=== PATIENT | female | born 1950 | race Hispanic/Latino ===

== ENCOUNTER 2017-04-07 22:28 | Inpatient (IN) | payer MEDICARE, MEDICAID ==
[2017-04-07 22:29] VITALS: BMI 43.8
[2017-04-07] MEDS ORDERED: Sodium Chloride 0.9% 1,000 ML IV ONE ×2 (22:48)
[2017-04-07 23:07] LABS: VENOUS BLOOD GAS BASE EXCESS -1.8 mmol/L (0.0-2.0); VENOUS BLOOD GAS PCO2 65 mmHg (40-60); VENOUS BLOOD GAS PO2 33 mm/Hg (30-55); VENOUS BLOOD PH 7.23 (7.32-7.43)
[2017-04-07 23:17] LABS: INR 1.2; PROTHROMBIN TIME 13.4 SECONDS (9.7-12.2)
[2017-04-07 23:18] LABS: ALBUMIN 3.6 g/dL (3.5-5.0)
[2017-04-07 23:37] LABS: BASO # 0.1 K/uL (0.0-0.2); BASO % 0.4 % (0.0-2.0); EOS % 0.1 % (0.0-4.0); HEMOGLOBIN 14.7 g/dL (11.0-16.0); LYMPH # 1.9 K/uL (1.0-4.3); LYMPH % 7.3 % (20.0-40.0); MEAN CORPUSCULAR HEMOGLOBIN 30.5 pg (27.0-31.0); MEAN CORPUSCULAR HGB CONC 30.4 g/dL (33.0-37.0); MEAN PLATELET VOLUME 12.1 fL (7.2-11.7); MONO # 0.6 K/uL (0.0-0.8); MONO % 2.3 % (0.0-10.0); NEUT # 23.2 K/uL (1.8-7.0); NEUT % 89.9 % (50.0-75.0); NRBC % 0.1 % (0.0-2.0); PLATELET COUNT 218 K/uL (130-400); RBC 4.82 Mil/uL (3.80-5.20); RED CELL DISTRIBUTION WIDTH 14.8 % (11.5-14.5)
--- NOTE | 2017-04-07 23:40 | C.PDOC ---
History Of Present Illness Patient sent from long term with respiratory congestion, fever, hypotension and tachycardia. Patient has past history of CVA,DM,aphasia, PEG, HTN,PVD,COPD, Seizure disorder. She is not responsive at this time. She is a full DNR Time Seen by Provider: 04/07/17 22:34 Chief Complaint (Nursing): Respiratory Distress History Per: Other ([facility] record) History/Exam Limitations: clinical condition Onset/Duration Of Symptoms: Days Initiating Event: Upper Respiratory Illness Past Medical History Vital Signs: Last Vital Signs Temp 105 F H 04/07/17 22:44 Pulse 160 H 04/07/17 23:00 Resp 46 H 04/07/17 23:00 BP 115/54 L 04/07/17 23:00 Pulse Ox 100 04/07/17 23:00 - Medical History PMH: Anemia, Anxiety, COPD, CVA, Diabetes, HTN, Osteoporosis, Pneumonia, Chronic Kidney Disease, Seizures Other Surgeries: PEG - [facility] Procedures ENTERAL INFUSION OF CONCENTRATED NUT. SUBSTANCES (03/01/13) REPLACE GASTROSTOMY TUBE (07/23/13) Family History: States: Unknown Family Hx - Social History Hx Tobacco Use: No Hx Alcohol Use: No Hx Substance Use: No - Immunization History Hx Tetanus Toxoid Vaccination: No (no record) Hx Influenza Vaccination: No (no record) Hx Pneumococcal Vaccination: No (no record) Review Of Systems Review Of Systems: ROS cannot be obtained secondary to pt's inabilty to answer questions. Physical Exam - Physical Exam Appears: In Acute Distress, Chronically Ill Skin: Pale Oral Mucosa: Dry Chest: Symmetrical Cardiovascular: Rhythm Regular (tachycardic) Respiratory: Rhonchi (diffusely) Gastrointestinal/Abdominal: Bowel Sounds, Soft Extremity: Bilateral: Atraumatic, Unable To Bear Weight (bilateral foot drop) Neurological/Psych: No Response To Commands Pain Response: No Response To Pain Gait: Other (nonambulatory) ED Course And Treatment - Laboratory Results Result Diagrams: 04/07/17 23:07 Lab Interpretation: Abnormal Interpretation Of Abnormal: Na+163, glucose 700, Lactate >4, BUN 85, Cr 1.7, WBC 25 ECG: Interpreted By Mi ECG Rhythm: Sinus Tachycardia O2 Sat by Pulse Oximetry: 100 (on 100% NRB) Pulse Ox Interpretation: Normal - Radiology CXR: Interpreted by Me CXR Interpretation: Yes: Infiltrates (RML, RLL), Cardiomegaly Progress Note: Code Sepsis called and patient was treated with Normal saline 3 liters, IV amikacin and Zyvox started in ED after discussion with Dr Bradley. Reevaluation Time: 23:48 Reassessment Condition: Improved (Heart rate decreased and BP increased with IV fluids. Temp decreased to 102.9. Patient appears more responsive.) - Physician Consult Information Physician Contacted: Jocelyn Calloway Outcome Of Conversation: Patient to be admitted to Tele for sepsis. Case discussed with Dr Scott who does not feel that ICU is appropriate in the case. Disposition - Disposition Disposition: HOSPITALIZED Disposition Time: 23:49 Condition: CRITICAL - POA Present On Arrival: Poor Glycemic Control - Clinical Impression Clinical Impression: Sepsis, Hypotension
[2017-04-07 23:41] LABS: MEAN CELL VOLUME 100.1 fL (81.0-99.0); WHITE BLOOD COUNT 25.8 K/uL (4.8-10.8)
[2017-04-08 00:10] LABS: SQUAMOUS EPITHIAL 3 /hpf (0-5); URINE BACTERIA MANY (<OCC); WBC CLUMPS MANY /hpf
[2017-04-08 00:12] LABS: URINE CLARITY Turbid (Clear); URINE COLOR YELLOW (YELLOW)
[2017-04-08 00:19] LABS: URINE BILIRUBIN NEGATIVE (NEGATIVE); URINE GLUCOSE (UA) 500 mg/dL (Normal)
[2017-04-08 00:20] LABS: URINE BLOOD LARGE (NEGATIVE); URINE LEUKOCYTE ESTERASE MODERATE Leu/uL (Negative); URINE NITRATE NEGATIVE (NEGATIVE); URINE PROTEIN 30 mg/dL (NEGATIVE); URINE UROBILINOGEN 0.2 mg/dL (0.2-1.0)
[2017-04-08 00:40] LABS: BANDS 4 % (0-2); LYMPHOCYTE 9 % (20-40); NEUTROPHIL 87 % (50-75); PLATELET ESTIMATE NORMAL (NORMAL); TOTAL CELLS COUNTED 100
[2017-04-08 00:41] LABS: ANISOCYTOSIS SLIGHT; MICROCYTOSIS SLIGHT; POIKILOCYTOSIS SLIGHT; TEARDROP CELLS SLIGHT
[2017-04-08] MEDS ORDERED: Lactated Ringer's 1,000 ML IV ONE ×2 (01:23→03:00)
[2017-04-08] MEDS ORDERED: Lactated Ringer's 1,000 ML ONE (01:33)
[2017-04-08] MEDS ORDERED: (Novolin R) Insulin Human Regular 100 units/ml vial IV ONE ×2 (01:37→10:11)
[2017-04-08] MEDS ORDERED: (Novolin R) Insulin Human Regular 100 units/ml vial ONE (01:42)
--- NOTE | 2017-04-08 03:05 | CT ---
EXAM: CT Head Without Intravenous Contrast CLINICAL HISTORY: 66 years old, female; Signs and symptoms; Other: Seizure; Additional info: Sepsis, seizure, unresponsive TECHNIQUE: Axial computed tomography images of the head/brain without intravenous contrast. This CT exam was performed using one or more of the following dose reduction techniques: automated exposure control, adjustment of the mA and/or kV according to patient size, and/or use of iterative reconstruction technique. Coronal and sagittal reformatted images were created and reviewed. EXAM DATE/TIME: 04/08/2017 1:16 AM COMPARISON: No relevant prior studies available. FINDINGS: There are multiple left-sided craniotomy defects. There is a large chronic-appearing extra-axial CSF collection in the left frontal parietal regions. Encephalomalacia is present in the left frontoparietal lobes. There is dilation of the ventricles with an area of focal dilation in the frontal left lateral ventricle. No acute edema. No intracranial hemorrhage. Minimal mucosal thickening left ethmoid sinus. IMPRESSION: Left-sided chronic appearing changes as described above including craniotomy defects, extra-axial CSF collection, encephalomalacia.
[2017-04-08 03:18] LABS: EOS % 0.1 % (0.0-4.0); HEMOGLOBIN 13.5 g/dL (11.0-16.0); MEAN CORPUSCULAR HGB CONC 29.3 g/dL (33.0-37.0); RBC 4.54 Mil/uL (3.80-5.20)
[2017-04-08 03:26] LABS: ABG ALLEN TEST POS; ARTERIAL BLOOD GAS HCO3 18.6 mmol/L (21-28); ARTERIAL BLOOD GAS O2 SAT 99.3 % (95-98); ARTERIAL BLOOD GAS PCO2 48 mm/Hg (35-45); ARTERIAL BLOOD GAS PH 7.22 (7.35-7.45); ARTERIAL BLOOD GAS PO2 134 mm/Hg (80-100); ARTERIAL BLOOD GAS TCO2 21.1 mmol/L (22-28)
--- NOTE | 2017-04-08 03:36 | CT ---
EXAM: CT Abdomen and Pelvis Without Intravenous Contrast CLINICAL HISTORY: 66 years old, female; Condition or disease; Other: Sepsis TECHNIQUE: Axial computed tomography images of the abdomen and pelvis without intravenous contrast. This CT exam was performed using one or more of the following dose reduction techniques: automated exposure control, adjustment of the mA and/or kV according to patient size, and/or use of iterative reconstruction technique. Coronal and sagittal reformatted images were created and reviewed. COMPARISON: No relevant prior studies available. FINDINGS: Elevated right hemidiaphragm. Cholecystectomy clips are present. The liver, spleen, and pancreas appear grossly normal on this non-contrast study. There is a large staghorn calculi in the renal pelvis and proximal right ureter. Minimal dilation of the collecting system. There is mild bilateral perinephric stranding. Tiny nonobstructing left renal calcifications are noted. Haji catheter. Multiple calcifications are present in the urinary bladder.The wall of the urinary bladder appears thickened and indistinct possibly representing cystitis. Recommend correlation with urinalysis. Right tubal ligation clip. Bulky hyperattenuating structure along the left aspect of the uterus calcification versus postsurgical. The right and transverse colon are distended with stool consistent with constipation. Hyperattenuating objects in the cecum of uncertain etiology possible calcifications. A normal appendix is identified axial series 6 images 135 through 145, coronal images 46 through 53. Focal area of sclerosis are noted within the osseous structures. IMPRESSION: Constipation. Possible cystitis as discussed above. Calcifications within the right renal pelvis, urinary bladder, cecum. EXAM: CT Chest Without Intravenous Contrast CLINICAL HISTORY: 66 years old, female; Condition or disease; Other: Sepsis TECHNIQUE: Axial computed tomography images of the chest without intravenous contrast. This CT exam was performed using one or more of the following dose reduction techniques: automated exposure control, adjustment of the mA and/or kV according to patient size, and/or use of iterative reconstruction technique. Coronal and sagittal reformatted images were created and reviewed. EXAM DATE/TIME: 04/08/2017 1:16 AM COMPARISON: No relevant prior studies available. FINDINGS: There is consolidation occupying the majority of the right lower lung. There is a small amount of adjacent right lower lung infiltrate and a small amount of pleural fluid. Lack of intravenous contrast is somewhat limiting. Moderate-sized area infiltrated and consolidation in the left lower lung. Faint nodular 4 mm opacity left upper lung. No aortic aneurysm. IMPRESSION: Bilateral lower lung consolidation and infiltrate greater on the right. Probable small right pleural fluid.
[2017-04-08 03:59] LABS: BASO # 0.1 K/uL (0.0-0.2); BASO % 0.5 % (0.0-2.0); LYMPH # 1.8 K/uL (1.0-4.3); LYMPH % 11.2 % (20.0-40.0); MEAN CELL VOLUME 101.6 fL (81.0-99.0); MEAN CORPUSCULAR HEMOGLOBIN 29.7 pg (27.0-31.0); MEAN PLATELET VOLUME 11.6 fL (7.2-11.7); MONO % 6.7 % (0.0-10.0); NEUT # 12.8 K/uL (1.8-7.0); NEUT % 81.5 % (50.0-75.0); NRBC % 0.2 % (0.0-2.0); RED CELL DISTRIBUTION WIDTH 15.4 % (11.5-14.5); WHITE BLOOD COUNT 15.7 K/uL (4.8-10.8)
[2017-04-08] MEDS ORDERED: Insulin Human Regular 100 UNIT in Sodium Chloride 0.9% 99 ML IV SCH ×2 (04:00→10:51)
[2017-04-08 04:42] LABS: ALBUMIN 2.7 g/dL (3.5-5.0)
[2017-04-08 04:46] LABS: ALB/GLOB RATIO 0.9 (1.0-2.1); CALCIUM 7.4 mg/dl (8.6-10.4)
[2017-04-08 04:47] LABS: MAGNESIUM 2.2 mg/dL (1.6-2.3)
--- NOTE | 2017-04-08 05:56 | CP.PCM.CON ---
History of Present Illness - History of Present Illness History of Present Illness: 66 F from who had been about 2 days in the NH, h/o CVA, carniotomy on left, IDDM , s/p peg, currently has grewal, history of seizure disorder, DNR/DNI, multiple allergies as documented above was sent in for reduced responsiveness, tachypnea , tachycardia in 150's. In ER patient was febrile 105F, RR in 60s, hr initially in 160's, responsive to deep pain only, gurgling resp noises, bp in 70's systolic, patient seen after 3 lit of boluses. RR in 40's, hr in 90's BP 90/50 range. Patient was suctioned orophynx, ng used to decompress stomach as grewal in peg site was blocked, went into airway and actually able to suction airway. Initial labs showed sodium 163, creat 1.7, needing nrb 100%, glucose 747mg/dl, elevated wbc count. , insulin 5 units regular ordered by me, further lit rl bolus ordered, friedman CT ordered, repeat stat labs, fsbs as well. Patients DNR status confirmed from the PMD and [facility] orders, patient's later called in ER and was informed about condition by ER staff. Friedman CT revealed left craniotomy with encephalomalacia on the left, b/l infiltrate but right much bigger consolidation, staghorn calculus in right kidney. Repeat labs noted. Abx amikacin and zyvox stated by ID. PMH as above, at baseline patient is alert and not in distress Surg s/p craniotomy, s/p peg currently has grewal Meds reviewed from [facility] Family history not available Social history NH Resident, DNR/DNI, rest details not available Review of Systems - Review of Systems All systems: reviewed and no additional remarkable complaints except (HPI) Past Patient History - Past Medical History & Family History Past Medical History?: Yes - Past Social History Smoking Status: unresponsi Alcohol: None Drugs: Denies Home Situation {Lives}: Jail Domestic Violence: Negative - CARDIAC Hx Cardiac Disorders: Yes Hx Hypertension: Yes - PULMONARY Hx Respiratory Disorders: Yes Hx Chronic Obstructive Pulmonary Disease (COPD): Yes Hx Pneumonia: Yes - NEUROLOGICAL Hx Neurological Disorder: Yes Hx Seizures: Yes - HEENT Hx HEENT Problems: Yes Hx Cataracts: Yes Other/Comment: APHASIA - RENAL Hx Chronic Kidney Disease: Yes - ENDOCRINE/METABOLIC Hx Endocrine Disorders: Yes Hx Diabetes Mellitus Type 2: Yes - HEMATOLOGICAL/ONCOLOGICAL Hx Anemia: Yes - INTEGUMENTARY Hx Dermatological Problems: No - MUSCULOSKELETAL/RHEUMATOLOGICAL Hx Falls: No (unknown) - GASTROINTESTINAL Hx Gastrointestinal Disorders: Yes Hx Gastroesophageal Reflux: Yes - GENITOURINARY/GYNECOLOGICAL Hx Genitourinary Disorders: No - PSYCHIATRIC Hx Substance Use: No (unresponsive) - SURGICAL HISTORY Hx Surgeries: Yes Other/Comment: GASTROSTOMY - ANESTHESIA Hx Anesthesia: Yes Hx Anesthesia Reactions: No Hx Malignant Hyperthermia: No Meds Allergies/Adverse Reactions: Allergies Allergy/AdvReac Type Severity Reaction Status Date / Time aztreonam [From Azactam] Allergy Verified 10/20/16 21:32 cefepime Allergy Verified 10/20/16 21:28 moxifloxacin Allergy Verified 10/20/16 21:29 Penicillins Allergy Verified 10/20/16 21:29 tamsulosin HCl [From Flomax] Allergy Verified 10/20/16 21:30 tigecycline [From Tygacil] Allergy Verified 10/20/16 21:31 vancomycin Allergy Verified 10/20/16 21:32 pnemonia vaccine Allergy Uncoded 10/20/16 21:30 - Medications Medications: Current Medications Famotidine (Pepcid) 20 mg IVP DAILY [facility] Heparin Sodium (Porcine) (Heparin) 5,000 units SC Q8 [facility] Linezolid (Zyvox 600mg/300ml D5w) 600 mg in 300 mls @ 200 mls/hr IVPB Q12H [facility] Last Admin: 04/08/17 00:00 Dose: 200 mls/hr Insulin Human Regular 100 unit (/ Sodium Chloride) 100 mls @ 2 mls/hr IV .Q24H [facility] PRN Reason: Protocol Last Admin: 04/08/17 04:40 Dose: 8 units/hr, 8 mls/hr Sodium Chloride (Sodium Chloride 0.45%) 1,000 mls @ 150 mls/hr IV .Q6H40M [facility] Physical Exam - Additional Findings Additional findings: * Patient exhausted, tachypnic responded on deep pain and suction, repeat temp 102F * HEENT significant dental and gum disease * Neck supple * CVS regular, no murmur or gallop * Chest some improvement in ratling noise after suction with the NG tube * PA soft distended, peg/grewal no t working * Ext flacid b/l no edema, poor pulses, no acute signs of ischemia * [employer] limited due to reduced responsiveness. * Skin dry after 3 lit boluses Results - Vital Signs Recent Vital Signs: Last Vital Signs Temp 101.7 F H 04/08/17 02:41 Pulse 110 H 04/08/17 02:41 Resp 33 H 04/08/17 03:00 BP 94/90 L 04/08/17 02:41 Pulse Ox 100 04/08/17 03:00 - Labs Result Diagrams: 04/08/17 03:12 04/08/17 03:50 Labs: Laboratory Results - last 24 hr 04/08/17 04/08/17 04/08/17 01:36 03:10 03:12 WBC 15.7 H RBC 4.54 Hgb 13.5 Hct 46.1 MCV 101.6 H MCH 29.7 MCHC 29.3 L RDW 15.4 H Plt Count 93 L D MPV 11.6 Neut % (Auto) 81.5 H Lymph % (Auto) 11.2 L Ward % (Auto) 6.7 Eos % (Auto) 0.1 Baso % (Auto) 0.5 Neut # 12.8 H Lymph # 1.8 Ward # 1.0 H Eos # 0.0 Baso # 0.1 Differential Comment Puncture Site Rradial pCO2 48 H pO2 134 H HCO3 18.6 L ABG pH 7.22 L ABG Total CO2 21.1 L ABG O2 Saturation 99.3 H ABG Base Excess -8.2 L Steffen Test Pos ABG Potassium 3.8 A-a O2 Difference 502.0 Respiratory Index 3.4 Sodium 162.0 H* Chloride 128.0 H Glucose 603 H* Lactate 3.4 H Liter Flow 15.0 FiO2 100.0 Crit Value Called To Dr. ying Crit Value Called By Chetna pagan rcp Crit Value Read Back Y Blood Gas Notified Time 325 Potassium Carbon Dioxide Anion Gap BUN Creatinine Est GFR ( Amer) Est GFR (Non-Af Amer) POC Glucose (mg/dL) > 500 H* Random Glucose Calcium Phosphorus Magnesium Total Bilirubin AST ALT Alkaline Phosphatase Total Protein Albumin Globulin Albumin/Globulin Ratio Arterial Blood Potassium 3.8 07/03/17 07/03/17 03:19 03:50 WBC RBC Hgb Hct MCV MCH MCHC RDW Plt Count MPV Neut % (Auto) Lymph % (Auto) Ward % (Auto) Eos % (Auto) Baso % (Auto) Neut # Lymph # Ward # Eos # Baso # Differential Comment Puncture Site pCO2 pO2 HCO3 ABG pH ABG Total CO2 ABG O2 Saturation ABG Base Excess Steffen Test ABG Potassium A-a O2 Difference Respiratory Index Sodium 161 H* Chloride 126 H Glucose Lactate Liter Flow FiO2 Crit Value Called To Crit Value Called By Crit Value Read Back Blood Gas Notified Time Potassium 3.8 Carbon Dioxide 21 L Anion Gap 18 BUN 70 H Creatinine 1.3 H Est GFR ( Amer) 49 Est GFR (Non-Af Amer) 41 POC Glucose (mg/dL) 461 H* Random Glucose 588 H* D Calcium 7.4 L Phosphorus 3.0 Magnesium 2.2 Total Bilirubin 0.6 AST 18 ALT 48 Alkaline Phosphatase 59 Total Protein 5.7 L Albumin 2.7 L D Globulin 3.0 Albumin/Globulin Ratio 0.9 L Arterial Blood Potassium Assessment & Plan - Assessment and Plan (Free Text) Assessment: * Sepsis sources PNA r>l, DD staghorn right kid calulus, bacterimia, secondary aspiration post seizure * HNKH with serum osm 398, with hypernatremia, hyperglycemia * DNR/DNI with completed dependence from prior strokes, left encephalomacia, craniotomy, s/p grewal for peg * Plan: * Fluid resuscitation * NRB, avoid bipap due to aspiration * NPO * Abx broad spectrum ordered by ID, Amikacin and zyvox * Insulin drip started * Hypotonic fluid for severe hypernatremia after initial fluid resuscitation * GI/DVT prophylaxis * DNR/DNI * See orders for detail.
[2017-04-08] MEDS: Sodium Chloride 0.45% 1,000 ML IV SCH ×4 (06:15→22:21)
--- NOTE | 2017-04-08 07:18 | CP.PCM.PN ---
Objective - Vital Signs/Intake and Output Vital Signs (last 24 hours): Temp Pulse Resp BP Pulse Ox 102 F H 88 20 101/50 L 99 04/08/17 03:00 04/08/17 07:13 04/08/17 07:13 04/08/17 07:13 04/08/17 07:13 Intake and Output: 04/08/17 04/08/17 06:59 18:59 Intake Total 4600 Output Total 300 Balance 4300 - Medications Medications: Current Medications Famotidine (Pepcid) 20 mg IVP DAILY [facility] Heparin Sodium (Porcine) (Heparin) 5,000 units SC Q8 [facility] Last Admin: 04/08/17 06:10 Dose: 5,000 units Linezolid (Zyvox 600mg/300ml D5w) 600 mg in 300 mls @ 200 mls/hr IVPB Q12H [facility] Last Admin: 04/08/17 00:00 Dose: 200 mls/hr Insulin Human Regular 100 unit (/ Sodium Chloride) 100 mls @ 2 mls/hr IV .Q24H [facility] PRN Reason: Protocol Last Admin: 04/08/17 04:40 Dose: 8 units/hr, 8 mls/hr Sodium Chloride (Sodium Chloride 0.45%) 1,000 mls @ 150 mls/hr IV .Q6H40M [facility] Last Admin: 04/08/17 06:15 Dose: 150 mls/hr - Labs Labs: 04/08/17 03:12 04/08/17 03:50 PT 13.4 SECONDS (9.7-12.2) H 04/07/17 23:07 INR 1.2 04/07/17 23:07 APTT 47 SECONDS (21-34) H 04/07/17 23:07
--- NOTE | 2017-04-08 07:22 | CP.CCUPN ---
<Sarah Barrow - Last Filed: 04/08/17 12:06> CCU Subjective - Physician Review Subjective (Free Text): 04/08/17 12:06 Patient examined at bedside in the AM. Per patient's altered mental status which is unresponsive could not subjectively access. 04/08/17 12:34 CCU Objective - Vital Signs / Intake & Output Vital Signs (Last 4 hours): Vital Signs Pulse Resp BP Pulse Ox 04/08/17 07:13 88 20 101/50 L 99 04/08/17 07:10 88 30 H 99 04/08/17 07:00 88 32 H 98 04/08/17 06:50 88 30 H 99 04/08/17 06:45 98 H 30 H 98 Intake and Output (Last 8hrs): Intake & Output 04/07/17 04/08/17 04/08/17 22:59 06:59 14:59 Intake Total 4600 Output Total 300 Balance 4300 Intake: IV 4500 Intake, IV Amount 100 Right Wrist 100 Output: Urine 300 Urethral (Grewal) 200 Stool 0 Other: Voiding Method Indwelling Catheter - Physical Exam Physical Exam Limitations: Positive for: Altered Mental Status Head: Positive for: Normocephalic Cardiovascular: Positive for: Regular Rate and Rhythm, Normal S1, S2 Abdomen: Positive for: Distention, Normal Bowel Sounds Skin: Positive for: Warm Psychiatric: Negative for: Alert, Oriented x 3 - Medications Active Medications: Active Medications Generic Name Dose Route Start Last Admin Trade Name Freq PRN Reason Stop Dose Admin Famotidine 20 mg 04/08/17 10:00 Pepcid IVP DAILY SALINA Heparin Sodium (Porcine) 5,000 units 04/08/17 06:00 04/08/17 06:10 Heparin SC 5,000 units Q8 SALINA Administration Linezolid 600 mg in 300 mls @ 200 mls/hr 04/08/17 00:00 04/08/17 00:00 Zyvox 600mg/300ml D5w IVPB 200 mls/hr Q12H SALINA Administration Insulin Human Regular 100 unit 100 mls @ 2 mls/hr 04/08/17 04:00 04/08/17 04: 40 / Sodium Chloride IV 8 units/hr .Q24H SALINA 8 mls/hr Protocol Administration Sodium Chloride 1,000 mls @ 150 mls/hr 04/08/17 05:30 04/08/17 06:15 Sodium Chloride 0.45% IV 150 mls/hr .Q6H40M SALINA Administration - Patient Studies Lab Studies: Lab Studies 04/08/17 04/08/17 04/08/17 Range/Units 06:49 06:01 03:50 WBC (4.8-10.8) K/uL RBC (3.80-5.20) Mil/uL Hgb (11.0-16.0) g/dL Hct (34.0-47.0) % MCV (81.0-99.0) fL MCH (27.0-31.0) pg MCHC (33.0-37.0) g/dL RDW (11.5-14.5) % Plt Count (130-400) K/uL MPV (7.2-11.7) fL Neut % (Auto) (50.0-75.0) % Lymph % (Auto) (20.0-40.0) % Brewster % (Auto) (0.0-10.0) % Eos % (Auto) (0.0-4.0) % Baso % (Auto) (0.0-2.0) % Neut # (1.8-7.0) K/uL Lymph # (1.0-4.3) K/uL Brewster # (0.0-0.8) K/uL Eos # (0.0-0.7) K/uL Baso # (0.0-0.2) K/uL Differential Comment Puncture Site pCO2 (35-45) mm/Hg pO2 (80-100) mm/Hg HCO3 (21-28) mmol/L ABG pH (7.35-7.45) ABG Total CO2 (22-28) mmol/L ABG O2 Saturation (95-98) % ABG Base Excess (-2.0-3.0) mmol/L Steffen Test ABG Potassium (3.6-5.2) mmol/L A-a O2 Difference mm/Hg Respiratory Index Sodium 161 H* (132-148) mmol/l Chloride 126 H (98-107) mmol/L Glucose (65-105) mg/dl Lactate (0.7-2.1) mmol/L Liter Flow FiO2 % Crit Value Called To Crit Value Called By Crit Value Read Back Blood Gas Notified Time Potassium 3.8 (3.6-5.2) mmol/L Carbon Dioxide 21 L (22-30) mmol/L Anion Gap 18 (10-20) BUN 70 H (7-17) mg/dL Creatinine 1.3 H (0.7-1.2) MG/DL Est GFR ( Amer) 49 Est GFR (Non-Af Amer) 41 POC Glucose (mg/dL) > 500 H* 471 H* (65-110) mg/dL Random Glucose 588 H* D (65-105) mg/dL Calcium 7.4 L (8.6-10.4) mg/dl Phosphorus 3.0 (2.5-4.5) mg/dL Magnesium 2.2 (1.6-2.3) mg/dL Total Bilirubin 0.6 (0.2-1.3) mg/dL AST 18 (14-36) U/L ALT 48 (9-52) U/L Alkaline Phosphatase 59 (38-126) U/L Total Protein 5.7 L (6.3-8.3) g/dL Albumin 2.7 L D (3.5-5.0) g/dL Globulin 3.0 (2.2-3.9) gm/dL Albumin/Globulin Ratio 0.9 L (1.0-2.1) Arterial Blood Potassium (3.6-5.2) mmol/L 04/08/17 04/08/17 04/08/17 Range/Units 03:19 03:12 03:10 WBC 15.7 H (4.8-10.8) K/uL RBC 4.54 (3.80-5.20) Mil/uL Hgb 13.5 (11.0-16.0) g/dL Hct 46.1 (34.0-47.0) % MCV 101.6 H (81.0-99.0) fL MCH 29.7 (27.0-31.0) pg MCHC 29.3 L (33.0-37.0) g/dL RDW 15.4 H (11.5-14.5) % Plt Count 93 L D (130-400) K/uL MPV 11.6 (7.2-11.7) fL Neut % (Auto) 81.5 H (50.0-75.0) % Lymph % (Auto) 11.2 L (20.0-40.0) % Brewster % (Auto) 6.7 (0.0-10.0) % Eos % (Auto) 0.1 (0.0-4.0) % Baso % (Auto) 0.5 (0.0-2.0) % Neut # 12.8 H (1.8-7.0) K/uL Lymph # 1.8 (1.0-4.3) K/uL Brewster # 1.0 H (0.0-0.8) K/uL Eos # 0.0 (0.0-0.7) K/uL Baso # 0.1 (0.0-0.2) K/uL Differential Comment Puncture Site Rradial pCO2 48 H (35-45) mm/Hg pO2 134 H (80-100) mm/Hg HCO3 18.6 L (21-28) mmol/L ABG pH 7.22 L (7.35-7.45) ABG Total CO2 21.1 L (22-28) mmol/L ABG O2 Saturation 99.3 H (95-98) % ABG Base Excess -8.2 L (-2.0-3.0) mmol/L Steffen Test Pos ABG Potassium 3.8 (3.6-5.2) mmol/L A-a O2 Difference 502.0 mm/Hg Respiratory Index 3.4 Sodium 162.0 H* (132-148) mmol/l Chloride 128.0 H (98-107) mmol/L Glucose 603 H* (65-105) mg/dl Lactate 3.4 H (0.7-2.1) mmol/L Liter Flow 15.0 FiO2 100.0 % Crit Value Called To Dr. ying Crit Value Called By Chetna pagan rcp Crit Value Read Back Y Blood Gas Notified Time 325 Potassium (3.6-5.2) mmol/L Carbon Dioxide (22-30) mmol/L Anion Gap (10-20) BUN (7-17) mg/dL Creatinine (0.7-1.2) MG/DL Est GFR ( Amer) Est GFR (Non-Af Amer) POC Glucose (mg/dL) 461 H* (65-110) mg/dL Random Glucose (65-105) mg/dL Calcium (8.6-10.4) mg/dl Phosphorus (2.5-4.5) mg/dL Magnesium (1.6-2.3) mg/dL Total Bilirubin (0.2-1.3) mg/dL AST (14-36) U/L ALT (9-52) U/L Alkaline Phosphatase (38-126) U/L Total Protein (6.3-8.3) g/dL Albumin (3.5-5.0) g/dL Globulin (2.2-3.9) gm/dL Albumin/Globulin Ratio (1.0-2.1) Arterial Blood Potassium 3.8 (3.6-5.2) mmol/L 04/08/17 Range/Units 01:36 WBC (4.8-10.8) K/uL RBC (3.80-5.20) Mil/uL Hgb (11.0-16.0) g/dL Hct (34.0-47.0) % MCV (81.0-99.0) fL MCH (27.0-31.0) pg MCHC (33.0-37.0) g/dL RDW (11.5-14.5) % Plt Count (130-400) K/uL MPV (7.2-11.7) fL Neut % (Auto) (50.0-75.0) % Lymph % (Auto) (20.0-40.0) % Brewster % (Auto) (0.0-10.0) % Eos % (Auto) (0.0-4.0) % Baso % (Auto) (0.0-2.0) % Neut # (1.8-7.0) K/uL Lymph # (1.0-4.3) K/uL Brewster # (0.0-0.8) K/uL Eos # (0.0-0.7) K/uL Baso # (0.0-0.2) K/uL Differential Comment Puncture Site pCO2 (35-45) mm/Hg pO2 (80-100) mm/Hg HCO3 (21-28) mmol/L ABG pH (7.35-7.45) ABG Total CO2 (22-28) mmol/L ABG O2 Saturation (95-98) % ABG Base Excess (-2.0-3.0) mmol/L Steffen Test ABG Potassium (3.6-5.2) mmol/L A-a O2 Difference mm/Hg Respiratory Index Sodium (132-148) mmol/l Chloride (98-107) mmol/L Glucose (65-105) mg/dl Lactate (0.7-2.1) mmol/L Liter Flow FiO2 % Crit Value Called To Crit Value Called By Crit Value Read Back Blood Gas Notified Time Potassium (3.6-5.2) mmol/L Carbon Dioxide (22-30) mmol/L Anion Gap (10-20) BUN (7-17) mg/dL Creatinine (0.7-1.2) MG/DL Est GFR ( Amer) Est GFR (Non-Af Amer) POC Glucose (mg/dL) > 500 H* (65-110) mg/dL Random Glucose (65-105) mg/dL Calcium (8.6-10.4) mg/dl Phosphorus (2.5-4.5) mg/dL Magnesium (1.6-2.3) mg/dL Total Bilirubin (0.2-1.3) mg/dL AST (14-36) U/L ALT (9-52) U/L Alkaline Phosphatase (38-126) U/L Total Protein (6.3-8.3) g/dL Albumin (3.5-5.0) g/dL Globulin (2.2-3.9) gm/dL Albumin/Globulin Ratio (1.0-2.1) Arterial Blood Potassium (3.6-5.2) mmol/L Laboratory Results - last 24 hr 04/08/17 04/08/17 04/08/17 01:36 03:10 03:12 WBC 15.7 H RBC 4.54 Hgb 13.5 Hct 46.1 MCV 101.6 H MCH 29.7 MCHC 29.3 L RDW 15.4 H Plt Count 93 L D MPV 11.6 Neut % (Auto) 81.5 H Lymph % (Auto) 11.2 L Brewster % (Auto) 6.7 Eos % (Auto) 0.1 Baso % (Auto) 0.5 Neut # 12.8 H Lymph # 1.8 Brewster # 1.0 H Eos # 0.0 Baso # 0.1 Differential Comment Puncture Site Rradial pCO2 48 H pO2 134 H HCO3 18.6 L ABG pH 7.22 L ABG Total CO2 21.1 L ABG O2 Saturation 99.3 H ABG Base Excess -8.2 L Steffen Test Pos ABG Potassium 3.8 A-a O2 Difference 502.0 Respiratory Index 3.4 Sodium 162.0 H* Chloride 128.0 H Glucose 603 H* Lactate 3.4 H Liter Flow 15.0 FiO2 100.0 Crit Value Called To Dr. ying Crit Value Called By Chetna pagan rcp Crit Value Read Back Y Blood Gas Notified Time 325 Potassium Carbon Dioxide Anion Gap BUN Creatinine Est GFR ( Amer) Est GFR (Non-Af Amer) POC Glucose (mg/dL) > 500 H* Random Glucose Calcium Phosphorus Magnesium Total Bilirubin AST ALT Alkaline Phosphatase Total Protein Albumin Globulin Albumin/Globulin Ratio Arterial Blood Potassium 3.8 04/08/17 04/08/17 04/08/17 03:19 03:50 06:01 WBC RBC Hgb Hct MCV MCH MCHC RDW Plt Count MPV Neut % (Auto) Lymph % (Auto) Brewster % (Auto) Eos % (Auto) Baso % (Auto) Neut # Lymph # Brewster # Eos # Baso # Differential Comment Puncture Site pCO2 pO2 HCO3 ABG pH ABG Total CO2 ABG O2 Saturation ABG Base Excess Steffen Test ABG Potassium A-a O2 Difference Respiratory Index Sodium 161 H* Chloride 126 H Glucose Lactate Liter Flow FiO2 Crit Value Called To Crit Value Called By Crit Value Read Back Blood Gas Notified Time Potassium 3.8 Carbon Dioxide 21 L Anion Gap 18 BUN 70 H Creatinine 1.3 H Est GFR ( Amer) 49 Est GFR (Non-Af Amer) 41 POC Glucose (mg/dL) 461 H* 471 H* Random Glucose 588 H* D Calcium 7.4 L Phosphorus 3.0 Magnesium 2.2 Total Bilirubin 0.6 AST 18 ALT 48 Alkaline Phosphatase 59 Total Protein 5.7 L Albumin 2.7 L D Globulin 3.0 Albumin/Globulin Ratio 0.9 L Arterial Blood Potassium 04/08/17 06:49 WBC RBC Hgb Hct MCV MCH MCHC RDW Plt Count MPV Neut % (Auto) Lymph % (Auto) Brewster % (Auto) Eos % (Auto) Baso % (Auto) Neut # Lymph # Brewster # Eos # Baso # Differential Comment Puncture Site pCO2 pO2 HCO3 ABG pH ABG Total CO2 ABG O2 Saturation ABG Base Excess Steffen Test ABG Potassium A-a O2 Difference Respiratory Index Sodium Chloride Glucose Lactate Liter Flow FiO2 Crit Value Called To Crit Value Called By Crit Value Read Back Blood Gas Notified Time Potassium Carbon Dioxide Anion Gap BUN Creatinine Est GFR ( Amer) Est GFR (Non-Af Amer) POC Glucose (mg/dL) > 500 H* Random Glucose Calcium Phosphorus Magnesium Total Bilirubin AST ALT Alkaline Phosphatase Total Protein Albumin Globulin Albumin/Globulin Ratio Arterial Blood Potassium EKG/Cardiology Studies: Cardiology / EKG Studies 04/08/17 00:08 EKG [ELECTROCARDIOGRAM] Stat Comment: Mode Of Transportation: BED Reason For Exam: bed 6 Fingerstick Blood Sugar Results: 461 Assessment/Plan - Assessment and Plan (Free Text) Assessment: 66 Female from who had been about 2 days in the [place], history of CVA, carniotomy on left, IDDM, s/p peg, currently has grewal, history of seizure disorder, DNR/ DNI, multiple allergies as documented above was sent in for reduced responsiveness, tachypnea, tachycardia in 150's. Plan: Neuro: - Unresponsive - Head CT 04/08/17: Left sided chronic appearing changes as described above including craniotomy defects, extra-axial CSF collection, encephalomalacia. Pulm: Chest X-ray 04/07/17: Elevated right hemidiaphragm. Patchy consolidative markings at the right lung base. Right hilar prominence. Chest Abdomen/Pelvis CT 04/08/17: Bilateral lower lung consolidation and infiltrate greater on the right. Heme: H/H (04/08): 13.3/46.1 Renal: BUN/Cr (04/08/17): 70/1.3; BUN/Cr (04/07/17): 85/1.7 Endo: History of Diabetes - Insulin Glargine 20 units SC Q12 SALINA - Insulin Sliding Scale - Monitor GI: - Pepcid 20mg PO daily ID: - ID Consult: Dr. Bradley - Linezolid 600mg in 300mls at 200 mls/hr IVPB Q12 - Urine Analysis (04/07/17): many WBCs, many bacteria, moderate leukocyte esterase - f/u Amikacin - f/u blood culture - f/u urine culture - f/u MRSA Screen MSK: Right forearm fracture Wrist X-ray 04/05/17: Close reduction comminuted distal radial fracture and ulnar styloid process fracture. Maxillofacial without contrast 04/05/17: Significant right sided-facial soft tissue swelling. No definitive evidence of right-sided facial fractures seen. Minor mucosal thickening right maxillary antrum. The mandible appears intact. Ortho Consult Dr. Dumas DVT proph - SCDs, Heparin 5000u sc q12 GI proph - Pepcid 20mg PO daily PT/OT Speech Therapy Code status - DNR/DNI Case discussed with Dr. Sonia Barrow PGY-1 <Dwight Scott - Last Filed: 04/15/17 19:32> CCU Objective - Vital Signs / Intake & Output Vital Signs (Last 4 hours): Vital Signs Temp Pulse Resp BP Pulse Ox 04/15/17 16:33 99.9 F H 96 H 21 94/60 L 99 Intake and Output (Last 8hrs): Intake & Output 04/15/17 04/15/17 04/15/17 06:59 14:59 22:59 Intake Total 1200 Balance 1200 Intake: Intake, IV Amount 800 Right Antecubital 800 Tube Feeding 400 Other: # Bowel Movements 3 - Medications Active Medications: Active Medications Generic Name Dose Route Start Last Admin Trade Name Freq PRN Reason Stop Dose Admin Acetaminophen 650 mg 04/12/17 11:00 04/13/17 08:42 Tylenol 650mg/20.3ml Solution Ud PO 650 mg Q6 PRN Administration Temperature Famotidine 20 mg 04/09/17 10:00 04/15/17 10:40 Pepcid PO 20 mg DAILY SALINA Administration Metronidazole 500 mg in 100 mls @ 100 mls/hr 04/13/17 06:00 04/15/17 14:26 Flagyl IVPB 100 mls/hr Q8 SALINA Administration Trimethoprim/Sulfamethoxazole 250 mls @ 125 mls/hr 04/14/17 03:30 04/15/17 16 :30 240 mg/ Dextrose IVPB 125 mls/hr Q12H SALINA Administration Dextrose 1,000 mls @ 100 mls/hr 04/14/17 22:30 04/15/17 18:45 Dextrose 5% In Water 1000 Ml IV Not Given .Q10H SALINA Insulin Glargine 20 unit 04/08/17 10:15 04/15/17 10:40 Lantus SC 20 units Q12 SALINA Administration Insulin Human Regular 0 unit 04/11/17 16:30 04/15/17 18:43 Novolin R SC 8 unit ACHS SALINA Administration Protocol Mupirocin 0.5 gm 04/10/17 18:00 04/15/17 19:21 Bactroban 2% Nasal BHARATH 04/17/17 18:01 0.5 gm BID SALINA Administration Oxcarbazepine 450 mg 04/09/17 10:00 04/15/17 10:40 Trileptal PEG 450 mg DAILY SALINA Administration Potassium Chloride 20 meq 04/13/17 12:45 04/15/17 10:39 Potassium Chloride Oral Soln PO 04/16/17 12:46 20 meq DAILY SALINA Administration Topiramate 100 mg 04/08/17 18:00 04/15/17 19:04 Topamax PEG 100 mg BID SALINA Administration - Patient Studies Lab Studies: Microbiology Studies 04/11/17 06:00 Urine Culture - Final Urine,Catheterized Proteus Mirabilis Lab Studies 04/15/17 04/15/17 04/15/17 Range/Units 17:14 17:13 12:21 Sodium 147 (132-148) mmol/L Potassium 3.9 (3.6-5.2) mmol/L Chloride 115 H (98-107) mmol/L Carbon Dioxide 22 (22-30) mmol/L Anion Gap 14 (10-20) BUN 52 H (7-17) mg/dL Creatinine 1.2 (0.7-1.2) MG/DL Est GFR ( Amer) 54 Est GFR (Non-Af Amer) 45 POC Glucose (mg/dL) 352 H 300 H (65-110) mg/dL Random Glucose 395 H (65-105) mg/dL Calcium 7.4 L (8.6-10.4) mg/dl 04/15/17 04/14/17 04/14/17 Range/Units 06:33 22:16 20:35 Sodium 162 H* (132-148) mmol/L Potassium 3.2 L (3.6-5.2) mmol/L Chloride 121 H (98-107) mmol/L Carbon Dioxide 29 (22-30) mmol/L Anion Gap 15 (10-20) BUN 53 H (7-17) mg/dL Creatinine 1.3 H (0.7-1.2) MG/DL Est GFR ( Amer) 49 Est GFR (Non-Af Amer) 41 POC Glucose (mg/dL) 316 H 227 H (65-110) mg/dL Random Glucose 267 H (65-105) mg/dL Calcium 8.4 L (8.6-10.4) mg/dl Laboratory Results - last 24 hr 04/14/17 04/14/17 04/15/17 20:35 22:16 06:33 Sodium 162 H* Potassium 3.2 L Chloride 121 H Carbon Dioxide 29 Anion Gap 15 BUN 53 H Creatinine 1.3 H Est GFR ( Amer) 49 Est GFR (Non-Af Amer) 41 POC Glucose (mg/dL) 227 H 316 H Random Glucose 267 H Calcium 8.4 L 04/15/17 04/15/17 04/15/17 12:21 17:13 17:14 Sodium 147 Potassium 3.9 Chloride 115 H Carbon Dioxide 22 Anion Gap 14 BUN 52 H Creatinine 1.2 Est GFR ( Amer) 54 Est GFR (Non-Af Amer) 45 POC Glucose (mg/dL) 300 H 352 H Random Glucose 395 H Calcium 7.4 L Attending/Attestation - Attestation I have personally seen and examined this patient.: Yes I have fully participated in the care of the patient.: Yes I have reviewed all pertinent clinical information: Yes Notes (Text): 04/15/17 19:32 agree with above note during rounds in the am pt was examined and clinical decision was made and discussed with icu team
[2017-04-08] MEDS: (Lantus) Insulin Glargine, Recombinant SC SCH ×2 (10:17→22:19)
--- NOTE | 2017-04-08 10:21 | RAD ---
HISTORY: Sepsis Patient COMPARISON: 07/23/2013 FINDINGS: LUNGS: Elevated right hemidiaphragm. Patchy consolidative markings at the right lung base. Right hilar prominence. PLEURA: As above. CARDIOVASCULAR: Cardiomegaly. Calcification at the aortic knob. OSSEOUS STRUCTURES: Degenerative changes in the spine and shoulders. VISUALIZED UPPER ABDOMEN: Surgical clips in the right upper abdomen. OTHER FINDINGS: None. IMPRESSION: Elevated right hemidiaphragm. Patchy consolidative markings at the right lung base. Right hilar prominence.
[2017-04-08] MEDS: Linezolid 600 mg in D5W 300 ml 600 MG/300 ML BAG IVPB SCH ×2 (11:36)
--- NOTE | 2017-04-08 12:11 | CP.PCM.CON ---
History of Present Illness - History of Present Illness History of Present Illness: INFECTIOUS DISEASE CONSULT; HPI; 66 F from who had been about 2 days in the NH, h/o CVA, carniotomy on left, IDDM , s/p PEG, currently has grewal, history of seizure disorder, DNR/DNI, multiple allergies as documented above was sent in for reduced responsiveness, tachypnea , tachycardia in 150's. In ER patient was febrile 105F, RR in 60s, hr initially in 160's, responsive to deep pain only, gurgling resp noises, bp in 70's syst. Initial labs showed sodium 169, creat 1.7, needing nrb 100%, glucose 747mg/dl, elevated WBC 25.0,SERUM LACTATE OF 4.6. [place] CT revealed left craniotomy with encephalomalacia on the left, b/l infiltrate but right much bigger consolidation, staghorn calculus in right kidney. Repeat labs noted. HISTORY OBTAINED MAINLY FROM THE CHART PATIENT UNABLE TO BE AROUSED. DISCUSSED WITH THE ER PHYSICIAN,PATIENT WITH MULTIPLE ALLERGIES,PATIENT STARTED ON iv AMIKACIN 1 G ONCE AND zYVOX 400 MG EVERY 12 HOURLY . NOTED THIS MORNING, PATIENT WHITE COUNTIMPROVED TO 15.7 WITH SODIUM PRESENTLY OF 161.PATIENT NOT ON ANY VASOPRESSORS AND MINIMALLY RESPONSIVE TO VERBAL STIMULI. pATIENT PRESENTLY WITH A VENTIMASK. PMH as above, at baseline patient is alert and not in distress Surg s/p craniotomy, s/p peg currently has grewal Meds reviewed from [place] Family history not available Social history [place] Resident, DNR/DNI, rest details not available Review of Systems - Review of Systems Systems not reviewed;Unavailable: Altered Mental Status Review of Systems: ON VENTIMASK - Constitutional Constitutional: Fever Past Patient History - Past Medical History & Family History Past Medical History?: Yes - Past Social History Smoking Status: unresponsi Alcohol: None Drugs: Denies Home Situation {Lives}: Care Home Domestic Violence: Negative - CARDIAC Hx Cardiac Disorders: Yes Hx Hypertension: Yes - PULMONARY Hx Respiratory Disorders: Yes Hx Chronic Obstructive Pulmonary Disease (COPD): Yes Hx Pneumonia: Yes - NEUROLOGICAL Hx Neurological Disorder: Yes Hx Seizures: Yes - HEENT Hx HEENT Problems: Yes Hx Cataracts: Yes Other/Comment: APHASIA - RENAL Hx Chronic Kidney Disease: Yes - ENDOCRINE/METABOLIC Hx Endocrine Disorders: Yes Hx Diabetes Mellitus Type 2: Yes - HEMATOLOGICAL/ONCOLOGICAL Hx Anemia: Yes - INTEGUMENTARY Hx Dermatological Problems: No - MUSCULOSKELETAL/RHEUMATOLOGICAL Hx Falls: No (unknown) - GASTROINTESTINAL Hx Gastrointestinal Disorders: Yes Hx Gastroesophageal Reflux: Yes - GENITOURINARY/GYNECOLOGICAL Hx Genitourinary Disorders: No - PSYCHIATRIC Hx Substance Use: No (unresponsive) - SURGICAL HISTORY Hx Surgeries: Yes Other/Comment: GASTROSTOMY - ANESTHESIA Hx Anesthesia: Yes Hx Anesthesia Reactions: No Hx Malignant Hyperthermia: No Meds Allergies/Adverse Reactions: Allergies Allergy/AdvReac Type Severity Reaction Status Date / Time aztreonam [From Azactam] Allergy Verified 10/20/16 21:32 cefepime Allergy Verified 10/20/16 21:28 moxifloxacin Allergy Verified 10/20/16 21:29 Penicillins Allergy Verified 10/20/16 21:29 tamsulosin HCl [From Flomax] Allergy Verified 10/20/16 21:30 tigecycline [From Tygacil] Allergy Verified 10/20/16 21:31 vancomycin Allergy Verified 10/20/16 21:32 pnemonia vaccine Allergy Uncoded 10/20/16 21:30 - Medications Medications: Current Medications Famotidine (Pepcid) 20 mg IVP DAILY [facility] Last Admin: 04/08/17 09:48 Dose: 20 mg Heparin Sodium (Porcine) (Heparin) 5,000 units SC Q8 [facility] Last Admin: 04/08/17 06:10 Dose: 5,000 units Linezolid (Zyvox 600mg/300ml D5w) 600 mg in 300 mls @ 200 mls/hr IVPB Q12H [facility] Last Admin: 04/08/17 11:36 Dose: 200 mls/hr Sodium Chloride (Sodium Chloride 0.45%) 1,000 mls @ 150 mls/hr IV .Q6H40M [facility] Last Admin: 04/08/17 06:15 Dose: 150 mls/hr Insulin Human Regular 100 unit (/ Sodium Chloride) 100 mls @ 2 mls/hr IV .Q24H [facility] PRN Reason: Protocol Last Admin: 04/08/17 11:00 Dose: 2 mls/hr, 2 mls/hr Insulin Glargine (Lantus) 20 unit SC Q12 [facility] Last Admin: 04/08/17 10:17 Dose: 20 units Physical Exam - Constitutional Appears: No Acute Distress, Unkempt - Head Exam Head Exam: NORMAL INSPECTION - Eye Exam Eye Exam: PERRL - ENT Exam ENT Exam: Mucous Membranes Dry - Neck Exam Neck exam: Positive for: Normal Inspection - Respiratory Exam Respiratory Exam: Rhonchi (BILATERAL RHONCHI.) - Cardiovascular Exam Cardiovascular Exam: Tachycardia, REGULAR RHYTHM, +S1, +S2 - GI/Abdominal Exam GI & Abdominal Exam: Normal Bowel Sounds, Soft (+VE PEG IN PLACE.). absent: Guarding - Extremities Exam Extremities exam: Positive for: pedal edema (1+), pedal pulses present ( BILATERAL FOOT DROP.). Negative for: calf tenderness - Skin Skin Exam: Dry, Pallor Results - Vital Signs Recent Vital Signs: Last Vital Signs Temp 99.1 F 04/08/17 11:51 Pulse 84 04/08/17 11:10 Resp 15 04/08/17 11:10 BP 95/32 L 04/08/17 10:21 Pulse Ox 100 04/08/17 11:51 - Labs Result Diagrams: 04/08/17 03:12 04/08/17 03:50 Labs: Laboratory Results - last 24 hr 04/08/17 04/08/17 04/08/17 01:36 03:10 03:12 WBC 15.7 H RBC 4.54 Hgb 13.5 Hct 46.1 MCV 101.6 H MCH 29.7 MCHC 29.3 L RDW 15.4 H Plt Count 93 L D MPV 11.6 Neut % (Auto) 81.5 H Lymph % (Auto) 11.2 L [place] % (Auto) 6.7 Eos % (Auto) 0.1 Baso % (Auto) 0.5 Neut # 12.8 H Lymph # 1.8 [place] # 1.0 H Eos # 0.0 Baso # 0.1 Differential Comment Puncture Site Rradial pCO2 48 H pO2 134 H HCO3 18.6 L ABG pH 7.22 L ABG Total CO2 21.1 L ABG O2 Saturation 99.3 H ABG Base Excess -8.2 L Steffen Test Pos ABG Potassium 3.8 A-a O2 Difference 502.0 Respiratory Index 3.4 Sodium 162.0 H* Chloride 128.0 H Glucose 603 H* Lactate 3.4 H Liter Flow 15.0 FiO2 100.0 Crit Value Called To Dr. ying Crit Value Called By Chetna pagan rcp Crit Value Read Back Y Blood Gas Notified Time 325 Potassium Carbon Dioxide Anion Gap BUN Creatinine Est GFR ( Amer) Est GFR (Non-Af Amer) POC Glucose (mg/dL) > 500 H* Random Glucose Calcium Phosphorus Magnesium Total Bilirubin AST ALT Alkaline Phosphatase Total Protein Albumin Globulin Albumin/Globulin Ratio Arterial Blood Potassium 3.8 04/08/17 04/08/17 04/08/17 03:19 03:50 06:01 WBC RBC Hgb Hct MCV MCH MCHC RDW Plt Count MPV Neut % (Auto) Lymph % (Auto) [place] % (Auto) Eos % (Auto) Baso % (Auto) Neut # Lymph # [place] # Eos # Baso # Differential Comment Puncture Site pCO2 pO2 HCO3 ABG pH ABG Total CO2 ABG O2 Saturation ABG Base Excess Steffen Test ABG Potassium A-a O2 Difference Respiratory Index Sodium 161 H* Chloride 126 H Glucose Lactate Liter Flow FiO2 Crit Value Called To Crit Value Called By Crit Value Read Back Blood Gas Notified Time Potassium 3.8 Carbon Dioxide 21 L Anion Gap 18 BUN 70 H Creatinine 1.3 H Est GFR ( Amer) 49 Est GFR (Non-Af Amer) 41 POC Glucose (mg/dL) 461 H* 471 H* Random Glucose 588 H* D Calcium 7.4 L Phosphorus 3.0 Magnesium 2.2 Total Bilirubin 0.6 AST 18 ALT 48 Alkaline Phosphatase 59 Total Protein 5.7 L Albumin 2.7 L D Globulin 3.0 Albumin/Globulin Ratio 0.9 L Arterial Blood Potassium 04/08/17 04/08/17 04/08/17 06:49 07:13 08:00 WBC RBC Hgb Hct MCV MCH MCHC RDW Plt Count MPV Neut % (Auto) Lymph % (Auto) [place] % (Auto) Eos % (Auto) Baso % (Auto) Neut # Lymph # [place] # Eos # Baso # Differential Comment Puncture Site pCO2 pO2 HCO3 ABG pH ABG Total CO2 ABG O2 Saturation ABG Base Excess Steffen Test ABG Potassium A-a O2 Difference Respiratory Index Sodium Chloride Glucose Lactate Liter Flow FiO2 Crit Value Called To Crit Value Called By Crit Value Read Back Blood Gas Notified Time Potassium Carbon Dioxide Anion Gap BUN Creatinine Est GFR ( Amer) Est GFR (Non-Af Amer) POC Glucose (mg/dL) > 500 H* > 500 H* 480 H* Random Glucose Calcium Phosphorus Magnesium Total Bilirubin AST ALT Alkaline Phosphatase Total Protein Albumin Globulin Albumin/Globulin Ratio Arterial Blood Potassium 04/08/17 04/08/17 04/08/17 09:13 10:02 11:10 WBC RBC Hgb Hct MCV MCH MCHC RDW Plt Count MPV Neut % (Auto) Lymph % (Auto) [place] % (Auto) Eos % (Auto) Baso % (Auto) Neut # Lymph # [place] # Eos # Baso # Differential Comment Puncture Site pCO2 pO2 HCO3 ABG pH ABG Total CO2 ABG O2 Saturation ABG Base Excess Steffen Test ABG Potassium A-a O2 Difference Respiratory Index Sodium Chloride Glucose Lactate Liter Flow FiO2 Crit Value Called To Crit Value Called By Crit Value Read Back Blood Gas Notified Time Potassium Carbon Dioxide Anion Gap BUN Creatinine Est GFR ( Amer) Est GFR (Non-Af Amer) POC Glucose (mg/dL) 445 H* 334 H 388 H Random Glucose Calcium Phosphorus Magnesium Total Bilirubin AST ALT Alkaline Phosphatase Total Protein Albumin Globulin Albumin/Globulin Ratio Arterial Blood Potassium 04/08/17 12:05 WBC RBC Hgb Hct MCV MCH MCHC RDW Plt Count MPV Neut % (Auto) Lymph % (Auto) [place] % (Auto) Eos % (Auto) Baso % (Auto) Neut # Lymph # [place] # Eos # Baso # Differential Comment Puncture Site pCO2 pO2 HCO3 ABG pH ABG Total CO2 ABG O2 Saturation ABG Base Excess Steffen Test ABG Potassium A-a O2 Difference Respiratory Index Sodium Chloride Glucose Lactate Liter Flow FiO2 Crit Value Called To Crit Value Called By Crit Value Read Back Blood Gas Notified Time Potassium Carbon Dioxide Anion Gap BUN Creatinine Est GFR ( Amer) Est GFR (Non-Af Amer) POC Glucose (mg/dL) 351 H Random Glucose Calcium Phosphorus Magnesium Total Bilirubin AST ALT Alkaline Phosphatase Total Protein Albumin Globulin Albumin/Globulin Ratio Arterial Blood Potassium Assessment & Plan (1) Sepsis Assessment and Plan: SOURCE OF SEPSIS MOST LIKELY / HABP/ VS CAP CONTINUE ANTIBIOTICS ORDERED Status: Acute (2) Hypotension Status: Acute (3) UTI (urinary tract infection) Status: Acute (4) HABP (hospital-acquired bacterial pneumonia) Status: Acute (5) Seizure Status: Acute (6) Hx of craniotomy Status: Acute (7) Dehydration with hypernatremia Assessment and Plan: IV fluids as per racquet maker. Patient's sodium today is 161 slightly improved. Continue IV fluids as per racquet maker/pmd.. Status: Acute - Assessment and Plan (Free Text) Plan: PLAN; PANCULTURES UA/URINE CULTURES. ESR, CRP. PATIENT RECEIVED ONE DOSE OF AMIKACIN 1 GM ON 04/07/17. STARTED ON zYVOX 600 MG EVERY 12 HOURLY 04/08/17. IN VIEW OFF INCREASING THROMBOCYTOPENIA wILL dc iv ZYVOX. START iv VIBATIVE(TELVANCIN )250 MG IV d5w 250 2 RUN OVER IN 90 MINUTES TO SEE IF ANY REACTIONS OR RASHES APPEAR. IF TOLERATED,PATIENT WILL GET iv VIBATIVE 750 MG ONCE A DAY DAILY STARTING AT 6 am 04/09/17.CASE DISCUSSED WITH PHARMACY MR NOEL. CONTINUE iv AMIKACIN 450 MG iv PIGGYBACK EVERY 24 HOURLY X 2 DOSES. 04/08, 04/09/17 F/U CULTURES TO ADJUST ABX. PROGNOSIS GUARDED. WILL FOLLOW ALONG WITH YOU AND MAKE ANY FURTHER RECOMMENDATIONS NEEDED. CASE DISCUSSED WITH THE STAFF.
[2017-04-08] MEDS ORDERED: levETIRAcetam 1,000 MG in Sodium Chloride 0.9% 100 ML IVPB SCH (16:00)
[2017-04-08] MEDS ORDERED: (Novolin R) Insulin Human Regular 100 units/ml vial SC SCH (16:30)
[2017-04-08] MEDS: (Novolin R) Insulin Human Regular 100 units/ml vial SC SCH ×3 (16:42→23:37)
[2017-04-08] MEDS ORDERED: TELAVANCIN HYDROCHLORIDE IVPB SCH ×2 (18:00→18:15)
[2017-04-08] MEDS ORDERED: WATER IVPB SCH (18:00)
[2017-04-08] MEDS ORDERED: DEXTROSE 5% IVPB SCH (18:00)
[2017-04-08] MEDS ORDERED: SODIUM CHLORIDE 0.9% IVPB SCH (18:15)
[2017-04-08] MEDS ORDERED: TELAVANCIN HYDROCHLORIDE IV ONE (19:00)
[2017-04-08] MEDS ORDERED: SODIUM CHLORIDE 0.9% IV ONE (19:00)
[2017-04-08] MEDS ORDERED: TELAVANCIN HYDROCHLORIDE IV SCH (20:00)
[2017-04-08] MEDS ORDERED: SODIUM CHLORIDE 0.9% IV SCH (20:00)
--- NOTE | 2017-04-08 23:07 | CP.PCM.HP ---
History of Present Illness - History of Present Illness History of Present Illness: 66 years old female who is a jail resident for many years. She presented to ER with fever 103-105 and severe sepsis. Patient started on IV fluid, IV antibiotics. Patient had ICU evaluation in ER and was admitted to ICU. Patient is too lethargic and no history is obtainable from the patient. Also patient is DNR, DNI. Past Patient History - Past Medical History & Family History Past Medical History?: Yes - Past Social History Smoking Status: unresponsi Alcohol: None Drugs: Denies Home Situation {Lives}: [facility] Domestic Violence: Negative - CARDIAC Hx Cardiac Disorders: Yes Hx Hypertension: Yes - PULMONARY Hx Respiratory Disorders: Yes Hx Chronic Obstructive Pulmonary Disease (COPD): Yes Hx Pneumonia: Yes - NEUROLOGICAL Hx Neurological Disorder: Yes Hx Seizures: Yes - HEENT Hx HEENT Problems: Yes Hx Cataracts: Yes Other/Comment: APHASIA - RENAL Hx Chronic Kidney Disease: Yes - ENDOCRINE/METABOLIC Hx Endocrine Disorders: Yes Hx Diabetes Mellitus Type 2: Yes - HEMATOLOGICAL/ONCOLOGICAL Hx Anemia: Yes - INTEGUMENTARY Hx Dermatological Problems: No - MUSCULOSKELETAL/RHEUMATOLOGICAL Hx Falls: No (unknown) - GASTROINTESTINAL Hx Gastrointestinal Disorders: Yes Hx Gastroesophageal Reflux: Yes - GENITOURINARY/GYNECOLOGICAL Hx Genitourinary Disorders: No - PSYCHIATRIC Hx Substance Use: No (unresponsive) - SURGICAL HISTORY Hx Surgeries: Yes Other/Comment: GASTROSTOMY - ANESTHESIA Hx Anesthesia: Yes Hx Anesthesia Reactions: No Hx Malignant Hyperthermia: No Meds Allergies/Adverse Reactions: Allergies Allergy/AdvReac Type Severity Reaction Status Date / Time aztreonam [From Azactam] Allergy Verified 10/20/16 21:32 cefepime Allergy Verified 10/20/16 21:28 moxifloxacin Allergy Verified 10/20/16 21:29 Penicillins Allergy Verified 10/20/16 21:29 tamsulosin HCl [From Flomax] Allergy Verified 10/20/16 21:30 tigecycline [From Tygacil] Allergy Verified 10/20/16 21:31 vancomycin Allergy Verified 10/20/16 21:32 pnemonia vaccine Allergy Uncoded 10/20/16 21:30 Physical Exam - Constitutional Appears: Toxic - Head Exam Head Exam: ATRAUMATIC, NORMOCEPHALIC - Eye Exam Eye Exam: Normal appearance - Neck Exam Neck exam: Positive for: Full Rom - Respiratory Exam Respiratory Exam: Decreased Breath Sounds, Rales - Cardiovascular Exam Cardiovascular Exam: REGULAR RHYTHM - Extremities Exam Extremities exam: Positive for: full ROM - Back Exam Back exam: FULL ROM - Neurological Exam Neurological exam: Altered Results - Vital Signs Recent Vital Signs: Last Vital Signs Temp 97.6 F 04/08/17 20:00 Pulse 86 04/08/17 22:00 Resp 18 04/08/17 22:00 BP 90/34 L 04/08/17 20:57 Pulse Ox 99 04/08/17 22:00 - Labs Result Diagrams: 04/08/17 03:12 04/08/17 03:50 Labs: Laboratory Results - last 24 hr 04/08/17 04/08/17 04/08/17 01:36 03:10 03:12 WBC 15.7 H RBC 4.54 Hgb 13.5 Hct 46.1 MCV 101.6 H MCH 29.7 MCHC 29.3 L RDW 15.4 H Plt Count 93 L D MPV 11.6 Neut % (Auto) 81.5 H Lymph % (Auto) 11.2 L [place] % (Auto) 6.7 Eos % (Auto) 0.1 Baso % (Auto) 0.5 Neut # 12.8 H Lymph # 1.8 [place] # 1.0 H Eos # 0.0 Baso # 0.1 Differential Comment Puncture Site Rradial pCO2 48 H pO2 134 H HCO3 18.6 L ABG pH 7.22 L ABG Total CO2 21.1 L ABG O2 Saturation 99.3 H ABG Base Excess -8.2 L Steffen Test Pos ABG Potassium 3.8 A-a O2 Difference 502.0 Respiratory Index 3.4 Sodium 162.0 H* Chloride 128.0 H Glucose 603 H* Lactate 3.4 H Liter Flow 15.0 FiO2 100.0 Crit Value Called To Dr. ying Crit Value Called By Chetna pagan rcp Crit Value Read Back Y Blood Gas Notified Time 325 Potassium Carbon Dioxide Anion Gap BUN Creatinine Est GFR ( Amer) Est GFR (Non-Af Amer) POC Glucose (mg/dL) > 500 H* Random Glucose Calcium Phosphorus Magnesium Total Bilirubin AST ALT Alkaline Phosphatase Total Protein Albumin Globulin Albumin/Globulin Ratio Arterial Blood Potassium 3.8 04/08/17 04/08/17 04/08/17 03:19 03:50 06:01 WBC RBC Hgb Hct MCV MCH MCHC RDW Plt Count MPV Neut % (Auto) Lymph % (Auto) [place] % (Auto) Eos % (Auto) Baso % (Auto) Neut # Lymph # [place] # Eos # Baso # Differential Comment Puncture Site pCO2 pO2 HCO3 ABG pH ABG Total CO2 ABG O2 Saturation ABG Base Excess Steffen Test ABG Potassium A-a O2 Difference Respiratory Index Sodium 161 H* Chloride 126 H Glucose Lactate Liter Flow FiO2 Crit Value Called To Crit Value Called By Crit Value Read Back Blood Gas Notified Time Potassium 3.8 Carbon Dioxide 21 L Anion Gap 18 BUN 70 H Creatinine 1.3 H Est GFR ( Amer) 49 Est GFR (Non-Af Amer) 41 POC Glucose (mg/dL) 461 H* 471 H* Random Glucose 588 H* D Calcium 7.4 L Phosphorus 3.0 Magnesium 2.2 Total Bilirubin 0.6 AST 18 ALT 48 Alkaline Phosphatase 59 Total Protein 5.7 L Albumin 2.7 L D Globulin 3.0 Albumin/Globulin Ratio 0.9 L Arterial Blood Potassium 04/08/17 04/08/17 04/08/17 06:49 07:13 08:00 WBC RBC Hgb Hct MCV MCH MCHC RDW Plt Count MPV Neut % (Auto) Lymph % (Auto) [place] % (Auto) Eos % (Auto) Baso % (Auto) Neut # Lymph # [place] # Eos # Baso # Differential Comment Puncture Site pCO2 pO2 HCO3 ABG pH ABG Total CO2 ABG O2 Saturation ABG Base Excess Steffen Test ABG Potassium A-a O2 Difference Respiratory Index Sodium Chloride Glucose Lactate Liter Flow FiO2 Crit Value Called To Crit Value Called By Crit Value Read Back Blood Gas Notified Time Potassium Carbon Dioxide Anion Gap BUN Creatinine Est GFR ( Amer) Est GFR (Non-Af Amer) POC Glucose (mg/dL) > 500 H* > 500 H* 480 H* Random Glucose Calcium Phosphorus Magnesium Total Bilirubin AST ALT Alkaline Phosphatase Total Protein Albumin Globulin Albumin/Globulin Ratio Arterial Blood Potassium 04/08/17 04/08/17 04/08/17 09:13 10:02 11:10 WBC RBC Hgb Hct MCV MCH MCHC RDW Plt Count MPV Neut % (Auto) Lymph % (Auto) [place] % (Auto) Eos % (Auto) Baso % (Auto) Neut # Lymph # [place] # Eos # Baso # Differential Comment Puncture Site pCO2 pO2 HCO3 ABG pH ABG Total CO2 ABG O2 Saturation ABG Base Excess Steffen Test ABG Potassium A-a O2 Difference Respiratory Index Sodium Chloride Glucose Lactate Liter Flow FiO2 Crit Value Called To Crit Value Called By Crit Value Read Back Blood Gas Notified Time Potassium Carbon Dioxide Anion Gap BUN Creatinine Est GFR ( Amer) Est GFR (Non-Af Amer) POC Glucose (mg/dL) 445 H* 334 H 388 H Random Glucose Calcium Phosphorus Magnesium Total Bilirubin AST ALT Alkaline Phosphatase Total Protein Albumin Globulin Albumin/Globulin Ratio Arterial Blood Potassium 04/08/17 04/08/17 04/08/17 12:05 16:05 19:51 WBC RBC Hgb Hct MCV MCH MCHC RDW Plt Count MPV Neut % (Auto) Lymph % (Auto) [place] % (Auto) Eos % (Auto) Baso % (Auto) Neut # Lymph # [place] # Eos # Baso # Differential Comment Puncture Site pCO2 pO2 HCO3 ABG pH ABG Total CO2 ABG O2 Saturation ABG Base Excess Steffen Test ABG Potassium A-a O2 Difference Respiratory Index Sodium Chloride Glucose Lactate Liter Flow FiO2 Crit Value Called To Crit Value Called By Crit Value Read Back Blood Gas Notified Time Potassium Carbon Dioxide Anion Gap BUN Creatinine Est GFR ( Amer) Est GFR (Non-Af Amer) POC Glucose (mg/dL) 351 H 326 H 286 H Random Glucose Calcium Phosphorus Magnesium Total Bilirubin AST ALT Alkaline Phosphatase Total Protein Albumin Globulin Albumin/Globulin Ratio Arterial Blood Potassium Assessment & Plan - Assessment and Plan (Free Text) Assessment: Severe Sepsis Sezire gastric tube feeding Plan: Continue current ABs . Monitor IV fluids and outboa Surgical consult for the clogged GT - Date & Time Date: 04/08/17 Time: 14:00
[2017-04-08] MEDS ORDERED: Acetaminophen 650mg/20.3ml solution UD PO STA (23:31)
[2017-04-09] MEDS: (Novolin R) Insulin Human Regular 100 units/ml vial SC SCH ×5 (04:40→20:08)
[2017-04-09] MEDS: Sodium Chloride 0.45% 1,000 ML IV SCH ×3 (04:42→11:08)
[2017-04-09 06:58] LABS: BASO # 0.1 K/uL (0.0-0.2); BASO % 0.7 % (0.0-2.0); EOS % 0.2 % (0.0-4.0); HEMOGLOBIN 9.6 g/dL (11.0-16.0); LYMPH # 2.2 K/uL (1.0-4.3); LYMPH % 11.5 % (20.0-40.0); MEAN CELL VOLUME 94.1 fL (81.0-99.0); MEAN CORPUSCULAR HEMOGLOBIN 29.7 pg (27.0-31.0); MEAN CORPUSCULAR HGB CONC 31.6 g/dL (33.0-37.0); MEAN PLATELET VOLUME 12.1 fL (7.2-11.7); MONO # 0.5 K/uL (0.0-0.8); MONO % 2.4 % (0.0-10.0); NEUT # 16.3 K/uL (1.8-7.0); NEUT % 85.2 % (50.0-75.0); NRBC % 0.1 % (0.0-2.0); RBC 3.24 Mil/uL (3.80-5.20); RED CELL DISTRIBUTION WIDTH 13.3 % (11.5-14.5); WHITE BLOOD COUNT 19.2 K/uL (4.8-10.8)
[2017-04-09 07:08] LABS: ALBUMIN 2.4 g/dL (3.5-5.0)
[2017-04-09 07:11] LABS: ALB/GLOB RATIO 0.8 (1.0-2.1)
[2017-04-09 07:12] LABS: CALCIUM 6.5 mg/dl (8.6-10.4)
[2017-04-09] MEDS: (Lantus) Insulin Glargine, Recombinant SC SCH ×2 (09:35→21:51)
[2017-04-09] MEDS: Albuterol-Ipratrop 3 mg / 0.5 (3 ml) UD INH SCH (13:12)
[2017-04-09] MEDS: SODIUM CHLORIDE 0.9% IV SCH (17:11)
[2017-04-09] MEDS: TELAVANCIN HYDROCHLORIDE IV SCH (17:11)
--- NOTE | 2017-04-09 23:08 | CP.PCM.PN ---
Subjective - Date & Time of Evaluation Date of Evaluation: 04/09/17 Time of Evaluation: 10:00 - Subjective Subjective: Pt. is still in ICU, more awake and BP is stable. Objective - Vital Signs/Intake and Output Vital Signs (last 24 hours): Temp Pulse Resp BP Pulse Ox 99.5 F 84 26 H 107/56 L 98 04/09/17 17:30 04/09/17 17:30 04/09/17 17:30 04/09/17 17:30 04/09/17 17:30 Intake and Output: 04/09/17 04/10/17 18:59 06:59 Intake Total 540 Output Total 146 Balance 394 - Medications Medications: Current Medications Albuterol/Ipratropium (Duoneb 3 Mg/0.5 Mg (3 Ml) Ud) 3 ml INH RQ6 [facility] Last Admin: 04/09/17 13:12 Dose: 3 ml Famotidine (Pepcid) 20 mg PO DAILY [facility] Last Admin: 04/09/17 09:35 Dose: 20 mg Heparin Sodium (Porcine) (Heparin) 5,000 units SC Q8 [facility] Last Admin: 04/09/17 21:51 Dose: 5,000 units Amikacin Sulfate 450 mg/ (Sodium Chloride) 101.8 mls @ 100 mls/hr IV Q24H [facility] Stop: 04/10/17 00:32 Last Admin: 04/08/17 23:17 Dose: 100 mls/hr Telavancin 750 mg/ Sodium (Chloride) 250 mls @ 166.667 mls/hr IV Q24H [facility] Last Admin: 04/09/17 17:11 Dose: 166.667 mls/hr Insulin Glargine (Lantus) 20 unit SC Q12 [facility] Last Admin: 04/09/17 21:51 Dose: 20 units Insulin Human Regular (Novolin R) 0 unit SC Q4 [facility] PRN Reason: Protocol Last Admin: 04/09/17 20:08 Dose: 3 unit Oxcarbazepine (Trileptal) 450 mg PEG DAILY [facility] Last Admin: 04/09/17 09:36 Dose: 450 mg Topiramate (Topamax) 100 mg PEG BID [facility] Last Admin: 04/09/17 17:11 Dose: 100 mg - Labs Labs: 04/09/17 06:51 04/09/17 06:51 PT 13.4 SECONDS (9.7-12.2) H 04/07/17 23:07 INR 1.2 04/07/17 23:07 APTT 47 SECONDS (21-34) H 04/07/17 23:07 - Head Exam Head Exam: ATRAUMATIC, NORMOCEPHALIC - Eye Exam Eye Exam: PERRL - ENT Exam ENT Exam: Mucous Membranes Moist - Neck Exam Neck Exam: Full ROM - Respiratory Exam Respiratory Exam: Clear to Ausculation Bilateral, NORMAL BREATHING PATTERN - Cardiovascular Exam Cardiovascular Exam: REGULAR RHYTHM - GI/Abdominal Exam GI & Abdominal Exam: Soft Additional comments: gastric tube in place - Neurological Exam Neurological Exam: Awake, Oriented x3
--- NOTE | 2017-04-09 23:29 | CP.PCM.PN ---
Subjective - Date & Time of Evaluation Date of Evaluation: 04/09/17 Time of Evaluation: 23:29 - Subjective Subjective: CHIEF COMPLAINTS TODAY : PT IN ICU. VS noted. weak and poorly responsive on pressors ROS. on observation HEENT : N. Resp : No cough, wheezing ,pleuritic CP ,or hemoptysis Cardio : No anginal CP, PND, orthopnea, palpitation GI : No abd.pain, n/v ,diarrhea or GI bleeding . PATROL LADY : No headache, vertigo, focal deficit. Musculoskel : No joint swelling , Derm : No rash Psych : not able to test Ext : No swelling ,calf pain PE. Pt. is in no distress.POORLY RESPONSIVE V.S As noted in the chart Head ,ear nose,throat and eyes : Normal. Neck : Supple with normal carotids. Lungs: Clear air entry. Heart : S1 & S2 normal with S4. No murmur. Abd : Soft non tender with normal bowel sounds. Neuro : B/L FOOT DROPS /AND WEAKNESS Ext : No edema with intact pulses.Non tender calves Derm : No rashes or decubitus ulcer. LABS/RADIOLOGY: REVIEWED URINE CULTURE +VE PROTEUS MIRABLIS. BLOOD CULTURES -VE X 24HRS. Objective - Vital Signs/Intake and Output Vital Signs (last 24 hours): Temp Pulse Resp BP Pulse Ox 99.5 F 84 26 H 107/56 L 98 04/09/17 17:30 04/09/17 17:30 04/09/17 17:30 04/09/17 17:30 04/09/17 17:30 Intake and Output: 04/09/17 04/10/17 18:59 06:59 Intake Total 540 Output Total 146 Balance 394 - Medications Medications: Current Medications Albuterol/Ipratropium (Duoneb 3 Mg/0.5 Mg (3 Ml) Ud) 3 ml INH RQ6 [facility] Last Admin: 04/09/17 13:12 Dose: 3 ml Famotidine (Pepcid) 20 mg PO DAILY [facility] Last Admin: 04/09/17 09:35 Dose: 20 mg Heparin Sodium (Porcine) (Heparin) 5,000 units SC Q8 [facility] Last Admin: 04/09/17 21:51 Dose: 5,000 units Amikacin Sulfate 450 mg/ (Sodium Chloride) 101.8 mls @ 100 mls/hr IV Q24H [facility] Stop: 04/10/17 00:32 Last Admin: 04/08/17 23:17 Dose: 100 mls/hr Telavancin 750 mg/ Sodium (Chloride) 250 mls @ 166.667 mls/hr IV Q24H [facility] Last Admin: 04/09/17 17:11 Dose: 166.667 mls/hr Insulin Glargine (Lantus) 20 unit SC Q12 [facility] Last Admin: 04/09/17 21:51 Dose: 20 units Insulin Human Regular (Novolin R) 0 unit SC Q4 [facility] PRN Reason: Protocol Last Admin: 04/09/17 20:08 Dose: 3 unit Oxcarbazepine (Trileptal) 450 mg PEG DAILY [facility] Last Admin: 04/09/17 09:36 Dose: 450 mg Topiramate (Topamax) 100 mg PEG BID [facility] Last Admin: 04/09/17 17:11 Dose: 100 mg - Labs Labs: 04/09/17 06:51 04/09/17 06:51 PT 13.4 SECONDS (9.7-12.2) H 04/07/17 23:07 INR 1.2 04/07/17 23:07 APTT 47 SECONDS (21-34) H 04/07/17 23:07 Assessment and Plan (1) Sepsis Status: Acute (2) Hypotension Status: Acute (3) UTI (urinary tract infection) Status: Acute (4) HABP (hospital-acquired bacterial pneumonia) Status: Acute (5) Seizure Status: Acute (6) Hx of craniotomy Status: Acute (7) Dehydration with hypernatremia Status: Acute - Assessment and Plan (Free Text) Plan: TOLERATED iv VIBATIVE(TELVANCIN )250 MG IV WITH NO REACTIONS OR RASHES PATIENT WILL GET iv VIBATIVE 750 MG ONCE A DAY DAILY STARTING AT 6 PM DAILY ON 04/09/17.CASE DISCUSSED WITH PHARMACY SADIE. CONTINUE iv AMIKACIN 450 MG iv PIGGYBACK EVERY 24 HOURLY X 2 DOSES. 04/08, 04/09/17 F/U RENAL FUNCTIONS CLOSELY. F/U CULTURES TO ADJUST ABX. PROGNOSIS GUARDED.
[2017-04-10] MEDS: (Novolin R) Insulin Human Regular 100 units/ml vial SC SCH ×6 (00:11→20:57)
[2017-04-10] MEDS: Albuterol-Ipratrop 3 mg / 0.5 (3 ml) UD INH SCH ×3 (01:31→15:47)
[2017-04-10] MEDS: (Lantus) Insulin Glargine, Recombinant SC SCH ×2 (10:20→22:06)
--- NOTE | 2017-04-10 16:47 | CP.PCM.PN ---
Subjective - Date & Time of Evaluation Date of Evaluation: 04/10/17 Time of Evaluation: 11:00 - Subjective Subjective: Pt. is more awake Objective - Vital Signs/Intake and Output Vital Signs (last 24 hours): Temp Pulse Resp BP Pulse Ox 99.0 F 91 H 20 110/62 98 04/10/17 08:35 04/10/17 08:35 04/10/17 08:35 04/10/17 08:35 04/10/17 08:35 Intake and Output: 04/10/17 04/10/17 06:59 18:59 Intake Total 670 Balance 670 - Medications Medications: Current Medications Albuterol/Ipratropium (Duoneb 3 Mg/0.5 Mg (3 Ml) Ud) 3 ml INH RQ6 [facility] Last Admin: 04/10/17 15:47 Dose: Not Given Famotidine (Pepcid) 20 mg PO DAILY [facility] Last Admin: 04/10/17 10:20 Dose: 20 mg Heparin Sodium (Porcine) (Heparin) 5,000 units SC Q8 [facility] Last Admin: 04/10/17 13:50 Dose: 5,000 units Telavancin 750 mg/ Sodium (Chloride) 250 mls @ 166.667 mls/hr IV Q24H [facility] Last Admin: 04/09/17 17:11 Dose: 166.667 mls/hr Insulin Glargine (Lantus) 20 unit SC Q12 [facility] Last Admin: 04/10/17 10:20 Dose: 20 units Insulin Human Regular (Novolin R) 0 unit SC Q4 [facility] PRN Reason: Protocol Last Admin: 04/10/17 13:50 Dose: 2 unit Mupirocin (Bactroban 2% Nasal) 0.5 gm BHARATH BID [facility] Stop: 04/17/17 18:01 Oxcarbazepine (Trileptal) 450 mg PEG DAILY [facility] Last Admin: 04/10/17 10:20 Dose: 450 mg Topiramate (Topamax) 100 mg PEG BID [facility] Last Admin: 04/10/17 10:20 Dose: 100 mg - Labs Labs: 04/09/17 06:51 04/09/17 06:51 PT 13.4 SECONDS (9.7-12.2) H 04/07/17 23:07 INR 1.2 04/07/17 23:07 APTT 47 SECONDS (21-34) H 04/07/17 23:07 - Head Exam Head Exam: ATRAUMATIC, NORMOCEPHALIC Additional comments: Gingival hyperplasia - Eye Exam Eye Exam: PERRL - ENT Exam Additional comments: dry mucosa of the mouth , pt. is fed by gt - Neck Exam Neck Exam: Full ROM - Respiratory Exam Respiratory Exam: NORMAL BREATHING PATTERN - Cardiovascular Exam Cardiovascular Exam: REGULAR RHYTHM - GI/Abdominal Exam GI & Abdominal Exam: Normal Bowel Sounds Additional comments: Gastric tube in place. - Neurological Exam Additional comments: Bilateral lower ext. weakness , bed ridden. Assessment and Plan - Assessment and Plan (Free Text) Assessment: Assessment and Plan (1) Sepsis Status: Acute (2) Hypotension Status: Acute (3) UTI (urinary tract infection) Status: Acute (4) HABP (hospital-acquired bacterial pneumonia) Status: Acute (5) Seizure Status: Acute (6) Hx of craniotomy Status: Acute (7) Dehydration with hypernatremia Status: Acute Plan: Continue antibiotics as per ID. Continue IV fluids.
[2017-04-10] MEDS: SODIUM CHLORIDE 0.9% IV SCH (18:19)
[2017-04-10] MEDS: Mupirocin 2% Ointment (NASAL) NAS SCH (18:19)
[2017-04-10] MEDS: TELAVANCIN HYDROCHLORIDE IV SCH (18:19)
--- NOTE | 2017-04-10 22:27 | CP.PCM.PN ---
Subjective - Date & Time of Evaluation Date of Evaluation: 04/10/17 Time of Evaluation: 22:26 - Subjective Subjective: CHIEF COMPLAINTS TODAY : PT TRANSFERRED TO THE [facility]. VS noted. OPENS EYES TO NAME POOR ORAL HYGIENE ROS. on observation HEENT : N. Resp : No cough, wheezing ,pleuritic CP ,or hemoptysis Cardio : No anginal CP, PND, orthopnea, palpitation GI : No abd.pain, n/v ,diarrhea or GI bleeding . 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 Musculoskel : No joint swelling , Derm : No rash Psych : not able to test Ext : No swelling ,calf pain PE. Pt. is in no distress.POORLY RESPONSIVE V.S As noted in the chart Head ,ear nose,throat and eyes : Normal. Neck : Supple with normal carotids. Lungs: B/L RHONCHI Heart : S1 & S2 normal with S4. No murmur. Abd : Soft non tender with normal bowel sounds. Neuro : B/L FOOT DROPS /AND WEAKNESS Ext : No edema with intact pulses.Non tender calves Derm : No rashes or decubitus ulcer. LABS/RADIOLOGY: REVIEWED URINE CULTURE +VE PROTEUS MIRABLIS.- MERCADO SENSITIVE BLOOD CULTURES -VE X 24HRS. Objective - Vital Signs/Intake and Output Vital Signs (last 24 hours): Temp Pulse Resp BP Pulse Ox 100.7 F H 95 H 20 143/65 100 04/10/17 15:00 04/10/17 15:00 04/10/17 15:00 04/10/17 15:00 04/10/17 15:00 Intake and Output: 04/10/17 04/11/17 18:59 06:59 Intake Total 280 Balance 280 - Medications Medications: Current Medications Albuterol/Ipratropium (Duoneb 3 Mg/0.5 Mg (3 Ml) Ud) 3 ml INH RQ6 [facility] Last Admin: 04/10/17 15:47 Dose: Not Given Famotidine (Pepcid) 20 mg PO DAILY [facility] Last Admin: 04/10/17 10:20 Dose: 20 mg Heparin Sodium (Porcine) (Heparin) 5,000 units SC Q8 [facility] Last Admin: 04/10/17 22:06 Dose: 5,000 units Telavancin 750 mg/ Sodium (Chloride) 250 mls @ 166.667 mls/hr IV Q24H [facility] Last Admin: 04/10/17 18:19 Dose: 166.667 mls/hr Insulin Glargine (Lantus) 20 unit SC Q12 [facility] Last Admin: 04/10/17 22:06 Dose: 20 units Insulin Human Regular (Novolin R) 0 unit SC Q4 [facility] PRN Reason: Protocol Last Admin: 04/10/17 20:57 Dose: Not Given Mupirocin (Bactroban 2% Nasal) 0.5 gm BHARATH BID [facility] Stop: 04/17/17 18:01 Last Admin: 04/10/17 18:19 Dose: 0.5 gm Oxcarbazepine (Trileptal) 450 mg PEG DAILY [facility] Last Admin: 04/10/17 10:20 Dose: 450 mg Topiramate (Topamax) 100 mg PEG BID [facility] Last Admin: 04/10/17 18:19 Dose: 100 mg - Labs Labs: 04/09/17 06:51 04/09/17 06:51 PT 13.4 SECONDS (9.7-12.2) H 04/07/17 23:07 INR 1.2 04/07/17 23:07 APTT 47 SECONDS (21-34) H 04/07/17 23:07 Assessment and Plan (1) Sepsis Status: Acute (2) Hypotension Status: Acute (3) UTI (urinary tract infection) Status: Acute (4) HABP (hospital-acquired bacterial pneumonia) Status: Acute (5) Seizure Status: Acute (6) Hx of craniotomy Status: Acute (7) Dehydration with hypernatremia Status: Acute - Assessment and Plan (Free Text) Plan: CONTINUE iv VIBATIVE 750 MG ONCE A DAY DAILY STARTING AT 6 PM DAILY ON 04/09/17. CASE DISCUSSED WITH PHARMACY MR NOEL. CONTINUE iv AMIKACIN 450 MG iv PIGGYBACK EVERY 24 HOURLY X 2 DOSES. 04/08, 04/09/17 F/U RENAL FUNCTIONS CLOSELY. CLEAN MOUTH WITH NYSTATIN SWABS PROGNOSIS GUARDED.
[2017-04-11] MEDS: Albuterol-Ipratrop 3 mg / 0.5 (3 ml) UD INH SCH ×4 (01:07→19:24)
[2017-04-11] MEDS: (Novolin R) Insulin Human Regular 100 units/ml vial SC SCH ×5 (04:53→22:22)
[2017-04-11] MEDS: Mupirocin 2% Ointment (NASAL) NAS SCH ×2 (10:56→18:58)
[2017-04-11] MEDS: (Lantus) Insulin Glargine, Recombinant SC SCH ×2 (10:57→22:21)
[2017-04-11 11:16] LABS: BASO % 0.3 % (0.0-2.0); EOS # 0.1 K/uL (0.0-0.7); EOS % 1.1 % (0.0-4.0); HEMOGLOBIN 9.1 g/dL (11.0-16.0); LYMPH # 0.8 K/uL (1.0-4.3); LYMPH % 6.6 % (20.0-40.0); MEAN CELL VOLUME 90.8 fL (81.0-99.0); MEAN CORPUSCULAR HEMOGLOBIN 29.9 pg (27.0-31.0); MEAN CORPUSCULAR HGB CONC 32.9 g/dL (33.0-37.0); MEAN PLATELET VOLUME 11.6 fL (7.2-11.7); MONO # 0.4 K/uL (0.0-0.8); MONO % 3.7 % (0.0-10.0); NEUT # 10.3 K/uL (1.8-7.0); NEUT % 88.3 % (50.0-75.0); NRBC % 0.1 % (0.0-2.0); PLATELET COUNT 96 K/uL (130-400); RBC 3.04 Mil/uL (3.80-5.20); RED CELL DISTRIBUTION WIDTH 13.3 % (11.5-14.5); WHITE BLOOD COUNT 11.7 K/uL (4.8-10.8)
[2017-04-11 11:22] LABS: ALBUMIN 2.5 g/dL (3.5-5.0)
[2017-04-11 11:25] LABS: GFR AFRICAN-AMERICAN > 60; GFR NON-AFRICAN AMERICAN > 60
[2017-04-11 11:26] LABS: ALB/GLOB RATIO 0.8 (1.0-2.1); ALT/SGPT 45 U/L (9-52); AST/SGOT 45 U/L (14-36); BLOOD UREA NITROGEN 25 mg/dL (7-17); CALCIUM 8.3 mg/dl (8.6-10.4)
[2017-04-11 11:47] LABS: ANISOCYTOSIS SLIGHT; EOSINOPHIL 1 % (0-4); HYPOCHROMIC SLIGHT; LYMPHOCYTE 9 % (20-40); MONOCYTE 5 % (0-10); NEUTROPHIL 85 % (50-75); PLATELET ESTIMATE DECREASED (NORMAL); POIKILOCYTOSIS SLIGHT; TOTAL CELLS COUNTED 100
[2017-04-11 11:48] LABS: GIANT PLATELETS PRESENT; LARGE PLATELETS PRESENT; TARGET CELLS SLIGHT
--- NOTE | 2017-04-11 13:10 | CP.PCM.PN ---
Subjective - Date & Time of Evaluation Date of Evaluation: 04/11/17 Time of Evaluation: 13:10 - Subjective Subjective: CHIEF COMPLAINTS TODAY : afebrile, APHASIC MORE AWAKE AND RESPONSIVE PEG-MALFUNCTIONING. ROS. on observation HEENT : N. Resp : No cough, wheezing ,pleuritic CP ,or hemoptysis Cardio : No anginal CP, PND, orthopnea, palpitation GI : No abd.pain, n/v ,diarrhea or GI bleeding . 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 Musculoskel : No joint swelling , Derm : No rash Psych : not able to test Ext : No swelling ,calf pain PE. Pt. is in no distress.MORE RESPONSIVE AND AWAKE V.S As noted in the chart Head ,ear nose,throat and eyes : Normal. Neck : Supple with normal carotids. Lungs: B/L RHONCHI Heart : S1 & S2 normal with S4. No murmur. Abd : Soft non tender with normal bowel sounds. Neuro : B/L FOOT DROPS /AND WEAKNESS Ext : No edema with intact pulses.Non tender calves Derm : No rashes or decubitus ulcer. LABS/RADIOLOGY: REVIEWED URINE CULTURE +VE PROTEUS MIRABLIS.- MERCADO SENSITIVE BLOOD CULTURES -VE X 24HRS. mrsa naris detected. Objective - Vital Signs/Intake and Output Vital Signs (last 24 hours): Temp Pulse Resp BP Pulse Ox 97.9 F 104 H 22 138/68 98 04/11/17 08:34 04/11/17 08:34 04/11/17 08:34 04/11/17 08:34 04/11/17 08:34 Intake and Output: 04/11/17 04/11/17 06:59 18:59 Intake Total 280 Output Total 2 Balance 278 - Medications Medications: Current Medications Albuterol/Ipratropium (Duoneb 3 Mg/0.5 Mg (3 Ml) Ud) 3 ml INH RQ6 [facility] Last Admin: 04/11/17 07:23 Dose: 3 ml Famotidine (Pepcid) 20 mg PO DAILY [facility] Last Admin: 04/11/17 10:56 Dose: 20 mg Heparin Sodium (Porcine) (Heparin) 5,000 units SC Q8 [facility] Last Admin: 04/11/17 05:36 Dose: 5,000 units Telavancin 750 mg/ Sodium (Chloride) 250 mls @ 166.667 mls/hr IV Q24H [facility] Last Admin: 04/10/17 18:19 Dose: 166.667 mls/hr Potassium Chloride (Potassium Chloride 20 Meq/100 Ml) 20 meq in 100 mls @ 50 mls/hr IVPB Q2 [facility] Stop: 04/11/17 19:59 Insulin Glargine (Lantus) 20 unit SC Q12 [facility] Last Admin: 04/11/17 10:57 Dose: 20 units Insulin Human Regular (Novolin R) 0 unit SC QID [facility] PRN Reason: Protocol Mupirocin (Bactroban 2% Nasal) 0.5 gm BHARATH BID [facility] Stop: 04/17/17 18:01 Last Admin: 04/11/17 10:56 Dose: 0.5 gm Oxcarbazepine (Trileptal) 450 mg PEG DAILY [facility] Last Admin: 04/11/17 10:56 Dose: 450 mg Topiramate (Topamax) 100 mg PEG BID [facility] Last Admin: 04/11/17 10:56 Dose: 100 mg - Labs Labs: 04/11/17 11:02 04/11/17 11:02 PT 13.4 SECONDS (9.7-12.2) H 04/07/17 23:07 INR 1.2 04/07/17 23:07 APTT 47 SECONDS (21-34) H 04/07/17 23:07 Assessment and Plan (1) Sepsis Status: Acute (2) Hypotension Status: Acute (3) UTI (urinary tract infection) Status: Acute (4) HABP (hospital-acquired bacterial pneumonia) Status: Acute (5) Seizure Status: Acute (6) Hx of craniotomy Status: Acute (7) Dehydration with hypernatremia Status: Acute - Assessment and Plan (Free Text) Plan: CONTINUE iv VIBATIVE 750 MG ONCE A DAY DAILY ( started ON 04/09/17.) off IV amikacin. surgical consult in progress for malfunctioning PEG. f/u cxr.
--- NOTE | 2017-04-11 16:45 | CP.PCM.CON ---
History of Present Illness - History of Present Illness History of Present Illness: Surgery: Dr. Sheets Reason for consult: PEG malfunctioning HPI: Patient is a 66 y/o female known to surgical attending for malfunctioning PEG tube. PEG tube not able to flush or give tube feeds. Review of Systems - Review of Systems Systems not reviewed;Unavailable: Altered Mental Status Past Patient History - Past Medical History & Family History Past Medical History?: Yes - Past Social History Smoking Status: unresponsi Alcohol: None Drugs: Denies Home Situation {Lives}: Detention Domestic Violence: Negative - CARDIAC Hx Cardiac Disorders: Yes Hx Hypertension: Yes - PULMONARY Hx Chronic Obstructive Pulmonary Disease (COPD): Yes - NEUROLOGICAL Hx Neurological Disorder: Yes Hx Seizures: Yes - HEENT Hx HEENT Problems: Yes Hx Cataracts: Yes Other/Comment: APHASIA - RENAL Hx Chronic Kidney Disease: Yes - ENDOCRINE/METABOLIC Hx Diabetes Mellitus Type 2: Yes - HEMATOLOGICAL/ONCOLOGICAL Hx Anemia: Yes - INTEGUMENTARY Hx Dermatological Problems: No - MUSCULOSKELETAL/RHEUMATOLOGICAL Hx Falls: No (unknown) - GASTROINTESTINAL Hx Gastrointestinal Disorders: Yes Hx Gastroesophageal Reflux: Yes - GENITOURINARY/GYNECOLOGICAL Hx Genitourinary Disorders: No - PSYCHIATRIC Hx Substance Use: No (unresponsive) - SURGICAL HISTORY Hx Surgeries: Yes Other/Comment: GASTROSTOMY - ANESTHESIA Hx Anesthesia: Yes Hx Anesthesia Reactions: No Hx Malignant Hyperthermia: No Meds Allergies/Adverse Reactions: Allergies Allergy/AdvReac Type Severity Reaction Status Date / Time aztreonam [From Azactam] Allergy Verified 10/20/16 21:32 cefepime Allergy Verified 10/20/16 21:28 moxifloxacin Allergy Verified 10/20/16 21:29 Penicillins Allergy Verified 10/20/16 21:29 tamsulosin HCl [From Flomax] Allergy Verified 10/20/16 21:30 tigecycline [From Tygacil] Allergy Verified 10/20/16 21:31 vancomycin Allergy Verified 10/20/16 21:32 pnemonia vaccine Allergy Uncoded 10/20/16 21:30 - Medications Medications: Current Medications Albuterol/Ipratropium (Duoneb 3 Mg/0.5 Mg (3 Ml) Ud) 3 ml INH RQ6 [facility] Last Admin: 04/11/17 13:34 Dose: 3 ml Famotidine (Pepcid) 20 mg PO DAILY [facility] Last Admin: 04/10/17 10:20 Dose: 20 mg Heparin Sodium (Porcine) (Heparin) 5,000 units SC Q8 [facility] Last Admin: 04/11/17 13:46 Dose: 5,000 units Telavancin 750 mg/ Sodium (Chloride) 250 mls @ 166.667 mls/hr IV Q24H [facility] Last Admin: 04/10/17 18:19 Dose: 166.667 mls/hr Potassium Chloride (Potassium Chloride 20 Meq/100 Ml) 20 meq in 100 mls @ 50 mls/hr IVPB Q2 [facility] Stop: 04/11/17 19:59 Last Admin: 04/11/17 13:32 Dose: 50 mls/hr Insulin Glargine (Lantus) 20 unit SC Q12 [facility] Last Admin: 04/11/17 10:57 Dose: 20 units Insulin Human Regular (Novolin R) 0 unit SC ACHS [facility] PRN Reason: Protocol Mupirocin (Bactroban 2% Nasal) 0.5 gm BHARATH BID [facility] Stop: 04/17/17 18:01 Last Admin: 04/11/17 10:56 Dose: 0.5 gm Oxcarbazepine (Trileptal) 450 mg PEG DAILY [facility] Last Admin: 04/10/17 10:20 Dose: 450 mg Topiramate (Topamax) 100 mg PEG BID [facility] Last Admin: 04/11/17 10:00 Dose: Not Given Physical Exam - Constitutional Appears: Chronically Ill - ENT Exam ENT Exam: Mucous Membranes Dry - Respiratory Exam Respiratory Exam: absent: Respiratory Distress - Cardiovascular Exam Cardiovascular Exam: REGULAR RHYTHM. absent: Tachycardia - GI/Abdominal Exam Additional comments: Haji currently into stomach as use for PEG tube. Not fastened to skin for tube easily movable in and out of PEG tunnel. Skin around orifice w/ some mild redness but no excoriation. Haji balloon deflated and new 6.7mm PEG tube inserted through tunnel. Balloon filled with 20cc sterile saline and fastened snug to abdominal wall with bolster and tape. Results - Vital Signs Recent Vital Signs: Last Vital Signs Temp 100.2 F H 04/11/17 15:00 Pulse 98 H 04/11/17 15:00 Resp 20 04/11/17 15:00 BP 131/69 04/11/17 15:00 Pulse Ox 98 04/11/17 15:00 - Labs Result Diagrams: 04/11/17 11:02 04/11/17 11:02 Labs: Laboratory Results - last 24 hr 04/08/17 04/10/17 04/10/17 12:55 16:39 20:28 WBC RBC Hgb Hct MCV MCH MCHC RDW Plt Count MPV Neut % (Auto) Lymph % (Auto) [place] % (Auto) Eos % (Auto) Baso % (Auto) Neut # Lymph # [place] # Eos # Baso # Neutrophils % (Manual) Lymphocytes % (Manual) Monocytes % (Manual) Eosinophils % (Manual) Platelet Estimate Large Platelets Giant Platelets Hypochromasia (manual) Poikilocytosis (manual Anisocytosis (manual) Target Cells Sodium Potassium Chloride Carbon Dioxide Anion Gap BUN Creatinine Est GFR ( Amer) Est GFR (Non-Af Amer) POC Glucose (mg/dL) 182 H 168 H Random Glucose Calcium Total Bilirubin AST ALT Alkaline Phosphatase Total Protein Albumin Globulin Albumin/Globulin Ratio Amikacin 17.3 04/11/17 04/11/17 04/11/17 00:15 04:51 11:02 WBC 11.7 H RBC 3.04 L Hgb 9.1 L Hct 27.6 L MCV 90.8 D MCH 29.9 MCHC 32.9 L RDW 13.3 Plt Count 96 L MPV 11.6 Neut % (Auto) 88.3 H Lymph % (Auto) 6.6 L [place] % (Auto) 3.7 Eos % (Auto) 1.1 Baso % (Auto) 0.3 Neut # 10.3 H Lymph # 0.8 L [place] # 0.4 Eos # 0.1 Baso # 0.0 Neutrophils % (Manual) 85 H Lymphocytes % (Manual) 9 L Monocytes % (Manual) 5 Eosinophils % (Manual) 1 Platelet Estimate Decreased L Large Platelets Present Giant Platelets Present Hypochromasia (manual) Slight Poikilocytosis (manual Slight Anisocytosis (manual) Slight Target Cells Slight Sodium Potassium Chloride Carbon Dioxide Anion Gap BUN Creatinine Est GFR ( Amer) Est GFR (Non-Af Amer) POC Glucose (mg/dL) 151 H 193 H Random Glucose Calcium Total Bilirubin AST ALT Alkaline Phosphatase Total Protein Albumin Globulin Albumin/Globulin Ratio Amikacin 04/11/17 04/11/17 11:02 11:43 WBC RBC Hgb Hct MCV MCH MCHC RDW Plt Count MPV Neut % (Auto) Lymph % (Auto) [place] % (Auto) Eos % (Auto) Baso % (Auto) Neut # Lymph # [place] # Eos # Baso # Neutrophils % (Manual) Lymphocytes % (Manual) Monocytes % (Manual) Eosinophils % (Manual) Platelet Estimate Large Platelets Giant Platelets Hypochromasia (manual) Poikilocytosis (manual Anisocytosis (manual) Target Cells Sodium 155 H Potassium 2.4 L* D Chloride 119 H Carbon Dioxide 28 Anion Gap 10 BUN 25 H Creatinine 0.8 Est GFR ( Amer) > 60 Est GFR (Non-Af Amer) > 60 POC Glucose (mg/dL) 217 H Random Glucose 209 H Calcium 8.3 L Total Bilirubin 0.4 AST 45 H ALT 45 Alkaline Phosphatase 95 Total Protein 5.6 L Albumin 2.5 L Globulin 3.1 Albumin/Globulin Ratio 0.8 L Amikacin Assessment & Plan - Assessment and Plan (Free Text) Assessment: 66 y/o female w/ malfunctioning PEG tube Plan: -new tube inserted -ok to use new tube -re-consult prn -patient seen and examined w/ Dr. Sudeep FLORESradha PGY3
[2017-04-11] MEDS: TELAVANCIN HYDROCHLORIDE IV SCH (18:58)
[2017-04-11] MEDS: SODIUM CHLORIDE 0.9% IV SCH (18:58)
--- NOTE | 2017-04-11 22:52 | CP.PCM.PN ---
Subjective - Date & Time of Evaluation Date of Evaluation: 04/11/17 Time of Evaluation: 15:50 - Subjective Subjective: Mre awake, almost back to basline. Objective - Vital Signs/Intake and Output Vital Signs (last 24 hours): Temp Pulse Resp BP Pulse Ox 100.2 F H 98 H 20 131/69 98 04/11/17 15:00 04/11/17 15:00 04/11/17 15:00 04/11/17 15:00 04/11/17 15:00 Intake and Output: 04/11/17 04/12/17 18:59 06:59 Intake Total 100 Balance 100 - Medications Medications: Current Medications Albuterol/Ipratropium (Duoneb 3 Mg/0.5 Mg (3 Ml) Ud) 3 ml INH RQ6 [facility] Last Admin: 04/11/17 19:24 Dose: 3 ml Famotidine (Pepcid) 20 mg PO DAILY [facility] Last Admin: 04/11/17 18:58 Dose: 20 mg Heparin Sodium (Porcine) (Heparin) 5,000 units SC Q8 [facility] Last Admin: 04/11/17 22:21 Dose: 5,000 units Telavancin 750 mg/ Sodium (Chloride) 250 mls @ 166.667 mls/hr IV Q24H [facility] Last Admin: 04/11/17 18:58 Dose: 166.667 mls/hr Insulin Glargine (Lantus) 20 unit SC Q12 [facility] Last Admin: 04/11/17 22:21 Dose: 20 units Insulin Human Regular (Novolin R) 0 unit SC ACHS [facility] PRN Reason: Protocol Last Admin: 04/11/17 22:22 Dose: Not Given Mupirocin (Bactroban 2% Nasal) 0.5 gm BHARATH BID [facility] Stop: 04/17/17 18:01 Last Admin: 04/11/17 18:58 Dose: 0.5 gm Oxcarbazepine (Trileptal) 450 mg PEG DAILY [facility] Last Admin: 04/11/17 18:59 Dose: 450 mg Topiramate (Topamax) 100 mg PEG BID [facility] Last Admin: 04/11/17 18:59 Dose: 100 mg - Labs Labs: 04/11/17 11:02 04/11/17 11:02 PT 13.4 SECONDS (9.7-12.2) H 04/07/17 23:07 INR 1.2 04/07/17 23:07 APTT 47 SECONDS (21-34) H 04/07/17 23:07 - Head Exam Head Exam: ATRAUMATIC, NORMOCEPHALIC Additional comments: Gingival hyperplasia - Eye Exam Eye Exam: EOMI, PERRL - ENT Exam ENT Exam: Mucous Membranes Moist - Neck Exam Neck Exam: Full ROM - Respiratory Exam Additional comments: Transmitted sounds. - Cardiovascular Exam Cardiovascular Exam: REGULAR RHYTHM - GI/Abdominal Exam GI & Abdominal Exam: Soft, Normal Bowel Sounds Additional comments: gastric tupe is replaced by Surgery. Assessment and Plan - Assessment and Plan (Free Text) Assessment: Assessment and Plan (1) Sepsis Status: Acute (2) Hypotension Status: Acute (3) UTI (urinary tract infection) Status: Acute (4) HABP (hospital-acquired bacterial pneumonia) Status: Acute (5) Seizure Status: Acute (6) Hx of craniotomy Status: Acute (7) Dehydration with hypernatremia Status: Acute Plan: Continue current antibiotics and follow ID recommendations.
[2017-04-11 23:57] LABS: GRANULAR CAST 54 /lpf (0-1); SQUAMOUS EPITHIAL 4 /hpf (0-5); URINE BACTERIA FEW (<OCC); URINE BILIRUBIN NEGATIVE (NEGATIVE); URINE BLOOD 2+ (NEGATIVE); URINE CLARITY Hazy (Clear); URINE COLOR Yellow (YELLOW); URINE GLUCOSE (UA) NORMAL (Normal); URINE LEUKOCYTE ESTERASE 1+ Leu/uL (Negative); URINE NITRATE NEGATIVE (NEGATIVE); URINE PROTEIN 2+ mg/dL (NEGATIVE); URINE UROBILINOGEN NORMAL mg/dL (0.2-1.0)
[2017-04-12] MEDS: Albuterol-Ipratrop 3 mg / 0.5 (3 ml) UD INH SCH ×4 (01:36→19:39)
[2017-04-12] MEDS ORDERED: Acetaminophen 160 mg/5 ml UD PO PRN (08:45)
[2017-04-12] MEDS: (Novolin R) Insulin Human Regular 100 units/ml vial SC SCH ×4 (09:14→22:51)
--- NOTE | 2017-04-12 09:48 | RAD ---
Chest x-ray single frontal view History: Pneumonia. Comparison: 04/07/2017 Findings: Confluent increased consolidative changes in the right hilar infrahilar region as well as the left lung base. Small left pleural effusion. Diffuse increased interstitial lung markings with some linear atelectatic changes at both lung bases. Left hilar prominence/consolidative changes. Cardiomegaly. Calcification at the aortic knob. Surgical clips in the right upper abdomen. Impression: Confluent increased consolidative changes in the right hilar infrahilar region as well as the left lung base. Small left pleural effusion. Diffuse increased interstitial lung markings with some linear atelectatic changes at both lung bases. Left hilar prominence/consolidative changes. Cardiomegaly. Calcification at the aortic knob. Surgical clips in the right upper abdomen.
[2017-04-12] MEDS ORDERED: DiphenhydrAMINE 50 mg/ml Inj IVP STA (11:25)
[2017-04-12] MEDS: Acetaminophen 650mg/20.3ml solution UD PO PRN ×2 (11:32→17:32)
[2017-04-12 11:46] LABS: EOS # 0.3 K/uL (0.0-0.7); LYMPH # 1.3 K/uL (1.0-4.3); NEUT # 15.2 K/uL (1.8-7.0); NRBC % 0.2 % (0.0-2.0)
[2017-04-12 11:51] LABS: BLOOD UREA NITROGEN 25 mg/dL (7-17); GFR AFRICAN-AMERICAN > 60; GFR NON-AFRICAN AMERICAN > 60
[2017-04-12 11:52] LABS: CALCIUM 8.4 mg/dl (8.6-10.4)
[2017-04-12] MEDS: (Lantus) Insulin Glargine, Recombinant SC SCH ×2 (11:54→22:52)
[2017-04-12] MEDS: Mupirocin 2% Ointment (NASAL) NAS SCH ×2 (11:55→17:31)
[2017-04-12 11:57] LABS: BASO # 0.1 K/uL (0.0-0.2); BASO % 0.3 % (0.0-2.0); EOS % 1.6 % (0.0-4.0); HEMOGLOBIN 9.5 g/dL (11.0-16.0); LYMPH % 7.4 % (20.0-40.0); MEAN CELL VOLUME 91.1 fL (81.0-99.0); MEAN CORPUSCULAR HEMOGLOBIN 29.3 pg (27.0-31.0); MEAN CORPUSCULAR HGB CONC 32.2 g/dL (33.0-37.0); MEAN PLATELET VOLUME 11.9 fL (7.2-11.7); MONO # 0.9 K/uL (0.0-0.8); MONO % 4.8 % (0.0-10.0); NEUT % 85.9 % (50.0-75.0); PLATELET COUNT 167 K/uL (130-400); RBC 3.25 Mil/uL (3.80-5.20); RED CELL DISTRIBUTION WIDTH 13.7 % (11.5-14.5)
[2017-04-12 11:58] LABS: WHITE BLOOD COUNT 17.7 K/uL (4.8-10.8)
[2017-04-12 12:42] LABS: BANDS 10 % (0-2); EOSINOPHIL 1 % (0-4); LYMPHOCYTE 3 % (20-40); MONOCYTE 7 % (0-10); NEUTROPHIL 79 % (50-75); PLATELET ESTIMATE NORMAL (NORMAL); TOTAL CELLS COUNTED 100
[2017-04-12] MEDS ORDERED: Potassium Chloride 20 mEq/15 ml LIQ UD PO STA (12:46)
[2017-04-12] MEDS ORDERED: Potassium Chloride 20 mEq/15 ml LIQ UD PO ONE ×2 (13:00)
[2017-04-12] MEDS: Potassium Chloride 20 mEq/15 ml LIQ UD PO SCH (17:31)
--- NOTE | 2017-04-12 22:33 | CP.PCM.PN ---
Subjective - Date & Time of Evaluation Date of Evaluation: 04/12/17 Time of Evaluation: 22:33 - Subjective Subjective: CHIEF COMPLAINTS TODAY : generalized rash noted / ?TELVANCIN. Patient febrile and tachypneic wbc 17.7 ROS. on observation HEENT : N. Resp : No cough, wheezing ,pleuritic CP ,or hemoptysis Cardio : tachycardic GI : No abd.pain, n/v ,diarrhea or GI bleeding . 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 Musculoskel : No joint swelling , Derm : No rash Psych : not able to test Ext : No swelling ,calf pain PE. Pt. is in no distress.MORE RESPONSIVE AND AWAKE V.S As noted in the chart Head ,ear nose,throat and eyes : Normal. Neck : Supple with normal carotids. Lungs: B/L RHONCHI Heart : S1 & S2 normal , Abd : Soft non tender with normal bowel sounds. Neuro : B/L FOOT DROPS /AND WEAKNESS Ext : No edema with intact pulses.Non tender calves Derm :GENERALIZED SKIN RASH NOTED TRUNCK, EXTREMITIES. LABS/RADIOLOGY: REVIEWED NA 162. RENAL FUNCTION -OK URINE CULTURE +VE PROTEUS MIRABLIS.- MERCADO SENSITIVE BLOOD CULTURES -VE X 24HRS. mrsa naris detected. Objective - Vital Signs/Intake and Output Vital Signs (last 24 hours): Temp Pulse Resp BP Pulse Ox 98.4 F 100 H 20 137/68 94 L 04/12/17 18:32 04/12/17 15:00 04/12/17 15:00 04/12/17 15:31 04/12/17 15:00 Intake and Output: 04/12/17 04/13/17 18:59 06:59 Intake Total 660 Balance 660 - Medications Medications: Current Medications Acetaminophen (Tylenol 650mg/20.3ml Solution Ud) 650 mg PO Q6 [facility] PRN Reason: Temperature Last Admin: 04/12/17 17:32 Dose: 650 mg Albuterol/Ipratropium (Duoneb 3 Mg/0.5 Mg (3 Ml) Ud) 3 ml INH RQ6 [facility] Last Admin: 04/12/17 19:39 Dose: 3 ml Famotidine (Pepcid) 20 mg PO DAILY [facility] Last Admin: 04/12/17 11:56 Dose: 20 mg Heparin Sodium (Porcine) (Heparin) 5,000 units SC Q8 [facility] Last Admin: 04/12/17 14:10 Dose: 5,000 units Dextrose (Dextrose 5% In Water 1000 Ml) 1,000 mls @ 75 mls/hr IV .[id number] [facility] Last Admin: 04/12/17 15:35 Dose: 75 mls/hr Insulin Glargine (Lantus) 20 unit SC Q12 [facility] Last Admin: 04/12/17 11:54 Dose: 20 units Insulin Human Regular (Novolin R) 0 unit SC ACHS [facility] PRN Reason: Protocol Last Admin: 04/12/17 17:32 Dose: 8 unit Mupirocin (Bactroban 2% Nasal) 0.5 gm BHARATH BID [facility] Stop: 04/17/17 18:01 Last Admin: 04/12/17 17:31 Dose: 0.5 gm Oxcarbazepine (Trileptal) 450 mg PEG DAILY [facility] Last Admin: 04/12/17 11:55 Dose: 450 mg Potassium Chloride (Potassium Chloride Oral Soln) 20 meq PO DAILY [facility] Stop: 04/13/17 10:01 Last Admin: 04/12/17 17:31 Dose: 20 meq Topiramate (Topamax) 100 mg PEG BID [facility] Last Admin: 04/12/17 11:56 Dose: 100 mg - Labs Labs: 04/12/17 11:28 04/12/17 11:28 PT 13.4 SECONDS (9.7-12.2) H 04/07/17 23:07 INR 1.2 04/07/17 23:07 APTT 47 SECONDS (21-34) H 04/07/17 23:07 Assessment and Plan (1) Sepsis Assessment & Plan: wILL GIVE 1 DOSE OF AMIKACIN 500 MG TODAY. DC IV TELVANCIN AND OBSERVE. Start iv FLAGYL 500MG IV Q8HRLY. (04/12/17 )STARTING IN AM FOR MALFUNCTIONING PEG.. Status: Acute (2) Hypotension Status: Acute (3) UTI (urinary tract infection) Status: Acute (4) HABP (hospital-acquired bacterial pneumonia) Status: Acute (5) Seizure Status: Acute (6) Hx of craniotomy Status: Acute (7) Dehydration with hypernatremia Status: Acute (8) Drug rash Assessment & Plan: hold talvancin secondary to drug rash. One dose of Solu-Medrol IV piggyback 125 mg once. IV Benadryl 50 mg times once. Case discussed with nurse practitioner MS FRANK. Status: Acute - Assessment and Plan (Free Text) Plan: surgical consult in progress for malfunctioning PEG. f/u cxr.
[2017-04-12] MEDS ORDERED: Amikacin Sulfate 500 MG in Sodium Chloride 0.9% 250 ML IVPB ONE (23:30)
[2017-04-13] MEDS ORDERED: (Novolin R) Insulin Human Regular 100 units/ml vial SC ONE (00:54)
[2017-04-13] MEDS: Albuterol-Ipratrop 3 mg / 0.5 (3 ml) UD INH SCH ×4 (01:42→19:17)
[2017-04-13] MEDS: metroNIDAZOLE IV 500 mg/100 ml 500 MG/100 ML BAG IVPB SCH ×3 (05:47→21:48)
[2017-04-13] MEDS: Acetaminophen 650mg/20.3ml solution UD PO PRN (08:42)
[2017-04-13] MEDS: (Novolin R) Insulin Human Regular 100 units/ml vial SC SCH ×4 (08:48→22:03)
[2017-04-13 10:19] LABS: GFR AFRICAN-AMERICAN > 60; GFR NON-AFRICAN AMERICAN > 60
[2017-04-13 10:23] LABS: BLOOD UREA NITROGEN 36 mg/dL (7-17); CALCIUM 8.5 mg/dl (8.6-10.4)
[2017-04-13] MEDS: (Lantus) Insulin Glargine, Recombinant SC SCH ×2 (10:46→21:48)
[2017-04-13] MEDS: Potassium Chloride 20 mEq/15 ml LIQ UD PO SCH ×2 (10:46→15:54)
[2017-04-13] MEDS: Mupirocin 2% Ointment (NASAL) NAS SCH ×2 (13:53→17:47)
--- NOTE | 2017-04-13 21:20 | CP.PCM.PN ---
Subjective - Date & Time of Evaluation Date of Evaluation: 04/13/17 Time of Evaluation: 21:20 - Subjective Subjective: CHIEF COMPLAINTS TODAY : TEMP DOWN TODAY S/P FOLY INSERTION IN PEG SITEAS PER SURGERY 04/12 generalized rash / ?TELVANCIN. Patient TACHY AND POORLY RESPONSIVE ROS. on observation HEENT : N. Resp : No cough, wheezing ,pleuritic CP ,or hemoptysis Cardio : tachycardic GI : No abd.pain, n/v ,diarrhea or GI bleeding . ORGAN ASSEMBLER : No headache, vertigo, focal deficit. Musculoskel : No joint swelling , Derm : No rash Psych : not able to test Ext : No swelling ,calf pain PE. Pt. is in no distress.LESS RESPONSIVE . V.S As noted in the chart Head ,ear nose,throat and eyes : Normal. Neck : Supple with normal carotids. Lungs: B/L RHONCHI Heart : S1 & S2 normal , Abd : Soft non tender with normal bowel sounds. Neuro : B/L FOOT DROPS /AND WEAKNESS Ext : No edema with intact pulses.Non tender calves Derm :GENERALIZED SKIN RASH NOTED TRUNCK, EXTREMITIES. STABLE LABS/RADIOLOGY: REVIEWED NA 162. RENAL FUNCTION -OK REPEAT URINE CULTURE 04/11 GNR URINE CULTURE +VE PROTEUS MIRABLIS.- MERCADO SENSITIVE BLOOD CULTURES -VE X 24HRS. mrsa naris detected. Objective - Vital Signs/Intake and Output Vital Signs (last 24 hours): Temp Pulse Resp BP Pulse Ox 97.4 F L 101 H 20 85/48 L 96 04/13/17 16:40 04/13/17 16:40 04/13/17 16:40 04/13/17 16:40 04/13/17 16:40 - Medications Medications: Current Medications Acetaminophen (Tylenol 650mg/20.3ml Solution Ud) 650 mg PO Q6 PRN PRN Reason: Temperature Last Admin: 04/13/17 08:42 Dose: 650 mg Albuterol/Ipratropium (Duoneb 3 Mg/0.5 Mg (3 Ml) Ud) 3 ml INH RQ6 [facility] Last Admin: 04/13/17 19:17 Dose: 3 ml Famotidine (Pepcid) 20 mg PO DAILY [facility] Last Admin: 04/13/17 10:46 Dose: 20 mg Furosemide (Lasix) 40 mg IVP DAILY [facility] Stop: 04/15/17 10:31 Last Admin: 04/13/17 10:46 Dose: 40 mg Dextrose (Dextrose 5% In Water 1000 Ml) 1,000 mls @ 75 mls/hr IV .[id number] [facility] Last Admin: 04/12/17 15:35 Dose: 75 mls/hr Metronidazole (Flagyl) 500 mg in 100 mls @ 100 mls/hr IVPB Q8 [facility] Last Admin: 04/13/17 14:05 Dose: 100 mls/hr Insulin Glargine (Lantus) 20 unit SC Q12 [facility] Last Admin: 04/13/17 10:46 Dose: 20 units Insulin Human Regular (Novolin R) 0 unit SC ACHS [facility] PRN Reason: Protocol Last Admin: 04/13/17 16:03 Dose: 8 unit Mupirocin (Bactroban 2% Nasal) 0.5 gm BHARATH BID [facility] Stop: 04/17/17 18:01 Last Admin: 04/13/17 17:47 Dose: 0.5 gm Oxcarbazepine (Trileptal) 450 mg PEG DAILY [facility] Last Admin: 04/13/17 10:46 Dose: 450 mg Potassium Chloride (Potassium Chloride Oral Soln) 20 meq PO DAILY [facility] Stop: 04/16/17 12:46 Last Admin: 04/13/17 15:54 Dose: 20 meq Topiramate (Topamax) 100 mg PEG BID [facility] Last Admin: 04/13/17 17:47 Dose: 100 mg - Labs Labs: 04/12/17 11:28 04/13/17 09:52 PT 13.4 SECONDS (9.7-12.2) H 04/07/17 23:07 INR 1.2 04/07/17 23:07 APTT 47 SECONDS (21-34) H 04/07/17 23:07 Assessment and Plan (1) Sepsis Assessment & Plan: OFF TELVANCIN ADD IV BACTRIM 240MG TMP/SMX IV Q 12HRLY 04/13/17 ON iv FLAGYL 500MG IV Q8HRLY. (04/12/17 )STARTING IN AM FOR MALFUNCTIONING PEG.. F/U FEVER CURVE CBC W DIFF IN AM. PT DNR /DNI Status: Acute (2) Hypotension Status: Acute (3) UTI (urinary tract infection) Assessment & Plan: REPEAT UA/URINE CULTURE -P Status: Acute (4) HABP (hospital-acquired bacterial pneumonia) Status: Acute (5) Seizure Status: Acute (6) Hx of craniotomy Status: Acute (7) Dehydration with hypernatremia Status: Acute (8) Drug rash Status: Acute
[2017-04-14] MEDS: Albuterol-Ipratrop 3 mg / 0.5 (3 ml) UD INH SCH ×3 (01:22→13:23)
[2017-04-14] MEDS ORDERED: Sulfamethoxazole/Trimethoprim 240 MG in Dextrose 5% In Water 250 ML IVPB SCH (03:30)
[2017-04-14] MEDS: Sulfamethoxazole/Trimethoprim 240 MG in Dextrose 5% In Water 250 ML IVPB SCH ×2 (03:51→15:08)
[2017-04-14] MEDS: metroNIDAZOLE IV 500 mg/100 ml 500 MG/100 ML BAG IVPB SCH ×3 (05:26→22:02)
[2017-04-14] MEDS: (Novolin R) Insulin Human Regular 100 units/ml vial SC SCH ×4 (08:23→22:29)
[2017-04-14] MEDS: Mupirocin 2% Ointment (NASAL) NAS SCH ×2 (10:34→17:34)
[2017-04-14] MEDS: (Lantus) Insulin Glargine, Recombinant SC SCH ×2 (10:34→22:05)
[2017-04-14] MEDS: Potassium Chloride 20 mEq/15 ml LIQ UD PO SCH (10:34)
--- NOTE | 2017-04-14 19:33 | CP.PCM.CON ---
History of Present Illness - History of Present Illness History of Present Illness: pt seen and examined by me 66 F from [place] with pm h/o CVA, carniotomy on left, IDDM, s/p peg, currently has grewal, history of seizure disorder, DNR/DNI, multiple allergies as documented above was sent in for reduced responsiveness, tachypnea, tachycardia in 150's. In ER patient was febrile 105F, RR in 60s, hr initially in 160's, responsive to deep pain only, gurgling resp noises, bp in 70's systolic, patient seen after 3 lit of boluses. RR in 40's, hr in 90's BP 90/50 range. Patient was suctioned orophynx, ng used to decompress stomach as grewal in peg site was blocked, went into airway and actually able to suction airway. Initial labs showed sodium 163 , creat 1.7, needing nrb 100%, glucose 747mg/dl, elevated wbc count. , insulin 5 units regular ordered by me, further lit rl bolus ordered, friedman CT ordered, repeat stat labs, fsbs as well. renal consult isrequested for evaluation of hypernatremia and renal failure. pt opens eyes to verbal stimuli. not able to communicate. EMR reviewed and history obtain ed. on ivf D%W at 75 ml/hr Review of Systems - Constitutional Constitutional: As Per HPI - EENT Eyes: As Per HPI Ears: As Per HPI Nose/Mouth/Throat: As Per HPI - Breasts Breasts: As Per HPI - Cardiovascular Cardiovascular: As Per HPI - Respiratory Respiratory: As Per HPI - Gastrointestinal Gastrointestinal: As Per HPI - Genitourinary Genitourinary: As Per HPI - Neurological Neurological: As Per HPI, Confusion, Convulsions, Weakness - Psychiatric Psychiatric: Confusion - Endocrine Endocrine: As Per HPI - Hematologic/Lymphatic Hematologic: As Per HPI Past Patient History - Past Medical History & Family History Past Medical History?: Yes - Past Social History Smoking Status: unresponsi Alcohol: None Drugs: Denies Home Situation {Lives}: [facility] Domestic Violence: Negative - CARDIAC Hx Cardiac Disorders: Yes Hx Hypertension: Yes - PULMONARY Hx Chronic Obstructive Pulmonary Disease (COPD): Yes - NEUROLOGICAL Hx Neurological Disorder: Yes Hx Seizures: Yes - HEENT Hx HEENT Problems: Yes Hx Cataracts: Yes Other/Comment: APHASIA - RENAL Hx Chronic Kidney Disease: Yes - ENDOCRINE/METABOLIC Hx Diabetes Mellitus Type 2: Yes - HEMATOLOGICAL/ONCOLOGICAL Hx Anemia: Yes - INTEGUMENTARY Hx Dermatological Problems: No - MUSCULOSKELETAL/RHEUMATOLOGICAL Hx Falls: No (unknown) - GASTROINTESTINAL Hx Gastrointestinal Disorders: Yes Hx Gastroesophageal Reflux: Yes - GENITOURINARY/GYNECOLOGICAL Hx Genitourinary Disorders: No - PSYCHIATRIC Hx Substance Use: No (unresponsive) - SURGICAL HISTORY Hx Surgeries: Yes Other/Comment: GASTROSTOMY - ANESTHESIA Hx Anesthesia: Yes Hx Anesthesia Reactions: No Hx Malignant Hyperthermia: No Meds Allergies/Adverse Reactions: Allergies Allergy/AdvReac Type Severity Reaction Status Date / Time aztreonam [From Azactam] Allergy Verified 10/20/16 21:32 cefepime Allergy Verified 10/20/16 21:28 moxifloxacin Allergy Verified 10/20/16 21:29 Penicillins Allergy Verified 10/20/16 21:29 tamsulosin HCl [From Flomax] Allergy Verified 10/20/16 21:30 tigecycline [From Tygacil] Allergy Verified 10/20/16 21:31 vancomycin Allergy Verified 10/20/16 21:32 pnemonia vaccine Allergy Uncoded 10/20/16 21:30 - Medications Medications: Current Medications Acetaminophen (Tylenol 650mg/20.3ml Solution Ud) 650 mg PO Q6 PRN PRN Reason: Temperature Last Admin: 04/13/17 08:42 Dose: 650 mg Famotidine (Pepcid) 20 mg PO DAILY [facility] Last Admin: 04/14/17 10:34 Dose: 20 mg Furosemide (Lasix) 40 mg IVP DAILY [facility] Stop: 04/15/17 10:31 Last Admin: 04/14/17 10:37 Dose: 40 mg Dextrose (Dextrose 5% In Water 1000 Ml) 1,000 mls @ 75 mls/hr IV .[id number] [facility] Last Admin: 04/14/17 05:27 Dose: Not Given Metronidazole (Flagyl) 500 mg in 100 mls @ 100 mls/hr IVPB Q8 [facility] Last Admin: 04/14/17 13:39 Dose: 100 mls/hr Trimethoprim/Sulfamethoxazole (240 mg/ Dextrose) 250 mls @ 125 mls/hr IVPB Q12H [facility] Last Admin: 04/14/17 15:08 Dose: 125 mls/hr Insulin Glargine (Lantus) 20 unit SC Q12 [facility] Last Admin: 04/14/17 10:34 Dose: 20 units Insulin Human Regular (Novolin R) 0 unit SC ACHS [facility] PRN Reason: Protocol Last Admin: 04/14/17 17:33 Dose: 6 unit Mupirocin (Bactroban 2% Nasal) 0.5 gm BHARATH BID [facility] Stop: 04/17/17 18:01 Last Admin: 04/14/17 17:34 Dose: 0.5 gm Oxcarbazepine (Trileptal) 450 mg PEG DAILY [facility] Last Admin: 04/14/17 10:35 Dose: 450 mg Potassium Chloride (Potassium Chloride Oral Soln) 20 meq PO DAILY [facility] Stop: 04/16/17 12:46 Last Admin: 04/14/17 10:34 Dose: 20 meq Topiramate (Topamax) 100 mg PEG BID [facility] Last Admin: 04/14/17 17:34 Dose: 100 mg Physical Exam - Constitutional Appears: Non-toxic, No Acute Distress - Head Exam Head Exam: ATRAUMATIC, NORMOCEPHALIC - Eye Exam Eye Exam: Normal appearance, PERRL Pupil Exam: NORMAL ACCOMODATION - ENT Exam ENT Exam: Mucous Membranes Dry - Neck Exam Neck exam: Positive for: Full Rom, Normal Inspection - Respiratory Exam Respiratory Exam: Clear to Auscultation Bilateral, NORMAL BREATHING PATTERN - Cardiovascular Exam Cardiovascular Exam: REGULAR RHYTHM, +S1, +S2 - GI/Abdominal Exam GI & Abdominal Exam: Normal Bowel Sounds, Soft Additional comments: peg+ - Rectal Exam Rectal Exam: Deferred - Extremities Exam Additional comments: no edema, no cyanosis, no clubbing - Neurological Exam Neurological exam: Altered Additional comments: confused, not following commands, opens eyes to verbal ? Results - Vital Signs Recent Vital Signs: Last Vital Signs Temp 99.5 F 04/14/17 15:54 Pulse 113 H 04/14/17 15:54 Resp 36 H 04/14/17 15:54 BP 92/59 L 04/14/17 15:54 Pulse Ox 94 L 04/14/17 15:54 - Labs Result Diagrams: 04/12/17 11:28 04/14/17 20:35 Labs: Laboratory Results - last 24 hr 04/12/17 04/13/17 04/14/17 21:09 21:54 06:16 POC Glucose (mg/dL) 282 H 394 H Urine Chloride 160 07/09/17 07/09/17 12:36 16:07 POC Glucose (mg/dL) 402 H* 336 H Urine Chloride Assessment & Plan - Assessment and Plan (Free Text) Plan: 66 yo WF with dm, s/p craniotomy, seizers, resident of [place] was admitted with worsening mental status, high serum na, urosepsis 1. Hypernatremia, sec to intravascular volume depletion, 2. CHILO, sec to dehydration 3. urosepsis 4. uncontrolled DM c/w D5W at 100 ml/hr, avoid mixing abx with ns or 1/2 ns, use D5w dialy bmp c/w iv abx asper ID
[2017-04-14 20:54] LABS: CALCIUM 8.4 mg/dl (8.6-10.4)
--- NOTE | 2017-04-14 22:27 | CP.PCM.PN ---
Subjective - Date & Time of Evaluation Date of Evaluation: 04/12/17 Time of Evaluation: 17:00 - Subjective Subjective: Pt. developed allergic skin reaction with diffuse erythema of the abdominal wall and upper thighs Objective - Vital Signs/Intake and Output Vital Signs (last 24 hours): Temp Pulse Resp BP Pulse Ox 99.5 F 113 H 36 H 92/59 L 94 L 04/14/17 15:54 04/14/17 15:54 04/14/17 15:54 04/14/17 15:54 04/14/17 15:54 Intake and Output: 04/14/17 04/15/17 18:59 06:59 Intake Total 400 Balance 400 - Medications Medications: Current Medications Acetaminophen (Tylenol 650mg/20.3ml Solution Ud) 650 mg PO Q6 PRN PRN Reason: Temperature Last Admin: 04/13/17 08:42 Dose: 650 mg Famotidine (Pepcid) 20 mg PO DAILY [facility] Last Admin: 04/14/17 10:34 Dose: 20 mg Furosemide (Lasix) 40 mg IVP DAILY [facility] Stop: 04/15/17 10:31 Last Admin: 04/14/17 10:37 Dose: 40 mg Dextrose (Dextrose 5% In Water 1000 Ml) 1,000 mls @ 75 mls/hr IV .[id number] [facility] Last Admin: 04/14/17 05:27 Dose: Not Given Metronidazole (Flagyl) 500 mg in 100 mls @ 100 mls/hr IVPB Q8 [facility] Last Admin: 04/14/17 22:02 Dose: 100 mls/hr Trimethoprim/Sulfamethoxazole (240 mg/ Dextrose) 250 mls @ 125 mls/hr IVPB Q12H [facility] Last Admin: 04/14/17 15:08 Dose: 125 mls/hr Insulin Glargine (Lantus) 20 unit SC Q12 [facility] Last Admin: 04/14/17 22:05 Dose: 20 units Insulin Human Regular (Novolin R) 0 unit SC ACHS [facility] PRN Reason: Protocol Last Admin: 04/14/17 17:33 Dose: 6 unit Mupirocin (Bactroban 2% Nasal) 0.5 gm BHARATH BID [facility] Stop: 04/17/17 18:01 Last Admin: 04/14/17 17:34 Dose: 0.5 gm Oxcarbazepine (Trileptal) 450 mg PEG DAILY [facility] Last Admin: 04/14/17 10:35 Dose: 450 mg Potassium Chloride (Potassium Chloride Oral Soln) 20 meq PO DAILY [facility] Stop: 04/16/17 12:46 Last Admin: 04/14/17 10:34 Dose: 20 meq Topiramate (Topamax) 100 mg PEG BID [facility] Last Admin: 04/14/17 17:34 Dose: 100 mg - Labs Labs: 04/12/17 11:28 04/14/17 20:35 PT 13.4 SECONDS (9.7-12.2) H 04/07/17 23:07 INR 1.2 04/07/17 23:07 APTT 47 SECONDS (21-34) H 04/07/17 23:07 - Head Exam Head Exam: ATRAUMATIC, NORMOCEPHALIC - Eye Exam Eye Exam: PERRL - ENT Exam ENT Exam: Mucous Membranes Moist - Neck Exam Neck Exam: Full ROM - Respiratory Exam Respiratory Exam: Clear to Ausculation Bilateral, Respiratory Distress, NORMAL BREATHING PATTERN - Cardiovascular Exam Cardiovascular Exam: Bradycardia, Tachycardia, REGULAR RHYTHM - GI/Abdominal Exam Additional comments: gastric tube is in place - Neurological Exam Additional comments: Pt. is bed ridden with bilateral lower ext. weakness Assessment and Plan - Assessment and Plan (Free Text) Assessment: Assessment and Plan (1) Sepsis Status: Acute (2) Hypotension Status: Acute (3) UTI (urinary tract infection) Status: Acute (4) HABP (hospital-acquired bacterial pneumonia) Status: Acute (5) Seizure Status: Acute (6) Hx of craniotomy Status: Acute (7) Dehydration with hypernatremia Status: Ac 8. Hypernatremia 9. Allergic skin reaction Plan: As above , Stop antibiotics Nephrology consult.
--- NOTE | 2017-04-14 22:41 | CP.PCM.PN ---
Subjective - Date & Time of Evaluation Date of Evaluation: 04/13/17 Time of Evaluation: 17:30 - Subjective Subjective: Decreased reddness , antibiotics were stopped. Objective - Vital Signs/Intake and Output Vital Signs (last 24 hours): Temp Pulse Resp BP Pulse Ox 99.5 F 113 H 36 H 92/59 L 94 L 04/14/17 15:54 04/14/17 15:54 04/14/17 15:54 04/14/17 15:54 04/14/17 15:54 Intake and Output: 04/14/17 04/15/17 18:59 06:59 Intake Total 400 Balance 400 - Medications Medications: Current Medications Acetaminophen (Tylenol 650mg/20.3ml Solution Ud) 650 mg PO Q6 PRN PRN Reason: Temperature Last Admin: 04/13/17 08:42 Dose: 650 mg Famotidine (Pepcid) 20 mg PO DAILY [facility] Last Admin: 04/14/17 10:34 Dose: 20 mg Metronidazole (Flagyl) 500 mg in 100 mls @ 100 mls/hr IVPB Q8 [facility] Last Admin: 04/14/17 22:02 Dose: 100 mls/hr Trimethoprim/Sulfamethoxazole (240 mg/ Dextrose) 250 mls @ 125 mls/hr IVPB Q12H [facility] Last Admin: 04/14/17 15:08 Dose: 125 mls/hr Dextrose (Dextrose 5% In Water 1000 Ml) 1,000 mls @ 100 mls/hr IV .Q10H [facility] Last Admin: 04/14/17 22:33 Dose: 100 mls/hr Insulin Glargine (Lantus) 20 unit SC Q12 [facility] Last Admin: 04/14/17 22:05 Dose: 20 units Insulin Human Regular (Novolin R) 0 unit SC ACHS [facility] PRN Reason: Protocol Last Admin: 04/14/17 22:29 Dose: Not Given Mupirocin (Bactroban 2% Nasal) 0.5 gm BHARATH BID [facility] Stop: 04/17/17 18:01 Last Admin: 04/14/17 17:34 Dose: 0.5 gm Oxcarbazepine (Trileptal) 450 mg PEG DAILY [facility] Last Admin: 04/14/17 10:35 Dose: 450 mg Potassium Chloride (Potassium Chloride Oral Soln) 20 meq PO DAILY [facility] Stop: 04/16/17 12:46 Last Admin: 04/14/17 10:34 Dose: 20 meq Topiramate (Topamax) 100 mg PEG BID [facility] Last Admin: 04/14/17 17:34 Dose: 100 mg - Labs Labs: 04/12/17 11:28 04/14/17 20:35 PT 13.4 SECONDS (9.7-12.2) H 04/07/17 23:07 INR 1.2 04/07/17 23:07 APTT 47 SECONDS (21-34) H 04/07/17 23:07 - Head Exam Head Exam: ATRAUMATIC, NORMOCEPHALIC - Eye Exam Eye Exam: Normal appearance, PERRL - ENT Exam ENT Exam: Mucous Membranes Moist - Neck Exam Neck Exam: Full ROM - Respiratory Exam Additional comments: Decreased breath sounds in both lower lung asencio. - Cardiovascular Exam Cardiovascular Exam: REGULAR RHYTHM - GI/Abdominal Exam GI & Abdominal Exam: Soft - Extremities Exam Additional comments: Bed ridden , bilateral lower ext. weakness. - Neurological Exam Neurological Exam: Awake Assessment and Plan - Assessment and Plan (Free Text) Assessment: Assessment and Plan (1) Sepsis Status: Acute (2) Hypotension Status: Acute (3) UTI (urinary tract infection) Status: Acute (4) HABP (hospital-acquired bacterial pneumonia) Status: Acute (5) Seizure Status: Acute (6) Hx of craniotomy Status: Acute (7) Dehydration with hypernatremia Status: Ac 8. Hypernatremia 9. Allergic skin reaction Plan: As above , Stop antibiotics Nephrology consult. Plan: As above.
[2017-04-15] MEDS: Sulfamethoxazole/Trimethoprim 240 MG in Dextrose 5% In Water 250 ML IVPB SCH ×2 (03:21→16:30)
[2017-04-15] MEDS: metroNIDAZOLE IV 500 mg/100 ml 500 MG/100 ML BAG IVPB SCH ×3 (05:30→22:02)
[2017-04-15] MEDS: (Novolin R) Insulin Human Regular 100 units/ml vial SC SCH ×4 (08:52→22:19)
[2017-04-15] MEDS: Potassium Chloride 20 mEq/15 ml LIQ UD PO SCH (10:39)
[2017-04-15] MEDS: Mupirocin 2% Ointment (NASAL) NAS SCH ×2 (10:40→19:21)
[2017-04-15] MEDS: (Lantus) Insulin Glargine, Recombinant SC SCH ×2 (10:40→22:19)
--- NOTE | 2017-04-15 12:52 | CARD ---
APPROVED REPORT EKG Measurement Heart [id number] <Conclusion> Sinus rhythm with first degree AV block at a rate of 90. Possible APCs with some aberrantly conducted beats Low voltage in the limb leads Right domínguez axis Inferolateral T-wave inversion consider ischemia Poor R wave progression possible anterior MD of undetermined age Abnormal ECG
--- NOTE | 2017-04-15 12:53 | CARD ---
APPROVED REPORT EKG Measurement Heart [id number] <Conclusion> Wide QRS tachycardia Nonspecific intraventricular block Cannot rule out Anterior infarct, age undetermined T wave abnormality, consider inferolateral ischemia Abnormal ECG
--- NOTE | 2017-04-15 12:57 | CP.PCM.PN ---
Subjective - Date & Time of Evaluation Date of Evaluation: 04/15/17 Time of Evaluation: 12:56 - Subjective Subjective: CHIEF COMPLAINTS TODAY : TEMP DOWN TODAY Patient TACHY AND POORLY RESPONSIVE GENERALIZED RASH FADING AWAY ROS. on observation HEENT : N. Resp : No cough, wheezing ,pleuritic CP ,or hemoptysis Cardio : tachycardic GI : No abd.pain, n/v ,diarrhea or GI bleeding . 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 Musculoskel : No joint swelling , Derm : No rash Psych : not able to test Ext : No swelling ,calf pain PE. Pt. is in no distress.LESS RESPONSIVE . V.S As noted in the chart Head ,ear nose,throat and eyes : Normal. Neck : Supple with normal carotids. Lungs: B/L RHONCHI Heart : S1 & S2 normal , Abd : Soft non tender with normal bowel sounds. Neuro : B/L FOOT DROPS /AND WEAKNESS Ext : No edema with intact pulses.Non tender calves Derm :GENERALIZED SKIN RASH NOTED TRUNCK, EXTREMITIES. STABLE/FADING AWAY LABS/RADIOLOGY: REVIEWED NA 162.--> 147 IMPROVING. RENAL FUNCTION -OK CREATININE 1.2/bun 52 REPEAT URINE CULTURE 04/11 pROTEUS MIRABILIS S - TRIMETHOPRIM/SULFA. URINE CULTURE +VE PROTEUS MIRABLIS.- MERCADO SENSITIVE BLOOD CULTURES -VE X 24HRS. mrsa naris detected. Objective - Vital Signs/Intake and Output Vital Signs (last 24 hours): Temp Pulse Resp BP Pulse Ox 98.8 F 109 H 24 91/55 L 96 04/15/17 07:00 04/15/17 07:00 04/15/17 07:00 04/15/17 07:00 04/15/17 07:00 Intake and Output: 04/15/17 04/15/17 06:59 18:59 Intake Total 1200 Balance 1200 - Medications Medications: Current Medications Acetaminophen (Tylenol 650mg/20.3ml Solution Ud) 650 mg PO Q6 PRN PRN Reason: Temperature Last Admin: 04/13/17 08:42 Dose: 650 mg Famotidine (Pepcid) 20 mg PO DAILY [facility] Last Admin: 04/15/17 10:40 Dose: 20 mg Metronidazole (Flagyl) 500 mg in 100 mls @ 100 mls/hr IVPB Q8 [facility] Last Admin: 04/15/17 05:30 Dose: 100 mls/hr Trimethoprim/Sulfamethoxazole (240 mg/ Dextrose) 250 mls @ 125 mls/hr IVPB Q12H [facility] Last Admin: 04/15/17 03:21 Dose: 125 mls/hr Dextrose (Dextrose 5% In Water 1000 Ml) 1,000 mls @ 100 mls/hr IV .Q10H [facility] Last Admin: 04/15/17 11:27 Dose: 100 mls/hr Insulin Glargine (Lantus) 20 unit SC Q12 [facility] Last Admin: 04/15/17 10:40 Dose: 20 units Insulin Human Regular (Novolin R) 0 unit SC ACHS [facility] PRN Reason: Protocol Last Admin: 04/15/17 12:38 Dose: 6 unit Mupirocin (Bactroban 2% Nasal) 0.5 gm BHARATH BID [facility] Stop: 04/17/17 18:01 Last Admin: 04/15/17 10:40 Dose: 0.5 gm Oxcarbazepine (Trileptal) 450 mg PEG DAILY [facility] Last Admin: 04/15/17 10:40 Dose: 450 mg Potassium Chloride (Potassium Chloride Oral Soln) 20 meq PO DAILY [facility] Stop: 04/16/17 12:46 Last Admin: 04/15/17 10:39 Dose: 20 meq Topiramate (Topamax) 100 mg PEG BID [facility] Last Admin: 04/15/17 10:40 Dose: 100 mg - Labs Labs: 04/12/17 11:28 04/14/17 20:35 PT 13.4 SECONDS (9.7-12.2) H 04/07/17 23:07 INR 1.2 04/07/17 23:07 APTT 47 SECONDS (21-34) H 04/07/17 23:07 Assessment and Plan (1) Sepsis Assessment & Plan: N IV BACTRIM 240MG TMP/SMX IV Q 12HRLY 04/13/17 ON iv FLAGYL 500MG IV Q8HRLY. (04/12/17 )STARTING IN AM FOR MALFUNCTIONING PEG.. F/U FEVER CURVE CBC W DIFF IN AM. BMP IN AM PT DNR /DNI Status: Acute (2) Hypotension Status: Acute (3) UTI (urinary tract infection) Assessment & Plan: ON IV BACTRIM 240MG TMP/SMX IV Q 12HRLY 04/13/17 ON iv FLAGYL 500MG IV Q8HRLY. (04/12/17 )STARTING IN AM FOR MALFUNCTIONING PEG.. F/U FEVER CURVE Status: Acute (4) HABP (hospital-acquired bacterial pneumonia) Status: Acute (5) Seizure Status: Acute (6) Hx of craniotomy Status: Acute (7) Dehydration with hypernatremia Assessment & Plan: sodium 147 improving. IV fluids as per renal. Status: Acute (8) Drug rash Assessment & Plan: improving. Status: Acute
--- NOTE | 2017-04-15 17:21 | CP.PCM.PN ---
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 + CRACKLES B/L NOTED. CXR ORDER TO R/O ASPIRATION AND DR. LEON MADE AWARE. RN TO NOTIFY DR. LEON OF CXR RESULTS ONCE IT IS READ BY RADIOLOGIST. 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 EQUIPMENT CLEANER AND TESTER ATTEMPTED ONCE AND ABLE TO DRAW SMALL AMOUNT FOR CHEMISTRY. GIVEN TO GARY GARZA TO SEND TO THE LAB. NO FURTHER ORDERS AND STAFF TO NOTIFY DR. LEON OF ANY CHANGES. Objective - Vital Signs/Intake and Output Vital Signs (last 24 hours): Temp Pulse Resp BP Pulse Ox 99.9 F H 96 H 21 94/60 L 99 04/15/17 16:33 04/15/17 16:33 04/15/17 16:33 04/15/17 16:33 04/15/17 16:33 Intake and Output: 04/15/17 04/15/17 06:59 18:59 Intake Total 1200 Balance 1200 - Medications Medications: Current Medications Acetaminophen (Tylenol 650mg/20.3ml Solution Ud) 650 mg PO Q6 PRN PRN Reason: Temperature Last Admin: 04/13/17 08:42 Dose: 650 mg Famotidine (Pepcid) 20 mg PO DAILY [facility] Last Admin: 04/15/17 10:40 Dose: 20 mg Metronidazole (Flagyl) 500 mg in 100 mls @ 100 mls/hr IVPB Q8 [facility] Last Admin: 04/15/17 14:26 Dose: 100 mls/hr Trimethoprim/Sulfamethoxazole (240 mg/ Dextrose) 250 mls @ 125 mls/hr IVPB Q12H [facility] Last Admin: 04/15/17 16:30 Dose: 125 mls/hr Dextrose (Dextrose 5% In Water 1000 Ml) 1,000 mls @ 100 mls/hr IV .Q10H [facility] Last Admin: 04/15/17 11:27 Dose: 100 mls/hr Insulin Glargine (Lantus) 20 unit SC Q12 [facility] Last Admin: 04/15/17 10:40 Dose: 20 units Insulin Human Regular (Novolin R) 0 unit SC ACHS [facility] PRN Reason: Protocol Last Admin: 04/15/17 12:38 Dose: 6 unit Mupirocin (Bactroban 2% Nasal) 0.5 gm BHARATH BID SAL[facility] Stop: 04/17/17 18:01 Last Admin: 04/15/17 10:40 Dose: 0.5 gm Oxcarbazepine (Trileptal) 450 mg PEG DAILY [facility] Last Admin: 04/15/17 10:40 Dose: 450 mg Potassium Chloride (Potassium Chloride Oral Soln) 20 meq PO DAILY [facility] Stop: 04/16/17 12:46 Last Admin: 04/15/17 10:39 Dose: 20 meq Topiramate (Topamax) 100 mg PEG BID [facility] Last Admin: 04/15/17 10:40 Dose: 100 mg - Labs Labs: 04/12/17 11:28 04/14/17 20:35 PT 13.4 SECONDS (9.7-12.2) H 04/07/17 23:07 INR 1.2 04/07/17 23:07 APTT 47 SECONDS (21-34) H 04/07/17 23:07
[2017-04-15 17:33] LABS: CALCIUM 7.4 mg/dl (8.6-10.4)
--- NOTE | 2017-04-15 20:12 | CP.PCM.PN ---
Subjective - Date & Time of Evaluation Date of Evaluation: 04/15/17 Time of Evaluation: 20:12 - Subjective Subjective: pt is seen and examined by me, pt is not in distress, opens eyes to verbal / tactile stimuli, on iv hydration Objective - Vital Signs/Intake and Output Vital Signs (last 24 hours): Temp Pulse Resp BP Pulse Ox 99.9 F H 96 H 21 94/60 L 99 04/15/17 16:33 04/15/17 16:33 04/15/17 16:33 04/15/17 16:33 04/15/17 16:33 - Medications Medications: Current Medications Acetaminophen (Tylenol 650mg/20.3ml Solution Ud) 650 mg PO Q6 PRN PRN Reason: Temperature Last Admin: 04/13/17 08:42 Dose: 650 mg Famotidine (Pepcid) 20 mg PO DAILY [facility] Last Admin: 04/15/17 10:40 Dose: 20 mg Metronidazole (Flagyl) 500 mg in 100 mls @ 100 mls/hr IVPB Q8 [facility] Last Admin: 04/15/17 14:26 Dose: 100 mls/hr Trimethoprim/Sulfamethoxazole (240 mg/ Dextrose) 250 mls @ 125 mls/hr IVPB Q12H [facility] Last Admin: 04/15/17 16:30 Dose: 125 mls/hr Dextrose (Dextrose 5% In Water 1000 Ml) 1,000 mls @ 100 mls/hr IV .Q10H [facility] Last Admin: 04/15/17 18:45 Dose: Not Given Insulin Glargine (Lantus) 20 unit SC Q12 [facility] Last Admin: 04/15/17 10:40 Dose: 20 units Insulin Human Regular (Novolin R) 0 unit SC ACHS [facility] PRN Reason: Protocol Last Admin: 04/15/17 18:43 Dose: 8 unit Mupirocin (Bactroban 2% Nasal) 0.5 gm BHARATH BID [facility] Stop: 04/17/17 18:01 Last Admin: 04/15/17 19:21 Dose: 0.5 gm Oxcarbazepine (Trileptal) 450 mg PEG DAILY [facility] Last Admin: 04/15/17 10:40 Dose: 450 mg Potassium Chloride (Potassium Chloride Oral Soln) 20 meq PO DAILY [facility] Stop: 04/16/17 12:46 Last Admin: 04/15/17 10:39 Dose: 20 meq Topiramate (Topamax) 100 mg PEG BID [facility] Last Admin: 04/15/17 19:04 Dose: 100 mg - Labs Labs: 04/12/17 11:28 04/15/17 17:14 PT 13.4 SECONDS (9.7-12.2) H 04/07/17 23:07 INR 1.2 04/07/17 23:07 APTT 47 SECONDS (21-34) H 04/07/17 23:07 - Constitutional Appears: No Acute Distress - Head Exam Head Exam: ATRAUMATIC, NORMOCEPHALIC - Eye Exam Eye Exam: EOMI, Normal appearance Pupil Exam: NORMAL ACCOMODATION, PERRL - ENT Exam ENT Exam: Mucous Membranes Dry - Neck Exam Neck Exam: Normal Inspection - Respiratory Exam Respiratory Exam: Clear to Ausculation Bilateral, NORMAL BREATHING PATTERN - Cardiovascular Exam Cardiovascular Exam: REGULAR RHYTHM, +S1, +S2 - GI/Abdominal Exam GI & Abdominal Exam: Soft, Normal Bowel Sounds Additional comments: +peg - Rectal Exam Rectal Exam: Deferred - Extremities Exam Extremities Exam: Normal Inspection Additional comments: no edema, no cyanosis, no clubbing - Neurological Exam Neurological Exam: Altered Additional comments: opens eyes to verbal and tactile stimuli - Skin Skin Exam: Dry, Normal Color, Warm Assessment and Plan - Assessment and Plan (Free Text) Plan: 66 yo WF with dm, s/p craniotomy, seizers, resident of [place] was admitted with worsening mental status, high serum na, urosepsis 1. Hypernatremia, sec to intravascular volume depletion, serum na is improving c/w ivf d5w at 100 ml/hr, free water 200 ml q 6 hrs 2. CHILO, sec to dehydration, renal function is improving, check bmp in am 3. urosepsis 4. uncontrolled DM c/w D5W at 100 ml/hr, avoid mixing abx with ns or 1/2 ns, use D5w c/w iv abx as per ID
[2017-04-16] MEDS: Sulfamethoxazole/Trimethoprim 240 MG in Dextrose 5% In Water 250 ML IVPB SCH ×2 (04:55→16:29)
[2017-04-16] MEDS: metroNIDAZOLE IV 500 mg/100 ml 500 MG/100 ML BAG IVPB SCH ×3 (06:03→21:32)
[2017-04-16] MEDS: (Novolin R) Insulin Human Regular 100 units/ml vial SC SCH ×4 (08:05→22:50)
[2017-04-16 08:49] LABS: ALBUMIN 2.3 g/dL (3.5-5.0)
[2017-04-16 08:52] LABS: ALB/GLOB RATIO 0.8 (1.0-2.1); CALCIUM 7.4 mg/dl (8.6-10.4)
--- NOTE | 2017-04-16 09:34 | CP.PCM.PN ---
Subjective - Date & Time of Evaluation Date of Evaluation: 04/16/17 Time of Evaluation: 09:32 - Subjective Subjective: pt seen and examined, pt is not in acute distress, opens eyes to verbal serum na is improving Objective - Vital Signs/Intake and Output Vital Signs (last 24 hours): Temp Pulse Resp BP Pulse Ox 97.9 F 81 19 103/65 95 04/16/17 08:10 04/16/17 08:10 04/16/17 08:10 04/16/17 08:10 04/16/17 08:10 Intake and Output: 04/16/17 04/16/17 06:59 18:59 Intake Total 800 Balance 800 - Medications Medications: Current Medications Acetaminophen (Tylenol 650mg/20.3ml Solution Ud) 650 mg PO Q6 PRN PRN Reason: Temperature Last Admin: 04/13/17 08:42 Dose: 650 mg Famotidine (Pepcid) 20 mg PO DAILY [facility] Last Admin: 04/15/17 10:40 Dose: 20 mg Metronidazole (Flagyl) 500 mg in 100 mls @ 100 mls/hr IVPB Q8 [facility] Last Admin: 04/16/17 06:03 Dose: 100 mls/hr Trimethoprim/Sulfamethoxazole (240 mg/ Dextrose) 250 mls @ 125 mls/hr IVPB Q12H [facility] Last Admin: 04/16/17 04:55 Dose: 125 mls/hr Dextrose (Dextrose 5% In Water 1000 Ml) 1,000 mls @ 100 mls/hr IV .Q10H [facility] Last Admin: 04/16/17 03:30 Dose: 100 mls/hr Insulin Glargine (Lantus) 20 unit SC Q12 [facility] Last Admin: 04/15/17 22:19 Dose: 20 units Insulin Human Regular (Novolin R) 0 unit SC ACHS [facility] PRN Reason: Protocol Last Admin: 04/15/17 22:19 Dose: 3 unit Mupirocin (Bactroban 2% Nasal) 0.5 gm BHARATH BID [facility] Stop: 04/17/17 18:01 Last Admin: 04/15/17 19:21 Dose: 0.5 gm Oxcarbazepine (Trileptal) 450 mg PEG DAILY [facility] Last Admin: 04/15/17 10:40 Dose: 450 mg Potassium Chloride (Potassium Chloride Oral Soln) 20 meq PO DAILY [facility] Stop: 04/16/17 12:46 Last Admin: 04/15/17 10:39 Dose: 20 meq Topiramate (Topamax) 100 mg PEG BID [facility] Last Admin: 04/15/17 19:04 Dose: 100 mg - Labs Labs: 04/12/17 11:28 04/16/17 08:08 PT 13.4 SECONDS (9.7-12.2) H 04/07/17 23:07 INR 1.2 04/07/17 23:07 APTT 47 SECONDS (21-34) H 04/07/17 23:07 - Constitutional Appears: No Acute Distress - Head Exam Head Exam: ATRAUMATIC, NORMOCEPHALIC - Eye Exam Eye Exam: EOMI, PERRL Pupil Exam: NORMAL ACCOMODATION, PERRL - ENT Exam ENT Exam: Mucous Membranes Dry - Neck Exam Neck Exam: Full ROM, Normal Inspection - Respiratory Exam Respiratory Exam: Clear to Ausculation Bilateral, NORMAL BREATHING PATTERN - Cardiovascular Exam Cardiovascular Exam: REGULAR RHYTHM, +S1, +S2 - GI/Abdominal Exam GI & Abdominal Exam: Soft, Normal Bowel Sounds Additional comments: no guarding , no rigidity, no abdominal bruit - Rectal Exam Rectal Exam: Deferred - Extremities Exam Extremities Exam: Normal Inspection Additional comments: no edema, no cyanosis, no clubbing - Neurological Exam Neurological Exam: Altered, Awake - Skin Skin Exam: Normal Color, Warm Assessment and Plan - Assessment and Plan (Free Text) Assessment: 66 yo WF with dm, s/p craniotomy, seizers, resident of [place] was admitted with worsening mental status, high serum na, urosepsis 1. Hypernatremia, sec to intravascular volume depletion, serum na is 150 today , improving c/w ivf d5w at 100 ml/hr, free water 200 ml q 6 hrs 2. CHILO, sec to dehydration, renal function is improving, check bmp in am 3. urosepsis 4. uncontrolled DM 5. Hypokalemia, agree with K+ supplement, check mg level avoid mixing abx with ns or 1/2 ns, use D5w c/w iv abx as per ID
[2017-04-16 09:59] LABS: MAGNESIUM 1.8 mg/dL (1.6-2.3)
[2017-04-16] MEDS ORDERED: Potassium Chloride 20 mEq/15 ml LIQ UD GT STA (10:06)
[2017-04-16] MEDS: Potassium Chloride 20 mEq/15 ml LIQ UD PO SCH (10:26)
[2017-04-16] MEDS: (Lantus) Insulin Glargine, Recombinant SC SCH ×2 (10:26→22:53)
[2017-04-16] MEDS: Mupirocin 2% Ointment (NASAL) NAS SCH ×2 (10:27→17:37)
--- NOTE | 2017-04-16 12:50 | CP.PCM.PN ---
Subjective - Date & Time of Evaluation Date of Evaluation: 04/15/17 Time of Evaluation: 11:15 - Subjective Subjective: Transmitted sounds of possible aspiration. Objective - Vital Signs/Intake and Output Vital Signs (last 24 hours): Temp Pulse Resp BP Pulse Ox 97.9 F 81 19 103/65 95 04/16/17 08:10 04/16/17 08:10 04/16/17 08:10 04/16/17 08:10 04/16/17 08:10 Intake and Output: 04/16/17 04/16/17 06:59 18:59 Intake Total 800 Balance 800 - Medications Medications: Current Medications Acetaminophen (Tylenol 650mg/20.3ml Solution Ud) 650 mg PO Q6 PRN PRN Reason: Temperature Last Admin: 04/13/17 08:42 Dose: 650 mg Famotidine (Pepcid) 20 mg PO DAILY [facility] Last Admin: 04/16/17 10:27 Dose: 20 mg Metronidazole (Flagyl) 500 mg in 100 mls @ 100 mls/hr IVPB Q8 [facility] Last Admin: 04/16/17 06:03 Dose: 100 mls/hr Trimethoprim/Sulfamethoxazole (240 mg/ Dextrose) 250 mls @ 125 mls/hr IVPB Q12H [facility] Last Admin: 04/16/17 04:55 Dose: 125 mls/hr Dextrose (Dextrose 5% In Water 1000 Ml) 1,000 mls @ 100 mls/hr IV .Q10H [facility] Last Admin: 04/16/17 03:30 Dose: 100 mls/hr Insulin Glargine (Lantus) 20 unit SC Q12 [facility] Last Admin: 04/16/17 10:26 Dose: 20 units Insulin Human Regular (Novolin R) 0 unit SC ACHS [facility] PRN Reason: Protocol Last Admin: 04/16/17 08:05 Dose: 1 unit Mupirocin (Bactroban 2% Nasal) 0.5 gm BHARATH BID [facility] Stop: 04/17/17 18:01 Last Admin: 04/16/17 10:27 Dose: 0.5 gm Oxcarbazepine (Trileptal) 450 mg PEG DAILY [facility] Last Admin: 04/16/17 10:31 Dose: 450 mg Topiramate (Topamax) 100 mg PEG BID [facility] Last Admin: 04/16/17 10:27 Dose: 100 mg - Labs Labs: 07/07/17 11:28 04/16/17 08:08 PT 13.4 SECONDS (9.7-12.2) H 04/07/17 23:07 INR 1.2 04/07/17 23:07 APTT 47 SECONDS (21-34) H 04/07/17 23:07 - Head Exam Head Exam: ATRAUMATIC, NORMOCEPHALIC - Eye Exam Eye Exam: EOMI, PERRL - ENT Exam ENT Exam: Mucous Membranes Moist - Neck Exam Neck Exam: Full ROM - Respiratory Exam Respiratory Exam: Rales, Rhonchi Additional comments: transmitted sounds - Cardiovascular Exam Cardiovascular Exam: REGULAR RHYTHM Assessment and Plan - Assessment and Plan (Free Text) Assessment: 66 yo WF with dm, s/p craniotomy, seizers, resident of [place] was admitted with worsening mental status, high serum na, sepsis 1. Hypernatremia, sec to intravascular volume depletion, serum na is improving c/w ivf d5w at 100 ml/hr, free water 200 ml q 6 hrs 2. CHILO, sec to dehydration, renal function is improving, check bmp in am 3. sepsis 4. uncontrolled DM c/w D5W at 100 ml/hr, avoid mixing abx with ns or 1/2 ns, use D5w Follow nephrologest and cardiology recommendations. Plan: As above.
--- NOTE | 2017-04-16 14:00 | RAD ---
PROCEDURE: CHEST RADIOGRAPH, 1 VIEW HISTORY: poss aspiration of gt feed COMPARISON: 04/12/2017 FINDINGS: LUNGS: The right hemidiaphragm is elevated as before. Linear discoid atelectatic changes at the right lung base are renoted. The increased opacity in the right bebo/ infrahilar location appear less conspicuous - improved aeration of right perihilar atelectasis and or infiltrate here is probable. Limited visualization of the left lung base and cardiomegaly. Small left pleural effusion probable. No worsening pathology here seen. Previously left basal infiltrate was reported. PLEURA: No pneumothorax. Small bilateral pleural effusions probable CARDIOVASCULAR: Cardiomegaly unchanged. The perihilar bronchovascular markings appear minimally prominent - this may be chronic. Some crowding is also likely contributing to their prominence OSSEOUS STRUCTURES: Right acromial bone island probable VISUALIZED UPPER ABDOMEN: Normal. OTHER FINDINGS: None. IMPRESSION: No worsening pathology suggested Elevated right hemidiaphragm with right basal discoid atelectatic changes. Cardiomegaly with mild chronic pulmonary vascular congestion. . Improved aeration of the right perihilar patchy infiltrates.
--- NOTE | 2017-04-16 22:47 | CP.PCM.PN ---
Subjective - Date & Time of Evaluation Date of Evaluation: 04/16/17 Time of Evaluation: 12:50 - Subjective Subjective: Awake , but is sob , , possible aspiration Objective - Vital Signs/Intake and Output Vital Signs (last 24 hours): Temp Pulse Resp BP Pulse Ox 99.6 F 82 20 89/50 L 94 L 04/16/17 17:34 04/16/17 17:34 04/16/17 17:34 04/16/17 17:34 04/16/17 17:34 Intake and Output: 04/16/17 04/17/17 18:59 06:59 Intake Total 1000 Balance 1000 - Medications Medications: Current Medications Acetaminophen (Tylenol 650mg/20.3ml Solution Ud) 650 mg PO Q6 PRN PRN Reason: Temperature Last Admin: 04/13/17 08:42 Dose: 650 mg Famotidine (Pepcid) 20 mg PO DAILY [facility] Last Admin: 04/16/17 10:27 Dose: 20 mg Metronidazole (Flagyl) 500 mg in 100 mls @ 100 mls/hr IVPB Q8 [facility] Last Admin: 04/16/17 21:32 Dose: 100 mls/hr Trimethoprim/Sulfamethoxazole (240 mg/ Dextrose) 250 mls @ 125 mls/hr IVPB Q12H [facility] Last Admin: 04/16/17 16:29 Dose: 125 mls/hr Dextrose (Dextrose 5% In Water 1000 Ml) 1,000 mls @ 100 mls/hr IV .Q10H [facility] Last Admin: 04/16/17 21:14 Dose: 100 mls/hr Insulin Glargine (Lantus) 25 unit SC Q12 [facility] Insulin Human Regular (Novolin R) 0 unit SC ACHS [facility] PRN Reason: Protocol Last Admin: 04/16/17 17:54 Dose: 6 unit Mupirocin (Bactroban 2% Nasal) 0.5 gm BHARATH BID [facility] Stop: 04/17/17 18:01 Last Admin: 04/16/17 17:37 Dose: 0.5 gm Oxcarbazepine (Trileptal) 450 mg PEG DAILY [facility] Last Admin: 04/16/17 10:31 Dose: 450 mg Topiramate (Topamax) 100 mg PEG BID [facility] Last Admin: 04/16/17 17:37 Dose: 100 mg - Labs Labs: 04/12/17 11:28 04/16/17 08:08 PT 13.4 SECONDS (9.7-12.2) H 04/07/17 23:07 INR 1.2 04/07/17 23:07 APTT 47 SECONDS (21-34) H 04/07/17 23:07 - Head Exam Head Exam: ATRAUMATIC, NORMOCEPHALIC - Eye Exam Eye Exam: EOMI, Normal appearance - ENT Exam ENT Exam: Mucous Membranes Moist - Neck Exam Neck Exam: Full ROM - Respiratory Exam Respiratory Exam: Clear to Ausculation Bilateral, NORMAL BREATHING PATTERN - Cardiovascular Exam Cardiovascular Exam: REGULAR RHYTHM - GI/Abdominal Exam GI & Abdominal Exam: Soft Additional comments: GT feeding is in place Assessment and Plan - Assessment and Plan (Free Text) Assessment: 1. Hypernatremia, sec to intravascular volume depletion, serum na is improving c/w ivf d5w at 100 ml/hr, free water 200 ml q 6 hrs 2. CHILO, sec to dehydration, renal function is improving, check bmp in am 3. sepsis 4. uncontrolled DM c/w D5W at 100 ml/hr, avoid mixing abx with ns or 1/2 ns, use D5w Follow nephrologest and cardiology recommendations. Plan: Follow recommendations of consultants . decrease feeding , check residual q4h and keep head upright all the time.
--- NOTE | 2017-04-16 23:16 | CP.PCM.PN ---
Subjective - Date & Time of Evaluation Date of Evaluation: 04/16/17 Time of Evaluation: 23:16 - Subjective Subjective: CHIEF COMPLAINTS TODAY : TEMP DOWN more awake and trying to respond. Rash fading away. Patient tolerating iv BACTRIM. ROS. on observation HEENT : N. Resp : No cough, wheezing ,pleuritic CP ,or hemoptysis Cardio : tachycardic GI : No abd.pain, n/v ,diarrhea or GI bleeding . DIRECTOR OF RADIOLOGY : No headache, vertigo, focal deficit. Musculoskel : No joint swelling , Derm : No rash Psych : not able to test Ext : No swelling ,calf pain PE. Pt. is in no distress.LESS RESPONSIVE . V.S As noted in the chart Head ,ear nose,throat and eyes : Normal. Neck : Supple with normal carotids. Lungs: B/L RHONCHI Heart : S1 & S2 normal , Abd : Soft non tender with normal bowel sounds. Neuro : B/L FOOT DROPS /AND WEAKNESS Ext : No edema with intact pulses.Non tender calves Derm :GENERALIZED SKIN RASH NOTED TRUNCK, EXTREMITIES. STABLE/FADING AWAY LABS/RADIOLOGY: REVIEWED NA 162.--> 147---> 150 IMPROVING. RENAL FUNCTION -OK CREATININE 1.1/bun 42 IMPROVING REPEAT URINE CULTURE 04/11 pROTEUS MIRABILIS S - TRIMETHOPRIM/SULFA. URINE CULTURE +VE PROTEUS MIRABLIS.- MERCADO SENSITIVE BLOOD CULTURES -VE X 24HRS. mrsa naris detected. Objective - Vital Signs/Intake and Output Vital Signs (last 24 hours): Temp Pulse Resp BP Pulse Ox 99.6 F 82 20 89/50 L 94 L 04/16/17 17:34 04/16/17 17:34 04/16/17 17:34 04/16/17 17:34 04/16/17 17:34 Intake and Output: 04/16/17 04/17/17 18:59 06:59 Intake Total 1000 Balance 1000 - Medications Medications: Current Medications Acetaminophen (Tylenol 650mg/20.3ml Solution Ud) 650 mg PO Q6 PRN PRN Reason: Temperature Last Admin: 04/13/17 08:42 Dose: 650 mg Famotidine (Pepcid) 20 mg PO DAILY [facility] Last Admin: 04/16/17 10:27 Dose: 20 mg Metronidazole (Flagyl) 500 mg in 100 mls @ 100 mls/hr IVPB Q8 [facility] Last Admin: 04/16/17 21:32 Dose: 100 mls/hr Trimethoprim/Sulfamethoxazole (240 mg/ Dextrose) 250 mls @ 125 mls/hr IVPB Q12H [facility] Last Admin: 04/16/17 16:29 Dose: 125 mls/hr Dextrose (Dextrose 5% In Water 1000 Ml) 1,000 mls @ 100 mls/hr IV .Q10H [facility] Last Admin: 04/16/17 21:14 Dose: 100 mls/hr Insulin Glargine (Lantus) 25 unit SC Q12 [facility] Last Admin: 04/16/17 22:53 Dose: 25 units Insulin Human Regular (Novolin R) 0 unit SC ACHS [facility] PRN Reason: Protocol Last Admin: 04/16/17 22:50 Dose: Not Given Mupirocin (Bactroban 2% Nasal) 0.5 gm BHARATH BID [facility] Stop: 04/17/17 18:01 Last Admin: 04/16/17 17:37 Dose: 0.5 gm Oxcarbazepine (Trileptal) 450 mg PEG DAILY [facility] Last Admin: 04/16/17 10:31 Dose: 450 mg Topiramate (Topamax) 100 mg PEG BID [facility] Last Admin: 04/16/17 17:37 Dose: 100 mg - Labs Labs: 04/12/17 11:28 04/16/17 08:08 PT 13.4 SECONDS (9.7-12.2) H 04/07/17 23:07 INR 1.2 04/07/17 23:07 APTT 47 SECONDS (21-34) H 04/07/17 23:07 Assessment and Plan (1) Sepsis Assessment & Plan: N IV BACTRIM 240MG TMP/SMX IV Q 12HRLY 04/13/17 ON iv FLAGYL 500MG IV Q8HRLY. (04/12/17 )STARTING IN AM FOR MALFUNCTIONING PEG.. F/U FEVER CURVE CBC W DIFF IN AM. BMP IN AM PT DNR /DNI Status: Acute (2) Hypotension Status: Acute (3) UTI (urinary tract infection) Assessment & Plan: ON IV BACTRIM 240MG TMP/SMX IV Q 12HRLY 04/13/17 ON iv FLAGYL 500MG IV Q8[facility]RL[facility]. (04/12/17 )STARTING IN AM FOR MALFUNCTIONING PEG.. F/U FEVER CURVE Status: Acute (4) HABP (hospital-acquired bacterial pneumonia) Status: Acute (5) Seizure Status: Acute (6) Hx of craniotomy Status: Acute (7) Dehydration with hypernatremia Assessment & Plan: sodium 150 improving. IV fluids as per renal. Status: Acute (8) Drug rash Assessment & Plan: RASH GENERALIZED MUCH IMPROVED. Status: Acute
[2017-04-17] MEDS: Acetaminophen 650mg/20.3ml solution UD PO PRN (00:43)
[2017-04-17] MEDS: Sulfamethoxazole/Trimethoprim 240 MG in Dextrose 5% In Water 250 ML IVPB SCH (03:04)
[2017-04-17] MEDS: metroNIDAZOLE IV 500 mg/100 ml 500 MG/100 ML BAG IVPB SCH (05:01)
[2017-04-17 09:43] VITALS: O2SAT 95
[2017-04-17 11:27] LABS: BASO # 0.1 K/uL (0.0-0.2); BASO % 0.7 % (0.0-2.0); EOS # 0.1 K/uL (0.0-0.7); EOS % 0.6 % (0.0-4.0); LYMPH # 1.5 K/uL (1.0-4.3); LYMPH % 11.7 % (20.0-40.0); MEAN CORPUSCULAR HEMOGLOBIN 29.7 pg (27.0-31.0); MEAN CORPUSCULAR HGB CONC 32.3 g/dL (33.0-37.0); MONO # 0.6 K/uL (0.0-0.8); MONO % 4.6 % (0.0-10.0); NEUT # 10.4 K/uL (1.8-7.0); NEUT % 82.4 % (50.0-75.0); NRBC % 0.1 % (0.0-2.0); RBC 2.68 Mil/uL (3.80-5.20); RED CELL DISTRIBUTION WIDTH 13.3 % (11.5-14.5); WHITE BLOOD COUNT 12.6 K/uL (4.8-10.8)
[2017-04-17 11:36] LABS: BLOOD UREA NITROGEN 24 mg/dL (7-17); GFR AFRICAN-AMERICAN > 60; GFR NON-AFRICAN AMERICAN 55
[2017-04-17 11:37] LABS: CALCIUM 6.9 mg/dl (8.6-10.4)
[2017-04-17] MEDS: (Lantus) Insulin Glargine, Recombinant SC SCH (12:43)
[2017-04-17] MEDS: Mupirocin 2% Ointment (NASAL) NAS SCH ×2 (12:43→18:21)
[2017-04-17] MEDS: (Novolin R) Insulin Human Regular 100 units/ml vial SC SCH ×3 (12:44→18:21)
[2017-04-17] MEDS: Potassium Chloride 20 mEq/15 ml LIQ UD PO SCH ×2 (12:55→18:20)
--- NOTE | 2017-04-17 13:28 | CP.PCM.PN ---
Subjective - Date & Time of Evaluation Date of Evaluation: 04/17/17 Time of Evaluation: 13:28 - Subjective Subjective: CHIEF COMPLAINTS TODAY : TMAX 100.7 more awake Rash fading away. Patient tolerating iv BACTRIM. ROS. on observation HEENT : N. Resp : No cough, +VE wheezing ,pleuritic CP ,or hemoptysis Cardio : tachycardic GI : No abd.pain, n/v ,diarrhea or GI bleeding . 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 Musculoskel : No joint swelling , Derm : No rash Psych : not able to test Ext : No swelling ,calf pain PE. Pt. is in no distress.MORE RESPONSIVE . V.S As noted in the chart Head ,ear nose,throat and eyes : Normal. Neck : Supple with normal carotids. Lungs: B/L RHONCHI/ EXPIRATORY WHEEZE Heart : S1 & S2 normal , Abd : Soft non tender with normal bowel sounds. Neuro : B/L FOOT DROPS /AND WEAKNESS Ext : No edema with intact pulses.Non tender calves Derm :GENERALIZED SKIN RASH NOTED TRUNCK, EXTREMITIES. STABLE/FADING AWAY LABS/RADIOLOGY: REVIEWED CXR; 04/15/17 IMPROVED RIGHT PERIHILAR PATCHY INFILTRATE mrsa SCREEN REPEAT NEGATIVE. NA 162.--> 147---> 150---> 139 IMPROVING. RENAL FUNCTION -OK CREATININE 1.1/bun 42 IMPROVING REPEAT URINE CULTURE 04/11 ROTEUS MIRABILIS S - TRIMETHOPRIM/SULFA. URINE CULTURE +VE PROTEUS MIRABLIS.- MERCADO SENSITIVE BLOOD CULTURES -VE TO DATE. Objective - Vital Signs/Intake and Output Vital Signs (last 24 hours): Temp Pulse Resp BP Pulse Ox 99.3 F 90 18 93/55 L 95 04/17/17 01:43 04/17/17 00:00 04/17/17 00:00 04/17/17 00:00 04/17/17 00:00 Intake and Output: 04/17/17 04/17/17 06:59 18:59 Intake Total 400 Balance 400 - Medications Medications: Current Medications Acetaminophen (Tylenol 650mg/20.3ml Solution Ud) 650 mg PO Q6 PRN PRN Reason: Temperature Last Admin: 04/17/17 00:43 Dose: 650 mg Famotidine (Pepcid) 20 mg PO DAILY [facility] Last Admin: 04/17/17 12:59 Dose: Not Given Metronidazole (Flagyl) 500 mg in 100 mls @ 100 mls/hr IVPB Q8 [facility] Last Admin: 04/17/17 05:01 Dose: 100 mls/hr Trimethoprim/Sulfamethoxazole (240 mg/ Dextrose) 250 mls @ 125 mls/hr IVPB Q12H [facility] Last Admin: 04/17/17 03:04 Dose: 125 mls/hr Potassium Chloride (Potassium Chloride 10 Meq/100 Ml) 10 meq in 100 mls @ 100 mls/hr IVPB Q2 [facility] Stop: 04/17/17 14:59 Last Admin: 04/17/17 12:42 Dose: 100 mls/hr Insulin Glargine (Lantus) 25 unit SC Q12 [facility] Last Admin: 04/17/17 12:43 Dose: 25 units Insulin Human Regular (Novolin R) 0 unit SC ACHS [facility] PRN Reason: Protocol Last Admin: 04/17/17 12:44 Dose: Not Given Mupirocin (Bactroban 2% Nasal) 0.5 gm BHARATH BID [facility] Stop: 04/17/17 18:01 Last Admin: 04/17/17 12:43 Dose: 0.5 gm Oxcarbazepine (Trileptal) 450 mg PEG DAILY [facility] Last Admin: 04/17/17 12:43 Dose: 450 mg Potassium Chloride (Potassium Chloride Oral Soln) 40 meq PO Q4 [facility] Stop: 04/17/17 20:01 Last Admin: 04/17/17 12:55 Dose: 40 meq Topiramate (Topamax) 100 mg PEG BID [facility] Last Admin: 04/17/17 12:43 Dose: 100 mg - Labs Labs: 04/17/17 11:20 04/17/17 11:20 PT 13.4 SECONDS (9.7-12.2) H 04/07/17 23:07 INR 1.2 04/07/17 23:07 APTT 47 SECONDS (21-34) H 04/07/17 23:07 Assessment and Plan (1) Sepsis Assessment & Plan: ON IV BACTRIM 240MG TMP/SMX IV Q 12HRLY 04/13/17 ON iv FLAGYL 500MG IV Q8HRLY. (04/13/17 F/U FEVER CURVE Status: Acute (2) Hypotension Status: Acute (3) UTI (urinary tract infection) Assessment & Plan: PATIENT ON iv bACTRIM. Status: Acute (4) HABP (hospital-acquired bacterial pneumonia) Assessment & Plan: SPUTUM gRAM STAIN AND CULTURE cONTINUE iv bACTRIM/iv fLAGYL FOR POSSIBLE ASPIRATION AND PEG EXIT SITE DRAINAGE Status: Acute (5) Seizure Status: Acute (6) Hx of craniotomy Status: Acute (7) Dehydration with hypernatremia Assessment & Plan: iv FLUIDS PER RENAL. hYPONATREMIA IMPROVING SLOWLY AND GRADUALLY Status: Acute (8) Drug rash Assessment & Plan: IMPROVED. pATIENT TOLERATING iv bACTRIM. Status: Acute
--- NOTE | 2017-04-17 14:12 | CP.PCM.PN ---
Subjective - Date & Time of Evaluation Date of Evaluation: 04/17/17 Time of Evaluation: 12:00 - Subjective Subjective: Pt seen today, looking better than yesterday, alert, aphasic, comfortable , NAD a febrile today , max temp 99.3 Objective - Vital Signs/Intake and Output Vital Signs (last 24 hours): Temp Pulse Resp BP Pulse Ox 99.3 F 90 18 93/55 L 95 04/17/17 01:43 04/17/17 00:00 04/17/17 00:00 04/17/17 00:00 04/17/17 00:00 Intake and Output: 04/17/17 04/17/17 06:59 18:59 Intake Total 400 Balance 400 - Medications Medications: Current Medications Acetaminophen (Tylenol 650mg/20.3ml Solution Ud) 650 mg PO Q6 PRN PRN Reason: Temperature Last Admin: 04/17/17 00:43 Dose: 650 mg Acetaminophen (Tylenol 650mg/20.3ml Solution Ud) 650 mg PO 1800 [facility] Stop: 04/17/17 18:01 Famotidine (Pepcid) 20 mg PO DAILY [facility] Last Admin: 04/17/17 12:59 Dose: Not Given Metronidazole (Flagyl) 500 mg in 100 mls @ 100 mls/hr IVPB Q8 [facility] Last Admin: 04/17/17 05:01 Dose: 100 mls/hr Trimethoprim/Sulfamethoxazole (240 mg/ Dextrose) 250 mls @ 125 mls/hr IVPB Q12H [facility] Last Admin: 04/17/17 03:04 Dose: 125 mls/hr Potassium Chloride (Potassium Chloride 10 Meq/100 Ml) 10 meq in 100 mls @ 100 mls/hr IVPB Q2 [facility] Stop: 04/17/17 14:59 Last Admin: 04/17/17 12:42 Dose: 100 mls/hr Insulin Glargine (Lantus) 25 unit SC Q12 [facility] Last Admin: 04/17/17 12:43 Dose: 25 units Insulin Human Regular (Novolin R) 0 unit SC ACHS [facility] PRN Reason: Protocol Last Admin: 04/17/17 12:44 Dose: Not Given Mupirocin (Bactroban 2% Nasal) 0.5 gm BHARATH BID [facility] Stop: 04/17/17 18:01 Last Admin: 04/17/17 12:43 Dose: 0.5 gm Oxcarbazepine (Trileptal) 450 mg PEG DAILY [facility] Last Admin: 04/17/17 12:43 Dose: 450 mg Potassium Chloride (Potassium Chloride Oral Soln) 40 meq PO Q4 [facility] Stop: 04/17/17 20:01 Last Admin: 04/17/17 12:55 Dose: 40 meq Topiramate (Topamax) 100 mg PEG BID [facility] Last Admin: 04/17/17 12:43 Dose: 100 mg - Labs Labs: 04/17/17 11:20 04/17/17 11:20 PT 13.4 SECONDS (9.7-12.2) H 04/07/17 23:07 INR 1.2 04/07/17 23:07 APTT 47 SECONDS (21-34) H 04/07/17 23:07 - Constitutional Appears: Non-toxic, No Acute Distress - Respiratory Exam Respiratory Exam: Decreased Breath Sounds, Rhonchi - Cardiovascular Exam Cardiovascular Exam: REGULAR RHYTHM - Neurological Exam Neurological Exam: Alert, Awake Assessment and Plan - Assessment and Plan (Free Text) Assessment: A/P 66 yr old female admitted from [place] with fever, hypotension/ sepsis hypernatremia hyprnatremia improved after after hydration an d and diuresis - NA - 139<150<147 <162 K- 2.8 replaced pt afebrile today . max temp 99.3 , tolerating bactrim IV CXR - no worserning pathology ,cardiolmagally with chronic pul. vascular congestion seen by Dr. Calloway today ,cleared for discharge to [place] today D/W Dr. Romero [place] cleared for discharge to [place] today and continue bactrim po
[2017-04-17 16:25] VITALS: BP 90/50; PULSE 83; RESP 20; TEMP 98.9
[2017-04-17] MEDS ORDERED: Acetaminophen 650mg/20.3ml solution UD PO SCH (18:00)
--- NOTE | 2017-04-17 18:08 | CP.PCM.PN ---
Subjective - Date & Time of Evaluation Date of Evaluation: 04/17/17 Time of Evaluation: 18:06 - Subjective Subjective: pt seen and examined by, pt is more alert, awake, try to verbalize Objective - Vital Signs/Intake and Output Vital Signs (last 24 hours): Temp Pulse Resp BP Pulse Ox 98.9 F 83 20 90/50 L 95 04/17/17 15:30 04/17/17 15:30 04/17/17 15:30 04/17/17 15:30 04/17/17 15:30 Intake and Output: 04/17/17 04/17/17 06:59 18:59 Intake Total 400 Balance 400 - Medications Medications: Current Medications Acetaminophen (Tylenol 650mg/20.3ml Solution Ud) 650 mg PO Q6 PRN PRN Reason: Temperature Last Admin: 04/17/17 00:43 Dose: 650 mg Famotidine (Pepcid) 20 mg PO DAILY [facility] Last Admin: 04/17/17 12:59 Dose: Not Given Metronidazole (Flagyl) 500 mg in 100 mls @ 100 mls/hr IVPB Q8 [facility] Last Admin: 04/17/17 05:01 Dose: 100 mls/hr Trimethoprim/Sulfamethoxazole (240 mg/ Dextrose) 250 mls @ 125 mls/hr IVPB Q12H [facility] Last Admin: 04/17/17 03:04 Dose: 125 mls/hr Insulin Glargine (Lantus) 25 unit SC Q12 [facility] Last Admin: 04/17/17 12:43 Dose: 25 units Insulin Human Regular (Novolin R) 0 unit SC ACHS [facility] PRN Reason: Protocol Last Admin: 04/17/17 15:38 Dose: 6 unit Oxcarbazepine (Trileptal) 450 mg PEG DAILY [facility] Last Admin: 04/17/17 12:43 Dose: 450 mg Potassium Chloride (Potassium Chloride Oral Soln) 40 meq PO Q4 [facility] Stop: 04/17/17 20:01 Last Admin: 04/17/17 12:55 Dose: 40 meq Topiramate (Topamax) 100 mg PEG BID [facility] Last Admin: 04/17/17 12:43 Dose: 100 mg - Labs Labs: 04/17/17 11:20 04/17/17 11:20 PT 13.4 SECONDS (9.7-12.2) H 04/07/17 23:07 INR 1.2 04/07/17 23:07 APTT 47 SECONDS (21-34) H 04/07/17 23:07 - Constitutional Appears: Well, No Acute Distress - Head Exam Head Exam: ATRAUMATIC, NORMOCEPHALIC - Eye Exam Eye Exam: EOMI, Normal appearance Pupil Exam: NORMAL ACCOMODATION, PERRL - ENT Exam ENT Exam: Mucous Membranes Moist - Neck Exam Neck Exam: Full ROM, Normal Inspection - Respiratory Exam Respiratory Exam: Clear to Ausculation Bilateral, NORMAL BREATHING PATTERN - Cardiovascular Exam Cardiovascular Exam: REGULAR RHYTHM, +S1, +S2 - GI/Abdominal Exam GI & Abdominal Exam: Soft, Normal Bowel Sounds Additional comments: non tender, + peg, no guarding, no rigidity - Rectal Exam Rectal Exam: Deferred - Extremities Exam Additional comments: no edema, no cyanosis, no clubbing - Neurological Exam Neurological Exam: Awake Additional comments: oriented x 0 Assessment and Plan - Assessment and Plan (Free Text) Assessment: 66 yo WF with dm, s/p craniotomy, seizers, cva, resident of [place] was admitted with worsening mental status, high serum na, urosepsis 1. Hypernatremia, sec to intravascular volume depletion, serum na is 135 today , improving c/w free water 200 ml q 6 hrs 2. CHILO, sec to dehydration, renal function is improving, check bmp in am 3. urosepsis 4. uncontrolled DM 5. Hypokalemia, k 2.6 agree with K+ supplement,f/u bmp decrease ivf to 40 ml/hr 1/2 ns
--- NOTE | 2017-04-17 18:22 | CP.PCM.DIS ---
Provider - Provider Date of Admission: 04/08/17 00:02 Attending physician: Jocelyn Calloway MD Time Spent in preparation of Discharge (in minutes): 20 Hospital Course - Lab Results Lab Results: Micro Results 04/11/17 06:00 Urine,Catheterized Urine Culture - Final Proteus Mirabilis 04/09/17 17:34 Naris MRSA Culture - Final MRSA NOT DETECTED 04/08/17 06:00 Nose MRSA Culture (Admit) - Final MRSA DETECTED Most Recent Lab Values WBC 12.6 K/uL (4.8-10.8) H 04/17/17 11:20 RBC 2.68 Mil/uL (3.80-5.20) L 04/17/17 11:20 Hgb 8.0 g/dL (11.0-16.0) L 04/17/17 11:20 Hct 24.6 % (34.0-47.0) L 04/17/17 11:20 MCV 92.0 fL (81.0-99.0) 04/17/17 11:20 MCH 29.7 pg (27.0-31.0) 04/17/17 11:20 MCHC 32.3 g/dL (33.0-37.0) L 04/17/17 11:20 RDW 13.3 % (11.5-14.5) 04/17/17 11:20 Plt Count 154 K/uL (130-400) 04/17/17 11:20 MPV 11.0 fL (7.2-11.7) 04/17/17 11:20 Neut % (Auto) 82.4 % (50.0-75.0) H 04/17/17 11:20 Lymph % (Auto) 11.7 % (20.0-40.0) L 04/17/17 11:20 [place] % (Auto) 4.6 % (0.0-10.0) 04/17/17 11:20 Eos % (Auto) 0.6 % (0.0-4.0) 04/17/17 11:20 Baso % (Auto) 0.7 % (0.0-2.0) 04/17/17 11:20 Neut # 10.4 K/uL (1.8-7.0) H 04/17/17 11:20 Lymph # 1.5 K/uL (1.0-4.3) 04/17/17 11:20 [place] # 0.6 K/uL (0.0-0.8) 04/17/17 11:20 Eos # 0.1 K/uL (0.0-0.7) 04/17/17 11:20 Baso # 0.1 K/uL (0.0-0.2) 04/17/17 11:20 Neutrophils % (Manual) 79 % (50-75) H 04/12/17 11:28 Band Neutrophils % 10 % (0-2) H 04/12/17 11:28 Lymphocytes % (Manual) 3 % (20-40) L 04/12/17 11:28 Monocytes % (Manual) 7 % (0-10) 04/12/17 11:28 Eosinophils % (Manual) 1 % (0-4) 04/12/17 11:28 Differential Comment 04/08/17 03:12 Platelet Estimate Normal (NORMAL) 04/12/17 11:28 Large Platelets Present 04/11/17 11:02 Giant Platelets Present 04/11/17 11:02 RBC Morphology Normal 04/12/17 11:28 Hypochromasia (manual) Slight 04/11/17 11:02 Poikilocytosis (manual Slight 04/11/17 11:02 Anisocytosis (manual) Slight 04/11/17 11:02 Microcytosis (manual) Slight 04/07/17 23:07 Target Cells Slight 04/11/17 11:02 Tear Drop Cells Slight 04/07/17 23:07 PT 13.4 SECONDS (9.7-12.2) H 04/07/17 23:07 INR 1.2 04/07/17 23:07 APTT 47 SECONDS (21-34) H 04/07/17 23:07 Puncture Site Rradial 04/08/17 03:10 pCO2 48 mm/Hg (35-45) H 04/08/17 03:10 pO2 134 mm/Hg (80-100) H 04/08/17 03:10 HCO3 18.6 mmol/L (21-28) L 04/08/17 03:10 ABG pH 7.22 (7.35-7.45) L 04/08/17 03:10 ABG Total CO2 21.1 mmol/L (22-28) L 04/08/17 03:10 ABG O2 Saturation 99.3 % (95-98) H 04/08/17 03:10 ABG Base Excess -8.2 mmol/L (-2.0-3.0) L 04/08/17 03:10 Steffen Test Pos 04/08/17 03:10 ABG Potassium 3.8 mmol/L (3.6-5.2) 04/08/17 03:10 VBG pH 7.23 (7.32-7.43) L 04/07/17 23:03 VBG pCO2 65 mmHg (40-60) H 04/07/17 23:03 VBG HCO3 22.2 mmol/L 04/07/17 23:03 VBG Total CO2 29.2 mmol/L (22-28) H 04/07/17 23:03 VBG O2 Sat (Calc) 63.4 % (40-65) 04/07/17 23:03 VBG Base Excess -1.8 mmol/L (0.0-2.0) L 04/07/17 23:03 VBG Potassium 5.5 mmol/L (3.6-5.2) H 04/07/17 23:03 A-a O2 Difference 502.0 mm/Hg 04/08/17 03:10 Respiratory Index 3.4 04/08/17 03:10 Sodium 162.0 mmol/l (132-148) H* 04/08/17 03:10 Chloride 128.0 mmol/L (98-107) H 04/08/17 03:10 Glucose 603 mg/dl (65-105) H* 04/08/17 03:10 Lactate 3.4 mmol/L (0.7-2.1) H 04/08/17 03:10 Liter Flow 15.0 04/08/17 03:10 FiO2 100.0 % 04/08/17 03:10 Crit Value Called To Dr. ying 04/08/17 03:10 Crit Value Called By Chetna pagan rcp 04/08/17 03:10 Crit Value Read Back Y 04/08/17 03:10 Blood Gas Notified Time 325 04/08/17 03:10 Sodium 139 mmol/L (132-148) 04/17/17 11:20 Potassium 2.8 mmol/L (3.6-5.2) L 04/17/17 11:20 Chloride 106 mmol/L (98-107) 04/17/17 11:20 Carbon Dioxide 25 mmol/L (22-30) 04/17/17 11:20 Anion Gap 11 (10-20) 04/17/17 11:20 BUN 24 mg/dL (7-17) H 04/17/17 11:20 Creatinine 1.0 MG/DL (0.7-1.2) 04/17/17 11:20 Est GFR ( Amer) > 60 04/17/17 11:20 Est GFR (Non-Af Amer) 55 04/17/17 11:20 POC Glucose (mg/dL) 329 mg/dL (65-110) H 04/17/17 16:51 Random Glucose 251 mg/dL (65-105) H 04/17/17 11:20 Calcium 6.9 mg/dl (8.6-10.4) L 04/17/17 11:20 Phosphorus 3.0 mg/dL (2.5-4.5) 04/08/17 03:50 Magnesium 1.8 mg/dL (1.6-2.3) 04/16/17 08:08 Total Bilirubin 0.4 mg/dL (0.2-1.3) 04/16/17 08:08 AST 47 U/L (14-36) H 04/16/17 08:08 ALT 58 U/L (9-52) H D 04/16/17 08:08 Alkaline Phosphatase 64 U/L (38-126) 04/16/17 08:08 Total Protein 5.2 g/dL (6.3-8.3) L 04/16/17 08:08 Albumin 2.3 g/dL (3.5-5.0) L 04/16/17 08:08 Globulin 2.8 gm/dL (2.2-3.9) 04/16/17 08:08 Albumin/Globulin Ratio 0.8 (1.0-2.1) L 04/16/17 08:08 Arterial Blood Potassium 3.8 mmol/L (3.6-5.2) 04/08/17 03:10 Venous Blood Potassium 5.5 mmol/L (3.6-5.2) H 04/07/17 23:03 Urine Color Yellow (YELLOW) 04/11/17 23:44 Urine Clarity Hazy (Clear) 04/11/17 23:44 Urine pH 6.0 (5.0-8.0) 04/11/17 23:44 Ur Specific [place] 1.021 (1.003-1.030) 04/11/17 23:44 Urine Protein 2+ mg/dL (NEGATIVE) H 04/11/17 23:44 Urine Glucose (UA) Normal mg/dL (Normal) 04/11/17 23:44 Urine Ketones Negative mg/dL (NEGATIVE) 04/11/17 23:44 Urine Blood 2+ (NEGATIVE) H 04/11/17 23:44 Urine Nitrate Negative (NEGATIVE) 04/11/17 23:44 Urine Bilirubin Negative (NEGATIVE) 04/11/17 23:44 Urine Urobilinogen Normal mg/dL (0.2-1.0) 04/11/17 23:44 Ur Leukocyte Esterase 1+ Jeremy/uL (Negative) H 04/11/17 23:44 Urine WBC (Auto) 201 /hpf (0-5) H 04/11/17 23:44 Urine RBC (Auto) 667 /hpf (0-3) H 04/11/17 23:44 Urine WBC Clumps (Auto) Many /hpf (NONE) H 04/07/17 23:57 Ur Squamous Epith Cells 4 /hpf (0-5) 04/11/17 23:44 Ur Transition Epith Cell 1 /hpf (0-3) 04/07/17 23:57 Urine Bacteria Few (<OCC) H 04/11/17 23:44 Granular Casts (Auto) 54 /lpf (0-1) 04/11/17 23:44 Urine Osmolality 461 mosm/kg (300-1000) 04/12/17 21:09 Ur Random Sodium 108 mmol/L 04/12/17 21:09 Ur Random Potassium 52.3 mmol/L 04/12/17 21:09 Urine Chloride 160 mmol/L (32-290) 04/12/17 21:09 Amikacin 17.3 mg/L (see note) 04/08/17 12:55 Discharge Exam - Head Exam Head Exam: ATRAUMATIC, NORMOCEPHALIC - Eye Exam Eye Exam: PERRL - ENT Exam ENT Exam: Mucous Membranes Moist - Neck Exam Neck exam: Full Rom - Respiratory Exam Additional comments: transmitted sounds - Cardiovascular Exam Cardiovascular Exam: REGULAR RHYTHM - GI/Abdominal Exam Additional comments: GT in place - Extremities Exam Extremities exam: pedal edema Discharge Plan - Discharge Medications Prescriptions: Sulfamethoxazole/Trimethoprim [Bactrim DS 800 mg-160 mg] 1 tab PO Q12 #14 tab Metronidazole [Flagyl] 500 mg PO BID #6 tablet - Follow Up Plan Condition: CRITICAL Disposition: REHAB FACILITY/REHAB UNIT Instructions: Urinary Tract Infection in Women (DC), Sepsis (GEN), Nonepileptic Seizures (DC), Pneumonia (DC) Additional Instructions: continue antibiotics for 7 more days please repeat cbc, bmp - 04/19/17 tube feeding @30 ml/hr check residual q 4hrs if greator than 60 hold for 2 hrs and restart if residual less then 20 flush G TUBE with 250 ml q 6hrs head of bed elevated >45 all times continue all other medications as per Med. Rec.
== END 2017-04-17 19:36 | DRG 871 ==
LOC: C.ER 22:28 → C.9E 04-08 00:02 → C.9I 04-08 01:12 → C.5T 04-09 18:10
PROVIDERS: ADMIT Internal Medicine; ATTEND Internal Medicine
PROC: 3E0G76Z Introduction of Nutritional Substance into Upper GI, Via Natural or Artificial Opening (ICD-10-PCS; 2017-04-08)
PROC: 0D20XUZ Change Feeding Device in Upper Intestinal Tract, External Approach (ICD-10-PCS; principal; 2017-04-11)
DX: A41.9 Sepsis, unspecified organism (principal); J15.9 Unspecified bacterial pneumonia; J69.0 Pneumonitis due to inhalation of food and vomit; N17.9 Acute kidney failure, unspecified; N39.0 Urinary tract infection, site not specified; E86.0 Dehydration; E87.0 Hyperosmolality and hypernatremia; E11.22 Type 2 diabetes mellitus with diabetic chronic kidney disease; J44.0 Chronic obstructive pulmonary disease with (acute) lower respiratory infection; K94.23 Gastrostomy malfunction; E11.51 Type 2 diabetes mellitus with diabetic peripheral angiopathy without gangrene; E11.65 Type 2 diabetes mellitus with hyperglycemia; E87.6 Hypokalemia; G40.909 Epilepsy, unspecified, not intractable, without status epilepticus; I12.9 Hypertensive chronic kidney disease with stage 1 through stage 4 chronic kidney disease, or unspecified chronic kidney disease; G93.89 Other specified disorders of brain; K21.9 Gastro-esophageal reflux disease without esophagitis; M81.0 Age-related osteoporosis without current pathological fracture; N18.9 Chronic kidney disease, unspecified; N20.0 Calculus of kidney; R65.20 Severe sepsis without septic shock; I69.320 Aphasia following cerebral infarction; Y83.3 Surgical operation with formation of external stoma as the cause of abnormal reaction of the patient, or of later complication, without mention of misadventure at the time of the procedure; B96.4 Proteus (mirabilis) (morganii) as the cause of diseases classified elsewhere; T36.8X5A Adverse effect of other systemic antibiotics, initial encounter; L27.0 Generalized skin eruption due to drugs and medicaments taken internally; Z66 Do not resuscitate; Z79.4 Long term (current) use of insulin; Z87.01 Personal history of pneumonia (recurrent); Z22.322 Carrier or suspected carrier of Methicillin resistant Staphylococcus aureus; Z88.1 Allergy status to other antibiotic agents; Z88.0 Allergy status to penicillin; Z88.8 Allergy status to other drugs, medicaments and biological substances

== ENCOUNTER 2017-07-04 22:47 | Inpatient (IN) | payer MEDICARE, MEDICAID ==
[2017-07-04 22:48] VITALS: BMI 43.8
[2017-07-04] MEDS ORDERED: Sodium Chloride 0.9% 1,000 ML IV ONE (23:32)
[2017-07-04 23:57] LABS: BASO # 0.1 K/uL (0.0-0.2); BASO % 1.1 % (0.0-2.0); EOS % 0.3 % (0.0-4.0); HEMATOCRIT 44.4 % (34.0-47.0); LYMPH # 3.3 K/uL (1.0-4.3); LYMPH % 23.4 % (20.0-40.0); MEAN CELL VOLUME 93.1 fL (81.0-99.0); MEAN CORPUSCULAR HEMOGLOBIN 29.7 pg (27.0-31.0); MEAN CORPUSCULAR HGB CONC 31.9 g/dL (33.0-37.0); MEAN PLATELET VOLUME 10.5 fL (7.2-11.7); MONO # 1.3 K/uL (0.0-0.8); MONO % 9.5 % (0.0-10.0); NRBC % 0.1 % (0.0-2.0); RED CELL DISTRIBUTION WIDTH 14.8 % (11.5-14.5); WHITE BLOOD COUNT 14.1 K/uL (4.8-10.8)
[2017-07-04] MEDS ORDERED: Sulfamethoxazole/Trimethoprim 160 MG in Dextrose 5% In Water 250 ML IVPB STA (23:57)
[2017-07-05 00:13] LABS: RBC URINE 14 /hpf (0-3); URINE BACTERIA MANY (<OCC); URINE BILIRUBIN NEGATIVE (NEGATIVE); URINE BLOOD NEGATIVE (NEGATIVE); URINE COLOR Amber (YELLOW); URINE GLUCOSE (UA) NORMAL (Normal); URINE KETONE NEGATIVE (NEGATIVE); URINE LEUKOCYTE ESTERASE 3+ Leu/uL (Negative); URINE PROTEIN 2+ mg/dL (NEGATIVE); WBC CLUMPS MOD /hpf; WBC URINE 815 /hpf (0-5)
[2017-07-05 00:21] LABS: CHLORIDE 122 mmol/L (98-107); POTASSIUM 3.9 mmol/L (3.6-5.2)
[2017-07-05 00:23] LABS: GFR AFRICAN-AMERICAN > 60
[2017-07-05] MEDS ORDERED: Sodium Chloride 0.9% 1,000 ML ONE (00:23)
[2017-07-05 00:24] LABS: ALB/GLOB RATIO 0.9 (1.0-2.1); ALKALINE PHOSPHATASE 85 U/L (38-126); ALT/SGPT 255 U/L (9-52); AST/SGOT 180 U/L (14-36); BILIRUBIN,TOTAL 0.5 mg/dL (0.2-1.3); BLOOD UREA NITROGEN 69 mg/dL (7-17); CARBON DIOXIDE 24 mmol/L (22-30); GLUCOSE,RANDOM 233 mg/dL (65-105); TOTAL PROTEIN 8.1 g/dL (6.3-8.3)
[2017-07-05 00:25] LABS: CALCIUM 9.1 mg/dl (8.6-10.4)
[2017-07-05 00:34] LABS: SODIUM 166 mmol/L (132-148)
[2017-07-05] MEDS ORDERED: Sodium Chloride 0.9% 1,000 ML IV ONE ×3 (01:28→14:46)
--- NOTE | 2017-07-05 01:28 | C.PDOC ---
History Of Present Illness 67 year old female sent in by [facility] for a complaint of a fever and ongoing cellulitis around her peg tube site. Patient is chronically bedridden and nonverbal with Hx of UTIs. Patient has multiple drug allergies but was able to tolerate bactrim in April. Hx is per [facility]. Time Seen by Provider: 07/04/17 23:24 Chief Complaint (Nursing): Fever History Per: Other ([facility]) History/Exam Limitations: no limitations Onset/Duration Of Symptoms: Days Current Symptoms Are (Timing): Still Present Associated Symptoms: Fever, Other (Cellulitis) Ear Symptoms: Bilateral: None Recent travel outside of the [place]: No Past Medical History Reviewed: Historical Data, Nursing Documentation, Vital Signs Vital Signs: Last Vital Signs Temp 98.1 F 07/05/17 08:07 Pulse 72 07/05/17 13:30 Resp 20 07/05/17 08:07 BP 129/76 07/05/17 08:07 Pulse Ox 100 07/05/17 08:07 - Medical History PMH: Anemia, Anxiety, COPD, CVA, Diabetes, HTN, Osteoporosis, Pneumonia, Chronic Kidney Disease, Seizures - [facility] Procedures CHANGE FEEDING DEVICE IN UP INTEST TRACT, 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 SUBSTANCES (03/01/13) INTRODUCTION OF NUTRITIONAL INTO UP GI, VIA OPENING (04/08/17) REPLACE GASTROSTOMY TUBE (07/23/13) Family History: States: Unknown Family Hx - Social History Hx Tobacco Use: No Hx Alcohol Use: No (unresposive) Hx Substance Use: No (unresponsive) - Immunization History Hx Tetanus Toxoid Vaccination: No (no record) Hx Influenza Vaccination: No (no record) Hx Pneumococcal Vaccination: No (no record) Review Of Systems Review Of Systems: ROS cannot be obtained secondary to pt's inabilty to answer questions. Physical Exam - Physical Exam Appears: Non-toxic Skin: Normal Color, Warm, Dry Head: Atraumatic, Normacephalic Ear(s): Bilateral: Normal Oral Mucosa: Dry, Other (Dried mucous around mouth) Throat: Other (Dry) Neck: Normal, Supple Chest: Symmetrical, No Tenderness Cardiovascular: Rhythm Regular Respiratory: Normal Breath Sounds, No Rales, No Rhonchi, No Wheezing Gastrointestinal/Abdominal: Soft, No Tenderness, Other (Peg tube) Extremity: Other (Bunny boots with bilateral foot drop) Neurological/Psych: Other (Nonverbal, at baseline) Additional Physical Exam Comments: Foul smelling urine ED Course And Treatment - Laboratory Results Result Diagrams: 07/05/17 11:47 07/05/17 11:47 Lab Interpretation: Abnormal (impressive dehydration, UA 815 WBC's) O2 Sat by Pulse Oximetry: 99 (Room air) Pulse Ox Interpretation: Normal - Radiology CXR: Interpreted by Me CXR Interpretation: Yes: No Acute Disease Progress Note: . bactrim IV, free water x 200 cc per PEG tube. NS rehydration. Multiple attempts at EJ to bilateral neck for access with no succeess. Triple lumen catheter attempted to right femoral are inadvertently cannulized the R femoral arter, so catheter removed and digitally compressed for extensive time until adequate hemostasis and, no residual hematoma. re- attempt of Triple lumen catheter attempted to R femoral vein then successful, and agressive hydration begun. Approximately 1 hour @ bedside until successful venous access in this profoundly dehydrated pt. Reevaluation Time: 01:26 Reassessment Condition: Improved - Physician Consult Information Outcome Of Conversation: [id number]: d/w Dr. Calloway- D, [place] with Bactrim and admission Critical Care Time - Critical Care Note Total Time (in mins): 90 Documented critical care: time excludes all time spent performing seperately billable procedures. Medical Decision Making Medical Decision Making: PEG tube side cellulitis AND surrounding contact dermatitis from bandages. UTI profound Dehydration Bactrim will cover both infections, Poor peripheral access after many failed attempts, TLC to R groin, which may be changed to a peripheral line when pt adequately hydrated. Continue aggressive hydration. Disposition Doctor Will See Patient In The: Hospital Counseled Patient/Family Regarding: Studies Performed, Diagnosis - Disposition Disposition: HOSPITALIZED Disposition Time: 01:27 Condition: GOOD - Clinical Impression Clinical Impression: UTI (urinary tract infection), Dehydration, Cellulitis, abdominal wall - Scribe Statement The provider has reviewed the documentation as recorded by the Scribantonia Becker All medical record entries made by the Scribe were at my direction and personally dictated by me. I have reviewed the chart and agree that the record accurately reflects my personal performance of the history, physical exam, medical decision making, and the department course for this patient. I have also personally directed, reviewed, and agree with the discharge instructions and disposition.
[2017-07-05 04:16] VITALS: RESP 20
--- NOTE | 2017-07-05 08:05 | RAD ---
PROCEDURE: CHEST RADIOGRAPH, 1 VIEW HISTORY: SOB COMPARISON: Comparison is made to 04/15/2017 FINDINGS: LUNGS: Suboptimal poor inspiratory effort portable chest x-ray. No evidence of new infiltrate or consolidation in the lungs. PLEURA: No pneumothorax or pleural fluid seen. CARDIOVASCULAR: Normal. OSSEOUS STRUCTURES: No significant abnormalities. VISUALIZED UPPER ABDOMEN: Normal. OTHER FINDINGS: None. IMPRESSION: No active disease.
[2017-07-05] MEDS ORDERED: OXcarbazepine 300 mg/5 ml Syringe PEG SCH (11:00)
--- NOTE | 2017-07-05 11:26 | CP.PCM.CON ---
History of Present Illness - History of Present Illness History of Present Illness: Palliative consult Requested by Brodie LANIER Reason; Code status Patient is a67 yo female sent in from [place] for ongoing cellulitis at PEG site and fever. Patient has multiple allergies, but was able to tolerate Bactrim at [place]. patient had no other associated symptoms, besides fever. Upon admission WBC 14.1, afebrile. The UA was significant for many RBCs, WBCs and bacteria. PMH: CVA, COPD, UTIs, PEG, nonverbal, bed ridden Soc. Hx: , [place] resident Fam. Hx: unknown Review of Systems - Review of Systems All systems: reviewed and no additional remarkable complaints except Review of Systems: ROS obtained from nursing, patient with aphasia. As per [facility] no acute overnight events. Past Patient History - Past Medical History & Family History Past Medical History?: Yes - Past Social History Smoking Status: Never Smoked - CARDIAC Hx Hypertension: Yes - PULMONARY Hx Chronic Obstructive Pulmonary Disease (COPD): Yes Hx Pneumonia: Yes - NEUROLOGICAL Hx Seizures: Yes - HEENT Hx HEENT Problems: Yes Hx Cataracts: Yes Other/Comment: APHASIA - RENAL Hx Chronic Kidney Disease: Yes - ENDOCRINE/METABOLIC Hx Endocrine Disorders: Yes Hx Diabetes Mellitus Type 2: Yes - HEMATOLOGICAL/ONCOLOGICAL Hx Anemia: Yes - INTEGUMENTARY Hx Dermatological Problems: No - MUSCULOSKELETAL/RHEUMATOLOGICAL Hx Osteoporosis: Yes - GASTROINTESTINAL Hx Gastrointestinal Disorders: Yes Hx Gastroesophageal Reflux: Yes - GENITOURINARY/GYNECOLOGICAL Hx Genitourinary Disorders: No - PSYCHIATRIC Hx Anxiety: Yes Hx Substance Use: No (unresponsive) - SURGICAL HISTORY Hx Surgeries: Yes Other/Comment: GASTROSTOMY - ANESTHESIA Hx Anesthesia: Yes Hx Anesthesia Reactions: No Hx Malignant Hyperthermia: No Meds Allergies/Adverse Reactions: Allergies Allergy/AdvReac Type Severity Reaction Status Date / Time aztreonam [From Azactam] Allergy Verified 07/04/17 23:09 cefepime Allergy Verified 07/04/17 23:09 moxifloxacin Allergy Verified 07/04/17 23:09 Penicillins Allergy Verified 07/04/17 23:09 tamsulosin HCl [From Flomax] Allergy Verified 07/04/17 23:09 tigecycline [From Tygacil] Allergy Verified 07/04/17 23:09 vancomycin Allergy Verified 07/04/17 23:09 pnemonia vaccine Allergy Uncoded 07/04/17 23:09 - Medications Medications: Current Medications Acetaminophen (Tylenol 650 Mg Supp) 650 mg [place] Q6 PRN PRN Reason: Fever >100.4 F Albuterol/Ipratropium (Duoneb 3 Mg/0.5 Mg (3 Ml) Ud) 1 ml IH QID [facility] Heparin Sodium (Porcine) (Heparin) 5,000 units SC Q12 [facility] Dextrose (Dextrose 5% In Water 1000 Ml) 1,000 mls @ 80 mls/hr IV .[id number] [facility] Last Admin: 07/05/17 09:50 Dose: 80 mls/hr Insulin Human Regular (Novolin R) 0 unit [place] Q6 [facility] PRN Reason: Protocol Oxcarbazepine (Trileptal) 150 mg PEG DAILY [facility] Oxcarbazepine (Trileptal) 450 mg PEG HS [facility] Topiramate (Topamax) 100 mg PEG BID [facility] Physical Exam - Constitutional Appears: No Acute Distress, Chronically Ill - Head Exam Head Exam: ATRAUMATIC, NORMAL INSPECTION, NORMOCEPHALIC - Eye Exam Eye Exam: EOMI, Normal appearance, PERRL Pupil Exam: NORMAL ACCOMODATION, PERRL - ENT Exam ENT Exam: Mucous Membranes Dry - Neck Exam Neck exam: Positive for: Normal Inspection - Respiratory Exam Respiratory Exam: NORMAL BREATHING PATTERN - Cardiovascular Exam Cardiovascular Exam: REGULAR RHYTHM - GI/Abdominal Exam Additional comments: PEG - Rectal Exam Rectal Exam: Deferred - Extremities Exam Extremities exam: Positive for: normal inspection - Back Exam Back exam: NORMAL INSPECTION - Neurological Exam Neurological exam: Alert, Motor Sensory Deficit - Psychiatric Exam Psychiatric exam: Anxious - Skin Skin Exam: Normal Color, Warm Results - Vital Signs Recent Vital Signs: Last Vital Signs Temp 98.1 F 07/05/17 08:07 Pulse 80 07/05/17 08:07 Resp 20 07/05/17 08:07 BP 129/76 07/05/17 08:07 Pulse Ox 100 07/05/17 08:07 - Labs Result Diagrams: 07/04/17 23:55 07/04/17 23:55 Labs: Laboratory Results - last 24 hr 07/04/17 07/04/17 07/04/17 23:55 23:55 23:55 WBC 14.1 H RBC 4.77 Hgb 14.1 D Hct 44.4 MCV 93.1 MCH 29.7 MCHC 31.9 L RDW 14.8 H Plt Count 163 MPV 10.5 Neut % (Auto) 65.7 Lymph % (Auto) 23.4 [place] % (Auto) 9.5 Eos % (Auto) 0.3 Baso % (Auto) 1.1 Neut # 9.3 H Lymph # 3.3 [place] # 1.3 H Eos # 0.0 Baso # 0.1 Sodium 166 H* Potassium 3.9 Chloride 122 H Carbon Dioxide 24 Anion Gap 24 H BUN 69 H Creatinine 1.0 Est GFR ( Amer) > 60 Est GFR (Non-Af Amer) 55 POC Glucose (mg/dL) Random Glucose 233 H Calcium 9.1 Total Bilirubin 0.5 AST 180 H ALT 255 H D Alkaline Phosphatase 85 Troponin I 0.0150 Total Protein 8.1 Albumin 3.9 Globulin 4.2 H Albumin/Globulin Ratio 0.9 L Urine Color Vikki Urine Clarity Hazy Urine pH 6.0 Ur Specific [place] 1.025 Urine Protein 2+ H Urine Glucose (UA) Normal Urine Ketones Negative Urine Blood Negative Urine Nitrate Negative Urine Bilirubin Negative Urine Urobilinogen 2.0 H Ur Leukocyte Esterase 3+ H Urine WBC (Auto) 815 H Urine RBC (Auto) 14 H Urine WBC Clumps (Auto) Mod H Urine Bacteria Many H Hyaline Casts 3-5 H 07/05/17 07:17 WBC RBC Hgb Hct MCV MCH MCHC RDW Plt Count MPV Neut % (Auto) Lymph % (Auto) [place] % (Auto) Eos % (Auto) Baso % (Auto) Neut # Lymph # [place] # Eos # Baso # Sodium Potassium Chloride Carbon Dioxide Anion Gap BUN Creatinine Est GFR ( Amer) Est GFR (Non-Af Amer) POC Glucose (mg/dL) 171 H Random Glucose Calcium Total Bilirubin AST ALT Alkaline Phosphatase Troponin I Total Protein Albumin Globulin Albumin/Globulin Ratio Urine Color Urine Clarity Urine pH Ur Specific [place] Urine Protein Urine Glucose (UA) Urine Ketones Urine Blood Urine Nitrate Urine Bilirubin Urine Urobilinogen Ur Leukocyte Esterase Urine WBC (Auto) Urine RBC (Auto) Urine WBC Clumps (Auto) Urine Bacteria Hyaline Casts Assessment & Plan - Assessment and Plan (Free Text) Assessment: Palliative consult Code status DNR/DNI, copy on chart I reviewed medical records, all diagnostic studies, examined patient in the bed and discussed her clinical presentation and Code status with her , over the phone. Patient is alert, non verbal with affect that is anxious, unable to fallow simple commends. Patient looks older than stated age, chronically ill in no acute distress. The great deal of quality of life is lost for this ;pepito due to complex medical Hx. Head: normocephalic, no masses, normal inpection Neck: supple, no JVD, thyroid midline Eyes: MARGA, EOMI, sclera white Mouth: Mucosa moist, no loose teeth Lungs: good air entry, RR regular, no accessoy muscle use Heart: S1S2, regular rhythm, no kurmur Abd: mildly distended, firm around PEG, dressing at PEG site intact, bowel sounds distant Extr: mild pedal edema, positive PP, mobile Meds; Symptomatic Tx VS: BP 129/76, HR 80, Temp 98.1 Lab; WBC 14.1., Hb 14.1, Na 166, BUN 69, UA a lot of RBCs, WBCs and bacteria There is a copy of Advance Directive signed by patient's at 2009. The Advance Directive indicates Do Not Resuscitate status. I discussed this document with patient's Manuel Naqvi, over the phone. mr. Naqvi stated that he was not able to come in and discuss it in person. I elicited his values and expectations of care and reviewed patient's clinical presentation. Mr. Jackson was very clear that he would not want any further aggressive measures including CPR and Intubation with assistance from MV. He wanted his to be kept comfortable at custodial. I further discussed POLST vs Advance Directive and offered more information on POLST as a form recognized across all health care settings in [place]. Mr. Jackson gave me a verbal consent to complete POLST as DNR/ DNI status and Limited treatment . Impression * This is chronically ill lady with recurrent cellulitis of PEG site, afebrile at present * Patient is aphasic and unable to communicate her needs * Advance Directive on chart indicating DNR status , signed in 2009 * PEG tube present * Patient has lost great deal of quality of life due to complexity of her medical problems * Code status clarified with patient's Mr. Jackson over the phone Suggestion * DNR/ DNI * POLST on chart * Patient needs meticulous oral care for improved hygiene * Aspiration precautions * Would send urine for C&S * Symptoms management Thank you for consulting Palliative Care
[2017-07-05 12:20] LABS: BASO # 0.1 K/uL (0.0-0.2); BASO % 0.6 % (0.0-2.0); EOS # 0.1 K/uL (0.0-0.7); EOS % 1.3 % (0.0-4.0); HEMATOCRIT 35.5 % (34.0-47.0); LYMPH # 2.5 K/uL (1.0-4.3); MEAN CORPUSCULAR HEMOGLOBIN 29.9 pg (27.0-31.0); MEAN CORPUSCULAR HGB CONC 32.2 g/dL (33.0-37.0); MEAN PLATELET VOLUME 10.8 fL (7.2-11.7); MONO # 0.7 K/uL (0.0-0.8); MONO % 6.7 % (0.0-10.0); NRBC % 0.2 % (0.0-2.0); RED CELL DISTRIBUTION WIDTH 14.7 % (11.5-14.5); WHITE BLOOD COUNT 9.9 K/uL (4.8-10.8)
[2017-07-05 12:34] LABS: CHLORIDE 124 mmol/L (98-107); POTASSIUM 3.5 mmol/L (3.6-5.2)
[2017-07-05 12:37] LABS: BLOOD UREA NITROGEN 51 mg/dL (7-17); CARBON DIOXIDE 24 mmol/L (22-30); GFR AFRICAN-AMERICAN > 60; GLUCOSE,RANDOM 234 mg/dL (65-105)
[2017-07-05] MEDS: (Novolin R) Insulin Human Regular 100 units/ml vial SC SCH ×2 (12:37→18:50)
[2017-07-05 12:38] LABS: CALCIUM 8.2 mg/dl (8.6-10.4)
[2017-07-05 12:42] LABS: SODIUM 162 mmol/L (132-148)
[2017-07-05] MEDS: Albuterol-Ipratrop 3 mg / 0.5 (3 ml) UD IH SCH ×2 (13:28→17:12)
--- NOTE | 2017-07-05 18:30 | CP.PCM.CON ---
History of Present Illness - History of Present Illness History of Present Illness: INFECTIOUS DISEASE CONSULT; HPI; 67-year-old female, [facility] resident was admitted because of fever and ongoing cellulitis around her PEG tube site. Patient has history off CVA, status post craniotomy on the left, IDDM, status post PEG placement in April 2017 when she was admitted at [facility] for UTI. Patient is nonverbal and chronically bedridden with previous history of UTIs and PEG site infections. Infectious disease consultation requested by PMD, as patient has many allergies. PATIENT VERY UNKEMPT AND WITH POOR ORAL HYGIENE. PATIENT RECEIVED iv BACTRIM ONE DOSE PER NURSE PRACTITIONER. PMH: Anemia, Anxiety, COPD, CVA, Diabetes, HTN, Osteoporosis, Pneumonia, Chronic Kidney Disease, Seizures - [facility] Procedures CHANGE FEEDING DEVICE IN UP INTEST TRACT, PORCELAIN TURNER APPROACH (04/08/17) ENTERAL INFUSION OF CONCENTRATED NUT. SUBSTANCES (03/01/13) INTRODUCTION OF NUTRITIONAL INTO UP GI, VIA OPENING (04/08/17) REPLACE GASTROSTOMY TUBE (07/23/13) Family History: States: Unknown Family Hx - Social History Hx Tobacco Use: No Hx Alcohol Use: No (unresposive) Hx Substance Use: No (unresponsive) - Immunization History Hx Tetanus Toxoid Vaccination: No (no record) Hx Influenza Vaccination: No (no record) Hx Pneumococcal Vaccination: No (no record) ALLERGIES; PENICILLIN, CEFEPIME, aZACTAM, VANCOMYCIN, fLOMAX, tYGACIL PNEUMOVAX. Past Patient History - Past Medical History & Family History Past Medical History?: Yes - Past Social History Smoking Status: Never Smoked - CARDIAC Hx Hypertension: Yes - PULMONARY Hx Chronic Obstructive Pulmonary Disease (COPD): Yes Hx Pneumonia: Yes - NEUROLOGICAL Hx Seizures: Yes - HEENT Hx HEENT Problems: Yes Hx Cataracts: Yes Other/Comment: APHASIA - RENAL Hx Chronic Kidney Disease: Yes - ENDOCRINE/METABOLIC Hx Endocrine Disorders: Yes Hx Diabetes Mellitus Type 2: Yes - HEMATOLOGICAL/ONCOLOGICAL Hx Anemia: Yes - INTEGUMENTARY Hx Dermatological Problems: No - MUSCULOSKELETAL/RHEUMATOLOGICAL Hx Osteoporosis: Yes - GASTROINTESTINAL Hx Gastrointestinal Disorders: Yes Hx Gastroesophageal Reflux: Yes - GENITOURINARY/GYNECOLOGICAL Hx Genitourinary Disorders: No - PSYCHIATRIC Hx Anxiety: Yes Hx Substance Use: No (unresponsive) - SURGICAL HISTORY Hx Surgeries: Yes Other/Comment: GASTROSTOMY - ANESTHESIA Hx Anesthesia: Yes Hx Anesthesia Reactions: No Hx Malignant Hyperthermia: No Meds Allergies/Adverse Reactions: Allergies Allergy/AdvReac Type Severity Reaction Status Date / Time aztreonam [From Azactam] Allergy Verified 07/04/17 23:09 cefepime Allergy Verified 07/04/17 23:09 moxifloxacin Allergy Verified 07/04/17 23:09 Penicillins Allergy Verified 07/04/17 23:09 tamsulosin HCl [From Flomax] Allergy Verified 07/04/17 23:09 tigecycline [From Tygacil] Allergy Verified 07/04/17 23:09 vancomycin Allergy Verified 07/04/17 23:09 pnemonia vaccine Allergy Uncoded 07/04/17 23:09 - Medications Medications: Current Medications Acetaminophen (Tylenol 650 Mg Supp) 650 mg [place] Q6 PRN PRN Reason: Fever >100.4 F Albuterol/Ipratropium (Duoneb 3 Mg/0.5 Mg (3 Ml) Ud) 1 ml IH QID [facility] Last Admin: 07/05/17 17:12 Dose: 1 ml Heparin Sodium (Porcine) (Heparin) 5,000 units [place] Q12 [facility] Dextrose (Dextrose 5% In Water 1000 Ml) 1,000 mls @ 80 mls/hr IV .[id number] [facility] Last Admin: 07/05/17 09:50 Dose: 80 mls/hr Trimethoprim/Sulfamethoxazole (240 mg/ Dextrose) 250 mls @ 250 mls/hr IVPB Q12H [facility] Sodium Chloride (Sodium Chloride 0.9%) 1,000 mls @ 250 mls/hr IV .Q4H ONE Stop: 07/05/17 18:45 Last Admin: 07/05/17 15:14 Dose: 250 mls/hr Insulin Human Regular (Novolin R) 0 unit [place] Q6 [facility] PRN Reason: Protocol Last Admin: 07/05/17 12:37 Dose: 4 unit Oxcarbazepine (Trileptal) 450 mg PEG HS [facility] Oxcarbazepine (Trileptal) 150 mg PEG DAILY [facility] Pantoprazole Sodium (Protonix Inj) 40 mg IVP DAILY [facility] Last Admin: 07/05/17 14:13 Dose: 40 mg Topiramate (Topamax) 100 mg PEG BID [facility] Physical Exam - Constitutional Appears: Unkempt, Confused, Chronically Ill - Eye Exam Eye Exam: EOMI, PERRL - ENT Exam ENT Exam: Mucous Membranes Dry (poor oral hygiene.) - Neck Exam Neck exam: Positive for: Normal Inspection - Respiratory Exam Respiratory Exam: Decreased Breath Sounds (bilateral .) - Cardiovascular Exam Cardiovascular Exam: Tachycardia, REGULAR RHYTHM, +S1, +S2 - GI/Abdominal Exam GI & Abdominal Exam: Hypoactive Bowel Sounds, Soft, Tenderness (erythema surrounding the PEG tube site and tender on palpation.) - Extremities Exam Extremities exam: Positive for: pedal edema, pedal pulses present. Negative for : calf tenderness Additional comments: TLC in the groin. - Neurological Exam Neurological exam: Altered, CN II-XII Intact - Psychiatric Exam Psychiatric exam: Anxious - Skin Skin Exam: Dry, Warm Results - Vital Signs Recent Vital Signs: Last Vital Signs Temp 98.3 F 07/05/17 16:00 Pulse 83 07/05/17 16:00 Resp 20 07/05/17 16:00 BP 126/55 L 07/05/17 16:00 Pulse Ox 98 07/05/17 16:00 - Labs Result Diagrams: 07/05/17 11:47 07/05/17 11:47 Labs: Laboratory Results - last 24 hr 07/04/17 07/04/17 07/04/17 23:55 23:55 23:55 WBC 14.1 H RBC 4.77 Hgb 14.1 D Hct 44.4 MCV 93.1 MCH 29.7 MCHC 31.9 L RDW 14.8 H Plt Count 163 MPV 10.5 Neut % (Auto) 65.7 Lymph % (Auto) 23.4 [place] % (Auto) 9.5 Eos % (Auto) 0.3 Baso % (Auto) 1.1 Neut # 9.3 H Lymph # 3.3 [place] # 1.3 H Eos # 0.0 Baso # 0.1 Differential Comment Sodium 166 H* Potassium 3.9 Chloride 122 H Carbon Dioxide 24 Anion Gap 24 H BUN 69 H Creatinine 1.0 Est GFR ( Amer) > 60 Est GFR (Non-Af Amer) 55 POC Glucose (mg/dL) Random Glucose 233 H Calcium 9.1 Total Bilirubin 0.5 AST 180 H ALT 255 H D Alkaline Phosphatase 85 Troponin I 0.0150 Total Protein 8.1 Albumin 3.9 Globulin 4.2 H Albumin/Globulin Ratio 0.9 L Urine Color Vikki Urine Clarity Hazy Urine pH 6.0 Ur Specific [place] 1.025 Urine Protein 2+ H Urine Glucose (UA) Normal Urine Ketones Negative Urine Blood Negative Urine Nitrate Negative Urine Bilirubin Negative Urine Urobilinogen 2.0 H Ur Leukocyte Esterase 3+ H Urine WBC (Auto) 815 H Urine RBC (Auto) 14 H Urine WBC Clumps (Auto) Mod H Urine Bacteria Many H Hyaline Casts 3-5 H 07/05/17 07/05/17 07/05/17 07:17 11:08 11:47 WBC 9.9 RBC 3.82 Hgb 11.4 D Hct 35.5 MCV 93.0 MCH 29.9 MCHC 32.2 L RDW 14.7 H Plt Count 102 L D MPV 10.8 Neut % (Auto) 66.4 Lymph % (Auto) 25.0 [place] % (Auto) 6.7 Eos % (Auto) 1.3 Baso % (Auto) 0.6 Neut # 6.6 Lymph # 2.5 [place] # 0.7 Eos # 0.1 Baso # 0.1 Differential Comment Sodium Potassium Chloride Carbon Dioxide Anion Gap BUN Creatinine Est GFR ( Amer) Est GFR (Non-Af Amer) POC Glucose (mg/dL) 171 H 257 H Random Glucose Calcium Total Bilirubin AST ALT Alkaline Phosphatase Troponin I Total Protein Albumin Globulin Albumin/Globulin Ratio Urine Color Urine Clarity Urine pH Ur Specific [place] Urine Protein Urine Glucose (UA) Urine Ketones Urine Blood Urine Nitrate Urine Bilirubin Urine Urobilinogen Ur Leukocyte Esterase Urine WBC (Auto) Urine RBC (Auto) Urine WBC Clumps (Auto) Urine Bacteria Hyaline Casts 07/05/17 07/05/17 11:47 16:41 WBC RBC Hgb Hct MCV MCH MCHC RDW Plt Count MPV Neut % (Auto) Lymph % (Auto) [place] % (Auto) Eos % (Auto) Baso % (Auto) Neut # Lymph # [place] # Eos # Baso # Differential Comment Sodium 162 H* Potassium 3.5 L Chloride 124 H Carbon Dioxide 24 Anion Gap 18 BUN 51 H Creatinine 0.8 Est GFR ( Amer) > 60 Est GFR (Non-Af Amer) > 60 POC Glucose (mg/dL) 250 H Random Glucose 234 H Calcium 8.2 L Total Bilirubin AST ALT Alkaline Phosphatase Troponin I Total Protein Albumin Globulin Albumin/Globulin Ratio Urine Color Urine Clarity Urine pH Ur Specific [place] Urine Protein Urine Glucose (UA) Urine Ketones Urine Blood Urine Nitrate Urine Bilirubin Urine Urobilinogen Ur Leukocyte Esterase Urine WBC (Auto) Urine RBC (Auto) Urine WBC Clumps (Auto) Urine Bacteria Hyaline Casts Assessment & Plan (1) Cellulitis, abdominal wall Status: Acute (2) Dehydration Status: Acute (3) Hypernatremia Assessment and Plan: IV fluids as per PMD. Status: Acute (4) Hx of craniotomy Status: Acute - Assessment and Plan (Free Text) Plan: pancultures ESR,CRP. CONTINUE iv BACTRIM 240 MG TMP/SMX iv PIGGYBACK EVERY 12 HOURLY. 07/05/17 F/U LFTS. [facility] PEG SITE. fOLLOW-UP CULTURES TO ADJUST ANTIBIOTICS. TUBE FEEDINGS ON HOLD FOR 24 HOURS. ORAL HYGIENE WHEN NECESSARY. CASE DISCUSSED WITH STAFF ON-DUTY. WILL FOLLOW WITH YOU AND MAKE ADJUSTMENTS NEEDED.
[2017-07-05] MEDS: Sulfamethoxazole/Trimethoprim 240 MG in Dextrose 5% In Water 250 ML IVPB SCH (18:35)
[2017-07-06] MEDS: (Novolin R) Insulin Human Regular 100 units/ml vial SC SCH ×4 (00:21→18:11)
--- NOTE | 2017-07-06 04:43 | HP ---
HISTORY OF PRESENT ILLNESS: This is a 67 years old white female who was a alf resident for many years, was brought to emergency room for fever and admitted for sepsis secondary to cellulitis of the abdominal wall as well as dehydration and hypernatremia. The patient has dementia and no history is obtainable from the patient. ALLERGIES: THE PATIENT HAS ALLERGY TO CEFEPIME, AZTREONAM, AVELOX, PENICILLIN, FLOMAX, TIGECYCLINE, AND VANCOMYCIN. SOCIAL HISTORY: [facility] resident. PAST MEDICAL HISTORY: Positive history for seizures, status post CVA and currently the patient is bedridden, and type 2 diabetes mellitus. FAMILY HISTORY: Unknown. PHYSICAL EXAMINATION: GENERAL: The patient is in bed, not in any cardiopulmonary distress at the time of this dictation. VITAL SIGNS: Blood pressure of 129/76, temperature 98.1, respiratory rate 20, and pulse 80. HEENT: Pupils equal and reactive to light. Positive gingival hyperplasia. NECK: No JVD. Supple. CHEST AND LUNGS: Bilateral symmetrical expansion. Good air exchange. No rales. No rhonchi. CARDIOVASCULAR: PMI not localized. S1 and S2. No additional sounds. ABDOMEN: There is a largest macerated area with cellulitis along the gastric tube. EXTREMITIES: No edema. CENTRAL NERVOUS SYSTEM: The patient has right-sided hemiparesis with bilateral lower extremity weakness. LABORATORY DATA: Blood work showed white blood cell count of 14.1. Sodium 166, BUN 69, and creatinine 1. Elevated liver enzymes of 180 AST and ALT 255. Urine showed WBCs. ASSESSMENT: 1. Sepsis, origin is cellulitis of the abdominal wall and urinary tract infection. 2. Hypernatremia. 3. Dehydration. 4. Prerenal azotemia. 5. Elevated liver enzymes. PLAN: Blood cultures and urine cultures are done. Surgical consultation for the gastric tube replacement. ID consult and follow the recommendation regarding the antibiotics. Resume the patient's home medications including anti-seizure medications, the gastric tube will be used for . Jocelyn Calloway MD
[2017-07-06] MEDS: Sulfamethoxazole/Trimethoprim 240 MG in Dextrose 5% In Water 250 ML IVPB SCH ×2 (06:02→18:50)
[2017-07-06 07:16] LABS: BASO # 0.1 K/uL (0.0-0.2); BASO % 0.7 % (0.0-2.0); EOS # 0.3 K/uL (0.0-0.7); EOS % 4.1 % (0.0-4.0); HEMATOCRIT 29.7 % (34.0-47.0); LYMPH # 1.4 K/uL (1.0-4.3); LYMPH % 19.9 % (20.0-40.0); MEAN CELL VOLUME 92.4 fL (81.0-99.0); MEAN CORPUSCULAR HEMOGLOBIN 30.1 pg (27.0-31.0); MEAN CORPUSCULAR HGB CONC 32.6 g/dL (33.0-37.0); MEAN PLATELET VOLUME 10.8 fL (7.2-11.7); MONO # 0.4 K/uL (0.0-0.8); MONO % 5.8 % (0.0-10.0); NRBC % 0.1 % (0.0-2.0); RED CELL DISTRIBUTION WIDTH 14.4 % (11.5-14.5); WHITE BLOOD COUNT 7.2 K/uL (4.8-10.8)
[2017-07-06 07:23] LABS: CHLORIDE 123 mmol/L (98-107); POTASSIUM 3.2 mmol/L (3.6-5.2); SODIUM 158 mmol/L (132-148)
[2017-07-06 07:25] LABS: GFR AFRICAN-AMERICAN > 60
[2017-07-06 07:26] LABS: BLOOD UREA NITROGEN 32 mg/dL (7-17); CALCIUM 7.4 mg/dl (8.6-10.4); CARBON DIOXIDE 19 mmol/L (22-30); GLUCOSE,RANDOM 188 mg/dL (65-105)
[2017-07-06 09:00] LABS: MAGNESIUM 2.1 mg/dL (1.6-2.3)
[2017-07-06] MEDS: Albuterol-Ipratrop 3 mg / 0.5 (3 ml) UD IH SCH ×4 (10:05→23:13)
--- NOTE | 2017-07-06 15:55 | CARD ---
APPROVED REPORT EKG Measurement Heart [id number] <Conclusion> Sinus rhythm with short OK Low voltage QRS Abnormal QRS-T angle, consider primary T wave abnormality Prolonged QT Abnormal ECG
[2017-07-06] MEDS: Insulin Detemir 100 units/ml Vial (Levemir) SC SCH (18:10)
--- NOTE | 2017-07-06 18:54 | CP.PCM.PN ---
Subjective - Date & Time of Evaluation Date of Evaluation: 07/06/17 Time of Evaluation: 18:54 - Subjective Subjective: CHIEF COMPLAINTS TODAY : afebrile, vs as noted Awake but confused. ROS on observation only HEENT : N. Resp : No SOB wheezing, cough Cardio : No CP, PND orthopnea GI : No abd. 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 : Pedal pulses intact, no edema or calf pain Derm : N Psych : N. PE. Pt. is awake in no distress. V.S As noted in the chart Head ,ear nose,throat and eyes : Normal. Neck : Supple with normal carotids. Lungs: Clear air entry. Heart : S1 & S2 normal . . No murmur. S4 + Abd : Soft with normal bowel sounds. PEG SITE INFLAMED AND ERYTHEMATOUS WITH ABDOMINAL WALL CELLULITIS. TENDERNESS ON PRESSURE Neuro : Moves all ext. with no localized deficit. Ext : No edema with intact pulses. Neg. calf tenderness Derm : No rashes or decubitus ulcer. Radiology/Labs . BLOOD CULTURES 07/04/17 GRAM-POSITIVE COCCI- staph coagulase-negative by PNA fish 1;2 sets WBC 7.2, hemoglobin 9.7 Platelets 86k decreasing ast/alt high Asssessment : Plan : Objective - Vital Signs/Intake and Output Vital Signs (last 24 hours): Temp Pulse Resp BP Pulse Ox 97.8 F 80 20 133/81 97 07/06/17 15:58 07/06/17 15:58 07/06/17 15:58 07/06/17 15:58 07/06/17 15:58 Intake and Output: 07/06/17 07/06/17 06:59 18:59 Intake Total 650 Output Total 350 Balance 300 - Medications Medications: Current Medications Acetaminophen (Tylenol 650 Mg Supp) 650 mg [place] Q6 PRN PRN Reason: Fever >100.4 F Albuterol/Ipratropium (Duoneb 3 Mg/0.5 Mg (3 Ml) Ud) 1 ml IH QID [facility] Last Admin: 07/06/17 10:05 Dose: 1 ml Heparin Sodium (Porcine) (Heparin) 5,000 units [place] Q12 [facility] Last Admin: 07/06/17 11:02 Dose: 5,000 units Trimethoprim/Sulfamethoxazole (240 mg/ Dextrose) 250 mls @ 250 mls/hr IVPB Q12H [facility] Last Admin: 07/06/17 06:02 Dose: 250 mls/hr Dextrose (Dextrose 5% In Water 1000 Ml) 1,000 mls @ 80 mls/hr IV .[id number] [facility] Stop: 07/07/17 16:01 Last Admin: 07/06/17 16:50 Dose: 80 mls/hr Insulin Detemir (Levemir) 10 unit SC Q12H [facility] Last Admin: 07/06/17 18:10 Dose: 10 unit Insulin Human Regular (Novolin R) 0 unit SC Q6 [facility] PRN Reason: Protocol Last Admin: 07/06/17 18:11 Dose: 2 unit Oxcarbazepine (Trileptal) 450 mg PEG HS [facility] Last Admin: 07/05/17 21:35 Dose: 450 mg Oxcarbazepine (Trileptal) 150 mg PEG DAILY [facility] Last Admin: 07/06/17 11:03 Dose: 150 mg Pantoprazole Sodium (Protonix Inj) 40 mg IVP DAILY [facility] Last Admin: 07/06/17 11:02 Dose: 40 mg Potassium Chloride (Potassium Chloride Oral Soln) 20 meq PO DAILY [facility] Stop: 07/09/17 20:01 Topiramate (Topamax) 100 mg PEG BID [facility] Last Admin: 07/06/17 18:06 Dose: 100 mg - Labs Labs: 07/06/17 07:07 07/06/17 07:07 Assessment and Plan (1) Cellulitis, abdominal wall Status: Acute (2) Dehydration Status: Acute (3) Hypernatremia Status: Acute (4) Hx of craniotomy Status: Acute - Assessment and Plan (Free Text) Plan: CONTINUE iv BACTRIM 240 MG TMP/SMX iv PIGGYBACK EVERY 12 HOURLY. 07/05/17 F/U [facility]FT[facility]. [facility] PEG SITE. fOLLOW-UP CULTURES TO ADJUST ANTIBIOTICS. TUBE FEEDINGS ON HOLD FOR 24 HOURS. ORAL HYGIENE WHEN NECESSARY. CASE DISCUSSED WITH STAFF ON-DUTY.
[2017-07-06] MEDS: Potassium Chloride 20 mEq/15 ml LIQ UD PO SCH (20:50)
[2017-07-07] MEDS: (Novolin R) Insulin Human Regular 100 units/ml vial SC SCH ×4 (00:26→18:02)
--- NOTE | 2017-07-07 02:22 | PN ---
DAILY PROGRESS NOTE DATE: 07/06/2017 SUBJECTIVE: She is more alert and awake and decreased redness around the gastric tube area. PHYSICAL EXAMINATION: VITAL SIGNS: Blood pressure is 114/56, temperature 98.0, respiratory rate 20, and pulse 81. HEENT: Pupils equal and reactive to light, gingival hyperplasia. NECK: Supple. No JVD. No carotid bruits. No lymph node. No thyromegaly. CHEST AND LUNGS: Bilateral symmetrical expansion. Good air exchange. No rales. No rhonchi. CARDIOVASCULAR: PMI not localized. S1 and S2. No additional sounds. ABDOMEN: Gastric tube in place and decreased redness around the gastric tube. No organomegaly. No masses. EXTREMITIES: No cyanosis. No clubbing. No edema. CENTRAL NERVOUS SYSTEM: The patient has right-sided hemiparesis and left sided weakness of the left lower extremity and 2/5 power of the left upper extremity. ASSESSMENT: 1. Sepsis. 2. Urinary tract infection. 3. Abdominal wall cellulitis around the gastric tube. 4. History of seizure disorder. 5. Type 2 diabetes mellitus. PLAN: Continue current IV antibiotic as per ID, and if the patient will need further IV antibiotics, we will continue using the femoral triple lumen for 72 hours and if it is needed, we will place PICC line. We will also continue D5W for another 24 hours treating hypernatremia. Jocelyn Calloway MD
[2017-07-07] MEDS: Sulfamethoxazole/Trimethoprim 240 MG in Dextrose 5% In Water 250 ML IVPB SCH ×2 (05:20→17:41)
[2017-07-07] MEDS: Insulin Detemir 100 units/ml Vial (Levemir) SC SCH ×2 (06:29→17:42)
[2017-07-07] MEDS: Albuterol-Ipratrop 3 mg / 0.5 (3 ml) UD IH SCH ×5 (07:44→22:17)
[2017-07-07 08:18] LABS: CHLORIDE 116 mmol/L (98-107); POTASSIUM 4.2 mmol/L (3.6-5.2); SODIUM 148 mmol/L (132-148)
[2017-07-07 08:20] LABS: BILIRUBIN,DIRECT 0.3 mg/dL (0.0-0.4); BILIRUBIN,TOTAL 0.3 mg/dL (0.2-1.3); CARBON DIOXIDE 19 mmol/L (22-30); GFR AFRICAN-AMERICAN > 60
[2017-07-07 08:21] LABS: ALB/GLOB RATIO 0.9 (1.0-2.1); ALKALINE PHOSPHATASE 73 U/L (38-126); ALT/SGPT 78 U/L (9-52); AST/SGOT 18 U/L (14-36); BLOOD UREA NITROGEN 20 mg/dL (7-17); CALCIUM 8.2 mg/dl (8.6-10.4); GLUCOSE,RANDOM 164 mg/dL (65-105); TOTAL PROTEIN 5.7 g/dL (6.3-8.3)
[2017-07-07 09:13] LABS: BASO % 0.6 % (0.0-2.0); EOS # 0.2 K/uL (0.0-0.7); EOS % 3.4 % (0.0-4.0); HEMATOCRIT 30.1 % (34.0-47.0); LYMPH % 30.8 % (20.0-40.0); MEAN CELL VOLUME 92.7 fL (81.0-99.0); MEAN CORPUSCULAR HEMOGLOBIN 30.3 pg (27.0-31.0); MEAN CORPUSCULAR HGB CONC 32.6 g/dL (33.0-37.0); MEAN PLATELET VOLUME 11.9 fL (7.2-11.7); MONO # 0.4 K/uL (0.0-0.8); MONO % 6.2 % (0.0-10.0); NRBC % 0.2 % (0.0-2.0); RED CELL DISTRIBUTION WIDTH 14.1 % (11.5-14.5); WHITE BLOOD COUNT 6.4 K/uL (4.8-10.8)
[2017-07-07] MEDS: Potassium Chloride 20 mEq/15 ml LIQ UD PO SCH (09:47)
[2017-07-08] MEDS: (Novolin R) Insulin Human Regular 100 units/ml vial SC SCH ×4 (00:42→17:23)
[2017-07-08] MEDS: Insulin Detemir 100 units/ml Vial (Levemir) SC SCH ×2 (06:58→17:23)
[2017-07-08 07:34] LABS: ALB/GLOB RATIO 1.1 (1.0-2.1); ALKALINE PHOSPHATASE 68 U/L (38-126); ALT/SGPT 64 U/L (9-52); AST/SGOT 24 U/L (14-36); BILIRUBIN,DIRECT 0.2 mg/dL (0.0-0.4); BILIRUBIN,TOTAL 0.2 mg/dL (0.2-1.3); BLOOD UREA NITROGEN 15 mg/dL (7-17); CARBON DIOXIDE 19 mmol/L (22-30); CHLORIDE 113 mmol/L (98-107); GLUCOSE,RANDOM 132 mg/dL (65-105); POTASSIUM 4.1 mmol/L (3.6-5.2); SODIUM 141 mmol/L (132-148); TOTAL PROTEIN 5.2 g/dL (6.3-8.3)
[2017-07-08 07:35] LABS: GFR AFRICAN-AMERICAN > 60
[2017-07-08 07:41] LABS: BASO % 0.6 % (0.0-2.0); EOS # 0.2 K/uL (0.0-0.7); HEMATOCRIT 27.9 % (34.0-47.0); LYMPH # 1.6 K/uL (1.0-4.3); LYMPH % 31.9 % (20.0-40.0); MEAN CELL VOLUME 91.3 fL (81.0-99.0); MEAN CORPUSCULAR HEMOGLOBIN 30.3 pg (27.0-31.0); MEAN CORPUSCULAR HGB CONC 33.1 g/dL (33.0-37.0); MEAN PLATELET VOLUME 11.1 fL (7.2-11.7); MONO # 0.3 K/uL (0.0-0.8); MONO % 6.1 % (0.0-10.0); NRBC % 0.3 % (0.0-2.0); RED CELL DISTRIBUTION WIDTH 14.2 % (11.5-14.5); WHITE BLOOD COUNT 5.1 K/uL (4.8-10.8)
[2017-07-08] MEDS: Potassium Chloride 20 mEq/15 ml LIQ UD PO SCH (10:00)
--- NOTE | 2017-07-08 12:54 | CP.PCM.PN ---
Subjective - Date & Time of Evaluation Date of Evaluation: 07/08/17 Time of Evaluation: 12:54 - Subjective Subjective: CHIEF COMPLAINTS TODAY : afebrile, More awake but confused. decreasing platelets noted ?bactrim ? heparin BACTRIM ON HOLD as RN reported purpuric lesions on the arm on IV infusion. ROS on observation only HEENT : N. Resp : No SOB wheezing, cough Cardio : No CP, PND orthopnea GI : No abd. 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 : Pedal pulses intact, no edema or calf pain Derm : no generalized rash noted Psych : N. PE. Pt. is awake in no distress. V.S As noted in the chart Head ,ear nose,throat and eyes : Normal. Neck : Supple with normal carotids. Lungs: Clear air entry. Heart : S1 & S2 normal . . No murmur. S4 + Abd : Soft with normal bowel sounds. PEG SITE INFLAMED AND ERYTHEMATOUS WITH ABDOMINAL WALL CELLULITIS SLIGHTLY IMROVED,. Neuro : Moves all ext. with no localized deficit. Ext : No edema with intact pulses. Neg. calf tenderness Derm : No rashes or decubitus ulcer. few purpuric leison rt forearm. lower extremities Radiology/Labs . WBC 6.4 H/H 9.8 PLATELETS 84 BLOOD CULTURES 07/04/17 GRAM-POSITIVE COCCI- staph coagulase-negative by PNA fish 1;2 sets BLOOD CULTURE 07/04/17 GRAM-POSITIVE GIORGIO. REPEAT BLOOD CULTURES 07/07/17 2;2 SETS -VE FOR 24 HOURS. Objective - Vital Signs/Intake and Output Vital Signs (last 24 hours): Temp Pulse Resp BP Pulse Ox 97.8 F 71 20 97/57 L 90 L 07/08/17 08:08 07/08/17 08:08 07/08/17 08:08 07/08/17 08:08 07/08/17 08:08 Intake and Output: 07/08/17 07/08/17 06:59 18:59 Intake Total 450 740 Balance 450 740 - Medications Medications: Current Medications Acetaminophen (Tylenol 650 Mg Supp) 650 mg [place] Q6 PRN PRN Reason: Fever >100.4 F Albuterol/Ipratropium (Duoneb 3 Mg/0.5 Mg (3 Ml) Ud) 1 ml IH QID [facility] Last Admin: 07/07/17 22:17 Dose: Not Given Heparin Sodium (Porcine) (Heparin) 5,000 units SC Q12 REPLACED BY [facility] Last Admin: 07/08/17 10:00 Dose: 5,000 units Trimethoprim/Sulfamethoxazole (240 mg/ Dextrose) 250 mls @ 250 mls/hr IVPB Q12H REPLACED BY [facility] Last Admin: 07/07/17 17:41 Dose: 250 mls/hr Insulin Detemir (Levemir) 10 unit SC Q12H REPLACED BY [facility] Last Admin: 07/08/17 06:58 Dose: 10 unit Insulin Human Regular (Novolin R) 0 unit SC Q6 REPLACED BY [facility] PRN Reason: Protocol Last Admin: 07/08/17 12:45 Dose: 2 unit Oxcarbazepine (Trileptal) 450 mg PEG HS REPLACED BY [facility] Last Admin: 07/07/17 21:20 Dose: 450 mg Oxcarbazepine (Trileptal) 150 mg PEG DAILY REPLACED BY [facility] Last Admin: 07/08/17 10:00 Dose: 150 mg Pantoprazole Sodium (Protonix Inj) 40 mg IVP DAILY REPLACED BY [facility] Last Admin: 07/08/17 10:00 Dose: 40 mg Potassium Chloride (Potassium Chloride Oral Soln) 20 meq PO DAILY REPLACED BY [facility] Stop: 07/09/17 20:01 Last Admin: 07/08/17 10:00 Dose: 20 meq Topiramate (Topamax) 100 mg PEG BID REPLACED BY [facility] Last Admin: 07/08/17 10:00 Dose: 100 mg - Labs Labs: 07/08/17 07:09 07/08/17 07:09 Assessment and Plan (1) Cellulitis, abdominal wall Status: Acute (2) Dehydration Status: Acute (3) Hypernatremia Status: Acute (4) Hx of craniotomy Status: Acute - Assessment and Plan (Free Text) Plan: iv BACTRIM 240 MG TMP/SMX iv PIGGYBACK EVERY 12 HOURLY. 07/05/17 ON HOLD SINCE 07/07/17 PATIENT HAS THROMBOCYTOPENIA QUESTIONAL MEDS bACTRIM VERSUS HEPARIN wILL HOLD bACTRIM FOR NOW AND OBSERVE. cONSIDER HOLDING S/Q HEPARIN/LOVENEX IF OK W PMD. LWC PEG SITE. START IV DAPTOMYCIN 4MG/KG IV Q 24 HRLY WITH 50MG BENADRYL IVPB 30MIN PRIR TO INFUSION. INFUSE IST DOSE OVER 90 MIN STARTING IN A.M. 07/09/17 PATIENT HAS MULTIPLE ALLERGIES.INCLUDING VANCO, TYGACIL,CEFEPIME, PENICILLIN, aZACTAM. fOLLOW-UP CULTURES TO ADJUST ANTIBIOTICS.
[2017-07-08] MEDS: Albuterol-Ipratrop 3 mg / 0.5 (3 ml) UD IH SCH ×3 (14:02→20:03)
[2017-07-08] MEDS ORDERED: DOXYCYCLINE 25 MG/5 ML PEG SCH (18:00)
[2017-07-08 18:29] VITALS: O2SAT 100
[2017-07-09] MEDS ORDERED: Albuterol-Ipratrop 3 mg / 0.5 (3 ml) UD IH SCH ×2 (01:08→02:00)
[2017-07-09] MEDS ORDERED: DiphenhydrAMINE 50 mg/ml Inj IVP ONE (06:00)
[2017-07-09] MEDS: Insulin Detemir 100 units/ml Vial (Levemir) SC SCH ×2 (07:00→17:28)
[2017-07-09] MEDS: (Novolin R) Insulin Human Regular 100 units/ml vial SC SCH ×4 (07:00→16:20)
[2017-07-09] MEDS: Albuterol-Ipratrop 3 mg / 0.5 (3 ml) UD IH SCH ×4 (07:46→19:04)
[2017-07-09 08:29] LABS: CHLORIDE 108 mmol/L (98-107); POTASSIUM 4.6 mmol/L (3.6-5.2); SODIUM 143 mmol/L (132-148)
[2017-07-09 08:32] LABS: BLOOD UREA NITROGEN 17 mg/dL (7-17); CALCIUM 8.2 mg/dl (8.6-10.4); CARBON DIOXIDE 22 mmol/L (22-30); GFR AFRICAN-AMERICAN > 60; GLUCOSE,RANDOM 159 mg/dL (65-105)
--- NOTE | 2017-07-09 09:37 | PN ---
DATE: 07/08/2017 SUBJECTIVE: The patient is seen today, 07/08/2017. She is not in any cardiopulmonary distress. PHYSICAL EXAMINATION: VITAL SIGNS: Blood pressure 109/67, temperature 97.6, respiratory rate 20, and pulse 73. HEENT: Pupils are equal and reactive to light. Normal-appearing mucosa of the conjunctivae. NECK: Supple. No JVD. No carotid bruit. No lymph node. No thyromegaly. CHEST AND LUNGS: Bilateral symmetrical expansion. Good air exchange. No rales. No rhonchi. CARDIOVASCULAR SYSTEM: PMI not localized. S1 and S2. No additional sounds. ABDOMEN: Gastric tube in place; decreased redness around the gastric tube. EXTREMITIES: No cyanosis. No clubbing. No edema. CENTRAL NERVOUS SYSTEM: The patient is awake, but she is confused, disoriented, aphasic, and she has right-sided weakness and deformity of the upper extremity, also left lower extremity weakness and power in the left upper extremity is 2/5. ASSESSMENT: Sepsis, urinary tract infection, cellulitis of the abdominal wall, bacteremia with gram-negative rods as well as coagulase-negative Staphylococcus. PLAN: Continue current management as per Infectious Disease and antibiotics as per ID recommendations. Continue the antiseizure medications and advance feeding as tolerated and we will continue tap water through the gastric tube as BUN is 15 and creatinine is 0.6 as well as the serum sodium down to 141. oJcelyn Calloway MD
[2017-07-09] MEDS: Potassium Chloride 20 mEq/15 ml LIQ UD PO SCH (10:00)
[2017-07-09] MEDS ORDERED: Lidocaine 2% Inj (20ml) ONE (10:53)
--- NOTE | 2017-07-09 11:27 | PCM.SURG1 ---
Surgeon's Initial Post Op Note - Surgeon's Notes Surgeon: Jose Franz MD [facility] Director: NONE Type of Anesthesia: Local Pre-Operative Diagnosis: Poor venous access Operative Findings: US showed patent right basilic vein. Post-Operative Diagnosis: Poor venous access Operation Performed: Single lumen picc placement right basilic vein, 35 cm. Tip is in the SVC. Specimen/Specimens Removed: NONE Estimated Blood Loss: EBL {In ML}: 2 Blood Products Given: N/A Date of Surgery/Procedure: 07/09/17 Time of Surgery/Procedure: 11:20
--- NOTE | 2017-07-09 13:06 | CP.PCM.PN ---
Subjective - Date & Time of Evaluation Date of Evaluation: 07/09/17 Time of Evaluation: 13:05 Objective - Vital Signs/Intake and Output Vital Signs (last 24 hours): Temp Pulse Resp BP Pulse Ox 98.7 F 71 20 123/71 100 07/09/17 08:40 07/09/17 08:40 07/09/17 08:40 07/09/17 08:40 07/09/17 08:40 Intake and Output: 07/09/17 07/09/17 06:59 18:59 Intake Total 1180 Balance 1180 - Medications Medications: Current Medications Acetaminophen (Tylenol 650 Mg Supp) 650 mg [place] Q6 PRN PRN Reason: Fever >100.4 F Albuterol/Ipratropium (Duoneb 3 Mg/0.5 Mg (3 Ml) Ud) 3 ml IH RQID [facility] Last Admin: 07/09/17 11:48 Dose: 3 ml Heparin Sodium (Porcine) (Heparin) 5,000 units SC Q12 [facility] Last Admin: 07/09/17 12:17 Dose: 5,000 units Daptomycin 310 mg/ Sodium (Chloride) 100 mls @ 100 mls/hr IV Q24H [facility] Stop: 07/14/17 06:01 Last Admin: 07/09/17 05:20 Dose: 100 mls/hr Insulin Detemir (Levemir) 10 unit SC Q12H [facility] Last Admin: 07/09/17 07:00 Dose: 10 unit Insulin Human Regular (Novolin R) 0 unit SC Q6 [facility] PRN Reason: Protocol Last Admin: 07/09/17 12:27 Dose: 2 unit Mupirocin (Bactroban Ointment) 0 gm TOP BID [facility] Oxcarbazepine (Trileptal) 450 mg PEG HS [facility] Last Admin: 07/08/17 21:54 Dose: 450 mg Oxcarbazepine (Trileptal) 150 mg PEG DAILY [facility] Last Admin: 07/09/17 10:00 Dose: 150 mg Pantoprazole Sodium (Protonix Inj) 40 mg IVP DAILY [facility] Last Admin: 07/09/17 10:00 Dose: 40 mg Potassium Chloride (Potassium Chloride Oral Soln) 20 meq PO DAILY [facility] Stop: 07/09/17 20:01 Last Admin: 07/09/17 10:00 Dose: 20 meq Topiramate (Topamax) 100 mg PEG BID [facility] Last Admin: 07/09/17 10:00 Dose: 100 mg - Labs Labs: 07/08/17 07:09 07/09/17 07:43 Assessment and Plan (1) Cellulitis, abdominal wall Status: Acute (2) Dehydration Status: Acute (3) Hypernatremia Status: Acute (4) Hx of craniotomy Status: Acute
[2017-07-09] MEDS ORDERED: Influenza Vaccine 60 mcg/0.5 mL SYR (4YR UP) IM ONE ×2 (14:00→15:19)
[2017-07-09 16:06] VITALS: BP 125/74; PULSE 72; TEMP 97.6
--- NOTE | 2017-07-09 17:43 | CP.PCM.PN ---
Subjective - Date & Time of Evaluation Date of Evaluation: 07/09/17 Time of Evaluation: 11:00 - Subjective Subjective: Awake, confused, no acute distress. Objective - Vital Signs/Intake and Output Vital Signs (last 24 hours): Temp Pulse Resp BP Pulse Ox 97.6 F 72 20 125/74 100 07/09/17 15:00 07/09/17 15:00 07/09/17 15:00 07/09/17 15:00 07/09/17 15:00 Intake and Output: 07/09/17 07/09/17 06:59 18:59 Intake Total 1180 Balance 1180 - Medications Medications: Current Medications Acetaminophen (Tylenol 650 Mg Supp) 650 mg [place] Q6 PRN PRN Reason: Fever >100.4 F Albuterol/Ipratropium (Duoneb 3 Mg/0.5 Mg (3 Ml) Ud) 3 ml IH RQID [facility] Last Admin: 07/09/17 16:35 Dose: 3 ml Heparin Sodium (Porcine) (Heparin) 5,000 units SC Q12 [facility] Last Admin: 07/09/17 12:17 Dose: 5,000 units Daptomycin 310 mg/ Sodium (Chloride) 100 mls @ 100 mls/hr IV Q24H [facility] Stop: 07/14/17 06:01 Last Admin: 07/09/17 05:20 Dose: 100 mls/hr Insulin Detemir (Levemir) 10 unit SC Q12H [facility] Last Admin: 07/09/17 17:28 Dose: 10 unit Insulin Human Regular (Novolin R) 0 unit SC Q6 [facility] PRN Reason: Protocol Last Admin: 07/09/17 16:20 Dose: 3 unit Mupirocin (Bactroban Ointment) 0 gm TOP BID [facility] Last Admin: 07/09/17 17:27 Dose: 1 applic Oxcarbazepine (Trileptal) 450 mg PEG HS [facility] Last Admin: 07/08/17 21:54 Dose: 450 mg Oxcarbazepine (Trileptal) 150 mg PEG DAILY [facility] Last Admin: 07/09/17 10:00 Dose: 150 mg Pantoprazole Sodium (Protonix Inj) 40 mg IVP DAILY [facility] Last Admin: 07/09/17 10:00 Dose: 40 mg Potassium Chloride (Potassium Chloride Oral Soln) 20 meq PO DAILY [facility] Stop: 07/09/17 20:01 Last Admin: 07/09/17 10:00 Dose: 20 meq Topiramate (Topamax) 100 mg PEG BID [facility] Last Admin: 07/09/17 17:29 Dose: 100 mg - Labs Labs: 07/08/17 07:09 07/09/17 07:43 Assessment and Plan - Assessment and Plan (Free Text) Assessment: Patient admitted from the nursing with peg site infection, seen and examined. Awake, confused, not in distress. PICC line inserted for iv antibiotic therapy for 5 more days. D/W DR Calloway , plan to [facility] back to [facility] today. PEG site dressing change bid with bactroban ointment ordered.
--- NOTE | 2017-07-10 15:04 | SPECPROC ---
PROCEDURE: Date of procedure: 07/09/2017 Procedure: 1. Placement of a right arm PICC with ultrasound and fluoroscopic guidance, CPT 41980 2. PICC tip confirmation with spot radiograph and is in the superior vena cava Medications: 4cc 1 percent lidocaine Total Fluoro time: 4 seconds Radiation: 2 mGy EBL: 2 cc HISTORY: Infection requiring long-term IV antibiotics TECHNIQUE: Following informed consent and procedure time-out, the patient was placed supine on the interventional table and the right arm prepped and draped in the usual sterile fashion. Ultrasound showed a patent and compressible right basilic vein. After the skin was anesthetized with lidocaine, the basilic vein was accessed with micro micropuncture technique using ultrasound guidance. A guidewire was then advanced under fluoroscopic guidance into the superior vena cava. An image documenting ultrasound guidance for vascular access was permanently saved. The length of the single-lumen 4 Portuguese PICC was trimmed to 35 centimeters and advanced through a peel-away sheath. The PICC was position with tip of PICC confirm a spot radiograph the superior vena cava. The PICC was secured to the patient's skin. The PICC was flushed. A biopatch and sterile dressing was applied. IMPRESSION: Placement of a single-lumen 4 Portuguese PICC trimmed to 35 centimeters via right basilic vein. The tip of the PICC is confirmed with spot radiograph and is in the superior vena cava.
== END 2017-07-09 19:50 | DRG 393 ==
LOC: C.ER 22:47 → C.9E 07-05 01:00 → C.3T 07-05 02:13
PROVIDERS: ADMIT Internal Medicine; ATTEND Internal Medicine
PROC: 02HV33Z Insertion of Infusion Device into Superior Vena Cava, Percutaneous Approach (ICD-10-PCS; principal; 2017-07-09)
DX: K94.22 Gastrostomy infection (principal); A41.59 Other Gram-negative sepsis; E87.0 Hyperosmolality and hypernatremia; R65.20 Severe sepsis without septic shock; L03.311 Cellulitis of abdominal wall; I69.351 Hemiplegia and hemiparesis following cerebral infarction affecting right dominant side; N39.0 Urinary tract infection, site not specified; E11.22 Type 2 diabetes mellitus with diabetic chronic kidney disease; J44.9 Chronic obstructive pulmonary disease, unspecified; Y83.3 Surgical operation with formation of external stoma as the cause of abnormal reaction of the patient, or of later complication, without mention of misadventure at the time of the procedure; Z74.01 Bed confinement status; D64.9 Anemia, unspecified; F41.9 Anxiety disorder, unspecified; I12.9 Hypertensive chronic kidney disease with stage 1 through stage 4 chronic kidney disease, or unspecified chronic kidney disease; N18.9 Chronic kidney disease, unspecified; Z79.4 Long term (current) use of insulin; M81.0 Age-related osteoporosis without current pathological fracture; E86.0 Dehydration; L25.9 Unspecified contact dermatitis, unspecified cause; Z51.5 Encounter for palliative care; K21.9 Gastro-esophageal reflux disease without esophagitis; Z66 Do not resuscitate; Z88.0 Allergy status to penicillin; I69.320 Aphasia following cerebral infarction; G40.909 Epilepsy, unspecified, not intractable, without status epilepticus

== ENCOUNTER 2017-08-28 09:15 | Inpatient (IN) | payer MEDICARE, MEDICAID ==
[2017-08-28] MEDS ORDERED: Sodium Chloride 0.9% 1,000 ML IV ONE ×2 (09:41→09:42)
[2017-08-28 09:42] VITALS: BMI 27.7
[2017-08-28 09:48] LABS: VENOUS BLOOD GAS BASE EXCESS 5.8 mmol/L (0.0-2.0); VENOUS BLOOD GAS PCO2 55 mmHg (40-60); VENOUS BLOOD PH 7.38 (7.32-7.43)
[2017-08-28 09:49] LABS: BASO # 0.2 K/uL (0.0-0.2); BASO % 1.1 % (0.0-2.0); EOS # 0.1 K/uL (0.0-0.7); EOS % 0.6 % (0.0-4.0); HEMATOCRIT 38.8 % (34.0-47.0); LYMPH # 2.4 K/uL (1.0-4.3); LYMPH % 16.3 % (20.0-40.0); MEAN CELL VOLUME 94.7 fL (81.0-99.0); MEAN CORPUSCULAR HEMOGLOBIN 29.3 pg (27.0-31.0); MEAN CORPUSCULAR HGB CONC 30.9 g/dL (33.0-37.0); MEAN PLATELET VOLUME 10.6 fL (7.2-11.7); MONO # 0.9 K/uL (0.0-0.8); MONO % 5.8 % (0.0-10.0); NRBC % 0.1 % (0.0-2.0); WHITE BLOOD COUNT 14.8 K/uL (4.8-10.8)
[2017-08-28] MEDS ORDERED: Meropenem 1 GM in Sodium Chloride 0.9% 100 ML IVPB ONE (09:50)
--- NOTE | 2017-08-28 09:50 | C.PDOC ---
History Of Present Illness 67 y/o female presents to ED from the senior living, sent for fever and tachycardia since yesterday. Pt with past medical history of strokes, craniotomy , PEG tube, DNR/RNI. History limited due to clinical condition. Time Seen by Provider: 08/28/17 09:24 Chief Complaint (Nursing): Fever History Per: Other (senior living papers) History/Exam Limitations: clinical condition Onset/Duration Of Symptoms: Days Current Symptoms Are (Timing): Still Present Associated Symptoms: Fever. 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 SUBSTANCES (03/01/13) INSERTION OF INFUSION DEV INTO SUP VENA CAVA, PERC APPROACH (07/05/17) INTRODUCTION OF NUTRITIONAL INTO UP GI, VIA OPENING (04/08/17) REPLACE GASTROSTOMY TUBE (07/23/13) Family History: States: Unknown Family Hx - Social History Hx Tobacco Use: No Hx Alcohol Use: No (unresposive) Hx Substance Use: No (unresponsive) - Immunization History Hx Tetanus Toxoid Vaccination: No (no record) Hx Influenza Vaccination: No (no record) Hx Pneumococcal Vaccination: No (no record) Review Of Systems Review Of Systems: ROS cannot be obtained secondary to pt's inabilty to answer questions. Constitutional: Positive for: Fever, Weakness Neurological: Positive for: Weakness Physical Exam - Physical Exam Appears: Non-toxic, Other (non-verbal) Skin: Warm, Dry Oral Mucosa: Dry Chest: Symmetrical Cardiovascular: Rhythm Regular Respiratory: No Accessory Muscle Use, No Rales, No Rhonchi, No Wheezing Gastrointestinal/Abdominal: Soft, No Tenderness, Other (PEG in place) Extremity: No Pedal Edema Neurological/Psych: Expressive Aphasia, Receptive Aphasia Gait: Unable To Assess ED Course And Treatment - Laboratory Results Result Diagrams: 08/28/17 09:41 08/28/17 09:41 Lab Interpretation: Abnormal ECG: Interpreted By Me ECG Rhythm: Sinus Rhythm, Nonspecific Changes ECG Interpretation: Normal Rate From EC O2 Sat by Pulse Oximetry: 92 Pulse Ox Interpretation: Abnormal - Radiology CXR: Interpreted by Me CXR Interpretation: Yes: No Acute Disease Progress Note: Patient presents with fever from NH. treated with IVF NSS, meropenam 1 GM IV. Case discussed with Dr Calloway who agrees to admit Reassessment Condition: Unchanged - Physician Consult Information Physician Contacted: Jocelyn Calloway Outcome Of Conversation: admit Medical Decision Making Medical Decision Making: Consult for ID Disposition Discussed With Dr.: Jocelyn Calloway Doctor Will See Patient In The: Hospital - Disposition Disposition: HOSPITALIZED Disposition Time: 11:15 Condition: STABLE - POA Present On Arrival: None - Clinical Impression Clinical Impression: Fever, UTI (urinary tract infection), Hypernatremia - PA / COMPLIANCE VICE PRESIDENT / Resident Statement MD/DO has reviewed & agrees with the documentation as recorded. - Scribe Statement The provider has reviewed the documentation as recorded by the Scribe SM All medical record entries made by the Scribe were at my direction and personally dictated by me. I have reviewed the chart and agree that the record accurately reflects my personal performance of the history, physical exam, medical decision making, and the department course for this patient. I have also personally directed, reviewed, and agree with the discharge instructions and disposition. Decision To Admit - Pt Status Changed To: Hospital Disposition Of: Inpatient - Admit Certification Admit to Inpatient:: After my assessment, the patient will require hospitalization for at least two midnights. This is because of the severity of symptoms shown, intensity of services needed, and/or the medical risk in this patient being treated as an outpatient. - InPatient: Physician Admission Certification:: UTI. Fever. Hypernatremia - . Bed Request Type: Regular Admitting Physician: Jocelyn Calloway Patient Diagnosis: Fever, UTI (urinary tract infection), Hypernatremia
[2017-08-28 09:57] LABS: INR 1.2
[2017-08-28 10:10] LABS: RBC URINE 2 /hpf (0-3); URINE BACTERIA OCC (<OCC); URINE BILIRUBIN NEGATIVE (NEGATIVE); URINE BLOOD NEGATIVE (NEGATIVE); URINE COLOR Yellow (YELLOW); URINE GLUCOSE (UA) NORMAL (Normal); URINE KETONE NEGATIVE (NEGATIVE); URINE LEUKOCYTE ESTERASE 2+ Leu/uL (Negative); URINE PROTEIN 2+ mg/dL (NEGATIVE); URINE UROBILINOGEN NORMAL mg/dL (0.2-1.0); WBC URINE 161 /hpf (0-5)
[2017-08-28] MEDS ORDERED: Sodium Chloride 0.9% 1,000 ML ONE (10:17)
[2017-08-28 10:29] LABS: ALB/GLOB RATIO 0.8 (1.0-2.1); ALKALINE PHOSPHATASE 76 U/L (38-126); ALT/SGPT 44 U/L (9-52); AST/SGOT 18 U/L (14-36); BILIRUBIN,TOTAL 0.3 mg/dL (0.2-1.3); BLOOD UREA NITROGEN 55 mg/dL (7-17); CALCIUM 8.3 mg/dl (8.6-10.4); CARBON DIOXIDE 32 mmol/L (22-30); CHLORIDE 119 mmol/L (98-107); GFR AFRICAN-AMERICAN > 60; GLUCOSE,RANDOM 299 mg/dL (65-105); POTASSIUM 3.9 mmol/L (3.6-5.2)
[2017-08-28 10:37] LABS: SODIUM 161 mmol/L (132-148)
--- NOTE | 2017-08-28 11:32 | RAD ---
HISTORY: SOB COMPARISON: Chest x-ray performed 07/04/27 TECHNIQUE: Chest, one view. FINDINGS: Examination limited by habitus and hypoinflation. LUNGS: Mild subsegmental bibasilar atelectasis. Please note that chest x-ray has limited sensitivity for the detection of pulmonary masses. PLEURA: No significant pleural effusion identified. No definite pneumothorax . CARDIOVASCULAR: Cardiomegaly. Atherosclerotic calcifications of the aorta. OSSEOUS STRUCTURES: Degenerative changes. Osseous demineralization. VISUALIZED UPPER ABDOMEN: Elevation of the right hemidiaphragm. OTHER FINDINGS: None. IMPRESSION: Examination limited by habitus and hypoinflation. Mild subsegmental bibasilar atelectasis. Cardiomegaly.
--- NOTE | 2017-08-28 13:24 | CP.PCM.CON ---
History of Present Illness - History of Present Illness History of Present Illness: INFECTIOUS DISEASE CONSULT; HPI; 67-year-old female, snf resident admitted by ER because of fever and tachycardia for the past 2 days. Patient has history of CVA, status post craniotomy on the left, IDDM, status post PEG placement in April 2017. Patient is nonverbal and chronically bedridden with previous history of UTIs and PEG site infections. Infectious disease consultation requested by PMD, as patient has many allergies. Patient was found to have leukocytosis with WBC of 14.8 and blood sugar of more than 300. Patient also was hypenatremic and severely dehydrated with BUN of 55 and creatinine of 1.0. Patient urinalysis was hazy with many WBCs of 161 and 2+ leukocytes. Patient was given a dose of meropenem 1 g in the ER which she tolerated well. Presently on meropenem 1 g every 12 hourly. history Limited due to her clinical condition. 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 SUBSTANCES (03/01/13) INSERTION OF INFUSION DEV INTO SUP VENA CAVA, PERC APPROACH (07/05/17) INTRODUCTION OF NUTRITIONAL INTO UP GI, VIA OPENING (04/08/17) REPLACE GASTROSTOMY TUBE (07/23/13) Family History: States: Unknown Family Hx - Social History Hx Tobacco Use: No Hx Alcohol Use: No (unresposive) Hx Substance Use: No (unresponsive) - Immunization History Hx Tetanus Toxoid Vaccination: No (no record) Hx Influenza Vaccination: No (no record) Hx Pneumococcal Vaccination: No (no record) Review Of Systems Review Of Systems: ROS cannot be obtained secondary to pt's inabilty to answer questions. Constitutional: Positive for: Fever, Weakness Neurological: Positive for: Weakness ALLERGIES; PENICILLIN, CEFEPIME, MOXIFLOXACIN, AZACTAM,VANCOMYCIN, TAMSULOSIN HYDROCHLORIDE. Past Patient History - Past Medical History & Family History Past Medical History?: Yes - Past Social History Smoking Status: Never Smoked - CARDIAC Hx Hypertension: Yes - PULMONARY Hx Chronic Obstructive Pulmonary Disease (COPD): Yes Hx Pneumonia: Yes - NEUROLOGICAL Hx Seizures: Yes - HEENT Hx HEENT Problems: Yes Hx Cataracts: Yes Other/Comment: APHASIA - RENAL Hx Chronic Kidney Disease: Yes - ENDOCRINE/METABOLIC Hx Diabetes Mellitus Type 2: Yes - HEMATOLOGICAL/ONCOLOGICAL Hx Anemia: Yes - INTEGUMENTARY Hx Dermatological Problems: No - MUSCULOSKELETAL/RHEUMATOLOGICAL Hx Osteoporosis: Yes - GASTROINTESTINAL Hx Gastrointestinal Disorders: Yes Hx Gastroesophageal Reflux: Yes - GENITOURINARY/GYNECOLOGICAL Hx Genitourinary Disorders: No - PSYCHIATRIC Hx Anxiety: Yes Hx Substance Use: No (unresponsive) - SURGICAL HISTORY Hx Surgeries: Yes Other/Comment: GASTROSTOMY - ANESTHESIA Hx Anesthesia: Yes Hx Anesthesia Reactions: No Hx Malignant Hyperthermia: No Meds Allergies/Adverse Reactions: Allergies Allergy/AdvReac Type Severity Reaction Status Date / Time aztreonam [From Azactam] Allergy Verified 07/04/17 23:09 cefepime Allergy Verified 07/04/17 23:09 moxifloxacin Allergy Verified 07/04/17 23:09 Penicillins Allergy Verified 07/04/17 23:09 tamsulosin HCl [From Flomax] Allergy Verified 07/04/17 23:09 tigecycline [From Tygacil] Allergy Verified 07/04/17 23:09 vancomycin Allergy Verified 07/04/17 23:09 pnemonia vaccine Allergy Uncoded 07/04/17 23:09 Physical Exam - Constitutional Appears: No Acute Distress - Head Exam Head Exam: NORMAL INSPECTION - Eye Exam Eye Exam: EOMI, PERRL. absent: Scleral icterus - ENT Exam ENT Exam: Normal Oropharynx - Neck Exam Neck exam: Positive for: Normal Inspection - Respiratory Exam Respiratory Exam: Clear to Auscultation Bilateral - Cardiovascular Exam Cardiovascular Exam: Tachycardia, REGULAR RHYTHM, +S1, +S2 - GI/Abdominal Exam GI & Abdominal Exam: Normal Bowel Sounds, Soft. absent: Tenderness (peg in place.) - Extremities Exam Extremities exam: Positive for: pedal pulses present. Negative for: calf tenderness, pedal edema - Neurological Exam Neurological exam: CN II-XII Intact - Psychiatric Exam Psychiatric exam: Flat Affect - Skin Skin Exam: Dry, Normal Color, Warm Results - Vital Signs Recent Vital Signs: Last Vital Signs Temp 98.5 F 08/28/17 11:41 Pulse 84 08/28/17 11:41 Resp 18 08/28/17 11:41 BP 109/81 08/28/17 11:41 Pulse Ox 92 L 08/28/17 11:44 - Labs Result Diagrams: 08/28/17 09:41 08/28/17 09:41 Labs: Laboratory Results - last 24 hr 08/28/17 08/28/17 08/28/17 09:33 09:41 09:41 WBC 14.8 H D RBC 4.09 Hgb 12.0 D Hct 38.8 MCV 94.7 D MCH 29.3 MCHC 30.9 L RDW 16.0 H Plt Count 142 MPV 10.6 Neut % (Auto) 76.2 H Lymph % (Auto) 16.3 L [place] % (Auto) 5.8 Eos % (Auto) 0.6 Baso % (Auto) 1.1 Neut # 11.3 H Lymph # 2.4 Imperial # 0.9 H Eos # 0.1 Baso # 0.2 PT 12.9 H INR 1.2 pO2 VBG pH VBG pCO2 VBG HCO3 VBG Total CO2 VBG O2 Sat (Calc) VBG Base Excess VBG Potassium Glucose Lactate Crit Value Called To Crit Value Called By Crit Value Read Back Blood Gas Notified Time Sodium Potassium Chloride Carbon Dioxide Anion Gap BUN Creatinine Est GFR ( Amer) Est GFR (Non-Af Amer) POC Glucose (mg/dL) 316 H Random Glucose Calcium Total Bilirubin AST ALT Alkaline Phosphatase Troponin I Total Protein Albumin Globulin Albumin/Globulin Ratio Venous Blood Potassium Urine Color Urine Clarity Urine pH Ur Specific [place] Urine Protein Urine Glucose (UA) Urine Ketones Urine Blood Urine Nitrate Urine Bilirubin Urine Urobilinogen Ur Leukocyte Esterase Urine WBC (Auto) Urine RBC (Auto) Urine Bacteria 08/28/17 08/28/17 08/28/17 09:41 09:44 09:55 WBC RBC Hgb Hct MCV MCH MCHC RDW Plt Count MPV Neut % (Auto) Lymph % (Auto) [place] % (Auto) Eos % (Auto) Baso % (Auto) Neut # Lymph # Imperial # Eos # Baso # PT INR pO2 33 VBG pH 7.38 VBG pCO2 55 VBG HCO3 28.5 VBG Total CO2 34.2 H VBG O2 Sat (Calc) 65.9 H VBG Base Excess 5.8 H VBG Potassium 4.1 Glucose 327 H Lactate 1.8 Crit Value Called To Dr mcnulty Crit Value Called By Nahun harris chef Crit Value Read Back Y Blood Gas Notified Time 947 Sodium 161 H* 162.0 H* Potassium 3.9 Chloride 119 H 128.0 H Carbon Dioxide 32 H Anion Gap 14 BUN 55 H Creatinine 1.0 Est GFR ( Amer) > 60 Est GFR (Non-Af Amer) 55 POC Glucose (mg/dL) Random Glucose 299 H Calcium 8.3 L Total Bilirubin 0.3 AST 18 ALT 44 Alkaline Phosphatase 76 Troponin I 0.0190 Total Protein 8.0 Albumin 3.6 Globulin 4.5 H Albumin/Globulin Ratio 0.8 L Venous Blood Potassium 4.1 Urine Color Yellow Urine Clarity Hazy Urine pH 7.0 Ur Specific [place] 1.024 Urine Protein 2+ H Urine Glucose (UA) Normal Urine Ketones Negative Urine Blood Negative Urine Nitrate Negative Urine Bilirubin Negative Urine Urobilinogen Normal Ur Leukocyte Esterase 2+ H Urine WBC (Auto) 161 H Urine RBC (Auto) 2 Urine Bacteria Occ H - Imaging and Cardiology Chest x-ray Status: Report reviewed by me (b/l basilar atelectasis.) Assessment & Plan (1) UTI (urinary tract infection) Status: Acute (2) Fever Status: Acute (3) Hypernatremia Status: Acute (4) Dehydration Status: Acute (5) Hx of craniotomy Status: Acute (6) Seizure Status: Acute - Assessment and Plan (Free Text) Plan: PLAN; PANCULTURES. CRP. CONTINUE iv MEROPENEM 1 G iv PIGGYBACK EVERY 12 HOURLY 08/28/17. PATIENT TOLERATED THE DOSE IN THE ER. DISCUSSED WITH THE STAFF TO MONITOR PATIENT CLOSELY FOR ANY RASH, HYPOTENSION, SEIZURES AND NOTIFY. WILL FOLLOW CULTURES TO ADJUST ANTIBIOTICS. IV FLUIDS PER PMD THANK YOU FOR ALLOWING ME TO PARTICIPATE IN THE CARE OF YOUR PATIENT.
[2017-08-28] MEDS ORDERED: Acetaminophen 650mg/20.3ml solution UD PEG PRN (13:55)
[2017-08-28] MEDS ORDERED: Albuterol-Ipratrop 3 mg / 0.5 (3 ml) UD IH SCH (14:00)
[2017-08-28] MEDS ORDERED: LEVEMIR 25 UNIT SQ SCH (14:00)
[2017-08-28] MEDS: Albuterol-Ipratrop 3 mg / 0.5 (3 ml) UD INH SCH ×2 (15:52→19:54)
[2017-08-28] MEDS: Insulin Detemir 100 units/ml Vial (Levemir) SC SCH (18:28)
[2017-08-28] MEDS: (Novolin R) Insulin Human Regular 100 units/ml vial SC SCH ×2 (18:29→21:26)
[2017-08-29] MEDS: Insulin Detemir 100 units/ml Vial (Levemir) SC SCH ×2 (06:43→18:09)
[2017-08-29] MEDS: Albuterol-Ipratrop 3 mg / 0.5 (3 ml) UD INH SCH ×4 (07:28→19:20)
[2017-08-29] MEDS: (Novolin R) Insulin Human Regular 100 units/ml vial SC SCH ×4 (07:56→21:26)
[2017-08-29 08:36] LABS: BASO % 0.6 % (0.0-2.0); EOS # 0.2 K/uL (0.0-0.7); EOS % 2.5 % (0.0-4.0); HEMATOCRIT 34.5 % (34.0-47.0); LYMPH # 2.2 K/uL (1.0-4.3); LYMPH % 26.9 % (20.0-40.0); MEAN CORPUSCULAR HEMOGLOBIN 29.9 pg (27.0-31.0); MEAN CORPUSCULAR HGB CONC 31.4 g/dL (33.0-37.0); MEAN PLATELET VOLUME 10.7 fL (7.2-11.7); MONO # 0.4 K/uL (0.0-0.8); MONO % 5.3 % (0.0-10.0); NRBC % 0.1 % (0.0-2.0); RED CELL DISTRIBUTION WIDTH 16.3 % (11.5-14.5); WHITE BLOOD COUNT 8.3 K/uL (4.8-10.8)
[2017-08-29 09:00] LABS: BLOOD UREA NITROGEN 36 mg/dL (7-17); CALCIUM 8.2 mg/dl (8.6-10.4); CARBON DIOXIDE 28 mmol/L (22-30); CHLORIDE 125 mmol/L (98-107); GFR AFRICAN-AMERICAN > 60; GLUCOSE,RANDOM 127 mg/dL (65-105); SODIUM 159 mmol/L (132-148)
[2017-08-29] MEDS: Enoxaparin 40 mg Syringe SC SCH (09:27)
--- NOTE | 2017-08-29 12:34 | CP.PCM.PN ---
Subjective - Date & Time of Evaluation Date of Evaluation: 08/29/17 Time of Evaluation: 12:34 - Subjective Subjective: afebrile. awake , aphasic clinically looking better. LABS REVIEWED. WBC IMPROVING. URINE CULTURE +VE GNR. BLOOD CULTURES 2:2 SETS -VE FOR 24HRS. Objective - Vital Signs/Intake and Output Vital Signs (last 24 hours): Temp Pulse Resp BP Pulse Ox 97.6 F 78 20 135/83 100 08/29/17 08:24 08/29/17 08:24 08/29/17 08:24 08/29/17 08:24 08/29/17 08:24 Intake and Output: 08/29/17 08/29/17 06:59 18:59 Intake Total 520 Output Total 1 Balance 519 - Medications Medications: Current Medications Acetaminophen (Tylenol 650mg/20.3ml Solution Ud) 650 mg PEG Q6H PRN PRN Reason: Fever >100.4 F Albuterol/Ipratropium (Duoneb 3 Mg/0.5 Mg (3 Ml) Ud) 3 ml INH RQID [facility] Last Admin: 08/29/17 07:28 Dose: 3 ml Aspirin (Aspirin Chewable) 81 mg PEG DAILY [facility] Last Admin: 08/29/17 09:27 Dose: 81 mg Enoxaparin Sodium (Lovenox) 40 mg SC DAILY [facility] Last Admin: 08/29/17 09:27 Dose: 40 mg Meropenem 1 gm/ Sodium (Chloride) 50 mls @ 100 mls/hr IVPB Q12H [facility] Last Admin: 08/29/17 06:03 Dose: 100 mls/hr Insulin Detemir (Levemir) 25 unit SC Q12H [facility] Last Admin: 08/29/17 06:43 Dose: 25 unit Insulin Human Regular (Novolin R) 0 unit SC ACHS [facility] PRN Reason: Protocol Last Admin: 08/29/17 11:09 Dose: Not Given Oxcarbazepine (Trileptal) 150 mg PEG DAILY [facility] Last Admin: 08/29/17 09:27 Dose: 150 mg Oxcarbazepine (Trileptal) 450 mg PEG HS [facility] Last Admin: 08/28/17 21:26 Dose: 450 mg Topiramate (Topamax) 100 mg PEG BID [facility] Last Admin: 08/29/17 09:27 Dose: 100 mg - Labs Labs: 08/29/17 08:27 08/29/17 08:27 PT 12.9 SECONDS (9.7-12.2) H 08/28/17 09:41 INR 1.2 08/28/17 09:41 - Constitutional Appears: No Acute Distress - Head Exam Head Exam: NORMAL INSPECTION - Eye Exam Eye Exam: EOMI, PERRL. absent: Scleral icterus - ENT Exam ENT Exam: Normal Oropharynx - Neck Exam Neck Exam: Normal Inspection - Respiratory Exam Respiratory Exam: Clear to Ausculation Bilateral, NORMAL BREATHING PATTERN - Cardiovascular Exam Cardiovascular Exam: REGULAR RHYTHM, +S1, +S2 - GI/Abdominal Exam GI & Abdominal Exam: Soft, Normal Bowel Sounds (PEG IN PLACE.) - Extremities Exam Extremities Exam: absent: Calf Tenderness, Pedal Edema - Neurological Exam Neurological Exam: Awake, CN II-XII Intact - Psychiatric Exam Psychiatric exam: Flat Affect - Skin Skin Exam: Warm Assessment and Plan (1) UTI (urinary tract infection) Status: Acute (2) Fever Status: Acute (3) Hypernatremia Status: Acute (4) Dehydration Status: Acute (5) Hx of craniotomy Status: Acute (6) Seizure Status: Acute - Assessment and Plan (Free Text) Plan: CONTINUE iv MEROPENEM 1 G iv PIGGYBACK EVERY 12 HOURLY 08/28/17. PATIENT TOLERATED THE DOSE IN THE ER. DISCUSSED WITH THE STAFF TO MONITOR PATIENT CLOSELY FOR ANY RASH, HYPOTENSION, SEIZURES AND NOTIFY. WILL FOLLOW CULTURES TO ADJUST ANTIBIOTICS. IV FLUIDS PER PMD
--- NOTE | 2017-08-29 13:26 | PN ---
DATE: 08/29/2017 SUBJECTIVE: The patient is seen today, 08/29/2017. PHYSICAL EXAMINATION: VITAL SIGNS: She is afebrile and blood pressure is 135/83, temperature 97.6, respiratory rate 20, pulse 78. HEENT: Again, noticed to be gingival hyperplasia and poor oral hygiene. NECK: Supple. No JVD. No carotid bruits. No lymph node. No thyromegaly. CHEST AND LUNGS: Bilateral symmetrical expansion. Good air exchange. No rales. No rhonchi. CARDIOVASCULAR SYSTEM: PMI not localized. S1 and S2. No additional sounds. ABDOMEN: Gastric tube in place. EXTREMITIES: No cyanosis. No clubbing. No edema. CENTRAL NERVOUS SYSTEM: Awake and responds to verbal stimuli, but the patient has bilateral lower extremity and upper extremity weakness. The patient is bedridden for many years after multiple CVAs. ASSESSMENT: Sepsis, urinary tract infection, history of multiple cerebrovascular accidents, seizure disorder, gastric tube feeding. PLAN: Continue current IV antibiotics as per ID. Jocelyn Calloway MD
--- NOTE | 2017-08-29 14:24 | HP ---
HISTORY OF PRESENT ILLNESS: This is a 67-year-old female who is a shelter resident for many years with gastric tube feeding secondary to multiple cerebrovascular accidents. The patient was brought to the emergency room for persistent fever in spite of frequent antipyretics given to the patient in shelter. The patient was evaluated in the emergency room and she was found to have a fever of 102.1 and also she had leukocytosis. Patient is aphasic and no history could be obtained from the patient. Workup in the emergency room also revealed white blood cell count of 14.8 and sodium of 161 as well as urine with wbc's 161. REVIEW OF SYSTEMS: Other review of systems is not obtainable due to the patient's aphasia. ALLERGIES: THE PATIENT HAS MULTIPLE ANTIBIOTICS AND MEDICATIONS ALLERGIES PER LIST. MEDICATIONS: As per MAR. PAST MEDICAL HISTORY: Multiple CVA, seizure disorder, type 2 diabetes mellitus, gastric tube feeding, and hypertension. SOCIAL HISTORY: The patient is a shelter resident for many years. FAMILY HISTORY: Not known. PHYSICAL EXAMINATION: GENERAL: The patient is in bed, not in any cardiopulmonary distress at this time of this examination. VITAL SIGNS: With blood pressure was 135/59, again temperature was 102.1, respiratory rate 25, pulse 97. HEENT: Pupils equal, reactive to light. Slightly dry mucosa of the conjunctivae as well as very poor oral hygiene with gingival hyperplasia and dental dystrophy. NECK: No JVD. No carotid bruits. No lymph nodes. No thyromegaly. CHEST/LUNGS: Bilateral symmetrical expansion. Good air exchange. Bilateral basilar rales. CARDIOVASCULAR SYSTEM: PMI not localized. S1, S2. No additional sounds. ABDOMEN: Normoactive bowel sounds. No tenderness. Gastric tube feeding in place. EXTREMITIES: No cyanosis, no clubbing, no edema. 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 ASSESSMENT: 1. Sepsis. 2. Urinary tract infection. 3. Multiple cerebrovascular accidents. 4. Seizure disorder. 5. Type 2 diabetes mellitus. 6. Hypertension. PLAN: Blood culture and urine culture and follow the cultures. ID consultation and follow the recommendations of ID. Resume the patient's feeding and medications through gastric tube. Jocelyn Calloway MD
[2017-08-29] MEDS: Meropenem 1 GM in Sodium Chloride 0.9% 100 ML IVPB SCH (15:05)
[2017-08-29] MEDS ORDERED: Dextrose 5%/0.45% NS 1,000 ML IV SCH (21:45)
[2017-08-29] MEDS: Dextrose 5%/0.45% NS 1,000 ML IV SCH (21:51)
[2017-08-30] MEDS: Meropenem 1 GM in Sodium Chloride 0.9% 100 ML IVPB SCH ×2 (03:06→14:04)
[2017-08-30] MEDS: Insulin Detemir 100 units/ml Vial (Levemir) SC SCH ×2 (06:08→17:16)
[2017-08-30] MEDS: (Novolin R) Insulin Human Regular 100 units/ml vial SC SCH ×4 (07:30→21:42)
[2017-08-30] MEDS ORDERED: Dextrose 50% SYRINGE Inj (50 ml) ONE (08:32)
[2017-08-30 08:53] LABS: BASO % 0.5 % (0.0-2.0); EOS # 0.2 K/uL (0.0-0.7); EOS % 2.5 % (0.0-4.0); HEMATOCRIT 36.7 % (34.0-47.0); LYMPH # 2.1 K/uL (1.0-4.3); LYMPH % 28.9 % (20.0-40.0); MEAN CELL VOLUME 94.3 fL (81.0-99.0); MEAN CORPUSCULAR HEMOGLOBIN 29.4 pg (27.0-31.0); MEAN CORPUSCULAR HGB CONC 31.2 g/dL (33.0-37.0); MEAN PLATELET VOLUME 10.4 fL (7.2-11.7); MONO # 0.4 K/uL (0.0-0.8); MONO % 5.9 % (0.0-10.0); NRBC % 0.2 % (0.0-2.0); RED CELL DISTRIBUTION WIDTH 15.8 % (11.5-14.5); WHITE BLOOD COUNT 7.2 K/uL (4.8-10.8)
[2017-08-30] MEDS: Albuterol-Ipratrop 3 mg / 0.5 (3 ml) UD INH SCH ×4 (09:08→20:10)
--- NOTE | 2017-08-30 09:08 | PCM.RRT ---
<Germán Rubio - Last Filed: 08/30/17 09:05> [employer] Nurses Assessment - Situation Date: 08/30/17 Time [employer]ER was called: 08:22 [employer] Responder Arrival Time:: 08:23 [employer] Location:: Med/Oncology Room Number: 365-A [employer] Reason for Call: Change in Mental Status [employer] LOADER Called By: RN - IV IV Inserted during [employer]OWER LOADER?: No - Respiratory [employer] LOADER Delivery Method: Nasal Cannula @L/min Oxygen Flow Rate: 3 Received Nebulizer Treatments: No Was the Patient Ventilated with Bag/Mask 100% O2?: No Secretions Suctioned?: Yes (oral) Was the Patient Intubated?: No Was the Patient Placed on a Ventilator?: No - Medication Medications Administered During [employer]OWER LOADER: KEPPRA #1 500MG IVPB, ATIVAN #1 1MG IVP, D50 1/2 AMP, ATIVAN #2 1MG IVP, ATIVAN #3 1MG IVP, KEPPRA #2 500MG IVPB - Diagnostic Test Ordered EKG: Yes (LBBB consistent with prior EKG) Chest X-Ray: Yes (poor inspiratory effort; right sided rhales) CT Scan: Yes (head w/o; pending) Other Diagnostic Test Ordered: STAT CBC,CMP,EKG, PHOS, PROLACTIN, SAMIA, oxycarbazepine - Stat Labs Ordered [employer]ER Stat Labs Ordered: CBC CPR started during [employer] TOWER LOADER?: No - Vital Signs Vital Signs: Rapid Response Vital Sign Blood Pressure 174/83 Pulse Rate 90 Respiratory Rate 18 Temperature 98.1 F Oxygen Saturation 98 - [place] Coma Scale Coma Scale Eye Opening: Spontaneous Coma Scale Motor: Movement to pain stimulus Coma Scale Verbal: No response Coma Scale Total: 10 - Time [employer]ER Ended Time [employer] LOADER Ended: 09:06 - Recommendations 5) [employer]ER Level of Care Recommendations: Transfer to Telemetry Notifications: Attending Physician, Family or Designated Caregiver I.Reason for [employer]ER - A) Acute Change in Patient: (Select all that apply): Staff member or family is worried about patient - Neurological Status (Select all that apply): Responsive - Respiratory Oxygen Delivery Method: Nasal Cannula @L/min Oxygen Flow Rate: 3 - Constitutional Appears: Other (actively seizing; controlled w/ 3mg ativan and 1g IV keppra) - Head Additional Comments: extremely poor dentition; loose dentures - Respiratory Exam Respiratory Exam: Rales (on right side, left clearler albeit still rhales). absent: Clear to Ausculation Bilateral, Respiratory Distress, Stridor - Cardiovascular Exam Cardiovascular Exam: Tachycardia, +S1, +S2 - GI/Abdominal Exam GI & Abdominal Exam: Soft, Normal Bowel Sounds (PEG clean dry and intact, no signs of pus; patient is here for non functioning PEG) - Neurological Exam Neurological Exam: Motor Sensory Deficit, Reflexes Normal Additional exam: patient is baseline non-verbal from residential; has history of seizures and neurological defecits; DNR/DNI comfort care as seen in [facility] and from primary - Extremities Exam Extremities Exam: Pedal Edema. absent: Calf Tenderness Plan - Assessment of Findings&Treatment Plan Seizures 2/2 to multiple reasons; UTI/Fever/Abx Use/Hypernatremia/missed seizure medication Patient loaded w/ 1G Keppra, 3mg of IV ativan total; controlled seizures Primary contacted; neurology consult w/ Dr. Dee Bradley placed on his behalf; will appreciate recs pending head CT, CMP, cardiac iso, oxycarbazepine levels Keep head of bed elevated/aspiration precautions patient will be transferred to telemetry for further monitoring patient is comfort care/ DNR/DNI as from POL Case discussed and seen w/ Dr. Ilana Rubio PGY2 Medicine Note <Dave Young - Last Filed: 09/07/17 18:57> [employer] Nurses Assessment - Vital Signs Vital Signs: Rapid Response Vital Sign Blood Pressure 174/83 Pulse Rate 90 Respiratory Rate 18 Temperature 98.1 F Oxygen Saturation 98 - Vital Signs at end of [employer]ER Vital Signs at end of [employer]OWER LOADER: Rapid Response End Vital Sign Blood Pressure 174/83 Pulse Rate 84 Respiratory Rate 20 Temperature 98.1 F O2 Sat by Pulse Oximetry 98 Attending/Attestation - Attestation I have personally seen and examined this patient.: Yes I have fully participated in the care of the patient.: Yes I have reviewed all pertinent clinical information, including history, physical exam and plan: Yes
[2017-08-30 09:11] LABS: ALKALINE PHOSPHATASE 71 U/L (38-126); ALT/SGPT 33 U/L (9-52); AST/SGOT 26 U/L (14-36); BILIRUBIN,TOTAL 0.7 mg/dL (0.2-1.3); BLOOD UREA NITROGEN 27 mg/dL (7-17); CALCIUM 8.4 mg/dl (8.6-10.4); CARBON DIOXIDE 24 mmol/L (22-30); CHLORIDE 123 mmol/L (98-107); GFR AFRICAN-AMERICAN > 60; GLUCOSE,RANDOM 325 mg/dL (65-105); MAGNESIUM 2.2 mg/dL (1.6-2.3); PHOSPHOROUS 2.5 mg/dL (2.5-4.5); POTASSIUM 3.7 mmol/L (3.6-5.2); SODIUM 156 mmol/L (132-148); TOTAL PROTEIN 6.6 g/dL (6.3-8.3)
[2017-08-30] MEDS: Enoxaparin 40 mg Syringe SC SCH (09:40)
--- NOTE | 2017-08-30 10:08 | RAD ---
HISTORY: Seizure COMPARISON: Comparison chest dated 08/28/2017. FINDINGS: LUNGS: Poor inspiration with low lung volumes crowded bronchovascular markings. Persistent elevation right hemidiaphragm associated with right basilar atelectasis. Suspect eventration right hemidiaphragm There also appears to be mild atelectasis in the medial left lung base. PLEURA: No significant pleural effusion identified, no pneumothorax apparent. CARDIOVASCULAR: Normal. OSSEOUS STRUCTURES: No significant abnormalities. VISUALIZED UPPER ABDOMEN: Normal. OTHER FINDINGS: None. IMPRESSION: Poor inspiration with low lung volumes crowded bronchovascular markings. Persistent elevation right hemidiaphragm associated with right basilar atelectasis. Suspect eventration right hemidiaphragm There also appears to be mild atelectasis in the medial left lung base
[2017-08-30] MEDS: Dextrose 5%/0.45% NS 1,000 ML IV SCH ×2 (11:19→14:30)
--- NOTE | 2017-08-30 11:56 | CP.PCM.PN ---
Subjective - Date & Time of Evaluation Date of Evaluation: 08/30/17 Time of Evaluation: 11:56 - Subjective Subjective: S/P RR / AND TRANSFER TO TELEMETRY BED ON ROOM 566 afebrile,UNAROUSABLE STATUS POST ATIVAN AND KEPPRA FOR BREAKTHROUGH SEIZURES. SEEN BY NEUROLOGIST DR Jair GREEN. LABS REVIEWED. LEUKOCYTOSIS IMPROVING. RENAL FUNCTIONS STABLE. SODIUM 156 IMPROVING URINE CULTURES +VE PROTEUS MIRABLIS -PANSENSITIVE Objective - Vital Signs/Intake and Output Vital Signs (last 24 hours): Temp Pulse Resp BP Pulse Ox 97.5 F L 73 18 92/58 L 99 08/30/17 10:08 08/30/17 10:08 08/30/17 10:08 08/30/17 10:08 08/30/17 10:08 Intake and Output: 08/30/17 08/30/17 06:59 18:59 Intake Total 410 Output Total 2 Balance 408 - Medications Medications: Current Medications Acetaminophen (Tylenol 650mg/20.3ml Solution Ud) 650 mg PEG Q6H PRN PRN Reason: Fever >100.4 F Albuterol/Ipratropium (Duoneb 3 Mg/0.5 Mg (3 Ml) Ud) 3 ml INH RQID [facility]S [facility] BEDS AT [facility] Last Admin: 08/30/17 09:08 Dose: 3 ml Aspirin (Aspirin Chewable) 81 mg PEG DAILY [facility]EDS AT [facility] Last Admin: 08/30/17 09:39 Dose: Not Given Enoxaparin Sodium (Lovenox) 40 mg SC DAILY [facility] 234 BEDS AT [facility] Last Admin: 08/30/17 09:40 Dose: 40 mg Meropenem 1 gm/ Sodium (Chloride) 100 mls @ 100 mls/hr IVPB Q12H [facility] 234 B[facility]S AT [facility] Last Admin: 08/30/17 03:06 Dose: 100 mls/hr Dextrose/Sodium Chloride (Dextrose 5%/0.45% Ns 1000 Ml) 1,000 mls @ 60 mls/hr IV .[id number] COUNTS INCLUDE 234 BEDS AT THE [facility] Last Admin: 08/30/17 11:19 Dose: 60 mls/hr Levetiracetam 500 mg/ Sodium (Chloride) 55 mls @ 420 mls/hr IVPB Q12H [facility] 234 BEDS AT [facility] Insulin Detemir (Levemir) 25 unit SC Q12H [facility] 234 BEDS AT [facility] Last Admin: 08/30/17 06:08 Dose: Not Given Insulin Human Regular (Novolin R) 0 unit SC ACHS [facility] 234 B[facility]S [facility] PRN Reason: Protocol Last Admin: 08/30/17 07:30 Dose: Not Given Oxcarbazepine (Trileptal) 150 mg PEG DAILY [facility] 234 [facility]S AT [facility] Last Admin: 08/30/17 09:41 Dose: Not Given Oxcarbazepine (Trileptal) 450 mg PEG HS [facility] 234 B[facility]S AT [facility] Last Admin: 08/29/17 21:27 Dose: Not Given Topiramate (Topamax) 100 mg PEG BID [facility] 234 [facility]S [facility] Last Admin: 08/30/17 09:41 Dose: Not Given - Labs Labs: 08/30/17 08:44 08/30/17 08:44 PT 12.9 SECONDS (9.7-12.2) H 08/28/17 09:41 INR 1.2 08/28/17 09:41 - Head Exam Head Exam: NORMAL INSPECTION - Eye Exam Eye Exam: PERRL - Neck Exam Neck Exam: Normal Inspection. absent: Meningismus - Respiratory Exam Respiratory Exam: Decreased Breath Sounds, NORMAL BREATHING PATTERN - Cardiovascular Exam Cardiovascular Exam: REGULAR RHYTHM, +S1, +S2 - GI/Abdominal Exam GI & Abdominal Exam: Soft (PEG IN PLACE.), Normal Bowel Sounds - Extremities Exam Extremities Exam: absent: Calf Tenderness, Pedal Edema - Neurological Exam Neurological Exam: Altered - Skin Skin Exam: Normal Color, Warm Assessment and Plan (1) UTI (urinary tract infection) Status: Acute (2) Fever Status: Acute (3) Hypernatremia Status: Acute (4) Dehydration Status: Acute (5) Hx of craniotomy Status: Acute (6) Seizure Status: Acute - Assessment and Plan (Free Text) Plan: CONTINUE iv MEROPENEM 1 G iv PIGGYBACK EVERY 12 HOURLY 08/28/17. PATIENT TOLERATED THE MEDS. PATIENT HAS MANY ALLERGIES. DISCUSSED WITH THE STAFF TO MONITOR PATIENT CLOSELY FOR ANY FURTHER SEIZURES AND NOTIFY. IF RECURRENT SEIZURES wILL DC iv MEROPENEM. PRESENTLY CONTINUE PRESENT THERAPY BREAK THROUGH SEIZURES RELATED TO LACK OF ANTIEPILEPTIC MEDICATIONS GIVEN TO THE PATIENT IN-HOSPITAL. PATIENT FOR EEG TO MONITOR FOR SUB -CLINICAL SEIZURES PER NEUROLOGIST. IV FLUIDS PER PMD
--- NOTE | 2017-08-30 13:41 | CON ---
NEUROLOGY CONSULTATION REASON FOR CONSULTATION: Seizure. HISTORY OF PRESENT ILLNESS: The patient is a 67-year-old female who we have been asked for evaluation of seizure. The patient was admitted in the hospital after she was noted to have fever in the intermediate. The patient apparent has a history of stroke and craniotomy. The patient is unable to give history. History is mainly from the chart. Apparently, the patient has been on Topamax and oxcarbazepine; however, she was unable to get the medicine over the last 24 hours because her PEG tube was having difficulty with function. The patient apparently had a seizure this morning. The patient was given 4 mg of Ativan and after discussing me, loaded with Keppra. The patient is unable to give history. History is mainly from the chart. PAST MEDICAL HISTORY: Includes cerebrovascular accident, seizures. CURRENT MEDICATIONS: Include aspirin, Lovenox, meropenem, insulin, topiramate and oxcarbazepine, which were not given. Tylenol. ALLERGIES: AZTREONAM, CEFEPIME, MOXIFLOXACIN, PENICILLIN, TAMSULOSIN. FAMILY HISTORY: Unknown. SOCIAL HISTORY: The patient is a nonsmoker, nonalcoholic. A intermediate resident. PHYSICAL EXAMINATION: GENERAL: The patient is an elderly female, lying on the bed, in no acute distress. VITAL SIGNS: Her blood pressure is 92/58, heart rate is 73 per minute, breathing at the rate of 18 per minute, temperature is 97.5 degrees Fahrenheit. HEENT: Head is normocephalic, atraumatic. NECK: Supple. There are no carotid bruits. LUNGS: Clear. CARDIOVASCULAR SYSTEM: S1 and S2 are audible. No murmurs. ABDOMEN: Soft, nontender. Bowel sounds are present. NEUROLOGY: Mental status: The patient is very lethargic status post Ativan. Opens eyes minimally to noxious painful stimuli. Cranial nerve examination: Pupils 2 mm, reactive to light. Positive doll's eye movement. There is no obvious facial asymmetry. She withdraws extremities minimally to noxious painful stimuli. Gait is untestable. LABORATORY DATA: Labs reviewed, which shows WBC of 7.2, hemoglobin 11.5, hematocrit 36.7 and platelets of 121. Sodium is 156, potassium 3.7, chloride 123, carbon dioxide 24, BUN of 27, creatinine 0.6 and glucose of 325. IMPRESSION: Breakthrough seizures because the patient has been not taking antiepileptic medication. RECOMMENDATION: 1. The patient was loaded with IV Keppra. Continue intravenous Keppra 500 mg twice a day for now. 2. The patient should have an electroencephalogram. 3. Once the patient's PEG tube starts functional, the Keppra can be given orally. 4. At the moment, we will hold off oxcarbazepine and topiramate and told to restart if the patient started to have seizures again despite being on Keppra. 5. Please continue supportive care and other treatment. Thank you for the opportunity to participate in the care of this patient. Austin Bradley MD
--- NOTE | 2017-08-30 13:53 | CT ---
PROCEDURE: CT HEAD WITHOUT CONTRAST. HISTORY: seizures, history of CVA COMPARISON: Unenhanced head CT 04/08/2017. TECHNIQUE: Axial computed tomography images were obtained through the head/brain without intravenous contrast. Radiation dose: Total exam DLP = 1068.91 mGy-cm. This CT exam was performed using one or more of the following dose reduction techniques: Automated exposure control, adjustment of the mA and/or kV according to patient size, and/or use of iterative reconstruction technique. FINDINGS: HEMORRHAGE: No intracranial hemorrhage. BRAIN: Gross postoperative change and cystic encephalomalacia are again seen affecting primarily the left frontal and temporal lobes with stable ex vacuo expansion of the left lateral ventricle again evident. Chronic lacunes are again seen the left basal ganglia anteriorly. No positive mass effect is appreciated. Limited diffuse cerebral atrophy is appreciated the remaining normal brain parenchyma including posterior fossa contents once again. No significant interval changes appreciated throughout the intracranial space in the interval. VENTRICLES: Unremarkable. No hydrocephalus. CALVARIUM: Left frontotemporal craniotomy again evident. PARANASAL SINUSES: Unremarkable as visualized. No significant inflammatory changes. MASTOID AIR CELLS: Unremarkable as visualized. No inflammatory changes. OTHER FINDINGS: None. IMPRESSION: Stable head CT demonstrating postoperative/ cystic encephalomalacia the pattern changes at the left frontal temporal distribution without significant interval change. No positive mass effect. No definite acute intracranial findings by standard CT criteria. If clinically warranted, follow up CT or MRI may be elected. Prior left frontoparietal craniotomy again evident.
--- NOTE | 2017-08-30 15:30 | PN ---
LOCATION: 566 SUBJECTIVE: This is a 67-year-old female seen for GI consultation initially on 08/29/2017, reexamined again today without significant clinical changes with poor oral intake, with what appeared to be a malfunction of a PEG tube. The entire chart is reviewed including, but not limited to most recent lab and radiology study results, current and previous medication list, current and previous medical events and today's CBC showed normal values, but low platelet 122 with increased sodium 156, BUN elevated 27 with blood glucose level of 325 with low calcium 8.4 with low albumin 3.3. Most recent chest x-ray done today, result is seen. PHYSICAL EXAMINATION: GENERAL: A 67-year-old female in a state of DNR/DNI. VITAL SIGNS: Afebrile with pulse of 70, respiratory rate 20 to 22, blood pressure 108/62. HEENT: Showed pale, dry oral mucous membranes. Nonicteric sclerae. LUNGS: A few scattered crepitation, decreased air entry at bases. HEART: Positive S1 and S2. ABDOMEN: Soft. Bowel sounds are present. PEG tube is in place. EXTREMITIES: With lower extremity mild edematous changes. No clubbing or cyanosis. NEUROLOGIC: No reported new neurological deficits, sensory or motor. It has to be mentioned that the patient had a rapid response run by the medical staff early today due to what reported as seizure disorder which could be secondary to her hypernatremia and seizure disorder. Neurology consult is called. IMPRESSION: 1. Malnutrition with hypoalbuminemia. 2. Failure to thrive. 3. Malfunction of a PEG tube. 4. Known history of cerebrovascular accident, hypertension, diabetes mellitus with pneumonia as well as seizure disorder. 5. Known history of an anxiety syndrome with chronic obstructive pulmonary disease. SUGGESTIONS: 1. Continue current management. 2. The patient will need change of the PEG tube upon receiving a legal consent from the legal guardian. 3. Peripheral hyperalimentation also has required. Meagan Romero MD cc: Meagan Romero MD
--- NOTE | 2017-08-31 03:11 | CON ---
DATE: 08/29/[address] Romero to Dr. Jocelyn Calloway. I was called for a GI consultation by the admitting MD. The patient is seen and fully examined on 08/29/2017, as requested by the admitting medical staff. The entire chart is reviewed including but not limited to the most recent lab and radiology study results, current and the previous medication list, current and the previous medical events, allergies to medication list as well as all the available current and the previous medical records. Case discussed at length with the staff in the floor. HISTORY OF PRESENT ILLNESS: This is a 67-year-old female with multiple complicated past medical history, residential resident, was brought to the emergency room with reported fever, tachycardia, malfunctioning apparently of the PEG tube, which was previously inserted. It has to be mentioned that the patient is in a state of DNR and DNI prior to her admission. It has to be mentioned that due to the patient's clinical status and her past medical history of CVA most of the information obtained from the medical record, medical staff, nursing staff notes, as well as the emergency room notes and the residential records. PAST MEDICAL HISTORY: Including, but not limited to: 1. COPD. 2. Hypertension. 3. Diabetes mellitus. 4. Intracranial bleeding, status post craniotomy. 5. Renal insufficiency. 6. Seizure disorder. 7. Known history of osteoporosis with reported pneumonia before. 8. Status post PEG tube insertion before, it is a gastrostomy tube apparently done on 07/23/2013 as per records. FAMILY HISTORY: Unknown. SOCIAL HISTORY: No reported recent history of cigarette smoking or alcohol intake. The patient is a resident of a residential. CURRENT MEDICATIONS: Medication list was reviewed. ALLERGY TO MEDICATION: List is reviewed. LABORATORY DATA: Initial blood workup post admission showed leukocytosis of 14.8, but normal hemoglobin and hematocrit with increased sodium of 161, CO2 content 32, indicative of respiratory alkalosis, BUN 35 with normal creatinine as well as increased blood glucose level of 299. PHYSICAL EXAMINATION: GENERAL: A 67-year-old female. VITAL SIGNS: Afebrile at the time she was seen by me with pulse of 80, respiratory rate 20-22 and blood pressure 118/84. HEENT: Showed pale, dry oral mucous membrane. Nonicteric sclerae. LUNGS: No lymphadenitis or lymphadenopathy. Scattered crepitation mildly with few rhonchi present. Breathing sounds bilaterally. HEART: Positive S1 and S2. ABDOMEN: Soft. Bowel sounds are present. Feeding tube is in place, was difficult to be irrigated with poor feeding process due to apparently malfunction of the feeding tube. Mild hypererythematous mucosa around the stoma of the feeding tube with possible anterior abdominal wall cellulitis. EXTREMITIES: With mild lower extremity edematous changes. No clubbing or cyanosis. NEUROLOGIC: No new reported neurological deficits, sensory or motor. The patient had CVA with residual before. IMPRESSION: 1. Malfunction of the feeding tube. 2. Leukocytosis with evidence of mild anterior abdominal wall cellulitis. 3. Dehydration. 4. Poorly-controlled diabetes mellitus. 5. Electrolyte imbalance with hypernatremia. 6. Past medical history including but not limited to hypertension, cerebrovascular accident, chronic obstructive pulmonary disease with pneumonia, seizure disorder. SUGGESTIONS: 1. Agree with your plan. 2. Peripheral hyperalimentation. 3. Proton pump inhibitor. 4. Flagyl IV.. 5. Correct any underlying electrolyte imbalance. 6. The patient will need PEG tube change upon receiving consent from the legal guardian and also correcting any underlying electrolyte imbalance and coagulopathy. Thank you for letting me participate in your patient's case management. We will follow up closely with you. Meagan Romero MD cc: Meagan Romero MD
[2017-08-31] MEDS: Meropenem 1 GM in Sodium Chloride 0.9% 100 ML IVPB SCH ×2 (03:29→14:23)
[2017-08-31] MEDS: Dextrose 5%/0.45% NS 1,000 ML IV SCH (05:20)
[2017-08-31] MEDS: Insulin Detemir 100 units/ml Vial (Levemir) SC SCH ×2 (06:14→19:04)
[2017-08-31] MEDS: Albuterol-Ipratrop 3 mg / 0.5 (3 ml) UD INH SCH ×4 (08:08→19:45)
[2017-08-31 09:06] LABS: BLOOD UREA NITROGEN 24 mg/dL (7-17); CALCIUM 7.9 mg/dl (8.6-10.4); CARBON DIOXIDE 24 mmol/L (22-30); CHLORIDE 123 mmol/L (98-107); GFR AFRICAN-AMERICAN > 60; GLUCOSE,RANDOM 193 mg/dL (65-105); SODIUM 155 mmol/L (132-148)
[2017-08-31 09:08] LABS: BASO # 0.1 K/uL (0.0-0.2); BASO % 0.8 % (0.0-2.0); EOS # 0.3 K/uL (0.0-0.7); EOS % 2.9 % (0.0-4.0); HEMATOCRIT 36.8 % (34.0-47.0); LYMPH # 2.5 K/uL (1.0-4.3); MEAN CELL VOLUME 94.5 fL (81.0-99.0); MEAN CORPUSCULAR HEMOGLOBIN 29.7 pg (27.0-31.0); MEAN CORPUSCULAR HGB CONC 31.4 g/dL (33.0-37.0); MEAN PLATELET VOLUME 10.3 fL (7.2-11.7); MONO # 0.4 K/uL (0.0-0.8); MONO % 4.6 % (0.0-10.0); NRBC % 0.1 % (0.0-2.0); RED CELL DISTRIBUTION WIDTH 15.9 % (11.5-14.5); WHITE BLOOD COUNT 8.8 K/uL (4.8-10.8)
[2017-08-31] MEDS: (Novolin R) Insulin Human Regular 100 units/ml vial SC SCH ×4 (10:00→23:47)
[2017-08-31] MEDS: Enoxaparin 40 mg Syringe SC SCH (10:00)
[2017-08-31] MEDS ORDERED: Petrolatum Oint Foilpak (5 gm) TOP PRN (13:00)
--- NOTE | 2017-08-31 13:20 | PN ---
LOCATION: 566. SUBJECTIVE: This is a 67-year-old female appeared to be awake and alert this morning, in the state of DNR and DNI, claiming that she tolerates oral intake without nausea or vomiting this morning as per nursing staff. However, the patient's response is very poor and her PEG tube is still nonfunctioning. We still awaiting for legal guardian consent for PEG tube change. The entire chart is reviewed including, but not limited to some of the recent lab and radiology study results, current and previous medication list, current and previous medical events and the patient still have normal CBC, but thrombocytopenia of 121 with abnormal electrolyte with sodium 156, BUN 27 with low creatinine. Today's blood glucose level 204. CAT scan of the head done yesterday, official report seen. PHYSICAL EXAMINATION: GENERAL: A 67-year-old female not responding to verbal stimuli adequately. VITAL SIGNS: Afebrile with pulse of 70, respiratory 20 to 22, blood pressure 132/78. HEENT: Show pale, dry oral mucous membranes. Nonicteric sclerae. HEART: Positive S1 and S2. ABDOMEN: Soft. Bowel sounds are present. No mass or organomegaly. No rebound tenderness or guarding. The previously inserted feeding tube is in place, nonfunctioning as per nursing staff. EXTREMITIES: With lower extremity mild edematous changes. No clubbing or cyanosis. NEUROLOGIC: No new reported neurological deficits, sensory or motor. IMPRESSION: 1. Malnutrition with hypoalbuminemia. 2. Dysphagia. 3. Malfunction of a feeding tube. 4. Known history of chronic obstructive pulmonary disease. 5. History of severe anxiety syndrome. 6. Known history of cerebrovascular accident, hypertension, seizure disorder. 7. Diabetes mellitus with pneumonia by history. 8. Abnormal CAT scan of the head with evidence of left frontoparietal craniotomy by history. SUGGESTION: 1. Continue current management. 2. Peripheral hyperalimentation. 3. Awaiting family consent for feeding tube change. It has to be mentioned that the patient is in the status of DNR and DNI. Meagan Romero MD cc: Meagan Romero MD
--- NOTE | 2017-08-31 14:31 | CP.PCM.PN ---
Subjective - Date & Time of Evaluation Date of Evaluation: 08/31/17 Time of Evaluation: 14:31 - Subjective Subjective: afebrile,BP 140/80. Awake, comfortable.. No more breakthrough seizures. Seen by GI for replacement of PEG tube. Patient presently on hyperalimentation. Labs reviewed WBC 8.8, h/h stable Platelets 101 decreased from 121. NA 155, CREATININE 0.6/bun 24. Objective - Vital Signs/Intake and Output Vital Signs (last 24 hours): Temp Pulse Resp BP Pulse Ox 97.4 F L 72 18 140/80 100 08/31/17 07:59 08/31/17 08:00 08/31/17 07:59 08/31/17 07:59 08/31/17 07:59 Intake and Output: 08/31/17 08/31/17 06:59 18:59 Intake Total 480 Balance 480 - Medications Medications: Current Medications Acetaminophen (Tylenol 650mg/20.3ml Solution Ud) 650 mg PEG Q6H PRN PRN Reason: Fever >100.4 F Albuterol/Ipratropium (Duoneb 3 Mg/0.5 Mg (3 Ml) Ud) 3 ml INH RQID [facility] Last Admin: 08/31/17 12:15 Dose: 3 ml Aspirin (Aspirin Chewable) 81 mg PEG DAILY [facility] Last Admin: 08/31/17 10:55 Dose: 81 mg Emollient Ointment (Vaseline Oint) 5 gm TOP BID PRN PRN Reason: Dry skin Enoxaparin Sodium (Lovenox) 40 mg SC DAILY [facility] Last Admin: 08/31/17 10:00 Dose: 40 mg Meropenem 1 gm/ Sodium (Chloride) 100 mls @ 100 mls/hr IVPB Q12H [facility] Last Admin: 08/31/17 14:23 Dose: 100 mls/hr Dextrose/Sodium Chloride (Dextrose 5%/0.45% Ns 1000 Ml) 1,000 mls @ 60 mls/hr IV .[id number] [facility] Last Admin: 08/31/17 05:20 Dose: 60 mls/hr Levetiracetam 500 mg/ Sodium (Chloride) 55 mls @ 420 mls/hr IVPB Q12H [facility] Last Admin: 08/31/17 10:00 Dose: 420 mls/hr Insulin Detemir (Levemir) 25 unit SC Q12H [facility] Last Admin: 08/31/17 06:14 Dose: 25 unit Insulin Human Regular (Novolin R) 0 unit SC ACHS [place] PRN Reason: Protocol Last Admin: 08/31/17 13:43 Dose: 2 unit - Labs Labs: 08/31/17 08:34 08/31/17 08:34 PT 12.9 SECONDS (9.7-12.2) H 08/28/17 09:41 INR 1.2 08/28/17 09:41 - Constitutional Appears: No Acute Distress - Head Exam Head Exam: NORMAL INSPECTION - Eye Exam Eye Exam: PERRL - ENT Exam ENT Exam: Normal Oropharynx - Respiratory Exam Respiratory Exam: Decreased Breath Sounds, NORMAL BREATHING PATTERN - Cardiovascular Exam Cardiovascular Exam: REGULAR RHYTHM, +S1, +S2 - GI/Abdominal Exam GI & Abdominal Exam: Soft, Normal Bowel Sounds (PEG IN PLACE . FEEDINGS ON HOLD) - Extremities Exam Extremities Exam: absent: Calf Tenderness, Pedal Edema - Neurological Exam Neurological Exam: Awake - Psychiatric Exam Psychiatric exam: Normal Mood - Skin Skin Exam: Normal Color, Warm Assessment and Plan (1) UTI (urinary tract infection) Status: Acute (2) Fever Status: Acute (3) Hypernatremia Status: Acute (4) Dehydration Status: Acute (5) Hx of craniotomy Status: Acute (6) Seizure Status: Acute - Assessment and Plan (Free Text) Plan: CONTINUE iv MEROPENEM 1 G iv PIGGYBACK EVERY 12 HOURLY 08/28/17. PATIENT TOLERATED THE MEDS. PATIENT HAS MANY ALLERGIES. gi w/u in progress. PER NEURO. NO MORE SEIZURES NOTED. WATCH THROMBOCYTOPENIA.
--- NOTE | 2017-08-31 16:40 | PN ---
DATE: NEUROLOGY PROGRESS NOTE SUBJECTIVE: Patient is lying in the bed, in no acute distress. PHYSICAL EXAMINATION VITAL SIGNS: Her blood pressure is 140/80, heart rate is 79 per minute, breathing at the rate of 16 per minute, and temperature is 98 degrees Fahrenheit. HEENT: Head is normocephalic and atraumatic. NECK: Supple. There are no carotid bruits. LUNGS: Clear. CARDIOVASCULAR: S1 and S2 audible. No murmurs. ABDOMEN: Soft, nontender. Bowel sounds are present. NEUROLOGIC: Mental status: The patient is awake and alert, listening at the examiner. Does not follow any commands. Cranial nerve examination: Pupils are 2 mm bilaterally, reactive to light. Extraocular movements are intact. There is no obvious facial asymmetry. She is moving all 4 extremities to noxious stimuli. Plantars are downgoing bilaterally. LABORATORY DATA: Labs reviewed showed WBC of 8.8, hemoglobin 11.6, hematocrit of 36.8 and platelets of 101. Sodium is 155, potassium 4.0, chloride 123, carbon dioxide content of 24, BUN of 24, creatinine 0.6, and glucose of 193. IMPRESSION: 1. Status post breakthrough seizure with history of seizure disorder. 2. History of cerebrovascular accident. RECOMMENDATION: 1. Patient has no further seizure. 2. Patient to be continued on intravenous Keppra. 3. Patient was evaluated by Gastroenterology and recommended to have replacement of the PEG tube. Once the PEG tube is replaced, we will switch IV Keppra to Keppra via PEG tube placement. 4. Please continue supportive care and other treatment. Thank you for the opportunity to participate in the care of this patient. Austin Bradley MD
[2017-09-01] MEDS: Dextrose 5%/0.45% NS 1,000 ML IV SCH ×3 (00:41→16:48)
[2017-09-01] MEDS: Meropenem 1 GM in Sodium Chloride 0.9% 100 ML IVPB SCH ×2 (02:26→14:12)
--- NOTE | 2017-09-01 02:27 | PN ---
DATE: 08/30/2017 This is a late-entry for daily progress note. SUBJECTIVE: The patient's G-tube was clogged. Patient had a seizure on the floor and [employer] was called. PHYSICAL EXAMINATION: VITAL SIGNS: Blood pressure was 117/55, temperature 97.5, respiratory rate 20, and pulse 71. HEENT: Pupils are equal and reactive to light. Normal-appearing mucosa for conjunctivae, oropharyngeal, and nasal membrane mucosa. NECK: Supple. No JVD. No carotid bruit. No lymph node. No thyromegaly. CHEST AND LUNGS: Bilateral symmetrical expansion. Good air exchange. No rales, no rhonchi. CARDIOVASCULAR SYSTEM: PMI not localized. S1 and S2. No additional sounds. ABDOMEN: Gastric tube is in place. EXTREMITIES: No cyanosis, no clubbing, and no edema. CENTRAL NERVOUS SYSTEM: Patient has paraplegia as well as right more than left upper extremity weakness. ASSESSMENT: Sepsis, urinary tract infection, seizure disorder, and multiple cerebrovascular accidents with gastric tube feeding. PLAN: GI consult and further recommendations. We will give the patient IV medications until G-tube will be unclogged and patient will be able to take back her medications via the G-tube. Jocelyn Calloway MD
--- NOTE | 2017-09-01 02:42 | PN ---
DATE: 08/31/2017 SUBJECTIVE: The patient is seen today 08/31/2017. She is not in any cardiopulmonary distress. Patient is more awake and alert. PHYSICAL EXAMINATION: VITAL SIGNS: Blood pressure 110/51, temperature 97.4, respiratory rate 20 and pulse 69. HEENT: Pupils equal, reactive to light. Pale mucosa of the conjunctivae. NECK: Supple. No JVD. No carotid bruit. No lymph node. No thyromegaly. CHEST AND LUNGS: Bilateral symmetrical expansion. Decreased air entry both lower lung asencio. CARDIOVASCULAR SYSTEM: PMI not localized. S1 and S2. No additional sounds. ABDOMEN: Gastric tube is in place. EXTREMITIES: No cyanosis, no clubbing. No edema. CENTRAL NERVOUS SYSTEMS: Patient is awake, but she is disoriented and she is aphasic, and she has paraplegia with both upper extremity weakness, right more than left. ASSESSMENT: Sepsis, urinary tract infection, seizure disorder, type 2 diabetes mellitus, gastric tube feeding. PLAN: Continue patient's medications through the gastric tube as it is unclogged. Accu-Cheks with insulin coverage. Continue current IV antibiotics. Jocelyn Calloway MD
[2017-09-01] MEDS: Insulin Detemir 100 units/ml Vial (Levemir) SC SCH ×2 (05:18→18:55)
[2017-09-01] MEDS: (Novolin R) Insulin Human Regular 100 units/ml vial SC SCH ×4 (07:30→21:58)
[2017-09-01 08:15] LABS: BASO % 0.5 % (0.0-2.0); EOS # 0.2 K/uL (0.0-0.7); EOS % 2.8 % (0.0-4.0); HEMATOCRIT 33.9 % (34.0-47.0); LYMPH # 1.6 K/uL (1.0-4.3); LYMPH % 27.4 % (20.0-40.0); MEAN CELL VOLUME 92.7 fL (81.0-99.0); MEAN CORPUSCULAR HEMOGLOBIN 30.2 pg (27.0-31.0); MEAN CORPUSCULAR HGB CONC 32.6 g/dL (33.0-37.0); MEAN PLATELET VOLUME 10.2 fL (7.2-11.7); MONO # 0.4 K/uL (0.0-0.8); MONO % 7.2 % (0.0-10.0); NRBC % 0.1 % (0.0-2.0); RED CELL DISTRIBUTION WIDTH 15.3 % (11.5-14.5); WHITE BLOOD COUNT 5.8 K/uL (4.8-10.8)
[2017-09-01] MEDS: Albuterol-Ipratrop 3 mg / 0.5 (3 ml) UD INH SCH ×4 (08:15→19:23)
[2017-09-01 08:52] LABS: BLOOD UREA NITROGEN 22 mg/dL (7-17); CALCIUM 7.7 mg/dl (8.6-10.4); CARBON DIOXIDE 27 mmol/L (22-30); CHLORIDE 120 mmol/L (98-107); GFR AFRICAN-AMERICAN > 60; GLUCOSE,RANDOM 128 mg/dL (65-105); POTASSIUM 4.1 mmol/L (3.6-5.2); SODIUM 151 mmol/L (132-148)
[2017-09-01] MEDS: levETIRAcetam 100 mg/ml (5ml) Oral Syringe PEG SCH ×2 (10:00→18:54)
[2017-09-01] MEDS: Enoxaparin 40 mg Syringe SC SCH (10:50)
--- NOTE | 2017-09-01 10:51 | PN ---
DATE: LOCATION: [facility]. SUBJECTIVE: This is a 67 years old female with a DNR/DNI status, seen and examined in rounds with functioning feeding tube early with feeding tube process is active so far. The entire chart is reviewed including, but not limited to the most recent lab and radiology study results and today's blood glucose level of 132. Patient still has elevated sodium with increased BUN as well as low calcium. PHYSICAL EXAMINATION: GENERAL: A 67 years old female, nonverbal. VITAL SIGNS: Afebrile with pulse of 68, respiratory rate 20 to 22 with blood pressure 130/74. HEENT: Showed pale, dry oral mucous membrane. Nonicteric sclerae. LUNGS: A few scattered crepitation, decreased air entry at bases. HEART: Positive S1 and S2. ABDOMEN: Soft. Bowel sounds are present, but hypoactive with mild abdominal distention. Feeding tube is in place. No residual, no bleeding so far. EXTREMITIES: Lower extremities with edematous changes. No clubbing or cyanosis. NEUROLOGIC: No reported new neurological deficits, sensory or motor. No reported new focal deficits. IMPRESSION: 1. Percutaneous endoscopic gastrostomy malfunction, improving and functioning but not in full capacity so far. 2. Hypoalbuminemia with malnutrition. 3. Known history of chronic obstructive pulmonary disease. 4. Dysphagia. 5. Known history of cerebrovascular accident. 6. History of severe anxiety syndrome with seizure disorder. 7. Known history of hypertension, diabetes mellitus. 8. Pneumonia by history. SUGGESTION: 1. Continue current management 2. Observe for residual. Meagan Romero MD
--- NOTE | 2017-09-01 16:13 | CARD ---
APPROVED REPORT EKG Measurement Heart [id number] VT [id number] <Conclusion> Normal sinus rhythm Possible Anterior infarct, age undetermined Abnormal ECG
--- NOTE | 2017-09-01 23:35 | CP.PCM.PN ---
Subjective - Date & Time of Evaluation Date of Evaluation: 09/01/17 Time of Evaluation: 23:35 - Subjective Subjective: afebrile,vss Awake, comfortable.. No more breakthrough seizures. GI F/U noted Objective - Vital Signs/Intake and Output Vital Signs (last 24 hours): Temp Pulse Resp BP Pulse Ox 97.8 F 71 20 100/56 L 99 09/01/17 15:38 09/01/17 15:38 09/01/17 15:38 09/01/17 15:38 09/01/17 15:38 - Medications Medications: Current Medications Acetaminophen (Tylenol 650mg/20.3ml Solution Ud) 650 mg PEG Q6H PRN PRN Reason: Fever >100.4 F Albuterol/Ipratropium (Duoneb 3 Mg/0.5 Mg (3 Ml) Ud) 3 ml INH RQID [facility] Last Admin: 09/01/17 19:23 Dose: 3 ml Aspirin (Aspirin Chewable) 81 mg PEG DAILY [facility] Last Admin: 09/01/17 10:50 Dose: 81 mg Emollient Ointment (Vaseline Oint) 5 gm TOP BID PRN PRN Reason: Dry skin Enoxaparin Sodium (Lovenox) 40 mg SC DAILY [facility] Last Admin: 09/01/17 10:50 Dose: 40 mg Meropenem 1 gm/ Sodium (Chloride) 100 mls @ 100 mls/hr IVPB Q12H [facility] Last Admin: 09/01/17 14:12 Dose: 100 mls/hr Insulin Detemir (Levemir) 25 unit SC Q12H [facility] Last Admin: 09/01/17 18:55 Dose: 25 unit Insulin Human Regular (Novolin R) 0 unit SC ACHS [facility] PRN Reason: Protocol Last Admin: 09/01/17 21:58 Dose: 2 unit Levetiracetam (Keppra) 500 mg PEG BID [facility] Last Admin: 09/01/17 18:54 Dose: 500 mg Oxcarbazepine (Trileptal) 450 mg PO HS [facility] Last Admin: 09/01/17 21:58 Dose: 450 mg Oxcarbazepine (Trileptal) 150 mg PO DAILY [facility] Last Admin: 09/01/17 10:00 Dose: 150 mg - Labs Labs: 09/01/17 07:54 09/01/17 07:54 PT 12.9 SECONDS (9.7-12.2) H 08/28/17 09:41 INR 1.2 08/28/17 09:41 - Constitutional Appears: No Acute Distress - Eye Exam Eye Exam: PERRL - ENT Exam ENT Exam: Normal Oropharynx - Neck Exam Neck Exam: Normal Inspection - Respiratory Exam Respiratory Exam: Decreased Breath Sounds - Cardiovascular Exam Cardiovascular Exam: Tachycardia, REGULAR RHYTHM, +S1, +S2 - GI/Abdominal Exam GI & Abdominal Exam: Soft, Normal Bowel Sounds. absent: Guarding - Extremities Exam Extremities Exam: Normal Capillary Refill, Pedal Edema. absent: Calf Tenderness - Neurological Exam Neurological Exam: Altered, Awake, CN II-XII Intact - Psychiatric Exam Psychiatric exam: Normal Affect - Skin Skin Exam: Normal Color, Pallor Assessment and Plan (1) UTI (urinary tract infection) Assessment & Plan: URINE CULTURE +VE pROTEUS MIRABILIS. S- MEROPENEM CONTINUE iv MEROPENEM 1 G iv PIGGYBACK EVERY 12 HOURLY 08/28/17. PATIENT TOLERATED THE MEDS. PATIENT HAS MANY ALLERGIES. gi w/u in progress. PER NEURO. NO MORE SEIZURES NOTED. WATCH THROMBOCYTOPENIA. Status: Acute (2) Fever Status: Acute (3) Hypernatremia Assessment & Plan: sodium improving 151 today. IV fluids as per PMD. Status: Acute (4) Dehydration Status: Acute (5) Hx of craniotomy Status: Acute (6) Seizure Status: Acute
[2017-09-02] MEDS: Meropenem 1 GM in Sodium Chloride 0.9% 100 ML IVPB SCH ×2 (02:47→15:48)
[2017-09-02] MEDS: Insulin Detemir 100 units/ml Vial (Levemir) SC SCH ×2 (05:56→17:19)
[2017-09-02] MEDS: Albuterol-Ipratrop 3 mg / 0.5 (3 ml) UD INH SCH ×2 (08:26→14:24)
--- NOTE | 2017-09-02 09:33 | CARD ---
APPROVED REPORT EKG Measurement Heart [id number] <Conclusion> Sinus rhythm with fusion complexes Incomplete left bundle branch block Nonspecific T wave abnormality Abnormal ECG
--- NOTE | 2017-09-02 09:57 | PN ---
DATE: 09/01/2017 SUBJECTIVE: The G tube is unclogged and patient is able to tolerate all her regular medications. PHYSICAL EXAMINATION: VITAL SIGNS: Blood pressure 100/56, temperature 97.8, respiratory rate 20, and pulse 71. HEENT: Normal-appearing mucosa of the conjunctivae. NECK: Supple. No JVD. No carotid bruit. No lymph node. No thyromegaly. CHEST AND LUNGS: Bilateral symmetrical expansion. Good air exchange. No rales. No rhonchi. CARDIOVASCULAR SYSTEM: PMI not localized, S1, S2. No additional sounds. ABDOMEN: Normoactive bowel sounds. No tenderness. No organomegaly. No masses. EXTREMITIES: No cyanosis. No clubbing. No edema. CENTRAL NERVOUS SYSTE: Patient is aphasic and she has bilateral lower extremity weakness and both upper extremity weakness, right more than left, and has a gastric tube for feeding. ASSESSMENT: 1. Sepsis. 2. Urinary tract infection. 3. Seizure disorder. 4. Multiple cerebrovascular accidents. 5. Hypertension. 6. Type 2 diabetes mellitus. PLAN: Continue current medications including IV antibiotics treating the urinary tract infection. If patient is stable, we will discharge her back to detention. Jocelyn Calloway MD
[2017-09-02] MEDS: (Novolin R) Insulin Human Regular 100 units/ml vial SC SCH ×4 (10:10→21:52)
[2017-09-02] MEDS: levETIRAcetam 100 mg/ml (5ml) Oral Syringe PEG SCH ×2 (10:24→17:18)
[2017-09-02] MEDS: Enoxaparin 40 mg Syringe SC SCH (10:24)
[2017-09-02 14:00] LABS: BASO % 0.4 % (0.0-2.0); EOS # 0.1 K/uL (0.0-0.7); EOS % 2.3 % (0.0-4.0); HEMATOCRIT 32.8 % (34.0-47.0); LYMPH # 2.3 K/uL (1.0-4.3); LYMPH % 36.4 % (20.0-40.0); MEAN CELL VOLUME 90.9 fL (81.0-99.0); MEAN CORPUSCULAR HEMOGLOBIN 29.6 pg (27.0-31.0); MEAN CORPUSCULAR HGB CONC 32.5 g/dL (33.0-37.0); MEAN PLATELET VOLUME 9.5 fL (7.2-11.7); MONO # 0.4 K/uL (0.0-0.8); NRBC % 0.1 % (0.0-2.0); WHITE BLOOD COUNT 6.4 K/uL (4.8-10.8)
--- NOTE | 2017-09-02 14:05 | CP.PCM.PN ---
Subjective - Date & Time of Evaluation Date of Evaluation: 09/02/17 Time of Evaluation: 14:04 - Subjective Subjective: afebrile,vss Awake, comfortable.. No more breakthrough seizures. 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 MS MIXON NO IV ACCESS PER RN. patient for PICC line in a.m. Objective - Vital Signs/Intake and Output Vital Signs (last 24 hours): Temp Pulse Resp BP Pulse Ox 97.6 F 73 18 142/95 H 99 09/02/17 08:46 09/02/17 08:46 09/02/17 08:46 09/02/17 08:46 09/02/17 08:46 Intake and Output: 09/02/17 09/02/17 06:59 18:59 Intake Total 1600 Balance 1600 - Medications Medications: Current Medications Acetaminophen (Tylenol 650mg/20.3ml Solution Ud) 650 mg PEG Q6H PRN PRN Reason: Fever >100.4 F Albuterol/Ipratropium (Duoneb 3 Mg/0.5 Mg (3 Ml) Ud) 3 ml INH RQID [facility] Last Admin: 09/02/17 08:26 Dose: 3 ml Aspirin (Aspirin Chewable) 81 mg PEG DAILY [facility] Last Admin: 09/02/17 10:24 Dose: 81 mg Emollient Ointment (Vaseline Oint) 5 gm TOP BID PRN PRN Reason: Dry skin Last Admin: 09/02/17 10:26 Dose: 5 gm Enoxaparin Sodium (Lovenox) 40 mg SC DAILY [facility] Last Admin: 09/02/17 10:24 Dose: 40 mg Meropenem 1 gm/ Sodium (Chloride) 100 mls @ 100 mls/hr IVPB Q12H [facility] Last Admin: 09/02/17 02:47 Dose: 100 mls/hr Insulin Detemir (Levemir) 25 unit SC Q12H [facility] Last Admin: 09/02/17 05:56 Dose: 25 unit Insulin Human Regular (Novolin R) 0 unit SC ACHS [facility] PRN Reason: Protocol Last Admin: 09/02/17 12:45 Dose: Not Given Levetiracetam (Keppra) 500 mg PEG BID [facility] Last Admin: 09/02/17 10:24 Dose: 500 mg Oxcarbazepine (Trileptal) 450 mg PO HS [facility] Last Admin: 09/01/17 21:58 Dose: 450 mg Oxcarbazepine (Trileptal) 150 mg PO DAILY [facility] Last Admin: 09/02/17 10:24 Dose: 150 mg - Labs Labs: 09/02/17 13:53 09/01/17 07:54 PT 12.9 SECONDS (9.7-12.2) H 08/28/17 09:41 INR 1.2 08/28/17 09:41 - Constitutional Appears: No Acute Distress - Head Exam Head Exam: NORMAL INSPECTION - Eye Exam Eye Exam: EOMI, PERRL - ENT Exam ENT Exam: Normal Oropharynx - Neck Exam Neck Exam: Normal Inspection - Respiratory Exam Respiratory Exam: Clear to Ausculation Bilateral - Cardiovascular Exam Cardiovascular Exam: REGULAR RHYTHM, +S1, +S2 - GI/Abdominal Exam GI & Abdominal Exam: Soft, Normal Bowel Sounds (GT SITE +VE DRAINAGE.) - Neurological Exam Neurological Exam: Awake - Psychiatric Exam Psychiatric exam: Flat Affect - Skin Skin Exam: Normal Color, Warm Assessment and Plan (1) UTI (urinary tract infection) Assessment & Plan: URINE CULTURE +VE pROTEUS MIRABILIS. S- MEROPENEM CONTINUE iv MEROPENEM 1 G iv PIGGYBACK EVERY 12 HOURLY 08/28/17. PATIENT TOLERATED THE MEDS. PATIENT HAS MANY ALLERGIES. continue IV Merrem for one week more. gi w/u in progress. PER NEURO. NO MORE SEIZURES NOTED. WATCH THROMBOCYTOPENIA. Status: Acute (2) Fever Status: Acute (3) Hypernatremia Status: Acute (4) Dehydration Status: Acute (5) Hx of craniotomy Status: Acute (6) Seizure Assessment & Plan: no active seizures at present. Patient on Keppra Status: Acute (7) Gastrostomy tube in place Assessment & Plan: some erythema and drainage noted around the G-tube. cultures sent from G-tube site. patient has many allergies Will await cultures. Continue local treatment as ordered. Status: Acute
[2017-09-02 14:27] LABS: BLOOD UREA NITROGEN 18 mg/dL (7-17); CARBON DIOXIDE 28 mmol/L (22-30); CHLORIDE 114 mmol/L (98-107); GFR AFRICAN-AMERICAN > 60; GLUCOSE,RANDOM 68 mg/dL (65-105); POTASSIUM 3.9 mmol/L (3.6-5.2); SODIUM 147 mmol/L (132-148)
--- NOTE | 2017-09-02 15:12 | CP.PCM.PN ---
Subjective - Date & Time of Evaluation Date of Evaluation: 09/02/17 Time of Evaluation: 15:09 - Subjective Subjective: DURING MORNING ROUNDS IT WAS MENTIONED BY PRIMARY RN BAUDILIO THAT PT HAS NO IV ACCESS. PICC ORDERED, HOWEVER, THERE NEEDS TO BE CONSENT AND PT IS UNABLE TO GIVE CONSENT 2/2 NONVERBAL. MESSAGE TO , SRINI GRACE, LEFT ON PHONE NUMBER [phone] REQUESTING A CALL BACK. CALLED OTHER NUMBER [phone] BUT IT IS NOT IN SERVICE. WILL F/U AND SIGN PICC CONSENT WITH PRIMARY RN IF CALLS BACK. Objective - Vital Signs/Intake and Output Vital Signs (last 24 hours): Temp Pulse Resp BP Pulse Ox 97.6 F 73 18 142/95 H 99 09/02/17 08:46 09/02/17 08:46 09/02/17 08:46 09/02/17 08:46 09/02/17 08:46 Intake and Output: 09/02/17 09/02/17 06:59 18:59 Intake Total 1600 Balance 1600 - Medications Medications: Current Medications Acetaminophen (Tylenol 650mg/20.3ml Solution Ud) 650 mg PEG Q6H PRN PRN Reason: Fever >100.4 F Aspirin (Aspirin Chewable) 81 mg PEG DAILY [facility] Last Admin: 09/02/17 10:24 Dose: 81 mg Bacitracin (Bacitracin) 1 ea TOP DAILY [facility] Clotrimazole (Lotrimin 1%) 0 gm TOP BID [facility] Emollient Ointment (Vaseline Oint) 5 gm TOP BID PRN PRN Reason: Dry skin Last Admin: 09/02/17 10:26 Dose: 5 gm Enoxaparin Sodium (Lovenox) 40 mg SC DAILY [facility] Last Admin: 09/02/17 10:24 Dose: 40 mg Meropenem 1 gm/ Sodium (Chloride) 100 mls @ 100 mls/hr IVPB Q12H [facility] Last Admin: 09/02/17 02:47 Dose: 100 mls/hr Insulin Detemir (Levemir) 25 unit SC Q12H [facility] Last Admin: 09/02/17 05:56 Dose: 25 unit Insulin Human Regular (Novolin R) 0 unit SC ACHS [facility] PRN Reason: Protocol Last Admin: 09/02/17 12:45 Dose: Not Given Levetiracetam (Keppra) 500 mg PEG BID [facility] Last Admin: 09/02/17 10:24 Dose: 500 mg Oxcarbazepine (Trileptal) 450 mg PO HS [facility] Last Admin: 09/01/17 21:58 Dose: 450 mg Oxcarbazepine (Trileptal) 150 mg PO DAILY [facility] Last Admin: 09/02/17 10:24 Dose: 150 mg - Labs Labs: 09/02/17 13:53 09/02/17 13:53 PT 12.9 SECONDS (9.7-12.2) H 08/28/17 09:41 INR 1.2 08/28/17 09:41
[2017-09-02] MEDS: Bacitracin 500 Units/gm Oint Foilpak UD TOP SCH (15:46)
--- NOTE | 2017-09-02 15:50 | PN ---
LOCATION: 6. SUBJECTIVE: This is a 67-year-old female in a state of DNR and DNI seen and examined in rounds with reported patent feeding tube after being flushed more than one with positive feeding process without reported active bleeding, residual, or resistant. The entire chart is reviewed including, but not limited to the most recent lab and radiology study results, current and the previous medication list, current and the previous medical events. Case discussed with the staff at length. Today's lab show blood glucose level of 146, rest of the lab is still pending. PHYSICAL EXAMINATION: GENERAL: A 67 years old female, not responding to verbal stimuli. VITAL SIGNS: Afebrile with pulse of 76, respiratory rate 20 to 22 with blood pressure 136/88. HEENT: Showed pale, dry oral mucoid membrane. Nonicteric sclerae. HEART: Positive S1 and S2. LUNGS: Few scattered crepitation with decreased air entry at bases. ABDOMEN: Soft. Feeding tube is in place without evidence of bleeding, but there was evidence of mild anterior abdominal wall cellulitis around the stoma. Bowel sounds are present. EXTREMITIES: Lower extremities with edematous changes. No clubbing or cyanosis. NEUROLOGIC: No reported new neurological deficits, sensory or motor. IMPRESSION: 1. Recently reported percutaneous endoscopic gastrostomy malfunction, improved. 2. Malnutrition with hypoalbuminemia. 3. Known history of chronic obstructive pulmonary disease. 4. Known history of cerebrovascular accident. 5. Seizure disorder, severe anxiety syndrome, hypertension and diabetes mellitus by history. 6. Pneumonia by history. SUGGESTION: 1. Continue current management. 2. Subsequent increase of the PEG feeding as tolerated. 3. Eventually, the patient may need PEG tube change if there is recurrent evidence of malfunction. Case to be discussed with the admitting medical staff. Meagan Romero MD cc: Meagan Romero MD
[2017-09-02] MEDS: Clotrimazole 1% Cream(30 gm) TOP SCH (17:39)
[2017-09-02] MEDS ORDERED: Dextrose 50% SYRINGE Inj (50 ml) IV STA (21:25)
[2017-09-02] MEDS ORDERED: Dextrose 50% SYRINGE Inj (50 ml) ONE (21:26)
[2017-09-03] MEDS: Meropenem 1 GM in Sodium Chloride 0.9% 100 ML IVPB SCH ×2 (03:54→14:36)
[2017-09-03] MEDS: Insulin Detemir 100 units/ml Vial (Levemir) SC SCH ×2 (06:39→18:00)
[2017-09-03] MEDS: (Novolin R) Insulin Human Regular 100 units/ml vial SC SCH ×4 (07:55→21:16)
--- NOTE | 2017-09-03 09:23 | PN ---
DAILY PROGRESS NOTE DATE: 09/02/2017 SUBJECTIVE: The patient is seen today on 09/02/2017. PHYSICAL EXAMINATION: GENERAL: She is not in any cardiopulmonary distress. VITAL SIGNS: Blood pressure 130/63, temperature 97.3, respiratory rate 20 and pulse 75. HEENT: Positive gingival hyperplasia. NECK: Supple. No JVD. No carotid bruit. No lymph node. No thyromegaly. CHEST AND LUNGS: Bilateral symmetrical expansion. Good air exchange. No rales. No rhonchi. CARDIOVASCULAR SYSTEM: PMI not localized. S1, S2. No additional sounds. ABDOMEN: Normoactive bowel sounds. No tenderness. No organomegaly. No masses. EXTREMITIES: No cyanosis. No clubbing. No edema. CENTRAL NERVOUS SYSTEM: Alert, awake, but she is aphasic and she has bilateral upper extremity and lower extremity weakness. ASSESSMENT: Sepsis, urinary tract infection, seizure disorder, hypertension, type 2 diabetes mellitus, gastric tube feeding. PLAN: Continue current antibiotics and follow ID recommendations and continue G-tube feeding. John MD Brodie
[2017-09-03] MEDS ORDERED: Lidocaine 1% Inj (20ml) ONE (10:12)
--- NOTE | 2017-09-03 10:41 | PCM.SURG1 ---
Surgeon's Initial Post Op Note - Surgeon's Notes Surgeon: Jose Franz MD Service Architect: NONE Type of Anesthesia: Local Pre-Operative Diagnosis: Poor venous access Operative Findings: US showed very small right basilic and brachial vein, stenosis of axillary vein. Post-Operative Diagnosis: Poor venous access Operation Performed: Midline single lumen picc placement, 22 cm. Tip is in the axillary vein. Specimen/Specimens Removed: NONE Estimated Blood Loss: EBL {In ML}: 3 Blood Products Given: N/A Drains Used: No Drains Post-Op Condition: Fair Date of Surgery/Procedure: 09/03/17 Time of Surgery/Procedure: 10:35
[2017-09-03] MEDS: Enoxaparin 40 mg Syringe SC SCH (10:57)
[2017-09-03] MEDS: Bacitracin 500 Units/gm Oint Foilpak UD TOP SCH (10:59)
[2017-09-03] MEDS: Clotrimazole 1% Cream(30 gm) TOP SCH ×2 (10:59→18:00)
[2017-09-03] MEDS: levETIRAcetam 100 mg/ml (5ml) Oral Syringe PEG SCH (11:00)
--- NOTE | 2017-09-03 13:19 | US ---
Date of procedure: 09/03/2017 Procedure: Ultrasound guidance for vascular access HISTORY: Infection requiring long-term IV antibiotics TECHNIQUE: Following informed consent and procedure time-out, the patient placed supine on the interventional table and the right arm prepped and draped in the usual sterile fashion. Ultrasound showed a multiple small veins. The basilic vein is small but patent and compressible. After the skin was anesthetized with lidocaine, the basilic vein was accessed with micro micropuncture technique using ultrasound guidance. An image documenting ultrasound guidance for vascular access was permanently saved. IMPRESSION: Ultrasound guidance for vascular access for placement of PICC.
--- NOTE | 2017-09-03 13:21 | RAD ---
PROCEDURE: Date of procedure: 09/03/2017 Procedure: 1. Placement of a right arm PICC with ultrasound and fluoroscopic guidance, CPT 11809 2. PICC tip confirmation with spot radiograph and is in the superior vena cava Medications: 1 percent lidocaine Total Fluoro time: 16.4 seconds Radiation: 0.47 MGy EBL: 2 cc HISTORY: Poor venous access TECHNIQUE: Following informed consent and procedure time-out, the patient was placed supine on the interventional table and the right arm prepped and draped in the usual sterile fashion. Ultrasound showed a multiple small veins in the arm. The basilic vein is small but patent. After the skin was anesthetized with lidocaine, the basilic vein was accessed with micro micropuncture technique using ultrasound guidance. An image documenting ultrasound guidance for vascular access was permanently saved. There was difficulty advancing the guidewire centrally secondary to an axillary vein stenosis. The length of the single-lumen 4 [place] PICC was trimmed to 22 centimeters and advanced through a peel-away sheath. The PICC was position with tip of PICC confirm a spot radiograph the axillary vein. The PICC could not be positioned centrally. The PICC was secured to the patient's skin. The PICC was flushed. A biopatch and sterile dressing was applied. 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 The midline single-lumen PICC was placed with tip in the axillary vein. The PICC may be used for infusion.
--- NOTE | 2017-09-03 16:59 | PN ---
LOCATION: 6. SUBJECTIVE: This is a 67-year-old female, seen and examined in rounds with reported again malfunction of a PEG tube for which the patient is rescheduled for a new PEG insertion tomorrow. The most recent lab results, current medication list, current and the previous medical events were reviewed, and the patient's blood glucose level today was 158, was reported for low calcium, low hemoglobin and low hematocrit with thrombocytopenia of 118. Case discussed with the staff at length. PHYSICAL EXAMINATION: GENERAL: A [id number] female. VITAL SIGNS: Afebrile with pulse of 70, respiratory rate 20 to 22, blood pressure 142/70. HEENT: Showed pale, dry oral mucoid membrane. Nonicteric sclerae. LUNGS: Few scattered crepitation; decreased air entry at bases. HEART: Positive S1 and S2. ABDOMEN: Soft. Bowel sounds are present. Old feeding tube is in place, nonfunctioning with mild distention. EXTREMITIES: Without significant clubbing or cyanosis, but lower extremities mild edematous changes. NEUROLOGIC: No reported new neurological deficits, sensory or motor. IMPRESSION: 1. Malnutrition with hypoalbuminemia. 2. Dysphagia. 3. Malfunction of percutaneous endoscopic gastrostomy. 4. Anemia most likely secondary to chronic disease. 5. Known history of cerebrovascular accident. 6. Chronic obstructive pulmonary disease by history. 7. Hypertension, seizure disorder with severe anxiety syndrome by history. 8. Diabetes mellitus. poorly controlled by history. 9. Pneumonia. SUGGESTION: 1. Agree with your plan. 2. Schedule for insertion of a new PEG tube in a.m. Meagan Romero MD cc: Meagan Romero MD
[2017-09-03] MEDS: levETIRAcetam 500 MG in Sodium Chloride 0.9% 100 ML IVPB SCH (19:00)
--- NOTE | 2017-09-03 23:40 | CP.PCM.PN ---
Subjective - Date & Time of Evaluation Date of Evaluation: 09/03/17 Time of Evaluation: 23:40 - Subjective Subjective: afebrile,vss Awake, comfortable.. No more breakthrough seizures. S/P PICC LINE 09/03 17 BY IR. GT TUBE WITH YELLOWISH DRAINAGE WOUND CULTURE g-TUBE-NO PMNS/FEW YEASTS SEEN Objective - Vital Signs/Intake and Output Vital Signs (last 24 hours): Temp Pulse Resp BP Pulse Ox 98.6 F 86 20 147/73 99 09/03/17 15:20 09/03/17 15:20 09/03/17 15:20 09/03/17 15:20 09/03/17 15:20 Intake and Output: 09/03/17 09/04/17 18:59 06:59 Intake Total 180 100 Balance 180 100 - Medications Medications: Current Medications Acetaminophen (Tylenol 650mg/20.3ml Solution Ud) 650 mg PEG Q6H PRN PRN Reason: Fever >100.4 F Aspirin (Aspirin Chewable) 81 mg PEG DAILY [facility] Last Admin: 09/03/17 10:57 Dose: Not Given Bacitracin (Bacitracin) 1 ea TOP DAILY [facility] Last Admin: 09/03/17 10:59 Dose: 1 ea Clotrimazole (Lotrimin 1%) 0 gm TOP BID [facility] Last Admin: 09/03/17 18:00 Dose: 1 % Emollient Ointment (Vaseline Oint) 5 gm TOP BID PRN PRN Reason: Dry skin Last Admin: 09/02/17 10:26 Dose: 5 gm Enoxaparin Sodium (Lovenox) 40 mg SC DAILY [facility] Last Admin: 09/03/17 10:57 Dose: 40 mg Meropenem 1 gm/ Sodium (Chloride) 100 mls @ 100 mls/hr IVPB Q12H [facility] Last Admin: 09/03/17 14:36 Dose: 100 mls/hr Levetiracetam 500 mg/ Sodium (Chloride) 105 mls @ 420 mls/hr IVPB BID [facility] Last Admin: 09/03/17 19:00 Dose: 420 mls/hr Insulin Detemir (Levemir) 10 unit SC Q12H [facility] Last Admin: 09/03/17 18:00 Dose: Not Given Insulin Human Regular (Novolin R) 0 unit SC ACHS [facility] PRN Reason: Protocol Last Admin: 09/03/17 21:16 Dose: Not Given Levetiracetam (Keppra) 500 mg PEG BID [facility] Last Admin: 09/03/17 11:00 Dose: Not Given Oxcarbazepine (Trileptal) 450 mg PO HS [facility] Last Admin: 09/03/17 21:17 Dose: Not Given Oxcarbazepine (Trileptal) 150 mg PO DAILY [facility] Last Admin: 09/03/17 10:57 Dose: Not Given - Labs Labs: 09/02/17 13:53 09/02/17 13:53 PT 12.9 SECONDS (9.7-12.2) H 08/28/17 09:41 INR 1.2 08/28/17 09:41 - Constitutional Appears: No Acute Distress - Head Exam Head Exam: NORMAL INSPECTION - Eye Exam Eye Exam: EOMI, PERRL - ENT Exam ENT Exam: Normal Oropharynx - Respiratory Exam Respiratory Exam: Decreased Breath Sounds - Cardiovascular Exam Cardiovascular Exam: REGULAR RHYTHM, +S1, +S2 - GI/Abdominal Exam GI & Abdominal Exam: Soft, Normal Bowel Sounds (+VE GT MINIMAL DRAINAGE NOTED . ) - Extremities Exam Extremities Exam: Pedal Edema. absent: Calf Tenderness - Neurological Exam Neurological Exam: Awake - Psychiatric Exam Psychiatric exam: Normal Affect - Skin Skin Exam: Normal Color, Warm Assessment and Plan (1) UTI (urinary tract infection) Assessment & Plan: URINE CULTURE +VE pROTEUS MIRABILIS. S- MEROPENEM CONTINUE iv MEROPENEM 1 G iv PIGGYBACK EVERY 12 HOURLY 08/28/17. PATIENT TOLERATED THE MEDS. PATIENT HAS MANY ALLERGIES. continue IV Merrem for one week more. ( DAY 7 ) Status: Acute (2) Fever Status: Acute (3) Hypernatremia Assessment & Plan: HYPONATREMIA IMPROVING NA 147 TODAY. iv FLUIDS PER pmd Status: Acute (4) Dehydration Status: Acute (5) Hx of craniotomy Status: Acute (6) Seizure Status: Acute (7) Gastrostomy tube in place Status: Acute
--- NOTE | 2017-09-04 02:07 | PN ---
DAILY PROGRESS NOTE DATE: 09/03/2017 SUBJECTIVE: The patient is seen today 09/03/2017. The G-tube is not functioning and the antiseizure medication was switched to intravenous. PHYSICAL EXAMINATION: VITAL SIGNS: Blood pressure 147/73, temperature 98.6, respiratory rate 20 and pulse 86. HEENT: Pupils equal, reactive to light. NECK: No JVD. No carotid bruit. No lymph nodes. No thyromegaly. CHEST AND LUNGS: Bilateral symmetrical expansion. Good air exchange. No rales, no rhonchi. CARDIOVASCULAR SYSTEM: PMI not localized. S1 and S2. No additional sounds. ABDOMEN: Normoactive bowel sounds. No tenderness. No organomegaly. No masses. EXTREMITIES: No cyanosis, no clubbing, no edema. CENTRAL NERVOUS SYSTEM: The patient is awake. She has bilateral lower extremity weakness and right upper extremity weakness with deformity. ASSESSMENT: 1. Sepsis. 2. Urinary tract infection. 3. Seizure disorder. 4. Malfunctioning G-tube. PLAN: 1. GI consult and arrangement for replacement of G-tube. 2. Switch the antiseizure medication from p.o. to IV. 3. Continue current IV antibiotics. Jocelyn Calloway MD
[2017-09-04] MEDS: Meropenem 1 GM in Sodium Chloride 0.9% 100 ML IVPB SCH ×2 (03:43→16:00)
[2017-09-04] MEDS: Insulin Detemir 100 units/ml Vial (Levemir) SC SCH ×2 (05:36→17:11)
--- NOTE | 2017-09-04 08:08 | CP.PCM.PN ---
Subjective - Date & Time of Evaluation Date of Evaluation: 09/04/17 Time of Evaluation: 08:04 - Subjective Subjective: PT'S PEG NOT FLUSHING SINCE THIS MORNING PER PRIMARY RN MARILEE. CIGAR MAKER EVALUATED PEG AND NOT FLUSHING, + RESISTANCE. PT GRIMACES WHEN ABD PALPATION; WHEN ASKED IF SHE HAS PAIN SHE SAYS "YES." DR. LEON AT BEDSIDE AND ALSO EVALUATED THE PEG. CALL PLACED TO DR. LIU FOR CHANGE OF PEG; PER DR. LIU HE WILL CHANGE IT IN THE MORNING 09/04. MEDS ORDERED PER DR. LEON REQUEST. WILL HOLD OFF ON DR. GAMINO CONSULT FOR NOW DR. LIU WILL REPLACE PEG. ALSO DISCUSSED PLAN FOR IV ABX WITH DR. GREEN; TO CONTINUE MERREM IV X1 MORE WEEK (START ON 09/04/17 AND END ON 09/10/17). STILL PENDING PEG SITE CULTURE RESULTS. MIDLINE PLACED IN IR THIS MORNING FOR IV ACCESS. NO FURTHER ORDERS AT THIS TIME. Objective - Vital Signs/Intake and Output Vital Signs (last 24 hours): Temp Pulse Resp BP Pulse Ox 97.9 F 71 20 120/73 100 09/03/17 23:30 09/03/17 23:30 09/03/17 23:30 09/03/17 23:30 09/03/17 23:30 Intake and Output: 09/04/17 09/04/17 06:59 18:59 Intake Total 100 100 Balance 100 100 - Medications Medications: Current Medications Acetaminophen (Tylenol 650mg/20.3ml Solution Ud) 650 mg PEG Q6H PRN PRN Reason: Fever >100.4 F Aspirin (Aspirin Chewable) 81 mg PEG DAILY [facility] Last Admin: 09/03/17 10:57 Dose: Not Given Bacitracin (Bacitracin) 1 ea TOP DAILY [facility] Last Admin: 09/03/17 10:59 Dose: 1 ea Clotrimazole (Lotrimin 1%) 0 gm TOP BID [facility] Last Admin: 09/03/17 18:00 Dose: 1 % Emollient Ointment (Vaseline Oint) 5 gm TOP BID PRN PRN Reason: Dry skin Last Admin: 09/02/17 10:26 Dose: 5 gm Enoxaparin Sodium (Lovenox) 40 mg SC DAILY [facility] Last Admin: 09/03/17 10:57 Dose: 40 mg Meropenem 1 gm/ Sodium (Chloride) 100 mls @ 100 mls/hr IVPB Q12H [facility] Last Admin: 09/04/17 03:43 Dose: 100 mls/hr Levetiracetam 500 mg/ Sodium (Chloride) 105 mls @ 420 mls/hr IVPB BID [facility] Last Admin: 09/03/17 19:00 Dose: 420 mls/hr Insulin Detemir (Levemir) 10 unit SC Q12H [facility] Last Admin: 09/04/17 05:36 Dose: Not Given Insulin Human Regular (Novolin R) 0 unit SC ACHS [facility] PRN Reason: Protocol Last Admin: 09/03/17 21:16 Dose: Not Given Levetiracetam (Keppra) 500 mg PEG BID [facility] Last Admin: 09/03/17 11:00 Dose: Not Given Oxcarbazepine (Trileptal) 450 mg PO HS [facility] Last Admin: 09/03/17 21:17 Dose: Not Given Oxcarbazepine (Trileptal) 150 mg PO DAILY [facility] Last Admin: 09/03/17 10:57 Dose: Not Given - Labs Labs: 09/02/17 13:53 09/02/17 13:53 PT 12.9 SECONDS (9.7-12.2) H 08/28/17 09:41 INR 1.2 08/28/17 09:41
[2017-09-04 09:06] LABS: INR 1.1
[2017-09-04 09:08] LABS: BASO % 0.4 % (0.0-2.0); EOS # 0.1 K/uL (0.0-0.7); EOS % 1.9 % (0.0-4.0); LYMPH # 1.5 K/uL (1.0-4.3); LYMPH % 28.9 % (20.0-40.0); MEAN CELL VOLUME 91.1 fL (81.0-99.0); MEAN CORPUSCULAR HEMOGLOBIN 29.4 pg (27.0-31.0); MEAN CORPUSCULAR HGB CONC 32.2 g/dL (33.0-37.0); MEAN PLATELET VOLUME 9.7 fL (7.2-11.7); MONO # 0.4 K/uL (0.0-0.8); MONO % 7.3 % (0.0-10.0); NRBC % 0.2 % (0.0-2.0); RED CELL DISTRIBUTION WIDTH 15.2 % (11.5-14.5); WHITE BLOOD COUNT 5.2 K/uL (4.8-10.8)
[2017-09-04 09:11] LABS: ALKALINE PHOSPHATASE 96 U/L (38-126); ALT/SGPT 59 U/L (9-52); AST/SGOT 44 U/L (14-36); BILIRUBIN,TOTAL 0.6 mg/dL (0.2-1.3); BLOOD UREA NITROGEN 16 mg/dL (7-17); CARBON DIOXIDE 32 mmol/L (22-30); CHLORIDE 109 mmol/L (98-107); GFR AFRICAN-AMERICAN > 60; GLUCOSE,RANDOM 141 mg/dL (65-105); MAGNESIUM 1.8 mg/dL (1.6-2.3); PHOSPHOROUS 2.3 mg/dL (2.5-4.5); POTASSIUM 4.2 mmol/L (3.6-5.2); SODIUM 144 mmol/L (132-148); TOTAL PROTEIN 6.6 g/dL (6.3-8.3)
[2017-09-04] MEDS ORDERED: Propofol 10 mg/ml Inj (20 ML) ONE (09:46)
[2017-09-04] MEDS ORDERED: Etomidate 20 mg/10ml Inj IV ONE ×2 (09:53→10:53)
[2017-09-04] MEDS: Clotrimazole 1% Cream(30 gm) TOP SCH ×2 (10:35→18:41)
[2017-09-04] MEDS: Enoxaparin 40 mg Syringe SC SCH (10:35)
[2017-09-04] MEDS: Bacitracin 500 Units/gm Oint Foilpak UD TOP SCH (10:35)
[2017-09-04] MEDS: (Novolin R) Insulin Human Regular 100 units/ml vial SC SCH ×3 (10:35→21:14)
[2017-09-04] MEDS: levETIRAcetam 500 MG in Sodium Chloride 0.9% 100 ML IVPB SCH (10:35)
[2017-09-04] MEDS ORDERED: Bacitracin 500 Units/gm Oint Foilpak UD ONE (10:54)
--- NOTE | 2017-09-04 14:04 | CP.PCM.PN ---
Subjective - Date & Time of Evaluation Date of Evaluation: 09/04/17 Time of Evaluation: 14:04 - Subjective Subjective: afebrile,vss Awake, comfortable.. No more breakthrough seizures. S/P PICC LINE 09/03 17 BY IR. GT TUBE WITH YELLOWISH DRAINAGE WOUND CULTURE G-TUBE-NO PMNS. GPC AND /FEW YEASTS SEEN SPOKE TO NURSE PRACTITIONER MS FRANK. PATIENT FOR CHANGE OF G-T IN A.M. lABS REVIEWED cREATININE 0.5/bun 16 LFT AST 44,ALT 59 wbc 5.2 WITH INCREASING PLATELETS TO 127. CASE DISCUSSED WITH ATTENDINGDR LAMONT. CONTINUE iv MERREM FOR 7 DAYS MORE DISCUSSED PREVIOUSLY. ADD iv FLUCONAZOLE 500 MG ONCE A DAY DAILY X 5DAYS ( STARTED 09/04/17 ). FOLLOW-UP CULTURES TO ADJUST ANTIBIOTICS BEFORE DISCHARGE TO SUBACUTE REHABILITATION. Objective - Vital Signs/Intake and Output Vital Signs (last 24 hours): Temp Pulse Resp BP Pulse Ox 97.5 F L 74 20 119/82 95 09/04/17 11:38 09/04/17 11:38 09/04/17 11:38 09/04/17 11:38 09/04/17 11:38 Intake and Output: 09/04/17 09/04/17 06:59 18:59 Intake Total 100 300 Balance 100 300 - Medications Medications: Current Medications Acetaminophen (Tylenol 650mg/20.3ml Solution Ud) 650 mg PEG Q6H PRN PRN Reason: Fever >100.4 F Aspirin (Aspirin Chewable) 81 mg PEG DAILY [facility] Last Admin: 09/04/17 10:35 Dose: Not Given Bacitracin (Bacitracin) 1 ea TOP DAILY [facility] Last Admin: 09/04/17 10:35 Dose: Not Given Clotrimazole (Lotrimin 1%) 0 gm TOP BID [facility] Last Admin: 09/04/17 10:35 Dose: Not Given Emollient Ointment (Vaseline Oint) 5 gm TOP BID PRN PRN Reason: Dry skin Last Admin: 09/02/17 10:26 Dose: 5 gm Enoxaparin Sodium (Lovenox) 40 mg SC DAILY [facility] Last Admin: 09/04/17 10:35 Dose: Not Given Meropenem 1 gm/ Sodium (Chloride) 100 mls @ 100 mls/hr IVPB Q12H [facility] Last Admin: 09/04/17 03:43 Dose: 100 mls/hr Levetiracetam 500 mg/ Sodium (Chloride) 105 mls @ 420 mls/hr IVPB BID [facility] Last Admin: 09/04/17 10:35 Dose: Not Given Insulin Detemir (Levemir) 10 unit SC Q12H [facility] Last Admin: 09/04/17 05:36 Dose: Not Given Insulin Human Regular (Novolin R) 0 unit SC ACHS [facility] PRN Reason: Protocol Last Admin: 09/04/17 10:35 Dose: Not Given Levetiracetam (Keppra) 500 mg PEG BID [facility] Last Admin: 09/03/17 11:00 Dose: Not Given Oxcarbazepine (Trileptal) 450 mg PO HS [facility] Last Admin: 09/03/17 21:17 Dose: Not Given Oxcarbazepine (Trileptal) 150 mg PO DAILY [facility] Last Admin: 09/04/17 10:36 Dose: Not Given - Labs Labs: 09/04/17 08:51 09/04/17 08:51 PT 12.4 SECONDS (9.7-12.2) H 09/04/17 08:51 INR 1.1 09/04/17 08:51 APTT 46 SECONDS (21-34) H 09/04/17 08:51 - Constitutional Appears: No Acute Distress - Head Exam Head Exam: NORMAL INSPECTION - Eye Exam Eye Exam: EOMI, PERRL - ENT Exam ENT Exam: Normal Oropharynx - Neck Exam Neck Exam: Normal Inspection - Respiratory Exam Respiratory Exam: Decreased Breath Sounds - Cardiovascular Exam Cardiovascular Exam: REGULAR RHYTHM, +S1, +S2 - GI/Abdominal Exam GI & Abdominal Exam: Soft, Normal Bowel Sounds (+GT NOT WORKING C DRAINAGE) - Extremities Exam Extremities Exam: absent: Calf Tenderness, Pedal Edema - Neurological Exam Neurological Exam: Awake - Psychiatric Exam Psychiatric exam: Flat Affect - Skin Skin Exam: Warm Assessment and Plan (1) UTI (urinary tract infection) Assessment & Plan: URINE CULTURE +VE pROTEUS MIRABILIS. S- MEROPENEM CONTINUE iv MEROPENEM 1 G iv PIGGYBACK EVERY 12 HOURLY 08/28/17. PATIENT TOLERATED THE MEDS. PATIENT HAS MANY ALLERGIES. continue IV Merrem for one week more. ( DAY 8 ) FOR 14 DAYS Status: Acute (2) Fever Status: Acute (3) Hypernatremia Status: Acute (4) Dehydration Status: Acute (5) Hx of craniotomy Status: Acute (6) Seizure Status: Acute (7) Gastrostomy tube in place Assessment & Plan: PT FOR CHANGE OF GT. AWAIT FINAL CULTURES TO ADJUST ABX. Status: Acute
[2017-09-04] MEDS ORDERED: Fluconazole IV 200mg/100 ml NS 100 MG in Premixed IV 1 EA IVPB SCH (14:15)
[2017-09-04] MEDS: levETIRAcetam 100 mg/ml (5ml) Oral Syringe PEG SCH (18:40)
[2017-09-04] MEDS: Fluconazole IV 100mg/50 ml NS 50 ML IVPB SCH (18:41)
[2017-09-05] MEDS: Meropenem 1 GM in Sodium Chloride 0.9% 100 ML IVPB SCH ×2 (02:46→14:15)
[2017-09-05] MEDS: Insulin Detemir 100 units/ml Vial (Levemir) SC SCH ×2 (05:52→18:32)
[2017-09-05] MEDS: (Novolin R) Insulin Human Regular 100 units/ml vial SC SCH ×4 (08:05→17:19)
[2017-09-05] MEDS ORDERED: Lidocaine 2% Inj (20ml) ONE (09:05)
--- NOTE | 2017-09-05 09:17 | PN ---
DATE: 09/04/2017 SUBJECTIVE: The patient is seen today, 09/04/2017. She had a new gastric tube placed by supercharger repair supervisor. PHYSICAL EXAMINATION: VITAL SIGNS: Blood pressure 152/79, temperature 97.5, respiratory rate 20, pulse 81. HEENT: Pupils equal and reactive to light. Better mouth hygiene compared to the patient when she came from [facility]. NECK: Supple. No JVD. No carotid bruit. No lymph node. No thyromegaly. CHEST AND LUNGS: Bilaterally symmetrical expansion. Decreased air entry, both lower lung asencio. CARDIOVASCULAR SYSTEM: PMI is not localized. S1 and S2. No additional sounds. ABDOMEN: Gastric tube is in place. No tenderness. No organomegaly. No masses. EXTREMITIES: No cyanosis. No clubbing. No edema. CENTRAL NERVOUS SYSTEM: Awake, but she is confused and aphasic and she has bilateral lower extremity weakness as well as upper right extremity weakness. ASSESSMENT: 1. Sepsis. 2. Urinary tract infection. 3. Malfunctioning gastric tube. 4. Seizure disorder. PLAN: We will replace the PICC line, which is not working today and after PICC line replacement, patient can be discharged on IV antibiotics as per Infectious Disease recommendations. Jocelyn Calloway MD
--- NOTE | 2017-09-05 09:35 | PCM.SURG1 ---
Surgeon's Initial Post Op Note - Surgeon's Notes Surgeon: Jose Franz Building Architectural Designer: None Pre-Operative Diagnosis: Poor venous access Operative Findings: Patent left brachial vein Post-Operative Diagnosis: Poor venous access Operation Performed: Single lumen picc left brachial vein, 37 cm. Tip is in the SVC. Specimen/Specimens Removed: NONE Estimated Blood Loss: EBL {In ML}: 2 Blood Products Given: N/A Drains Used: No Drains Post-Op Condition: Fair Date of Surgery/Procedure: 09/05/17 Time of Surgery/Procedure: 09:30
[2017-09-05] MEDS: Enoxaparin 40 mg Syringe SC SCH (11:00)
[2017-09-05] MEDS: Bacitracin 500 Units/gm Oint Foilpak UD TOP SCH (11:00)
[2017-09-05] MEDS: Clotrimazole 1% Cream(30 gm) TOP SCH ×2 (11:00→18:32)
[2017-09-05] MEDS: levETIRAcetam 100 mg/ml (5ml) Oral Syringe PEG SCH ×2 (11:00→18:32)
--- NOTE | 2017-09-05 13:10 | CP.PCM.PN ---
Subjective - Date & Time of Evaluation Date of Evaluation: 09/05/17 Time of Evaluation: 13:10 - Subjective Subjective: afebrile, S/P NEW SINGLE LUMEN PICC -LINE 09/05/17. S/P NEW GT PLACEMENT 09/04/17 CLINICALLY SAME WOUND CULTURE PEG SITE +VE ENTERROCOCCUS FAECALIS S-AMPICILLIN/TYGACIL, VANCOMYCIN, CIPRO PT ALLERGIC TO VANCO,TYGACIL,MOXI,PCN AZACTAM. TOLERATED MEROPENEM CASE DISCUSSED W UZMA GARRIDO.1.30 PM PLAN ; CONTINUE IV MERPENEM 1GM IV [id number] X 6MORE DAYS TO COMPLETE 14 DAY RX FOR UTI CONTINUE PO FLUCONAZOLE 100MG OD X 4MORE DAYS ADD PO BACTRIM 1 SS OF BACTRIM WHILE IN HOSPITAL AND OBSERVE PO BID X 5DAYS FOR GT EXIT SITE INFECTION. WATCH FOR ANY REACTIONS- GIVE FIRST DOSE OF BACTRIM IN HOSPITAL NOW AND OBSERVE FO 2HRS BEFORE TRANSFER TO [facility].( SPOKE TO RN MS WEISSYA) Objective - Vital Signs/Intake and Output Vital Signs (last 24 hours): Temp Pulse Resp BP Pulse Ox 97.5 F L 72 20 137/69 97 09/05/17 08:00 09/05/17 08:00 09/05/17 08:00 09/05/17 08:00 09/05/17 08:00 Intake and Output: 09/05/17 09/05/17 06:59 18:59 Intake Total 400 Balance 400 - Medications Medications: Current Medications Acetaminophen (Tylenol 650mg/20.3ml Solution Ud) 650 mg PEG Q6H PRN PRN Reason: Fever >100.4 F Aspirin (Aspirin Chewable) 81 mg PEG DAILY [facility] Last Admin: 09/05/17 11:00 Dose: 81 mg Bacitracin (Bacitracin) 1 ea TOP DAILY [facility] Last Admin: 09/05/17 11:00 Dose: 1 ea Clotrimazole (Lotrimin 1%) 0 gm TOP BID [facility] Last Admin: 09/05/17 11:00 Dose: 1 % Emollient Ointment (Vaseline Oint) 5 gm TOP BID PRN PRN Reason: Dry skin Last Admin: 09/02/17 10:26 Dose: 5 gm Meropenem 1 gm/ Sodium (Chloride) 100 mls @ 100 mls/hr IVPB Q12H [facility] Last Admin: 09/05/17 02:46 Dose: 100 mls/hr Fluconazole (Diflucan Iv 100 Mg/50 Ml Ns) 50 mls @ 100 mls/hr IVPB Q24H [facility] Last Admin: 09/04/17 18:41 Dose: 100 mls/hr Insulin Detemir (Levemir) 10 unit SC Q12H [facility] Last Admin: 09/05/17 05:52 Dose: 10 unit Insulin Human Regular (Novolin R) 0 unit SC ACHS [facility] PRN Reason: Protocol Last Admin: 09/05/17 11:40 Dose: 2 unit Levetiracetam (Keppra) 500 mg PEG BID [facility] Last Admin: 09/05/17 11:00 Dose: 500 mg Oxcarbazepine (Trileptal) 450 mg PO HS [facility] Last Admin: 09/04/17 22:34 Dose: 450 mg Oxcarbazepine (Trileptal) 150 mg PO DAILY [facility] Last Admin: 09/05/17 11:00 Dose: 150 mg - Labs Labs: 09/04/17 08:51 09/04/17 08:51 PT 12.4 SECONDS (9.7-12.2) H 09/04/17 08:51 INR 1.1 09/04/17 08:51 APTT 46 SECONDS (21-34) H 09/04/17 08:51 - Constitutional Appears: No Acute Distress - Head Exam Head Exam: NORMAL INSPECTION - Eye Exam Eye Exam: EOMI, PERRL - ENT Exam ENT Exam: Normal Oropharynx - Neck Exam Neck Exam: Normal Inspection - Respiratory Exam Respiratory Exam: Decreased Breath Sounds - Cardiovascular Exam Cardiovascular Exam: REGULAR RHYTHM, +S1, +S2 - GI/Abdominal Exam GI & Abdominal Exam: Soft, Normal Bowel Sounds (+VE GT.) - Extremities Exam Extremities Exam: absent: Calf Tenderness, Pedal Edema - Neurological Exam Neurological Exam: Awake - Skin Skin Exam: Warm Assessment and Plan (1) UTI (urinary tract infection) Status: Acute (2) Fever Status: Acute (3) Hypernatremia Status: Acute (4) Dehydration Status: Acute (5) Hx of craniotomy Status: Acute (6) Seizure Status: Acute (7) Gastrostomy tube in place Status: Acute
[2017-09-05] MEDS ORDERED: Tmp-Smz 400 mg-80 mg SS Tab PO SCH ×2 (13:46→18:00)
[2017-09-05] MEDS: Tmp-Smz 400 mg-80 mg SS Tab PO SCH ×2 (14:15→18:32)
--- NOTE | 2017-09-05 14:28 | PN ---
DATE: LOCATION: [facility] bed B. SUBJECTIVE: This is a 67-year-old female post upper endoscopy with removal of a foreign body and insertion of a new PEG tube, seen and examined in rounds without significant clinical changes, tolerating PEG feeding well. The entire chart is reviewed including, but not limited to the most recent lab and radiology study results, current and the previous medication list, current and the previous medical events. The patient is still nonverbal in a status of DNR and DNI. Lab results today showed hemoglobin of rest is pending. PHYSICAL EXAMINATION GENERAL: A 67-iehue-gdi female. VITAL SIGNS: Afebrile with pulse of 74, respiratory rate 20 to 22, blood pressure of 144/64. HEENT: Showed pale dry oral mucous membrane. Nonicteric sclerae. LUNGS: Few scattered crepitation; decreased air entry at bases. HEART: Positive S1 and S2. ABDOMEN: Soft with slight distension. The newly inserted PEG tube is in place intact with evidence of the slight anterior abdominal wall cellulitis. Bowel sounds are present. EXTREMITIES: With mild lower extremity edematous changes. No clubbing or cyanosis. NEUROLOGIC: No reported new neurological deficits, sensory or motor. The patient had left brachial insertion of a PICC line. IMPRESSION: 1. Malfunction of percutaneous endoscopic gastrostomy tube. 2. Dysphagia. 3. Malnutrition with hypoalbuminemia. 4. Insertion of a new percutaneous endoscopic gastrostomy tube. 5. Peptic ulcer disease. 6. Known history of cerebrovascular accident. 7. Known history of chronic obstructive pulmonary disease. 8. Hypertension, seizure disorder by history. 9. Poorly controlled diabetes mellitus. 10. Pneumonia by history. 11. Severe anxiety syndrome, by history. SUGGESTIONS: 1. Agree with your plan. 2. Subsequent increase of the rate of feeding as tolerated. Further recommendation to follow. Meagan Romero MD
[2017-09-05 16:07] VITALS: BP 127/70; PULSE 71; RESP 18; TEMP 97.9; O2SAT 96
--- NOTE | 2017-09-05 16:28 | CP.PCM.PN ---
Subjective - Date & Time of Evaluation Date of Evaluation: 09/05/17 Time of Evaluation: 12:30 - Subjective Subjective: Patient seen today, awake, alert, nonverbal not in distress , a febrile no overnight event/seizure reported by RN s/p peg replacement and tolerating diet PICC line replaced today by IR Objective - Vital Signs/Intake and Output Vital Signs (last 24 hours): Temp Pulse Resp BP Pulse Ox 97.9 F 71 18 127/70 96 09/05/17 16:06 09/05/17 16:06 09/05/17 16:06 09/05/17 16:06 09/05/17 16:06 Intake and Output: 09/05/17 09/05/17 06:59 18:59 Intake Total 400 450 Balance 400 450 - Medications Medications: Current Medications Acetaminophen (Tylenol 650mg/20.3ml Solution Ud) 650 mg PEG Q6H PRN PRN Reason: Fever >100.4 F Aspirin (Aspirin Chewable) 81 mg PEG DAILY [facility] Last Admin: 09/05/17 11:00 Dose: 81 mg Bacitracin (Bacitracin) 1 ea TOP DAILY [facility] Last Admin: 09/05/17 11:00 Dose: 1 ea Clotrimazole (Lotrimin 1%) 0 gm TOP BID [facility] Last Admin: 09/05/17 11:00 Dose: 1 % Emollient Ointment (Vaseline Oint) 5 gm TOP BID PRN PRN Reason: Dry skin Last Admin: 09/02/17 10:26 Dose: 5 gm Meropenem 1 gm/ Sodium (Chloride) 100 mls @ 100 mls/hr IVPB Q12H [facility] Last Admin: 09/05/17 14:15 Dose: 100 mls/hr Fluconazole (Diflucan Iv 100 Mg/50 Ml Ns) 50 mls @ 100 mls/hr IVPB Q24H [facility] Last Admin: 09/04/17 18:41 Dose: 100 mls/hr Insulin Detemir (Levemir) 10 unit SC Q12H [facility] Last Admin: 09/05/17 05:52 Dose: 10 unit Insulin Human Regular (Novolin R) 0 unit SC ACHS [facility] PRN Reason: Protocol Last Admin: 09/05/17 11:40 Dose: 2 unit Levetiracetam (Keppra) 500 mg PEG BID [facility] Last Admin: 09/05/17 11:00 Dose: 500 mg Oxcarbazepine (Trileptal) 450 mg PO HS [facility] Last Admin: 09/04/17 22:34 Dose: 450 mg Oxcarbazepine (Trileptal) 150 mg PO DAILY [facility] Last Admin: 09/05/17 11:00 Dose: 150 mg Trimethoprim/Sulfamethoxazole (Bactrim Ss Tab) 1 tab PO BID [facility] Last Admin: 09/05/17 14:15 Dose: 1 tab - Labs Labs: 09/04/17 08:51 09/04/17 08:51 PT 12.4 SECONDS (9.7-12.2) H 09/04/17 08:51 INR 1.1 09/04/17 08:51 APTT 46 SECONDS (21-34) H 09/04/17 08:51 - Constitutional Appears: No Acute Distress - Respiratory Exam Respiratory Exam: Decreased Breath Sounds, NORMAL BREATHING PATTERN - Cardiovascular Exam Cardiovascular Exam: REGULAR RHYTHM, +S1, +S2 - GI/Abdominal Exam GI & Abdominal Exam: Soft, Normal Bowel Sounds (peg tube in place ) - Neurological Exam Neurological Exam: Alert, Awake Assessment and Plan - Assessment and Plan (Free Text) Assessment: A/P 67 yr old female admitted from [facility] with dehydration/ hypernatremia malfunctioning peg tube Na -back to normal s/p peg tube replace and tolerating feeding , no leaking noted urine culture- proteus mirabilus and started on merrum and N Bradley on ID consult Peg tube site culture-+ for enterococus fecialis and yeast specious D/W Dr. Jeff Bradley cleared for discharge back to [facility] today and continue merrum x 6 more days, diflucan x 4 days and bactrim x 5 days 1st dose bactrim given today and no reaction noted D/W Dr. Calloway stable for discharge back to [facility] today and Dr. Calloway will follow the patient at [facility]
[2017-09-05] MEDS: Fluconazole IV 100mg/50 ml NS 50 ML IVPB SCH (17:56)
--- NOTE | 2017-09-06 19:03 | DS ---
REASON FOR ADMISSION: This is a 67-year-old female with history of multiple medical problems. She is a jail resident for many [facility], was admitted for sepsis secondary to urinary tract infection. COURSE OF HOSPITALIZATION: The patient was admitted to medical floor and she was started on IV antibiotics by the urine culture. The patient had an ID consultation done by Dr. Nyla Bradley. The patient's stay was complicated with clogged gastric tube. GI consultation was done by Dr. Romero and gastric tube was changed. The patient was discharged back to [facility] to continue antibiotics as it was recommended by Infectious Disease market research consultant and to resume her preadmission medications. FINAL DIAGNOSES: Sepsis, urinary tract infection, seizure disorder, multiple cerebrovascular accidents, type 2 diabetes mellitus, hypertension, and gastric tube feeding. [facility] MD Brodie
--- NOTE | 2017-09-09 11:08 | RAD ---
PROCEDURE: Date of procedure: 09/05/2017 Procedure: 1. Placement of a left arm PICC with ultrasound and fluoroscopic guidance, CPT 33658 2. PICC tip confirmation with spot radiograph and is in the superior vena cava Medications: 3cc 1 percent lidocaine Total Fluoro time: 7.1 seconds Radiation: 2.39 MGy EBL: 3 cc HISTORY: Poor venous access TECHNIQUE: Following informed consent and procedure time-out, the patient placed supine on the interventional table and the left arm prepped and draped in the usual sterile fashion. Ultrasound showed a patent and compressible left basilic vein. After the skin was anesthetized with lidocaine, the basilic vein was accessed with micro micropuncture technique using ultrasound guidance. A guidewire was then advanced under fluoroscopic guidance into the superior vena cava. An image documenting ultrasound guidance for vascular access was permanently saved. The length of a single-lumen 4 Stateless PICC was trimmed to 37 cm and advanced through a peel-away sheath. The PICC was position with tip of PICC confirm a spot radiograph the superior vena cava. The PICC was secured to the patient's skin. The PICC was flushed. A biopatch and sterile dressing was applied. IMPRESSION: Placement of a single-lumen 4 Stateless PICC left basilic vein trimmed to 37 cm. The tip of the PICC is confirmed with spot radiograph and is in the superior vena cava.
--- NOTE | 2017-09-09 11:12 | US ---
Date of procedure: 09/05/2017 Procedure: Ultrasound guidance for vascular access HISTORY: Infection requiring long-term IV antibiotics TECHNIQUE: Following informed consent and procedure time-out, the patient placed supine on the interventional table and the left arm prepped and draped in the usual sterile fashion. Ultrasound showed a patent and compressible basilic vein. After the skin was anesthetized with lidocaine, the basilic vein was accessed with micro micropuncture technique using ultrasound guidance. An image documenting ultrasound guidance for vascular access was permanently saved. IMPRESSION: Ultrasound guidance for vascular access for placement of PICC.
== END 2017-09-05 20:32 | DRG 871 ==
LOC: C.ER 09:15 → C.9E 10:30 → C.3T 11:31 → C.5S 08-30 09:52
PROVIDERS: ADMIT Internal Medicine; ATTEND Internal Medicine
PROC: 05H533Z Insertion of Infusion Device into Right Subclavian Vein, Percutaneous Approach (ICD-10-PCS; 2017-09-03)
PROC: 0D20XUZ Change Feeding Device in Upper Intestinal Tract, External Approach (ICD-10-PCS; principal; 2017-09-04 10:45)
DX: A41.9 Sepsis, unspecified organism (principal); J18.9 Pneumonia, unspecified organism; E46 Unspecified protein-calorie malnutrition; E11.22 Type 2 diabetes mellitus with diabetic chronic kidney disease; E87.0 Hyperosmolality and hypernatremia; I69.320 Aphasia following cerebral infarction; K94.29 Other complications of gastrostomy; E83.51 Hypocalcemia; J44.0 Chronic obstructive pulmonary disease with (acute) lower respiratory infection; N39.0 Urinary tract infection, site not specified; E86.0 Dehydration; R65.20 Severe sepsis without septic shock; I12.9 Hypertensive chronic kidney disease with stage 1 through stage 4 chronic kidney disease, or unspecified chronic kidney disease; N18.9 Chronic kidney disease, unspecified; M81.0 Age-related osteoporosis without current pathological fracture; G40.909 Epilepsy, unspecified, not intractable, without status epilepticus; Z93.1 Gastrostomy status; Z74.01 Bed confinement status; F41.9 Anxiety disorder, unspecified; Z88.0 Allergy status to penicillin; Z66 Do not resuscitate; Y83.3 Surgical operation with formation of external stoma as the cause of abnormal reaction of the patient, or of later complication, without mention of misadventure at the time of the procedure; E11.65 Type 2 diabetes mellitus with hyperglycemia; R62.7 Adult failure to thrive; B96.4 Proteus (mirabilis) (morganii) as the cause of diseases classified elsewhere; D63.8 Anemia in other chronic diseases classified elsewhere

== ENCOUNTER 2017-10-18 16:58 | Inpatient (IN) | payer MEDICARE, MEDICAID ==
[2017-10-18 16:58] VITALS: BMI 27.7
[2017-10-18] MEDS ORDERED: Sodium Chloride 0.9% 1,000 ML IV ONE (17:28)
[2017-10-18 17:47] LABS: INR 1.1; PROTHROMBIN TIME 12.6 SECONDS (9.7-12.2)
[2017-10-18 17:49] LABS: BASO # 0.2 K/uL (0.0-0.2); BASO % 1.3 % (0.0-2.0); EOS # 0.1 K/uL (0.0-0.7); HEMOGLOBIN 13.7 g/dL (11.0-16.0); LYMPH # 4.6 K/uL (1.0-4.3); LYMPH % 30.4 % (20.0-40.0); MEAN CELL VOLUME 94.9 fL (81.0-99.0); MEAN CORPUSCULAR HEMOGLOBIN 30.7 pg (27.0-31.0); MEAN CORPUSCULAR HGB CONC 32.3 g/dL (33.0-37.0); MONO # 0.9 K/uL (0.0-0.8); MONO % 6.2 % (0.0-10.0); NEUT # 9.2 K/uL (1.8-7.0); NEUT % 61.1 % (50.0-75.0); NRBC % 0.1 % (0.0-2.0); RBC 4.46 Mil/uL (3.80-5.20); WHITE BLOOD COUNT 15.1 K/uL (4.8-10.8)
[2017-10-18 17:56] LABS: ALBUMIN 3.6 g/dL (3.5-5.0); ALT/SGPT 57 U/L (9-52); AST/SGOT 30 U/L (14-36); BLOOD UREA NITROGEN 59 mg/dL (7-17); CALCIUM 8.4 mg/dl (8.6-10.4); GFR AFRICAN-AMERICAN > 60; GFR NON-AFRICAN AMERICAN 55; MAGNESIUM 2.5 mg/dL (1.6-2.3)
[2017-10-18 17:58] LABS: VENOUS BLOOD GAS BASE EXCESS 5.3 mmol/L (0.0-2.0); VENOUS BLOOD GAS PCO2 54 mmHg (40-60); VENOUS BLOOD GAS PO2 37 mm/Hg (30-55); VENOUS BLOOD PH 7.38 (7.32-7.43)
--- NOTE | 2017-10-18 18:29 | RAD ---
HISTORY: Cough, fever. COMPARISON: 08/30/2017 FINDINGS: LUNGS: No active pulmonary disease. PLEURA: No significant pleural effusion identified, no pneumothorax apparent. CARDIOVASCULAR: No radiographic findings to suggest acute or significant cardiovascular disease. OSSEOUS STRUCTURES: No significant abnormalities. VISUALIZED UPPER ABDOMEN: Normal. OTHER FINDINGS: Low lung volumes, elevated diaphragms bilaterally. IMPRESSION: No active disease. No significant interval change compared to the prior examination(s).
[2017-10-18 18:39] LABS: SQUAMOUS EPITHIAL 2 /hpf (0-5); URINE BACTERIA MOD (<OCC); URINE BILIRUBIN NEGATIVE (NEGATIVE); URINE BLOOD NEGATIVE (NEGATIVE); URINE CLARITY Hazy (Clear); URINE COLOR Yellow (YELLOW); URINE GLUCOSE (UA) NORMAL (Normal); URINE LEUKOCYTE ESTERASE 3+ Leu/uL (Negative); URINE NITRATE NEGATIVE (NEGATIVE); URINE PROTEIN 2+ mg/dL (NEGATIVE)
[2017-10-18 20:34] LABS: VENOUS BLOOD GAS BASE EXCESS 4.9 mmol/L (0.0-2.0); VENOUS BLOOD GAS PCO2 53 mmHg (40-60); VENOUS BLOOD GAS PO2 27 mm/Hg (30-55); VENOUS BLOOD PH 7.38 (7.32-7.43)
--- NOTE | 2017-10-18 20:58 | C.PDOC ---
History Of Present Illness Pt was sent to the ED due to hypernatremia. Time Seen by Provider: 10/18/17 17:20 Chief Complaint (Nursing): Fever History Per: Patient History/Exam Limitations: clinical condition, other (Nonverbal) Onset/Duration Of Symptoms: Days (1?) Current Symptoms Are (Timing): Still Present Associated Symptoms: Fever Severity: Severe Additional History Per: Prior Records Past Medical History Reviewed: Historical Data, Nursing Documentation, Vital Signs Vital Signs: Last Vital Signs Temp 103.9 F H 10/18/17 17:20 Pulse 84 10/18/17 20:04 Resp 16 10/18/17 20:04 BP 106/42 L 10/18/17 20:04 Pulse Ox 98 10/18/17 20:58 - Medical History PMH: Anemia, Anxiety, COPD, CVA, Diabetes, HTN, Osteoporosis, Pneumonia, Chronic Kidney Disease, Seizures - [facility] Procedures CHANGE FEEDING DEVICE IN UP INTEST TRACT, RAIL GANG SUPERVISOR APPROACH (08/28/17) ENTERAL INFUSION OF CONCENTRATED NUT. SUBSTANCES (03/01/13) INSERTION OF INFUSION DEV INTO R SUBCLAV VEIN, PERC APPROACH (08/28/17) INSERTION OF INFUSION DEV INTO SUP VENA CAVA, PERC APPROACH (07/05/17) INTRODUCTION OF NUTRITIONAL INTO UP GI, VIA OPENING (04/08/17) REPLACE GASTROSTOMY TUBE (07/23/13) Family History: States: Unknown Family Hx - Social History Hx Tobacco Use: No Hx Alcohol Use: No Hx Substance Use: No - Immunization History Hx Tetanus Toxoid Vaccination: No (no record) Hx Influenza Vaccination: No (no record) Hx Pneumococcal Vaccination: No (no record) Review Of Systems Review Of Systems: ROS cannot be obtained secondary to pt's inabilty to answer questions. Physical Exam - Physical Exam Appears: Chronically Ill Skin: Normal Color, Warm, Dry Head: Atraumatic, Normacephalic Eye(s): bilateral: PERRL, EOMI Oral Mucosa: Dry Neck: Normal ROM, Supple Cardiovascular: Rhythm Regular Respiratory: Normal Breath Sounds, No Accessory Muscle Use Gastrointestinal/Abdominal: Soft, No Tenderness Neurological/Psych: No Normal Speech (nonverbal), Inappropriate Response To Command ED Course And Treatment - Laboratory Results Result Diagrams: 10/18/17 17:35 10/18/17 17:35 Lab Interpretation: Abnormal Interpretation Of Abnormal: Hypernatremia. Elevated BUN. UTI. ECG: Interpreted By Me, Viewed By Me ECG Rhythm: Sinus Rhythm, Nonspecific Changes Rate From EC O2 Sat by Pulse Oximetry: 98 Pulse Ox Interpretation: Normal - Radiology CXR: Viewed By Me, Read By Radiologist CXR Interpretation: Yes: No Acute Disease - Physician Consult Information Physician Contacted: Nyla Bradley (ID) Outcome Of Conversation: She recommened starting pt on Gentamycin and she will see pt. Progress - Interventions Interventions:: Observation, Intravenous fluid, Oxygen - Data Reviewed Data Reviewed: Lab, Diagnostic imaging, EKG, Old records - Patient Status Patient status: Partially improved - Critical Care Citical Care: Excluding Proc Time Critical Care Time: 45 minutes - Continuity of Care Discussed patient case with:: Patient, ED Nurse, PMD Discussed pt. case with exchange underwriting consultant/specialty: Infectious Disease - Patient Plan Patient Plan: Admission, Telemetry Disposition Discussed With DrJames: Jocelyn Calloway Comment: He accepted pt on his service. Doctor Will See Patient In The: Hospital Counseled Patient/Family Regarding: Studies Performed, Diagnosis - Disposition Disposition: HOSPITALIZED Disposition Time: 21:07 Condition: GUARDED - Clinical Impression Clinical Impression: UTI (urinary tract infection), Sepsis, Hypernatremia, Dehydration
[2017-10-19] MEDS: Meropenem 500 MG in Sodium Chloride 0.9% 100 ML IVPB SCH ×4 (00:57→21:16)
[2017-10-19] MEDS ORDERED: Magnesium Hydroxide Susp 30 ml UD PEG PRN (07:13)
[2017-10-19] MEDS ORDERED: Petrolatum Oint Foilpak (5 gm) TOP PRN (07:13)
[2017-10-19] MEDS ORDERED: Alum-Mag Hydrox-Simethicone Susp (30 mL) PEG PRN (07:13)
[2017-10-19] MEDS ORDERED: Acetaminophen 650mg/20.3ml solution UD PEG PRN (07:13)
[2017-10-19 07:16] LABS: BASO # 0.1 K/uL (0.0-0.2); BASO % 0.9 % (0.0-2.0); EOS # 0.3 K/uL (0.0-0.7); EOS % 2.9 % (0.0-4.0); HEMOGLOBIN 12.2 g/dL (11.0-16.0); LYMPH % 27.8 % (20.0-40.0); MEAN CELL VOLUME 95.9 fL (81.0-99.0); MEAN CORPUSCULAR HGB CONC 32.3 g/dL (33.0-37.0); MEAN PLATELET VOLUME 10.2 fL (7.2-11.7); MONO # 0.5 K/uL (0.0-0.8); MONO % 4.6 % (0.0-10.0); NEUT # 6.9 K/uL (1.8-7.0); NEUT % 63.8 % (50.0-75.0); RBC 3.95 Mil/uL (3.80-5.20); RED CELL DISTRIBUTION WIDTH 16.5 % (11.5-14.5); WHITE BLOOD COUNT 10.8 K/uL (4.8-10.8)
[2017-10-19] MEDS ORDERED: (Novolin R) Insulin Human Regular 100 units/ml vial SC SCH ×2 (07:30→11:30)
[2017-10-19] MEDS ORDERED: Sodium Chloride 0.45% 1,000 ML IV SCH (08:00)
[2017-10-19 08:08] LABS: ALBUMIN 3.2 g/dL (3.5-5.0); ALT/SGPT 50 U/L (9-52); AST/SGOT 23 U/L (14-36); BILIRUBIN,DIRECT 0.4 mg/dL (0.0-0.4); BLOOD UREA NITROGEN 50 mg/dL (7-17); CALCIUM 7.8 mg/dl (8.6-10.4); GFR AFRICAN-AMERICAN > 60; GFR NON-AFRICAN AMERICAN > 60
[2017-10-19] MEDS: Insulin Detemir 100 units/ml Vial (Levemir) SC SCH ×2 (09:26→21:27)
[2017-10-19] MEDS: (Novolin R) Insulin Human Regular 100 units/ml vial SC SCH ×3 (12:11→21:27)
--- NOTE | 2017-10-19 13:14 | CP.PCM.CON ---
History of Present Illness - History of Present Illness History of Present Illness: INFECTIOUS DISEASE CONSULT; HPI; 67-year-old female, [facility]dc resident admitted by ER because of fever and hypernatremia on 10/18/17 Patient has history of CVA, status post craniotomy on the left, IDDM, status post PEG placement in April 2017. Patient is nonverbal and chronically bedridden with previous history of UTIs and PEG site infections. Infectious disease consultation requested by PMD, as patient has many allergies and recurrent urosepsis. In the ER patient spiked a fever off 103.9 with elevated BUN of 59 and creatinine of 1.0. Patient lactate was also 2.8. Initial chest x-ray is unremarkable. Patient has history off recurrent urosepsis with multiple organisms including Proteus mirabilis, enterococcus and even Luciana tropicalis. Patient was given a dose of gentamicin 80 mg in the ER by ER physician which she tolerated well. history Limited due to her clinical condition. case was discussed with ER physician. PMH: Anemia, Anxiety, COPD, CVA, Diabetes, HTN, Osteoporosis, Pneumonia, Chronic Kidney Disease, Seizures - [facility] Procedures CHANGE FEEDING DEVICE IN UP INTEST TRACT, RADIATION PROTECTION TECHNICIAN APPROACH (04/08/17) ENTERAL INFUSION OF CONCENTRATED NUT. SUBSTANCES (03/01/13) INSERTION OF INFUSION DEV INTO SUP VENA CAVA, PERC APPROACH (07/05/17) INTRODUCTION OF NUTRITIONAL INTO UP GI, VIA OPENING (04/08/17) REPLACE GASTROSTOMY TUBE (07/23/13) Family History: States: Unknown Family Hx Review of Systems - Review of Systems Systems not reviewed;Unavailable: Altered Mental Status All systems: reviewed and no additional remarkable complaints except (patient has a PEG, with catheter) Past Patient History - Past Medical History & Family History Past Medical History?: Yes - Past Social History Smoking Status: Never Smoked - CARDIAC Hx Cardiac Disorders: Yes Hx Hypertension: Yes - PULMONARY Hx Respiratory Disorders: Yes Hx Chronic Obstructive Pulmonary Disease (COPD): Yes Hx Pneumonia: Yes - NEUROLOGICAL Hx Neurological Disorder: Yes Hx Seizures: Yes Other/Comment: Cerebral Infarction,Aphasia - HEENT Hx HEENT Problems: Yes Hx Cataracts: Yes Other/Comment: APHASIA - RENAL Hx Chronic Kidney Disease: Yes - ENDOCRINE/METABOLIC Hx Endocrine Disorders: Yes Hx Diabetes Mellitus Type 2: Yes - HEMATOLOGICAL/ONCOLOGICAL Hx Blood Disorders: Yes Hx Anemia: Yes - INTEGUMENTARY Hx Dermatological Problems: No - MUSCULOSKELETAL/RHEUMATOLOGICAL Hx Falls: No - GASTROINTESTINAL Hx Gastrointestinal Disorders: Yes Hx Gastroesophageal Reflux: Yes Other/Comment: PEG Tube - GENITOURINARY/GYNECOLOGICAL Hx Genitourinary Disorders: Yes Hx Incontinence: Yes - PSYCHIATRIC Hx Substance Use: No - SURGICAL HISTORY Hx Surgeries: Yes Other/Comment: GASTROSTOMY - ANESTHESIA Hx Anesthesia: Yes Hx Anesthesia Reactions: No Hx Malignant Hyperthermia: No Has any member of the family had a problem w/ anesthesia?: No Meds Allergies/Adverse Reactions: Allergies Allergy/AdvReac Type Severity Reaction Status Date / Time aztreonam [From Azactam] Allergy Verified 10/18/17 17:32 cefepime Allergy Verified 10/18/17 17:32 moxifloxacin Allergy Verified 10/18/17 17:32 Penicillins Allergy Verified 10/18/17 17:32 tamsulosin HCl [From Flomax] Allergy Verified 10/18/17 17:32 tigecycline [From Tygacil] Allergy Verified 10/18/17 17:32 vancomycin Allergy Verified 10/18/17 17:32 pnemonia vaccine Allergy Uncoded 10/18/17 17:32 - Medications Medications: Current Medications Acetaminophen (Tylenol 650mg/20.3ml Solution Ud) 650 mg PEG Q6H PRN PRN Reason: Fever >100.4 F Al Hydrox/Mg Hydrox/Simethicone (Maalox Plus 30 Ml) 30 ml PEG Q4H PRN PRN Reason: Indigestion Albuterol/Ipratropium (Duoneb 3 Mg/0.5 Mg (3 Ml) Ud) 3 ml INH RQID [facility] Aspirin (Aspirin Chewable) 81 mg PEG DAILY [facility] Last Admin: 10/19/17 10:52 Dose: 81 mg Emollient Ointment (Vaseline Oint) 5 gm TOP BID PRN PRN Reason: Dry skin Famotidine (Pepcid) 40 mg PEG DAILY [facility] Last Admin: 10/19/17 10:52 Dose: 40 mg Meropenem 500 mg/ Sodium (Chloride) 100 mls @ 100 mls/hr IVPB Q8 [facility] Last Admin: 10/19/17 06:43 Dose: 100 mls/hr Sodium Chloride (Sodium Chloride 0.45%) 1,000 mls @ 80 mls/hr IV .[id number] [facility] Last Admin: 10/19/17 09:00 Dose: 80 mls/hr Insulin Detemir (Levemir) 10 unit SC Q12H [facility] Last Admin: 10/19/17 09:26 Dose: 10 unit Insulin Human Regular (Novolin R) 0 unit SC ACHS [facility] PRN Reason: Protocol Last Admin: 10/19/17 12:11 Dose: 6 unit Magnesium Hydroxide (Milk Of Magnesia) 30 ml PEG DAILY PRN PRN Reason: Constipation Oxcarbazepine (Trileptal) 150 mg PO DAILY [facility] Last Admin: 10/19/17 10:53 Dose: 150 mg Oxcarbazepine (Trileptal) 450 mg PEG HS [facility] Pneumococcal Polyvalent Vaccine (Pneumovax 23 Vaccine) 0.5 ml IM .ONCE ONE Stop: 10/21/17 10:01 Topiramate (Topamax) 100 mg PEG BID [facility] Last Admin: 10/19/17 10:53 Dose: 100 mg Physical Exam - Constitutional Appears: No Acute Distress, Confused (nonverbal) - Head Exam Head Exam: NORMAL INSPECTION - Eye Exam Eye Exam: PERRL - ENT Exam ENT Exam: Mucous Membranes Dry - Neck Exam Neck exam: Positive for: Normal Inspection. Negative for: Meningismus - Respiratory Exam Respiratory Exam: Clear to Auscultation Bilateral - Cardiovascular Exam Cardiovascular Exam: Tachycardia, +S1, +S2 - GI/Abdominal Exam GI & Abdominal Exam: Normal Bowel Sounds (+ve peg ,site ok.), Soft. absent: Tenderness - Extremities Exam Extremities exam: Positive for: pedal pulses present. Negative for: calf tenderness, pedal edema - Neurological Exam Neurological exam: Altered - Psychiatric Exam Psychiatric exam: Flat Affect - Skin Skin Exam: Warm Results - Vital Signs Recent Vital Signs: Last Vital Signs Temp 97.9 F 10/19/17 08:30 Pulse 87 10/19/17 08:30 Resp 20 10/19/17 08:30 BP 108/81 10/19/17 08:30 Pulse Ox 96 10/19/17 08:30 - Labs Result Diagrams: 10/19/17 07:04 10/19/17 17:16 Labs: Laboratory Results - last 24 hr 10/18/17 10/18/17 10/18/17 17:35 17:35 17:35 WBC 15.1 H D RBC 4.46 Hgb 13.7 D Hct 42.4 MCV 94.9 D MCH 30.7 MCHC 32.3 L RDW 16.0 H Plt Count 97 L D MPV 11.0 Neut % (Auto) 61.1 Lymph % (Auto) 30.4 [place] % (Auto) 6.2 Eos % (Auto) 1.0 Baso % (Auto) 1.3 Neut # 9.2 H Lymph # 4.6 H [place] # 0.9 H Eos # 0.1 Baso # 0.2 Differential Comment PT 12.6 H INR 1.1 APTT 32 pO2 VBG pH VBG pCO2 VBG HCO3 VBG Total CO2 VBG O2 Sat (Calc) VBG Base Excess VBG Potassium Glucose Lactate Crit Value Called To Crit Value Called By Crit Value Read Back Blood Gas Notified Time Sodium 160 H* Potassium 4.0 Chloride 125 H Carbon Dioxide 29 Anion Gap 10 BUN 59 H Creatinine 1.0 Est GFR ( Amer) > 60 Est GFR (Non-Af Amer) 55 POC Glucose (mg/dL) Random Glucose 248 H Calcium 8.4 L Phosphorus 3.4 Magnesium 2.5 H Total Bilirubin 0.7 Direct Bilirubin AST 30 ALT 57 H Alkaline Phosphatase 66 C-React Prot High Sens Total Protein 7.2 Albumin 3.6 Globulin 3.6 Albumin/Globulin Ratio 1.0 Venous Blood Potassium Urine Color Urine Clarity Urine pH Ur Specific [place] Urine Protein Urine Glucose (UA) Urine Ketones Urine Blood Urine Nitrate Urine Bilirubin Urine Urobilinogen Ur Leukocyte Esterase Urine WBC (Auto) Urine RBC (Auto) Ur Squamous Epith Cells Ur Transition Epith Cell Urine Bacteria 10/18/17 10/18/17 10/18/17 17:49 18:26 19:52 WBC RBC Hgb Hct MCV MCH MCHC RDW Plt Count MPV Neut % (Auto) Lymph % (Auto) [place] % (Auto) Eos % (Auto) Baso % (Auto) Neut # Lymph # [place] # Eos # Baso # Differential Comment PT INR APTT pO2 37 27 L VBG pH 7.38 7.38 VBG pCO2 54 53 VBG HCO3 28.3 27.4 VBG Total CO2 33.6 H 33.0 H VBG O2 Sat (Calc) 75.7 H 56.0 VBG Base Excess 5.3 H 4.9 H VBG Potassium 4.0 3.7 Glucose 249 H 260 H Lactate 2.7 H 1.0 Crit Value Called To Max gas and oil checker Crit Value Called By Lendl Crit Value Read Back Y Blood Gas Notified Time 1757 Sodium 163.0 H* 166.0 H* Potassium Chloride 126.0 H 133.0 H Carbon Dioxide Anion Gap BUN Creatinine Est GFR ( Amer) Est GFR (Non-Af Amer) POC Glucose (mg/dL) Random Glucose Calcium Phosphorus Magnesium Total Bilirubin Direct Bilirubin AST ALT Alkaline Phosphatase C-React Prot High Sens Total Protein Albumin Globulin Albumin/Globulin Ratio Venous Blood Potassium 4.0 3.7 Urine Color Yellow Urine Clarity Hazy Urine pH 6.0 Ur Specific [place] 1.024 Urine Protein 2+ H Urine Glucose (UA) Normal Urine Ketones Negative Urine Blood Negative Urine Nitrate Negative Urine Bilirubin Negative Urine Urobilinogen 2.0 H Ur Leukocyte Esterase 3+ H Urine WBC (Auto) 120 H Urine RBC (Auto) 5 H Ur Squamous Epith Cells 2 Ur Transition Epith Cell < 1 Urine Bacteria Mod H 10/19/17 10/19/17 10/19/17 06:33 07:04 07:04 WBC 10.8 RBC 3.95 Hgb 12.2 Hct 37.9 MCV 95.9 MCH 31.0 MCHC 32.3 L RDW 16.5 H Plt Count 78 L MPV 10.2 Neut % (Auto) 63.8 Lymph % (Auto) 27.8 [place] % (Auto) 4.6 Eos % (Auto) 2.9 Baso % (Auto) 0.9 Neut # 6.9 Lymph # 3.0 [place] # 0.5 Eos # 0.3 Baso # 0.1 Differential Comment PT INR APTT pO2 VBG pH VBG pCO2 VBG HCO3 VBG Total CO2 VBG O2 Sat (Calc) VBG Base Excess VBG Potassium Glucose Lactate Crit Value Called To Crit Value Called By Crit Value Read Back Blood Gas Notified Time Sodium 163 H* Potassium 3.9 Chloride 129 H Carbon Dioxide 31 H Anion Gap 7 L BUN 50 H Creatinine 0.9 Est GFR ( Amer) > 60 Est GFR (Non-Af Amer) > 60 POC Glucose (mg/dL) 261 H Random Glucose 299 H Calcium 7.8 L Phosphorus Magnesium Total Bilirubin 0.7 Direct Bilirubin 0.4 AST 23 ALT 50 Alkaline Phosphatase 69 C-React Prot High Sens Total Protein 6.6 Albumin 3.2 L Globulin 3.3 Albumin/Globulin Ratio 1.0 Venous Blood Potassium Urine Color Urine Clarity Urine pH Ur Specific [place] Urine Protein Urine Glucose (UA) Urine Ketones Urine Blood Urine Nitrate Urine Bilirubin Urine Urobilinogen Ur Leukocyte Esterase Urine WBC (Auto) Urine RBC (Auto) Ur Squamous Epith Cells Ur Transition Epith Cell Urine Bacteria 10/19/17 10/19/17 07:04 11:25 WBC RBC Hgb Hct MCV MCH MCHC RDW Plt Count MPV Neut % (Auto) Lymph % (Auto) [place] % (Auto) Eos % (Auto) Baso % (Auto) Neut # Lymph # [place] # Eos # Baso # Differential Comment PT INR APTT pO2 VBG pH VBG pCO2 VBG HCO3 VBG Total CO2 VBG O2 Sat (Calc) VBG Base Excess VBG Potassium Glucose Lactate Crit Value Called To Crit Value Called By Crit Value Read Back Blood Gas Notified Time Sodium Potassium Chloride Carbon Dioxide Anion Gap BUN Creatinine Est GFR ( Amer) Est GFR (Non-Af Amer) POC Glucose (mg/dL) 308 H Random Glucose Calcium Phosphorus Magnesium Total Bilirubin Direct Bilirubin AST ALT Alkaline Phosphatase C-React Prot High Sens 2.86 Total Protein Albumin Globulin Albumin/Globulin Ratio Venous Blood Potassium Urine Color Urine Clarity Urine pH Ur Specific [place] Urine Protein Urine Glucose (UA) Urine Ketones Urine Blood Urine Nitrate Urine Bilirubin Urine Urobilinogen Ur Leukocyte Esterase Urine WBC (Auto) Urine RBC (Auto) Ur Squamous Epith Cells Ur Transition Epith Cell Urine Bacteria - Imaging and Cardiology Chest x-ray Status: Report reviewed by me (no active disease) Assessment & Plan (1) Sepsis Assessment and Plan: PANCULTURES. CRP. START iv MEROPENEM 500 MG EVERY 8 HOURLY 10/18/17 PATIENT WAS GIVEN A DOSE OF GENTAMICIN 80 MG BY THE er PHYSICIAN WHICH PATIENT TOLERATED. DISCUSSED WITH THE STAFF TO MONITOR PATIENT CLOSELY FOR ANY RASH, HYPOTENSION, SEIZURES AND NOTIFY. WILL FOLLOW CULTURES TO ADJUST ANTIBIOTICS. IV FLUIDS PER PMD FOLLOW RENAL FUNCTIONS CLOSELY.. PATIENT HAS RECEIVED PREVIOUSLY MEROPENEM WITHOUT ANY REACTIONS. Status: Acute (2) UTI (urinary tract infection) Assessment and Plan: f/u urine cultures . Status: Acute (3) Dehydration Status: Acute (4) Hypernatremia Assessment and Plan: PATIENT SODIUM 163 today iv FLUIDS PER PMD Status: Acute (5) Gastrostomy tube in place Assessment and Plan: site GT -OK. PT UNKEMPT. Status: Acute
--- NOTE | 2017-10-19 14:51 | CP.PCM.CON ---
History of Present Illness - History of Present Illness History of Present Illness: pt is seen and examined, full consult is dictated #[id number] 1.hypernatremia 2.uti 3.sepsis 4.CHILO check urine lytes, osm, s om change ivf to d5w at 100 ml/hr cover hyperglycemia with insulin Past Patient History - Past Medical History & Family History Past Medical History?: Yes - Past Social History Smoking Status: Never Smoked - CARDIAC Hx Cardiac Disorders: Yes Hx Hypertension: Yes - PULMONARY Hx Respiratory Disorders: Yes Hx Chronic Obstructive Pulmonary Disease (COPD): Yes Hx Pneumonia: Yes - NEUROLOGICAL Hx Neurological Disorder: Yes Hx Seizures: Yes Other/Comment: Cerebral Infarction,Aphasia - HEENT Hx HEENT Problems: Yes Hx Cataracts: Yes Other/Comment: APHASIA - RENAL Hx Chronic Kidney Disease: Yes - ENDOCRINE/METABOLIC Hx Endocrine Disorders: Yes Hx Diabetes Mellitus Type 2: Yes - HEMATOLOGICAL/ONCOLOGICAL Hx Blood Disorders: Yes Hx Anemia: Yes - INTEGUMENTARY Hx Dermatological Problems: No - MUSCULOSKELETAL/RHEUMATOLOGICAL Hx Falls: No - GASTROINTESTINAL Hx Gastrointestinal Disorders: Yes Hx Gastroesophageal Reflux: Yes Other/Comment: PEG Tube - GENITOURINARY/GYNECOLOGICAL Hx Genitourinary Disorders: Yes Hx Incontinence: Yes - PSYCHIATRIC Hx Substance Use: No - SURGICAL HISTORY Hx Surgeries: Yes Other/Comment: GASTROSTOMY - ANESTHESIA Hx Anesthesia: Yes Hx Anesthesia Reactions: No Hx Malignant Hyperthermia: No Has any member of the family had a problem w/ anesthesia?: No Meds Allergies/Adverse Reactions: Allergies Allergy/AdvReac Type Severity Reaction Status Date / Time aztreonam [From Azactam] Allergy Verified 10/18/17 17:32 cefepime Allergy Verified 10/18/17 17:32 moxifloxacin Allergy Verified 10/18/17 17:32 Penicillins Allergy Verified 10/18/17 17:32 tamsulosin HCl [From Flomax] Allergy Verified 10/18/17 17:32 tigecycline [From Tygacil] Allergy Verified 10/18/17 17:32 vancomycin Allergy Verified 10/18/17 17:32 pnemonia vaccine Allergy Uncoded 10/18/17 17:32 - Medications Medications: Current Medications Acetaminophen (Tylenol 650mg/20.3ml Solution Ud) 650 mg PEG Q6H PRN PRN Reason: Fever >100.4 F Al Hydrox/Mg Hydrox/Simethicone (Maalox Plus 30 Ml) 30 ml PEG Q4H PRN PRN Reason: Indigestion Albuterol/Ipratropium (Duoneb 3 Mg/0.5 Mg (3 Ml) Ud) 3 ml INH RQID [facility] Aspirin (Aspirin Chewable) 81 mg PEG DAILY [facility] Last Admin: 10/19/17 10:52 Dose: 81 mg Emollient Ointment (Vaseline Oint) 5 gm TOP BID PRN PRN Reason: Dry skin Famotidine (Pepcid) 40 mg PEG DAILY [facility] Last Admin: 10/19/17 10:52 Dose: 40 mg Meropenem 500 mg/ Sodium (Chloride) 100 mls @ 100 mls/hr IVPB Q8 [facility] Last Admin: 10/19/17 13:54 Dose: 100 mls/hr Sodium Chloride (Sodium Chloride 0.45%) 1,000 mls @ 80 mls/hr IV .[id number] [facility] Last Admin: 10/19/17 09:00 Dose: 80 mls/hr Insulin Detemir (Levemir) 10 unit SC Q12H [facility] Last Admin: 10/19/17 09:26 Dose: 10 unit Insulin Human Regular (Novolin R) 0 unit SC ACHS [facility] PRN Reason: Protocol Last Admin: 10/19/17 12:11 Dose: 6 unit Magnesium Hydroxide (Milk Of Magnesia) 30 ml PEG DAILY PRN PRN Reason: Constipation Oxcarbazepine (Trileptal) 150 mg PO DAILY [facility] Last Admin: 10/19/17 10:53 Dose: 150 mg Oxcarbazepine (Trileptal) [address] [facility] Pneumococcal Polyvalent Vaccine (Pneumovax 23 Vaccine) 0.5 ml IM .ONCE ONE Stop: 10/21/17 10:01 Topiramate (Topamax) 100 mg PEG BID [facility] Last Admin: 10/19/17 10:53 Dose: 100 mg Results - Vital Signs Recent Vital Signs: Last Vital Signs Temp 97.9 F 10/19/17 08:30 Pulse 87 10/19/17 08:30 Resp 20 10/19/17 08:30 BP 108/81 10/19/17 08:30 Pulse Ox 96 10/19/17 08:30 - Labs Result Diagrams: 10/19/17 07:04 10/19/17 07:04 Labs: Laboratory Results - last 24 hr 10/18/17 10/18/17 10/18/17 17:35 17:35 17:35 WBC 15.1 H D RBC 4.46 Hgb 13.7 D Hct 42.4 MCV 94.9 D MCH 30.7 MCHC 32.3 L RDW 16.0 H Plt Count 97 L D MPV 11.0 Neut % (Auto) 61.1 Lymph % (Auto) 30.4 [place] % (Auto) 6.2 Eos % (Auto) 1.0 Baso % (Auto) 1.3 Neut # 9.2 H Lymph # 4.6 H [place] # 0.9 H Eos # 0.1 Baso # 0.2 Differential Comment PT 12.6 H INR 1.1 APTT 32 pO2 VBG pH VBG pCO2 VBG HCO3 VBG Total CO2 VBG O2 Sat (Calc) VBG Base Excess VBG Potassium Glucose Lactate Crit Value Called To Crit Value Called By Crit Value Read Back Blood Gas Notified Time Sodium 160 H* Potassium 4.0 Chloride 125 H Carbon Dioxide 29 Anion Gap 10 BUN 59 H Creatinine 1.0 Est GFR ( Amer) > 60 Est GFR (Non-Af Amer) 55 POC Glucose (mg/dL) Random Glucose 248 H Calcium 8.4 L Phosphorus 3.4 Magnesium 2.5 H Total Bilirubin 0.7 Direct Bilirubin AST 30 ALT 57 H Alkaline Phosphatase 66 C-React Prot High Sens Total Protein 7.2 Albumin 3.6 Globulin 3.6 Albumin/Globulin Ratio 1.0 Venous Blood Potassium Urine Color Urine Clarity Urine pH Ur Specific Bern Urine Protein Urine Glucose (UA) Urine Ketones Urine Blood Urine Nitrate Urine Bilirubin Urine Urobilinogen Ur Leukocyte Esterase Urine WBC (Auto) Urine RBC (Auto) Ur Squamous Epith Cells Ur Transition Epith Cell Urine Bacteria 10/18/17 10/18/17 10/18/17 17:49 18:26 19:52 WBC RBC Hgb Hct MCV MCH MCHC RDW Plt Count MPV Neut % (Auto) Lymph % (Auto) [place] % (Auto) Eos % (Auto) Baso % (Auto) Neut # Lymph # [place] # Eos # Baso # Differential Comment PT INR APTT pO2 37 27 L VBG pH 7.38 7.38 VBG pCO2 54 53 VBG HCO3 28.3 27.4 VBG Total CO2 33.6 H 33.0 H VBG O2 Sat (Calc) 75.7 H 56.0 VBG Base Excess 5.3 H 4.9 H VBG Potassium 4.0 3.7 Glucose 249 H 260 H Lactate 2.7 H 1.0 Crit Value Called To Max integrated marketing intern Crit Value Called By Lendl Crit Value Read Back Y Blood Gas Notified Time 1757 Sodium 163.0 H* 166.0 H* Potassium Chloride 126.0 H 133.0 H Carbon Dioxide Anion Gap BUN Creatinine Est GFR ( Amer) Est GFR (Non-Af Amer) POC Glucose (mg/dL) Random Glucose Calcium Phosphorus Magnesium Total Bilirubin Direct Bilirubin AST ALT Alkaline Phosphatase C-React Prot High Sens Total Protein Albumin Globulin Albumin/Globulin Ratio Venous Blood Potassium 4.0 3.7 Urine Color Yellow Urine Clarity Hazy Urine pH 6.0 Ur Specific Bern 1.024 Urine Protein 2+ H Urine Glucose (UA) Normal Urine Ketones Negative Urine Blood Negative Urine Nitrate Negative Urine Bilirubin Negative Urine Urobilinogen 2.0 H Ur Leukocyte Esterase 3+ H Urine WBC (Auto) 120 H Urine RBC (Auto) 5 H Ur Squamous Epith Cells 2 Ur Transition Epith Cell < 1 Urine Bacteria Mod H 10/19/17 10/19/17 10/19/17 06:33 07:04 07:04 WBC 10.8 RBC 3.95 Hgb 12.2 Hct 37.9 MCV 95.9 MCH 31.0 MCHC 32.3 L RDW 16.5 H Plt Count 78 L MPV 10.2 Neut % (Auto) 63.8 Lymph % (Auto) 27.8 [place] % (Auto) 4.6 Eos % (Auto) 2.9 Baso % (Auto) 0.9 Neut # 6.9 Lymph # 3.0 [place] # 0.5 Eos # 0.3 Baso # 0.1 Differential Comment PT INR APTT pO2 VBG pH VBG pCO2 VBG HCO3 VBG Total CO2 VBG O2 Sat (Calc) VBG Base Excess VBG Potassium Glucose Lactate Crit Value Called To Crit Value Called By Crit Value Read Back Blood Gas Notified Time Sodium 163 H* Potassium 3.9 Chloride 129 H Carbon Dioxide 31 H Anion Gap 7 L BUN 50 H Creatinine 0.9 Est GFR ( Amer) > 60 Est GFR (Non-Af Amer) > 60 POC Glucose (mg/dL) 261 H Random Glucose 299 H Calcium 7.8 L Phosphorus Magnesium Total Bilirubin 0.7 Direct Bilirubin 0.4 AST 23 ALT 50 Alkaline Phosphatase 69 C-React Prot High Sens Total Protein 6.6 Albumin 3.2 L Globulin 3.3 Albumin/Globulin Ratio 1.0 Venous Blood Potassium Urine Color Urine Clarity Urine pH Ur Specific [place] Urine Protein Urine Glucose (UA) Urine Ketones Urine Blood Urine Nitrate Urine Bilirubin Urine Urobilinogen Ur Leukocyte Esterase Urine WBC (Auto) Urine RBC (Auto) Ur Squamous Epith Cells Ur Transition Epith Cell Urine Bacteria 10/19/17 10/19/17 07:04 11:25 WBC RBC Hgb Hct MCV MCH MCHC RDW Plt Count MPV Neut % (Auto) Lymph % (Auto) [place] % (Auto) Eos % (Auto) Baso % (Auto) Neut # Lymph # [place] # Eos # Baso # Differential Comment PT INR APTT pO2 VBG pH VBG pCO2 VBG HCO3 VBG Total CO2 VBG O2 Sat (Calc) VBG Base Excess VBG Potassium Glucose Lactate Crit Value Called To Crit Value Called By Crit Value Read Back Blood Gas Notified Time Sodium Potassium Chloride Carbon Dioxide Anion Gap BUN Creatinine Est GFR ( Amer) Est GFR (Non-Af Amer) POC Glucose (mg/dL) 308 H Random Glucose Calcium Phosphorus Magnesium Total Bilirubin Direct Bilirubin AST ALT Alkaline Phosphatase C-React Prot High Sens 2.86 Total Protein Albumin Globulin Albumin/Globulin Ratio Venous Blood Potassium Urine Color Urine Clarity Urine pH Ur Specific [place] Urine Protein Urine Glucose (UA) Urine Ketones Urine Blood Urine Nitrate Urine Bilirubin Urine Urobilinogen Ur Leukocyte Esterase Urine WBC (Auto) Urine RBC (Auto) Ur Squamous Epith Cells Ur Transition Epith Cell Urine Bacteria
[2017-10-19 17:38] LABS: BLOOD UREA NITROGEN 46 mg/dL (7-17); CALCIUM 7.7 mg/dl (8.6-10.4); GFR AFRICAN-AMERICAN > 60; GFR NON-AFRICAN AMERICAN > 60
[2017-10-19] MEDS: Albuterol-Ipratrop 3 mg / 0.5 (3 ml) UD INH SCH (19:01)
--- NOTE | 2017-10-20 01:55 | HP ---
HISTORY OF PRESENT ILLNESS: This is a 67-year-old female with history of multiple medical problems. Patient is a senior care resident for many years status post multiple CVAs and seizure disorder. Patient was brought to emergency room and evaluated. She is found to have fever, dehydration, hypernatremia, and urinary tract infection. Patient was admitted for further management. Patient is aphasic and there is no history that could be obtained from the patient. ALLERGIES: PATIENT HAS MULTIPLE ALLERGIES TO AZTREONAM, CEFEPIME, AVELOX, PENICILLIN, TYGACIL, AND VANCOMYCIN. PAST MEDICAL HISTORY: Multiple CVAs, seizure disorder, type 2 diabetes mellitus, gastric tube feeding. FAMILY HISTORY: Not known. SOCIAL HISTORY: Not known. PHYSICAL EXAMINATION: GENERAL: Patient is in bed, not in any cardiopulmonary distress. VITAL SIGNS: With blood pressure 120/55, temperature 98, respiratory rate 20, and pulse 86. HEENT: Pupils equal, reactive to light. Normal-appearing mucosa of the conjunctivae, oropharynx, and nasal membrane mucosa. NECK: Supple. No JVD. No carotid bruit. No lymph node. No thyromegaly. CHEST AND LUNGS: Bilateral symmetrical expansion. Good air exchange. No rales, no rhonchi. CARDIOVASCULAR SYSTEM: PMI not localized. S1 and S2. No additional sounds. ABDOMEN: Gastric tube is in place. Decreased bowel sounds. No tenderness. No organomegaly. No masses. EXTREMITIES: No cyanosis, no clubbing, no edema. CENTRAL NERVOUS SYSTEM: Patient is awake and alert. She has right-sided hemiplegia and she has aphasia and patient moves only left upper extremity. ASSESSMENT: 1. Sepsis. 2. Urinary tract infection. 3. Hypernatremia. 4. Prerenal azotemia. 5. Type 2 diabetes mellitus. PLAN: We will start IV hydration, renal consult, and ID consult and follow the recommendations. Resume gastric tube feeding. Jocelyn Calloway MD
--- NOTE | 2017-10-20 04:33 | CON ---
DATE: LOCATION: Room 661, bed A. REQUESTING PHYSICIAN: Jocelyn Calloway MD. REASON FOR FOLLOWUP: Hypernatremia and acute renal failure, for further evaluation. HISTORY OF PRESENT ILLNESS: Mrs. Jackson is a 67-year-old female with a past medical history significant for hypertension, diabetes, COPD, CVA, anxiety, anemia, osteoporosis, pneumonia, chronic kidney disease, seizures, status post craniotomy on the left side, status post PEG tube placement in April 2017, nonverbal and bedridden and resident of [facility], was admitted for fever 103.9 and increased BUN and creatinine and also elevated lactic acid level and increased serum sodium. Unable to get any history from the patient. The chart reviewed and history obtained from the review of the chart from the electronic medical record. The patient is dysarthric and unable to give any history. The patient is not in acute distress at this time. PAST SURGICAL HISTORY: Not known, status post gastrostomy tube placement on 07/23/2013 and status post change of the feeding tube on 04/08/2017. ALLERGIES: ALLERGIC TO AZTREONAM, CEFEPIME, MOXIFLOXACIN, PENICILLIN, AND TAMSULOSIN. SOCIAL HISTORY: No smoking. No alcohol. No drugs. The patient is a resident of penitentiary. FAMILY HISTORY: Not known. CURRENT MEDICATIONS: Include aspirin 81 mg via PEG daily, half normal saline at 100 mL/hour, DuoNeb inhaler, Levemir 10 units subcu q. 12, Maalox and also milk of magnesia, Novolin R per sliding scale, Pepcid 40 mg via PEG tube daily, Pneumovax 0.5 mL IM once, Topamax 100 mg by PEG b.i.d., Trileptal 150 mg p.o. daily and Trileptal 450 mg by PEG at bedtime, acetaminophen 650 mg by PEG q.6 hours. REVIEW OF SYSTEMS: Significant for hypernatremia, increased BUN and creatinine and also fever, rule out sepsis. All other review of systems are reviewed as per HPI and are negative. The patient is nonverbal. PHYSICAL EXAMINATION: VITAL SIGNS: Blood pressure 120/50, pulse 86, respiration 20, temperature 98, saturation 95%. Height 5 feet 4 inches and weight is 170 pounds. GENERAL: Mrs. Jackson is a 67-year-old obese elderly female, not in acute distress with contracted right hand fingers and nonverbal. HEENT: Pupils normal and reactive to light and accommodation. Conjunctivae pink. Sclerae anicteric. Tongue is dry. Trachea is midline. LUNGS: Symmetric on both sides. Bilateral breath sounds present. Clear on auscultation. CARDIOVASCULAR SYSTEM: [place] at the fifth intercostal space midclavicular line. S1, S2 audible. No murmur, no gallop. ABDOMEN: Slightly distended and the patient has a PEG tube. Abdomen is soft, tympanic. No guarding. No rigidity. No hepatosplenomegaly. CENTRAL NERVOUS SYSTEM: The patient is awake, trying to follow simple commands but the patient is nonverbal and screaming on touching of the left leg and even on the right upper extremity. EXTREMITIES: No cyanosis, no clubbing, no edema. LABORATORY DATA: Include as follows, as of 10/18/2017, WBC 15.1, hemoglobin 13.7, hematocrit is 42.4, platelets 97. PT 12.6, PTT 32, INR 1.1. ABG: pH 7.38, pO2 of 27, bicarb is 27.4, pCO2 of 53, and saturation 56%. Other laboratory data, sodium is 160, potassium is 4.0, chloride 125, CO2 of 29, BUN 59, creatinine is 1.0, glucose 248, calcium 8.4, phosphorus 3.4, magnesium 2.5. Total bili 0.5, AST 30, ALT 57, alkaline phosphatase 66, total protein , albumin is 3.6. Urinalysis, yellow, hazy, pH is 6, specific gravity 1.024, protein 2+, glucose normal, ketones negative, blood negative, nitrites negative, bilirubin negative, urobilinogen 2.0, leukocyte esterase 3+, WBC 120, RBC 5, squamous epithelial cells is 2, bacteria is moderate. Other laboratory data as of 10/19/2017, WBC 10.8, hemoglobin 12.2, hematocrit is 37.9, platelets 78. Sodium is 163, potassium 3.9, chloride 129, CO2 of 31, BUN 50, creatinine 0.9, glucose is 299, calcium 7.8. Total bili 0.9, AST 23, ALT 50, alkaline phosphatase 69. C-reactive protein is 2.86, total protein 6.6, albumin is 3.2. Urine culture as of 10/18/2017, gram-negative rods. ASSESSMENT AND PLAN: In summary, Mrs. Jackson is a 67-year-old elderly female with a history of hypertension, diabetes, chronic obstructive pulmonary disease, cerebrovascular accident, anemia, anxiety, osteoporosis, pneumonia, chronic kidney disease. She is a resident of penit[facility]iary, status post PEG tube and gastrostomy tube placement in the past, was admitted with fever, increased BUN and creatinine, increased lactic acid level and high serum sodium. 1. Hypernatremia, most likely secondary to free water depletion. 2. Prerenal azotemia, secondary to the dehydration. 3. Rule out sepsis. 4. Urinary tract infection. Consider IV antibiotics as per ID recommendation due to multiple antibiotics resistance, continue meropenem at this time and adjust antibiotics as per the sensitivity and we will discontinue half normal saline and we will start D5W at 100 mL/hour and repeat BMP q.12 hours. Thank you for allowing me to participate in your patient's care and we will check urine lytes, osmolality and BMP q.12. Lakeshia Juarez MD
[2017-10-20] MEDS: Meropenem 500 MG in Sodium Chloride 0.9% 100 ML IVPB SCH ×3 (05:35→22:35)
[2017-10-20] MEDS: (Novolin R) Insulin Human Regular 100 units/ml vial SC SCH ×4 (08:30→22:25)
[2017-10-20] MEDS: Albuterol-Ipratrop 3 mg / 0.5 (3 ml) UD INH SCH ×4 (08:33→19:30)
[2017-10-20] MEDS: Insulin Detemir 100 units/ml Vial (Levemir) SC SCH ×2 (08:34→20:50)
[2017-10-20 17:41] LABS: BLOOD UREA NITROGEN 39 mg/dL (7-17); CALCIUM 7.7 mg/dl (8.6-10.4); GFR AFRICAN-AMERICAN > 60; GFR NON-AFRICAN AMERICAN > 60
--- NOTE | 2017-10-20 17:47 | CP.PCM.PN ---
Subjective - Date & Time of Evaluation Date of Evaluation: 10/20/17 Time of Evaluation: 17:46 - Subjective Subjective: pt is seen and examined, follow up renal consult is dictated #[id number] serum na is improving, na 152 c/w ivf d5w at 100 ml/hr Objective - Vital Signs/Intake and Output Vital Signs (last 24 hours): Temp Pulse Resp BP Pulse Ox 99.0 F 77 20 115/54 L 95 10/20/17 17:24 10/20/17 17:24 10/20/17 17:24 10/20/17 17:24 10/20/17 17:24 Intake and Output: 10/20/17 10/20/17 06:59 18:59 Intake Total 800 3470 Output Total 650 400 Balance 150 3070 - Medications Medications: Current Medications Acetaminophen (Tylenol 650mg/20.3ml Solution Ud) 650 mg PEG Q6H PRN PRN Reason: Fever >100.4 F Al Hydrox/Mg Hydrox/Simethicone (Maalox Plus 30 Ml) 30 ml PEG Q4H PRN PRN Reason: Indigestion Albuterol/Ipratropium (Duoneb 3 Mg/0.5 Mg (3 Ml) Ud) 3 ml INH RQID [facility] Last Admin: 10/20/17 13:00 Dose: 3 ml Aspirin (Aspirin Chewable) 81 mg PEG DAILY [facility] Last Admin: 10/20/17 09:41 Dose: 81 mg Emollient Ointment (Vaseline Oint) 5 gm TOP BID PRN PRN Reason: Dry skin Famotidine (Pepcid) 40 mg PEG DAILY [facility] Last Admin: 10/20/17 09:41 Dose: 40 mg Meropenem 500 mg/ Sodium (Chloride) 100 mls @ 100 mls/hr IVPB Q8 [facility] Last Admin: 10/20/17 14:11 Dose: 100 mls/hr Dextrose (Dextrose 5% In Water 1000 Ml) 1,000 mls @ 100 mls/hr IV .Q10H [facility] Last Admin: 10/20/17 14:11 Dose: Not Given Insulin Detemir (Levemir) 10 unit SC Q12H [facility] Last Admin: 10/20/17 08:34 Dose: 10 unit Insulin Human Regular (Novolin R) 0 unit SC ACHS [facility] PRN Reason: Protocol Last Admin: 10/20/17 11:52 Dose: 8 unit Magnesium Hydroxide (Milk Of Magnesia) 30 ml PEG DAILY PRN PRN Reason: Constipation Oxcarbazepine (Trileptal) 150 mg PO DAILY [facility] Last Admin: 10/20/17 09:41 Dose: 150 mg Oxcarbazepine (Trileptal) 450 mg PEG HS [facility] Last Admin: 10/19/17 21:17 Dose: 450 mg Pneumococcal Polyvalent Vaccine (Pneumovax 23 Vaccine) 0.5 ml IM .ONCE ONE Stop: 10/21/17 10:01 Topiramate (Topamax) 100 mg PEG BID [facility] Last Admin: 10/20/17 09:41 Dose: 100 mg - Labs Labs: 10/19/17 07:04 10/20/17 17:19 PT 12.6 SECONDS (9.7-12.2) H 10/18/17 17:35 INR 1.1 10/18/17 17:35 APTT 32 SECONDS (21-34) 10/18/17 17:35
--- NOTE | 2017-10-21 00:41 | PN ---
DATE: 10/20/2017 DAILY PROGRESS NOTE SUBJECTIVE: Patient is seen today on 10/20/2017. PHYSICAL EXAMINATION: GENERAL: She is afebrile and not in any respiratory distress and no further seizure. VITAL SIGNS: Blood pressure is 115/54, temperature 99, respiratory rate 20 and pulse 77. HEENT: Pupils equal, reactive to light. Normal-appearing mucosa of the conjunctivae, oropharynx and nasal membrane mucosa. Bad oral hygiene. NECK: Supple. No JVD. No carotid bruits. No lymph node. No thyromegaly. CHEST AND LUNGS: Bilateral symmetrical expansion. Good air exchange. No rales, no rhonchi. CARDIOVASCULAR SYSTEM: PMI not localized. S1, S2. No additional sounds. ABDOMEN: Normoactive bowel sounds. No tenderness. No organomegaly. No masses. EXTREMITIES: No cyanosis, no clubbing and no edema. CENTRAL NERVOUS SYSTEM: Patient is aphasic and she has right-sided hemiplegia and gastric tube feeding. ASSESSMENT: Hypernatremia, prerenal azotemia, sepsis, urinary tract infection, status post multiple cerebrovascular accident. PLAN: Continue current antibiotics and follow recommendations of vehicle sales professional and ID and continue Accu-Cheks with insulin coverage as needed. Jocelyn Calloway MD
[2017-10-21] MEDS: Meropenem 500 MG in Sodium Chloride 0.9% 100 ML IVPB SCH (05:41)
--- NOTE | 2017-10-21 07:07 | PN ---
DATE: FOLLOWUP RENAL CONSULTATION LOCATION: Patient is located in room 661, bed A. REQUESTED BY: Dr. Jocelyn Calloway REASON FOR FOLLOWUP: Hyponatremia, for further evaluation. HISTORY OF PRESENT ILLNESS: Mrs. Jackson is a 67-year-old elderly female with a past medical history significant for hypertension, diabetes, COPD, CVA, osteoporosis, seizures, anemia, resident of a long-term with status post PEG tube, was admitted with fever and found to have a severe hypernatremia and renal failure. Renal consult was requested initially for evaluation of hypernatremia. Patient is more alert, awake, smiling, on IV hydration, not in acute distress. Patient is nonverbal sometimes. PHYSICAL EXAMINATION: VITAL SIGNS: As follows, blood pressure 115/54, pulse 77, respirations 20, temperature 99, saturation 95%. Height 5 feet 4 inches, weight is 170 pounds. GENERAL: Mrs. Jackson is 67-year-old elderly female, well built, well nourished, not in distress. HEENT: Pupils normal, reactive to light and accommodation. Conjunctivae pink. Sclerae are anicteric. Tongue is moist. Trachea is midline. LUNGS: Symmetric on both sides. Bilateral breath sounds present. Clear on auscultation. CARDIOVASCULAR SYSTEM: [place] at the fifth intercostal space, midclavicular line. S1 and S2 audible. No murmur or gallop. ABDOMEN: Normal in appearance. Patient has a PEG tube. Abdomen is soft, tympanic. No guarding. No rigidity. No hepatosplenomegaly. CENTRAL NERVOUS SYSTEM: Patient is awake, oriented times zero to one. EXTREMITIES: No cyanosis, no clubbing, no edema. MEDICATIONS: Her current medications include as follows, aspirin 81 mg daily, IV fluids D5W at 100 mL per hour, DuoNeb inhaler 3 mL q.i.d. and Levemir 10 units subcu q.12 hours, Maalox 30 mL by PEG q.4 hours, meropenem 500 mg IV q.8 hours, milk of magnesia 30 mg by PEG daily, famotidine (Pepcid) 40 mg by PEG daily, pneumococcal vaccine x1, Topamax 100 mg by PEG b.i.d., Trileptal 150 mg daily and Trileptal 450 mg by PEG at bedtime, Tylenol and Vaseline ointment. LABORATORY DATA: Include as follows: As of 10/19/2017, urine osmolality 835, urine sodium is 33, urine potassium is 62.9. As of 10/20/2017, serum sodium is 152, potassium is 3.9, chloride 122, CO2 28, BUN 39, creatinine 0.7, glucose is 350, calcium 7.7. Urine cultures are positive for Proteus mirabilis and blood culture x2 negative day 1 and repeat urine culture as of 10/19 is negative. Urine cultures sensitive to all antibiotics except nitrofurantoin and sensitive to meropenem. ASSESSMENT: In summary, Mrs. Jackson is a 67-year-old elderly female with a history of longstanding hypertension, diabetes, cerebrovascular accident, seizures, anxiety, resident of long-term status post percutaneous endoscopic gastrostomy tube, was admitted with fever and high serum sodium and increased blood urea nitrogen and creatinine, and urinary tract infection. 1. Acute renal failure secondary to intravascular volume depletion. 2. Severe hypernatremia. Serum sodium is improving nicely with intravenous fluid hydration. Continue D5W at 100 mL per hour and repeat basic metabolic panel in a.m. 3. Urinary tract infection secondary to Proteus. Continue meropenem as per ID recommendations. 4. Hypertension. 5. Diabetes. Continue also nasogastric tube, continue also percutaneous endoscopic gastrostomy feeding and free water by percutaneous endoscopic gastrostomy, 250 mL q.6 hours. We will follow with you. Thank you for allowing me to participate in your patient's care. Lakeshia Juarez MD
[2017-10-21] MEDS: Albuterol-Ipratrop 3 mg / 0.5 (3 ml) UD INH SCH ×4 (08:00→19:42)
[2017-10-21] MEDS: Insulin Detemir 100 units/ml Vial (Levemir) SC SCH ×2 (08:53→21:15)
[2017-10-21] MEDS: (Novolin R) Insulin Human Regular 100 units/ml vial SC SCH ×4 (08:54→21:14)
--- NOTE | 2017-10-21 09:04 | CARD ---
APPROVED REPORT EKG Measurement Heart [id number] <Conclusion> Normal sinus rhythm ST & T wave abnormality, consider inferolateral ischemia Abnormal ECG
[2017-10-21] MEDS ORDERED: Pneumococcal 23-Valent Vaccine IM ONE (10:00)
[2017-10-21 10:40] LABS: BASO % 0.2 % (0.0-2.0); EOS # 0.4 K/uL (0.0-0.7); EOS % 5.3 % (0.0-4.0); HEMOGLOBIN 11.3 g/dL (11.0-16.0); LYMPH % 26.2 % (20.0-40.0); MEAN CELL VOLUME 94.3 fL (81.0-99.0); MEAN CORPUSCULAR HEMOGLOBIN 30.7 pg (27.0-31.0); MEAN CORPUSCULAR HGB CONC 32.5 g/dL (33.0-37.0); MEAN PLATELET VOLUME 10.6 fL (7.2-11.7); MONO # 0.4 K/uL (0.0-0.8); MONO % 5.1 % (0.0-10.0); NEUT # 4.9 K/uL (1.8-7.0); NEUT % 63.2 % (50.0-75.0); NRBC % 0.1 % (0.0-2.0); RBC 3.67 Mil/uL (3.80-5.20); RED CELL DISTRIBUTION WIDTH 15.7 % (11.5-14.5); WHITE BLOOD COUNT 7.7 K/uL (4.8-10.8)
--- NOTE | 2017-10-21 10:53 | PCM.RRT ---
<Penny Leal - Last Filed: 10/21/17 10:40> TUGBOAT DISPATCHER Nurses Assessment - Situation Date: 10/21/17 Time TUGBOAT DISPATCHER was called: 10:01 TUGBOAT DISPATCHER Location:: 6T Med/Surg - Constitutional Appears: Non-toxic, No Acute Distress, Chronically Ill - Eyes Eye Exam: EOMI - Respiratory Exam Respiratory Exam: Clear to Ausculation Bilateral, NORMAL BREATHING PATTERN - Cardiovascular Exam Cardiovascular Exam: REGULAR RHYTHM - GI/Abdominal Exam GI & Abdominal Exam: Soft. absent: Distended, Firm, Guarding, Tenderness Additional comments: Peg in place - Neurological Exam Neurological Exam: Awake. absent: Alert Plan - Assessment of Findings&Treatment Plan Rapid response was called at 10:01 AM to patients bedside Per the CP the patient was "jerking in all extremities". Patients movements only lasted for about one minute and no medications were given to stop the seizure. Patiently likely with generalized tonic clonic seizure. Unable to tell if patient is post ictal due to baseline altered mental status. Patient is a 67 year old female admitted for hypernatremia with pseudomonal urine infection (on meropenam). Patient has a hx of CVA (last CT in Aug 2017), status post craniotomy on the left, IDDM, and PEG placement in April 2017. Per EMR patient is non verbal and lives in a fdc. Patient has a history of seizures. Patient is currently on Trileptal and Topamax mainly for seizure control, last event unknown. No lab work was drawn today so CBC/CMP/mg/phos was ordered. NA was 152 yesterday. Neurology is not on the case. Will reach out to Dr. Calloway (primary) and suggest adding Neurology to the case for medication adjustments. Vitals: BP 160/72, HR 77, 100% saturation, afebrile. Blood glucose was in the 270s. Will continue to monitor. Will also notify the LESSON INSTRUCTOR working Dr. Calloway. <Abby Gayle V - Last Filed: 10/21/17 17:57> TUGBOAT DISPATCHER Nurses Assessment - Vital Signs Vital Signs: Rapid Response Vital Sign Blood Pressure 136/60 Pulse Rate 66 Respiratory Rate 20 Temperature 98 F Oxygen Saturation 99 - Vital Signs at end of TUGBOAT DISPATCHER Vital Signs at end of TUGBOAT DISPATCHER: Rapid Response End Vital Sign Blood Pressure 142/56 Pulse Rate 68 Respiratory Rate 20 Temperature 98.2 F O2 Sat by Pulse Oximetry 98 Attending/Attestation - Attestation I have personally seen and examined this patient.: Yes I have fully participated in the care of the patient.: Yes I have reviewed all pertinent clinical information, including history, physical exam and plan: Yes Notes (Text): Brief hospitalist note Rapid response called for witnessed seizure Per discussion with nursing staff patient was witness by clinical partner for a generalized tonic-clonic seizure. Patient with a history of CVA with with aphasic and is currently feeding via PEG. Patient is admitted for hypernatremia near as well as urinary tract infection. Patient with a known history of seizure disorder with a prior CAT scan was completed as of August 2017. Patient is currently on Trileptal and Topamax. We will collect blood work given the hypernatremia. Per review of EMR and there is no neurologist that the patient sees. We'll follow-up with patient's primary care doctor Dr. Calloway for preference for neurology. Patient has swollen extremities; advised nursing staff to insert IV line. Patient is on meropenem for urinary tract infection which can also lower seizure threshold will need to look at labs to see if any other etiologies.
[2017-10-21 11:08] LABS: ALB/GLOB RATIO 0.9 (1.0-2.1); ALBUMIN 3.1 g/dL (3.5-5.0); ALT/SGPT 37 U/L (9-52); AST/SGOT 15 U/L (14-36); BLOOD UREA NITROGEN 30 mg/dL (7-17); CALCIUM 8.2 mg/dl (8.6-10.4); GFR AFRICAN-AMERICAN > 60; GFR NON-AFRICAN AMERICAN > 60; MAGNESIUM 2.2 mg/dL (1.6-2.3)
--- NOTE | 2017-10-21 13:57 | CP.PCM.PN ---
Subjective - Date & Time of Evaluation Date of Evaluation: 10/21/17 Time of Evaluation: 13:56 - Subjective Subjective: catheter pulled up against abdominal wall Objective - Vital Signs/Intake and Output Vital Signs (last 24 hours): Temp Pulse Resp BP Pulse Ox 98 F 66 20 160/78 H 99 10/21/17 10:02 10/21/17 10:02 10/21/17 10:08 10/21/17 10:08 10/21/17 10:08 Intake and Output: 10/21/17 10/21/17 06:59 18:59 Intake Total 1860 Balance 1860 - Medications Medications: Current Medications Acetaminophen (Tylenol 650mg/20.3ml Solution Ud) 650 mg PEG Q6H PRN PRN Reason: Fever >100.4 F Al Hydrox/Mg Hydrox/Simethicone (Maalox Plus 30 Ml) 30 ml PEG Q4H PRN PRN Reason: Indigestion Albuterol/Ipratropium (Duoneb 3 Mg/0.5 Mg (3 Ml) Ud) 3 ml INH RQID [facility] Last Admin: 10/21/17 13:37 Dose: Not Given Aspirin (Aspirin Chewable) 81 mg PEG DAILY [facility] Last Admin: 10/21/17 10:34 Dose: 81 mg Emollient Ointment (Vaseline Oint) 5 gm TOP BID PRN PRN Reason: Dry skin Famotidine (Pepcid) 40 mg PEG DAILY [facility] Last Admin: 10/21/17 10:33 Dose: 40 mg Dextrose (Dextrose 5% In Water 1000 Ml) 1,000 mls @ 100 mls/hr IV .Q10H [facility] Last Admin: 10/21/17 08:54 Dose: 100 mls/hr Gentamicin Sulfate 80 mg/ (Sodium Chloride) 102 mls @ 100 mls/hr IVPB Q24H [facility] Stop: 10/23/17 11:01 Last Admin: 10/21/17 12:48 Dose: 100 mls/hr Insulin Detemir (Levemir) 10 unit SC Q12H [facility] Last Admin: 10/21/17 08:53 Dose: 10 unit Insulin Human Regular (Novolin R) 0 unit SC ACHS [facility] PRN Reason: Protocol Last Admin: 10/21/17 13:00 Dose: 4 unit Magnesium Hydroxide (Milk Of Magnesia) 30 ml PEG DAILY PRN PRN Reason: Constipation Oxcarbazepine (Trileptal) 150 mg PO DAILY [facility] Last Admin: 10/21/17 10:33 Dose: 150 mg Oxcarbazepine (Trileptal) 450 mg PEG HS [facility] Last Admin: 10/20/17 22:35 Dose: 450 mg Topiramate (Topamax) 100 mg PEG BID [facility] Last Admin: 10/21/17 10:34 Dose: 100 mg - Labs Labs: 10/21/17 10:31 10/21/17 10:31 PT 12.6 SECONDS (9.7-12.2) H 10/18/17 17:35 INR 1.1 10/18/17 17:35 APTT 32 SECONDS (21-34) 10/18/17 17:35
--- NOTE | 2017-10-21 15:11 | CT ---
PROCEDURE: CT HEAD WITHOUT CONTRAST. HISTORY: seizure COMPARISON: 08/30/2017 TECHNIQUE: Axial computed tomography images were obtained through the head/brain without intravenous contrast. Radiation dose: Total exam DLP = 1075.58 mGy-cm. This CT exam was performed using one or more of the following dose reduction techniques: Automated exposure control, adjustment of the mA and/or kV according to patient size, and/or use of iterative reconstruction technique. FINDINGS: HEMORRHAGE: No intracranial hemorrhage. BRAIN: There is no intracranial mass. There is extensive left frontotemporal cystic encephalomalacia status post left frontal craniotomy. This is unchanged in appearance compared to the prior CT examination. Mild diffuse cerebral atrophy is noted. There is no evidence of acute infarct. VENTRICLES: Mild ex vacuo dilatation of the lateral ventricles. No evidence of hydrocephalus. No midline shift. CALVARIUM: Left frontotemporal craniotomy PARANASAL SINUSES: Small left frontoethmoidal recess retention cyst/polyp. MASTOID AIR CELLS: No evidence of mastoiditis. Incidentally noted soft tissue density in the external auditory canal on the left side likely reflecting cerumen. OTHER FINDINGS: None. IMPRESSION: No evidence of intracranial mass, hemorrhage or acute infarct. Extensive left frontotemporal encephalomalacia status post craniotomy. No change from 08/30/2017.
--- NOTE | 2017-10-21 16:21 | CP.PCM.CON ---
History of Present Illness - History of Present Illness History of Present Illness: Mrs. Jackson is a 67-year-old longterm patient, who is currently admitted for hypernatremia, fever, sepsis. She has a history of previous CVA with right side hemiplegia, aphasia, contractures and subsequent seizure disorder. An CAFE ATTENDANT was called earlier today after the patient was witnessed having a generalized tonic-clonic seizure. She is now back to baseline and was found in NAD when I saw her. She takes Topamax and Trileptal for seizure prophylaxis. She is on meropenem for treatment of sepsis. Neurology was consulted to assist with seizure management. Review of Systems - Review of Systems Systems not reviewed;Unavailable: Altered Mental Status All systems: reviewed and no additional remarkable complaints except Past Patient History - Past Medical History & Family History Past Medical History?: Yes - Past Social History Smoking Status: Never Smoked - CARDIAC Hx Cardiac Disorders: Yes Hx Hypertension: Yes - PULMONARY Hx Respiratory Disorders: Yes Hx Chronic Obstructive Pulmonary Disease (COPD): Yes Hx Pneumonia: Yes - NEUROLOGICAL Hx Neurological Disorder: Yes Hx Seizures: Yes Other/Comment: Cerebral Infarction,Aphasia - HEENT Hx HEENT Problems: Yes Hx Cataracts: Yes Other/Comment: APHASIA - RENAL Hx Chronic Kidney Disease: Yes - ENDOCRINE/METABOLIC Hx Endocrine Disorders: Yes Hx Diabetes Mellitus Type 2: Yes - HEMATOLOGICAL/ONCOLOGICAL Hx Blood Disorders: Yes Hx Anemia: Yes - INTEGUMENTARY Hx Dermatological Problems: No - MUSCULOSKELETAL/RHEUMATOLOGICAL Hx Falls: No - GASTROINTESTINAL Hx Gastrointestinal Disorders: Yes Hx Gastroesophageal Reflux: Yes Other/Comment: PEG Tube - GENITOURINARY/GYNECOLOGICAL Hx Genitourinary Disorders: Yes Hx Incontinence: Yes - PSYCHIATRIC Hx Substance Use: No - SURGICAL HISTORY Hx Surgeries: Yes Other/Comment: GASTROSTOMY - ANESTHESIA Hx Anesthesia: Yes Hx Anesthesia Reactions: No Hx Malignant Hyperthermia: No Has any member of the family had a problem w/ anesthesia?: No Meds Allergies/Adverse Reactions: Allergies Allergy/AdvReac Type Severity Reaction Status Date / Time aztreonam [From Azactam] Allergy Verified 10/18/17 17:32 cefepime Allergy Verified 10/18/17 17:32 moxifloxacin Allergy Verified 10/18/17 17:32 Penicillins Allergy Verified 10/18/17 17:32 tamsulosin HCl [From Flomax] Allergy Verified 10/18/17 17:32 tigecycline [From Tygacil] Allergy Verified 10/18/17 17:32 vancomycin Allergy Verified 10/18/17 17:32 pnemonia vaccine Allergy Uncoded 10/18/17 17:32 - Medications Medications: Current Medications Acetaminophen (Tylenol 650mg/20.3ml Solution Ud) 650 mg PEG Q6H PRN PRN Reason: Fever >100.4 F Al Hydrox/Mg Hydrox/Simethicone (Maalox Plus 30 Ml) 30 ml PEG Q4H PRN PRN Reason: Indigestion Albuterol/Ipratropium (Duoneb 3 Mg/0.5 Mg (3 Ml) Ud) 3 ml INH RQID [facility] Last Admin: 10/21/17 13:37 Dose: Not Given Aspirin (Aspirin Chewable) 81 mg PEG DAILY [facility] Last Admin: 10/21/17 10:34 Dose: 81 mg Emollient Ointment (Vaseline Oint) 5 gm TOP BID PRN PRN Reason: Dry skin Famotidine (Pepcid) 40 mg PEG DAILY [facility] Last Admin: 10/21/17 10:33 Dose: 40 mg Dextrose (Dextrose 5% In Water 1000 Ml) 1,000 mls @ 100 mls/hr IV .Q10H [facility] Last Admin: 10/21/17 08:54 Dose: 100 mls/hr Gentamicin Sulfate 80 mg/ (Sodium Chloride) 102 mls @ 100 mls/hr IVPB Q24H [facility] Stop: 10/23/17 11:01 Last Admin: 10/21/17 12:48 Dose: 100 mls/hr Insulin Detemir (Levemir) 10 unit SC Q12H [facility] Last Admin: 10/21/17 08:53 Dose: 10 unit Insulin Human Regular (Novolin R) 0 unit SC ACHS [facility] PRN Reason: Protocol Last Admin: 10/21/17 13:00 Dose: 4 unit Magnesium Hydroxide (Milk Of Magnesia) 30 ml PEG DAILY PRN PRN Reason: Constipation Oxcarbazepine (Trileptal) 150 mg PO DAILY [facility] Last Admin: 10/21/17 10:33 Dose: 150 mg Oxcarbazepine (Trileptal) 450 mg PEG HS [facility] Last Admin: 10/20/17 22:35 Dose: 450 mg Topiramate (Topamax) 100 mg PEG BID [facility] Last Admin: 10/21/17 10:34 Dose: 100 mg Physical Exam - Constitutional Appears: Confused - Head Exam Head Exam: ATRAUMATIC, NORMAL INSPECTION, NORMOCEPHALIC - Eye Exam Eye Exam: EOMI, Normal appearance, PERRL Pupil Exam: NORMAL ACCOMODATION, PERRL - ENT Exam ENT Exam: Mucous Membranes Moist, Normal Exam - Neck Exam Neck exam: Positive for: Full Rom - Respiratory Exam Respiratory Exam: Clear to Auscultation Bilateral, NORMAL BREATHING PATTERN - Cardiovascular Exam Cardiovascular Exam: REGULAR RHYTHM - GI/Abdominal Exam GI & Abdominal Exam: Normal Bowel Sounds, Soft. absent: Tenderness - Rectal Exam Rectal Exam: Deferred - Neurological Exam Additional comments: Aphasic, right-side hemiplegic with contracture of upper limb. Moves lower extremities, but not antigravity, sensation is intact to LT, gait cannot be assessed, brisk reflexes with upgoing plantar response on the right side. Results - Vital Signs Recent Vital Signs: Last Vital Signs Temp 97.9 F 10/21/17 15:31 Pulse 69 10/21/17 15:31 Resp 20 10/21/17 15:31 BP 109/62 10/21/17 15:31 Pulse Ox 99 10/21/17 15:31 - Labs Result Diagrams: 10/21/17 10:31 10/21/17 10:31 Labs: Laboratory Results - last 24 hr 10/20/17 10/20/17 10/20/17 17:19 17:50 21:51 WBC RBC Hgb Hct MCV MCH MCHC RDW Plt Count MPV Neut % (Auto) Lymph % (Auto) [place] % (Auto) Eos % (Auto) Baso % (Auto) Neut # Lymph # [place] # Eos # Baso # Sodium 152 H Potassium 3.9 Chloride 122 H Carbon Dioxide 28 Anion Gap 6 L BUN 39 H Creatinine 0.7 Est GFR ( Amer) > 60 Est GFR (Non-Af Amer) > 60 POC Glucose (mg/dL) 350 H 306 H Random Glucose 350 H Calcium 7.7 L Phosphorus Magnesium Total Bilirubin AST ALT Alkaline Phosphatase Total Protein Albumin Globulin Albumin/Globulin Ratio 10/21/17 10/21/17 10/21/17 02:08 06:36 10:11 WBC RBC Hgb Hct MCV MCH MCHC RDW Plt Count MPV Neut % (Auto) Lymph % (Auto) [place] % (Auto) Eos % (Auto) Baso % (Auto) Neut # Lymph # [place] # Eos # Baso # Sodium Potassium Chloride Carbon Dioxide Anion Gap BUN Creatinine Est GFR ( Amer) Est GFR (Non-Af Amer) POC Glucose (mg/dL) 318 H 314 H 296 H Random Glucose Calcium Phosphorus Magnesium Total Bilirubin AST ALT Alkaline Phosphatase Total Protein Albumin Globulin Albumin/Globulin Ratio 10/21/17 10/21/17 10/21/17 10:31 10:31 12:47 WBC 7.7 RBC 3.67 L Hgb 11.3 Hct 34.7 MCV 94.3 MCH 30.7 MCHC 32.5 L RDW 15.7 H Plt Count 73 L MPV 10.6 Neut % (Auto) 63.2 Lymph % (Auto) 26.2 [place] % (Auto) 5.1 Eos % (Auto) 5.3 H Baso % (Auto) 0.2 Neut # 4.9 Lymph # 2.0 [place] # 0.4 Eos # 0.4 Baso # 0.0 Sodium 150 H Potassium 4.5 Chloride 121 H Carbon Dioxide 25 Anion Gap 8 L BUN 30 H Creatinine 0.6 L Est GFR ( Amer) > 60 Est GFR (Non-Af Amer) > 60 POC Glucose (mg/dL) 256 H Random Glucose 335 H Calcium 8.2 L Phosphorus 2.8 Magnesium 2.2 Total Bilirubin 0.4 AST 15 ALT 37 Alkaline Phosphatase 74 Total Protein 6.4 Albumin 3.1 L Globulin 3.3 Albumin/Globulin Ratio 0.9 L Assessment & Plan (1) Hypernatremia Status: Acute Priority: Medium (2) Sepsis Status: Acute Priority: High (3) UTI (urinary tract infection) Status: Acute Priority: Medium (4) Drug rash Status: Acute Priority: Medium (5) Seizure Assessment and Plan: Will check carbamazepine levels and continue current doses of Trileptal and Topamax. The seizure is possibly also related to meropenem use, which could lower the seizure threshold in patients with epilepsy. I would recommend using another antibiotic if cultures demonstrate susceptibility to an alternative agent. Status: Acute Priority: High
--- NOTE | 2017-10-21 19:15 | CP.PCM.PN ---
Subjective - Date & Time of Evaluation Date of Evaluation: 10/21/17 Time of Evaluation: 19:14 - Subjective Subjective: pt is seen and examined, follow up consult is dictated #[id number] Objective - Vital Signs/Intake and Output Vital Signs (last 24 hours): Temp Pulse Resp BP Pulse Ox 97.9 F 81 20 109/62 99 10/21/17 15:31 10/21/17 16:00 10/21/17 15:31 10/21/17 15:31 10/21/17 15:31 Intake and Output: 10/21/17 10/22/17 18:59 06:59 Intake Total 1150 Output Total 400 Balance 750 - Medications Medications: Current Medications Acetaminophen (Tylenol 650mg/20.3ml Solution Ud) 650 mg PEG Q6H PRN PRN Reason: Fever >100.4 F Al Hydrox/Mg Hydrox/Simethicone (Maalox Plus 30 Ml) 30 ml PEG Q4H PRN PRN Reason: Indigestion Albuterol/Ipratropium (Duoneb 3 Mg/0.5 Mg (3 Ml) Ud) 3 ml INH RQID [facility] Last Admin: 10/21/17 16:26 Dose: 3 ml Aspirin (Aspirin Chewable) 81 mg PEG DAILY [facility] Last Admin: 10/21/17 10:34 Dose: 81 mg Emollient Ointment (Vaseline Oint) 5 gm TOP BID PRN PRN Reason: Dry skin Famotidine (Pepcid) 40 mg PEG DAILY [facility] Last Admin: 10/21/17 10:33 Dose: 40 mg Dextrose (Dextrose 5% In Water 1000 Ml) 1,000 mls @ 100 mls/hr IV .Q10H [facility] Last Admin: 10/21/17 08:54 Dose: 100 mls/hr Gentamicin Sulfate 80 mg/ (Sodium Chloride) 102 mls @ 100 mls/hr IVPB Q24H [facility] Stop: 10/23/17 11:01 Last Admin: 10/21/17 12:48 Dose: 100 mls/hr Insulin Detemir (Levemir) 10 unit SC Q12H [facility] Last Admin: 10/21/17 08:53 Dose: 10 unit Insulin Human Regular (Novolin R) 0 unit SC ACHS [facility] PRN Reason: Protocol Last Admin: 10/21/17 17:20 Dose: 3 unit Magnesium Hydroxide (Milk Of Magnesia) 30 ml PEG DAILY PRN PRN Reason: Constipation Oxcarbazepine (Trileptal) 150 mg PO DAILY [facility] Last Admin: 10/21/17 10:33 Dose: 150 mg Oxcarbazepine (Trileptal) 450 mg PEG HS [facility] Last Admin: 10/20/17 22:35 Dose: 450 mg Topiramate (Topamax) 100 mg PEG BID [facility] Last Admin: 10/21/17 17:20 Dose: 100 mg - Labs Labs: 10/21/17 10:31 10/21/17 10:31 PT 12.6 SECONDS (9.7-12.2) H 10/18/17 17:35 INR 1.1 10/18/17 17:35 APTT 32 SECONDS (21-34) 10/18/17 17:35
--- NOTE | 2017-10-21 23:19 | CP.PCM.PN ---
Subjective - Date & Time of Evaluation Date of Evaluation: 10/21/17 Time of Evaluation: 23:19 - Subjective Subjective: EVENTS NOTED. S/P RR S/P TONIC-CLONIC SEIZURES. SEEN BY NEUROLOGY TEAM. PRESENTLY PATIENT AWAKE, APHASIC. CLINICALLY SAME. CASE DISCUSSED WITH STAFF/WINDOWS DESKTOP SUPPORT MS FRANK. DC IV MEROPENEM, THOUGH LAST TIME PATIENT TOLERATED IT WELL. PATIENT HAS MULTIPLE ALLERGIES -TO PENICILLIN, aZACTAM, CEFEPIME, MOXIFLOXACIN, TYGACIL,VANCOMYCIN - (SEE FULL RECORD ) aS DISCUSSED RESTART PATIENT ON GENTAMICIN WHICH PATIENT TOLERATED ON ADMISSION .CONTINUE iv GENTAMICIN 80 MG iv PIGGYBACK DAILY X FOR 2 MORE DAYS . REPEAT URINE CULTURES ARE NEGATIVE. I DON'T THINK PATIENT NEEDS A PICC LINE, WHICH WOULD BE ANOTHER SOURCE OF SEPSIS. UNLESS NECESSARY FOR SEIZURE CONTROL. CASE DISCUSSED WITH WINDOWS DESKTOP SUPPORT MS FRANK Objective - Vital Signs/Intake and Output Vital Signs (last 24 hours): Temp Pulse Resp BP Pulse Ox 97.9 F 81 20 109/62 99 10/21/17 15:31 10/21/17 16:00 10/21/17 15:31 10/21/17 15:31 10/21/17 15:31 Intake and Output: 10/21/17 10/22/17 18:59 06:59 Intake Total 1150 1360 Output Total 400 300 Balance 750 1060 - Medications Medications: Current Medications Acetaminophen (Tylenol 650mg/20.3ml Solution Ud) 650 mg PEG Q6H PRN PRN Reason: Fever >100.4 F Al Hydrox/Mg Hydrox/Simethicone (Maalox Plus 30 Ml) 30 ml PEG Q4H PRN PRN Reason: Indigestion Albuterol/Ipratropium (Duoneb 3 Mg/0.5 Mg (3 Ml) Ud) 3 ml INH RQID [facility] Last Admin: 10/21/17 19:42 Dose: 3 ml Aspirin (Aspirin Chewable) 81 mg PEG DAILY [facility] Last Admin: 10/21/17 10:34 Dose: 81 mg Emollient Ointment (Vaseline Oint) 5 gm TOP BID PRN PRN Reason: Dry skin Famotidine (Pepcid) 40 mg PEG DAILY [facility] Last Admin: 10/21/17 10:33 Dose: 40 mg Dextrose (Dextrose 5% In Water 1000 Ml) 1,000 mls @ 100 mls/hr IV .Q10H [facility] Last Admin: 10/21/17 17:00 Dose: Not Given Gentamicin Sulfate 80 mg/ (Sodium Chloride) 102 mls @ 100 mls/hr IVPB Q24H [facility] Stop: 10/23/17 11:01 Last Admin: 10/21/17 12:48 Dose: 100 mls/hr Insulin Detemir (Levemir) 10 unit SC Q12H [facility] Last Admin: 10/21/17 21:15 Dose: 10 unit Insulin Human Regular (Novolin R) 0 unit SC ACHS [facility] PRN Reason: Protocol Last Admin: 10/21/17 21:14 Dose: 3 unit Magnesium Hydroxide (Milk Of Magnesia) 30 ml PEG DAILY PRN PRN Reason: Constipation Oxcarbazepine (Trileptal) 150 mg PO DAILY [facility] Last Admin: 10/21/17 10:33 Dose: 150 mg Oxcarbazepine (Trileptal) 450 mg PEG HS [facility] Last Admin: 10/21/17 21:14 Dose: 450 mg Topiramate (Topamax) 100 mg PEG BID [facility] Last Admin: 10/21/17 17:20 Dose: 100 mg - Labs Labs: 10/21/17 10:31 10/21/17 10:31 PT 12.6 SECONDS (9.7-12.2) H 10/18/17 17:35 INR 1.1 10/18/17 17:35 APTT 32 SECONDS (21-34) 10/18/17 17:35 - Constitutional Appears: No Acute Distress - Head Exam Head Exam: NORMAL INSPECTION - Eye Exam Eye Exam: EOMI, PERRL - ENT Exam ENT Exam: Mucous Membranes Dry - Neck Exam Neck Exam: Normal Inspection - Respiratory Exam Respiratory Exam: Clear to Ausculation Bilateral - Cardiovascular Exam Cardiovascular Exam: REGULAR RHYTHM, +S1, +S2 - GI/Abdominal Exam GI & Abdominal Exam: Soft - Extremities Exam Extremities Exam: Pedal Edema. absent: Calf Tenderness - Neurological Exam Neurological Exam: Awake (APHASIC, RIGHT-SIDED CONTRACTURE UPPER EXTREMITY AND WEAKNESS SECONDARY TO OLD CVA.) - Skin Skin Exam: Normal Color, Warm Assessment and Plan (1) Sepsis Assessment & Plan: BLOOD CULTURES NEGATIVE GROWTH DC IV MEROPENEM IN VIEW OF SEIZURES. Status: Acute (2) UTI (urinary tract infection) Assessment & Plan: REPEAT URINE CULTURES NEGATIVE GROWTH. Status: Acute (3) Dehydration Status: Acute (4) Hypernatremia Status: Acute (5) Gastrostomy tube in place Assessment & Plan: peg SITE IS OKAY. Status: Acute - Assessment and Plan (Free Text) Plan: DR LOCKE ID TO COVER ME FROM 10/22/17 TO 10/28/17. PLEASE NOTIFY HIM OF ANY CHANGE IN STATUS OF THE PATIENT/OR FOR FURTHER RECOMMENDATIONS.
[2017-10-22] MEDS: (Novolin R) Insulin Human Regular 100 units/ml vial SC SCH ×3 (02:04→12:27)
--- NOTE | 2017-10-22 02:06 | PN ---
DATE: 10/21/2017 SUBJECTIVE: Patient is seen today, 10/21/2017. She is not in any cardiopulmonary distress. The patient had a seizure episode today. PHYSICAL EXAMINATION: VITAL SIGNS: Blood pressure is 109/62, temperature 97.9, respiratory rate 20 and pulse 69. HEENT: Pupils equal, reactive to light. Normal-appearing mucosa of the conjunctivae, oropharyngeal and nasal membrane mucosa. NECK: Supple. No JVD. No carotid bruit. No lymph node. No thyromegaly. CHEST AND LUNGS: Bilateral symmetrical expansion. Good air exchange. No rales. No rhonchi. CARDIOVASCULAR SYSTEM: PMI not localized. S1, S2. No additional sounds. ABDOMEN: Gastric tube in place. EXTREMITIES: No cyanosis, no clubbing, no edema. CENTRAL NERVOUS SYSTEM: Patient is awake, but she is more lethargic, postictal and she has right-sided old hemiparesis. ASSESSMENT: 1. Seizure. 2. Sepsis. 3. Urinary tract infection. 4. Status post cerebrovascular accident. 5. Type 2 diabetes mellitus, which is not controlled. PLAN: Neurology consult. We will place a PICC line as patient does not have a line now and we will also consult Surgery for replacing the gastric tube and Urology. Follow up ID recommendations. Jocelyn Calloway MD
[2017-10-22 07:42] LABS: BLOOD UREA NITROGEN 28 mg/dL (7-17); CALCIUM 7.6 mg/dl (8.6-10.4); GFR AFRICAN-AMERICAN > 60; GFR NON-AFRICAN AMERICAN > 60
[2017-10-22] MEDS: Albuterol-Ipratrop 3 mg / 0.5 (3 ml) UD INH SCH ×3 (08:06→16:30)
[2017-10-22] MEDS: Insulin Detemir 100 units/ml Vial (Levemir) SC SCH (08:57)
--- NOTE | 2017-10-22 09:42 | PN ---
DATE: FOLLOWUP RENAL CONSULTATION LOCATION: The patient is located in room 661, bed A. REQUESTED BY: Jocelyn Calloway MD REASON FOR FOLLOWUP: Hypernatremia, acute renal failure. SUBJECTIVE: Mrs. Jackson is a 67-year-old obese female, resident of care home with a past medical history of hypertension, diabetes, CVA, COPD, anxiety, anemia, osteoporosis, seizures, who was admitted from the care home with severe hypernatremia, acute renal failure, fever of 103.9, and sepsis. Patient was subsequently found to have a high serum sodium and in acute renal failure. Patient is on IV hydration D5W at 100 mL per hour. Serum sodium is slowly improving. Patient is not in any distress, smiles for the verbal stimuli, unable to respond verbally, not in distress. PHYSICAL EXAMINATION: GENERAL: Mrs. Yahaira Jackson is a 67-year-old elderly female, well built, well nourished, not in any distress. VITAL SIGNS: As follows, blood pressure 109/62, pulse 69, respirations 20, temperature 97.9, saturation 99%. Height 5 feet 4 inches and weight is 170 pounds. HEENT: Pupils are normal, reactive to light and accommodation. Conjunctivae pink. Sclerae anicteric. Tongue is moist. Trachea is midline. LUNGS: Symmetric on both sides. Bilateral breath sounds present. Clear on auscultation. CARDIOVASCULAR SYSTEM: [place] at the fifth intercostal space, midclavicular line. S1 and S2 audible. No murmur or gallop. ABDOMEN: Normal in appearance, is status post PEG tube placement. No hepatosplenomegaly. No abdominal bruits. CENTRAL NERVOUS SYSTEM: Patient is awake, smiles sometimes. EXTREMITIES: No cyanosis,no clubbing, no edema. MEDICATIONS: Her current medications include as follows, aspirin 81 mg by PEG and IV fluids D5W at 100 mL per hour and DuoNeb inhaler 3 mL q.i.d. and Levemir 10 units subcutaneous q. 12 hours, Maalox, and also R for sliding scale and Pepcid 40 mg by PEG daily, Topamax 100 by PEG b.i.d. and Trileptal 150 mg daily and again Trileptal 450 mg by PEG at bedtime, Tylenol and emollient ointment topical. LABORATORY DATA: Include as follows. As of 10/21/2017, WBC is 7.7, hemoglobin 11.3, hematocrit is 34.7, and platelets 73. Sodium 150, potassium 4.5, chloride 121, CO2 of 25, BUN 30, creatinine 0.6, glucose 335, calcium 8.2, phosphorus 2.8, magnesium 2.2, total bilirubin 0.4, AST 15, ALT 37, alkaline phosphatase 74, total protein 6.4, albumin is 3.1, and carbamazepine level is less than 3.0. Other laboratory data, urine culture as of 10/18/2017, positive for Proteus mirabilis. A repeat culture as of 10/19 is negative. Blood culture x2 negative, day 2 from 10/18/2017 x2. In other reports, CT of the head as of 10/21/2017, no evidence of intracranial mass, hemorrhage, or acute infarct, extensive left frontotemporal encephalomalacia status post craniotomy, no change from 08/30/2017. ASSESSMENT AND PLAN: In summary Mrs. Jackson is a 67-year-old elderly female with a history of hypertension, diabetes, cerebrovascular accident, is status post craniotomy and extensive left frontotemporal encephalomalacia, seizures status post Rapid Response Team for seizures today. Repeated CAT scan, no change from 08/30/2017. 1. Acute renal failure, renal function is slowly improving with hydration. 2. Hypernatremia, serum sodium is also improving nicely from 160, now sodium is 150. 3. Seizure disorder status post Rapid Response Team today for the seizures. Continue anti-seizure medication as per Neurology. Follow up with Neurology. 4. Urinary tract infection, Proteus mirabilis. Continue intravenous antibiotics and repeat complete blood count, complete metabolic panel in the morning. Continue free water by percutaneous endoscopic gastrostomy tube. We will follow with you. Thank you for allowing me to participate in your patient's care. Lakeshia Juarez MD
--- NOTE | 2017-10-22 10:31 | CP.PCM.PN ---
Subjective - Date & Time of Evaluation Date of Evaluation: 10/22/17 Time of Evaluation: 10:31 - Subjective Subjective: pt is seen and examined, follow up consult is dictated #[id number] d/c d5w, start ivf 1/2 ns at 50 ml/hr Objective - Vital Signs/Intake and Output Vital Signs (last 24 hours): Temp Pulse Resp BP Pulse Ox 98.1 F 68 20 130/64 97 10/22/17 07:00 10/22/17 07:00 10/22/17 07:00 10/22/17 07:00 10/22/17 07:00 Intake and Output: 10/22/17 10/22/17 06:59 18:59 Intake Total 3135 Output Total 1000 Balance 2135 - Medications Medications: Current Medications Acetaminophen (Tylenol 650mg/20.3ml Solution Ud) 650 mg PEG Q6H PRN PRN Reason: Fever >100.4 F Al Hydrox/Mg Hydrox/Simethicone (Maalox Plus 30 Ml) 30 ml PEG Q4H PRN PRN Reason: Indigestion Albuterol/Ipratropium (Duoneb 3 Mg/0.5 Mg (3 Ml) Ud) 3 ml INH RQID [facility] Last Admin: 10/22/17 08:06 Dose: 3 ml Aspirin (Aspirin Chewable) 81 mg PEG DAILY [facility] Last Admin: 10/22/17 09:35 Dose: 81 mg Emollient Ointment (Vaseline Oint) 5 gm TOP BID PRN PRN Reason: Dry skin Famotidine (Pepcid) 40 mg PEG DAILY [facility] Last Admin: 10/22/17 09:35 Dose: 40 mg Gentamicin Sulfate 80 mg/ (Sodium Chloride) 102 mls @ 100 mls/hr IVPB Q24H [facility] Stop: 10/23/17 11:01 Last Admin: 10/21/17 12:48 Dose: 100 mls/hr Insulin Detemir (Levemir) 10 unit SC Q12H [facility] Last Admin: 10/22/17 08:57 Dose: 10 unit Insulin Human Regular (Novolin R) 0 unit SC ACHS [facility] PRN Reason: Protocol Last Admin: 10/22/17 08:31 Dose: 6 unit Magnesium Hydroxide (Milk Of Magnesia) 30 ml PEG DAILY PRN PRN Reason: Constipation Oxcarbazepine (Trileptal) 150 mg PO DAILY [facility] Last Admin: 10/22/17 09:35 Dose: 150 mg Oxcarbazepine (Trileptal) 450 mg PEG HS [facility] Last Admin: 10/21/17 21:14 Dose: 450 mg Topiramate (Topamax) 100 mg PEG BID [facility] Last Admin: 10/22/17 09:35 Dose: 100 mg - Labs Labs: 10/21/17 10:31 10/22/17 07:12 PT 12.6 SECONDS (9.7-12.2) H 10/18/17 17:35 INR 1.1 10/18/17 17:35 APTT 32 SECONDS (21-34) 10/18/17 17:35
--- NOTE | 2017-10-22 14:22 | CP.PCM.PN ---
Subjective - Date & Time of Evaluation Date of Evaluation: 10/22/17 Time of Evaluation: 11:15 - Subjective Subjective: Patient seen today, awake, alert , not in any distress, comfortable no further seizure activity reported d/w Dr. atwood , 2 days of genta ( started yesterday ) and pat cleared fr discharge from ID stand point na improved - 148<150<160 Objective - Vital Signs/Intake and Output Vital Signs (last 24 hours): Temp Pulse Resp BP Pulse Ox 98.1 F 68 20 130/64 97 10/22/17 07:00 10/22/17 07:00 10/22/17 07:00 10/22/17 07:00 10/22/17 07:00 Intake and Output: 10/22/17 10/22/17 06:59 18:59 Intake Total 3135 Output Total 1000 Balance 2135 - Medications Medications: Current Medications Acetaminophen (Tylenol 650mg/20.3ml Solution Ud) 650 mg PEG Q6H PRN PRN Reason: Fever >100.4 F Al Hydrox/Mg Hydrox/Simethicone (Maalox Plus 30 Ml) 30 ml PEG Q4H PRN PRN Reason: Indigestion Albuterol/Ipratropium (Duoneb 3 Mg/0.5 Mg (3 Ml) Ud) 3 ml INH RQID [facility] Last Admin: 10/22/17 13:33 Dose: 3 ml Aspirin (Aspirin Chewable) 81 mg PEG DAILY [facility] Last Admin: 10/22/17 09:35 Dose: 81 mg Emollient Ointment (Vaseline Oint) 5 gm TOP BID PRN PRN Reason: Dry skin Famotidine (Pepcid) 40 mg PEG DAILY [facility] Last Admin: 10/22/17 09:35 Dose: 40 mg Gentamicin Sulfate 80 mg/ (Sodium Chloride) 102 mls @ 100 mls/hr IVPB Q24H [facility] Stop: 10/23/17 11:01 Last Admin: 10/22/17 11:47 Dose: 100 mls/hr Insulin Detemir (Levemir) 10 unit SC Q12H [facility] Last Admin: 10/22/17 08:57 Dose: 10 unit Insulin Human Regular (Novolin R) 0 unit SC ACHS [facility] PRN Reason: Protocol Last Admin: 10/22/17 12:27 Dose: 6 unit Magnesium Hydroxide (Milk Of Magnesia) 30 ml PEG DAILY PRN PRN Reason: Constipation Oxcarbazepine (Trileptal) 150 mg PO DAILY [facility] Last Admin: 10/22/17 09:35 Dose: 150 mg Oxcarbazepine (Trileptal) 450 mg PEG HS [facility] Last Admin: 10/21/17 21:14 Dose: 450 mg Topiramate (Topamax) 100 mg PEG BID [facility] Last Admin: 10/22/17 09:35 Dose: 100 mg - Labs Labs: 10/21/17 10:31 10/22/17 07:12 PT 12.6 SECONDS (9.7-12.2) H 10/18/17 17:35 INR 1.1 10/18/17 17:35 APTT 32 SECONDS (21-34) 10/18/17 17:35 - Constitutional Appears: No Acute Distress - Respiratory Exam Respiratory Exam: Decreased Breath Sounds, NORMAL BREATHING PATTERN - Cardiovascular Exam Cardiovascular Exam: REGULAR RHYTHM, +S1, +S2 - GI/Abdominal Exam GI & Abdominal Exam: Soft (peg tube in place ) Assessment and Plan - Assessment and Plan (Free Text) Assessment: A/P 67 yr old female with with pmhx of COPD, CVA, Diabetes, HTN, Osteoporosis, Pneumonia, Chronic Kidney Disease, Seizures admitted for fever and hypernatremia NA - improved with IVF and hydration blood cultur- negative urine culture - repeat - negative growth Dr. Johnston consulted for seizure and recommends to continue same medication D/W Dr. Atwood need 2 days of gentamycin a nd (started on 10/21) and cleared for discharge from ID stand point D/W Dr. Calloway , stable for discharge back to [facility] and Dr. Calloway will follow the patient at [facility] will repeat labs in 3 days and q weekly at rehab
[2017-10-22 16:29] VITALS: BP 136/74; PULSE 69; RESP 18; TEMP 98.2; O2SAT 100
--- NOTE | 2017-10-23 05:48 | DS ---
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 COURSE OF HOSPITALIZATION: Patient was admitted to medical floor and she was started on IV antibiotics. Patient's stay was complicated with seizure due to the lack of giving the patient her medications due to leaking in the gastric tube. Patient had a surgical consult done by Dr. Sheets and the gastric tube was repaired. Patient also had an ID consult done by Dr. Nyla Bradley. Patient was discharged back as she remained afebrile and her sodium came down from 160 to 138. FINAL DIAGNOSES: Sepsis, urinary tract infection, hypernatremia, dehydration, prerenal azotemia. seizure disorder, cerebrovascular accident. [facility] MD Brodie
--- NOTE | 2017-10-23 08:37 | PN ---
DATE: 10/22/2017 FOLLOWUP RENAL CONSULTATION LOCATION: The patient is located in room 661, bed A. REQUESTING PHYSICIAN: Jocelyn Calloway MD. REASON FOR FOLLOWUP: Hypernatremia and acute renal failure. SUBJECTIVE: Mrs. Jackson is a 67-year-old elderly obese female, resident of [facility] with a past medical history significant for hypertension, diabetes, CVA, status post craniotomy and encephalomalacia, seizures, chronic renal disease, anxiety, anemia, a resident of [facility], status post PEG tube with malfunctioning PEG feeding and leaking, was admitted with fever and increased BUN and creatinine and hypernatremia. The patient was started on IV fluids and also IV antibiotics for UTI Proteus mirabilis. The patient is not in any acute distress, tried to smile for verbal stimuli. PHYSICAL EXAMINATION: GENERAL: Mrs. Jackson is a 67-year-old elderly female, well built, well nourished, not in any distress. VITAL SIGNS: Her vital signs this morning as follows; blood pressure 130/64, pulse 68, respirations 20, temperature 98.1, saturation is 97%, height 5 feet 4 inches, weight is 170 pounds. HEENT: Pupils are normal and reactive to light and accommodation. Conjunctivae are pink. Sclerae are anicteric. Tongue is moist. Trachea is midline. LUNGS: Symmetric on both sides. Bilateral breath sounds are present. Clear on auscultation. CARDIOVASCULAR SYSTEM: [place] at the fifth intercostal space in midclavicular line. S1 and S2, audible. No murmur or gallop. ABDOMEN: Normal in appearance. Soft and tympanic. No guarding. No rigidity. No hepatosplenomegaly. The patient has PEG tube. CENTRAL NERVOUS SYSTEM: The patient is awake and oriented x0-1. EXTREMITIES: No cyanosis. No clubbing. No edema. CURRENT MEDICATIONS: Include Topamax 1 tablet by PEG b.i.d., DuoNeb inhaler, Tylenol, Levemir 10 units subcu q.12 hours, Maalox, Pepcid 40 mg by PEG daily, regular insulin per sliding scale, oxcarbazepine 150 mg p.o. daily and 450 mg by PEG at bedtime, and aspirin 81 mg daily. LABORATORY DATA: Her laboratory data this morning as follows, as of 10/12/2017, sodium 138, potassium 4.4, chloride 113, CO2 of 23, BUN 28, creatinine 0.5, glucose 325, calcium 7.6. Other reports, urine culture as of 10/18/2017, positive for Proteus mirabilis; as of 10/19/2017, repeat culture is negative. Blood culture x2 negative day #3 as of 10/18/2017. ASSESSMENT AND PLAN: In summary, Mrs. Jackson is a 67-year-old elderly female with history of hypertension, diabetes, cerebrovascular accident, chronic obstructive pulmonary disease, anxiety, anemia, resident of [facility], seizures, status post craniotomy and encephalomalacia, was admitted with fever of 103.9, increased BUN and creatinine, and increased serum sodium. 1. Acute renal failure, renal function improved and picture looks like mild prerenal azotemia. 2. Status post hypernatremia, serum sodium improved from 160 to 138 now. I agree to discontinue IV fluids. Consider gentle IV hydration with half normal saline. 3. Urinary tract infection. 4. Seizure disorder. Continue oxcarbazepine and Topamax as per the Neurology. The patient is stable from the renal standpoint. The case discussed with Dr. Jocelyn Calloway in rounds this morning. Thank you for allowing me to participate in your patient's care. Lakeshia Juarez MD
[2017-10-24 00:15] LABS: 10-HYDROXYCARBAZEPINE 12.6 mcg/mL (8.0-35.0)
== END 2017-10-22 17:12 | disposition home or self-care (01) | DRG 872 ==
LOC: C.ER 16:58 → C.9E 21:08 → C.6T 22:12
PROVIDERS: ADMIT Internal Medicine; ATTEND Internal Medicine
PROC: 05HA33Z Insertion of Infusion Device into Left Brachial Vein, Percutaneous Approach (ICD-10-PCS; principal; 2017-10-18)
PROC: 3E0G76Z Introduction of Nutritional Substance into Upper GI, Via Natural or Artificial Opening (ICD-10-PCS; 2017-10-18)
DX: A41.9 Sepsis, unspecified organism (principal); N17.9 Acute kidney failure, unspecified; E87.0 Hyperosmolality and hypernatremia; E11.22 Type 2 diabetes mellitus with diabetic chronic kidney disease; I69.351 Hemiplegia and hemiparesis following cerebral infarction affecting right dominant side; N39.0 Urinary tract infection, site not specified; K94.23 Gastrostomy malfunction; B96.4 Proteus (mirabilis) (morganii) as the cause of diseases classified elsewhere; E86.0 Dehydration; G40.409 Other generalized epilepsy and epileptic syndromes, not intractable, without status epilepticus; I12.9 Hypertensive chronic kidney disease with stage 1 through stage 4 chronic kidney disease, or unspecified chronic kidney disease; I69.320 Aphasia following cerebral infarction; J44.9 Chronic obstructive pulmonary disease, unspecified; K21.9 Gastro-esophageal reflux disease without esophagitis; E66.9 Obesity, unspecified; M81.0 Age-related osteoporosis without current pathological fracture; N18.9 Chronic kidney disease, unspecified; Z66 Do not resuscitate; Z79.4 Long term (current) use of insulin; Z87.01 Personal history of pneumonia (recurrent); Z87.440 Personal history of urinary (tract) infections; Z88.0 Allergy status to penicillin; Z93.1 Gastrostomy status; Z74.01 Bed confinement status

== ENCOUNTER 2018-09-05 15:05 | Emergency (ER) | payer MEDICARE, MEDICAID ==
[2018-09-05 15:06] VITALS: BMI 27.7
[2018-09-05 15:19] VITALS: O2SAT 100
--- NOTE | 2018-09-05 16:05 | C.PDOC ---
History Of Present Illness 68 y/o female sent to the ED from [facility] for PEG tube placement. Patient had a grewal catheter placed yesterday in the PEG tube site, as the PEG tube fell out during a seizure. No other complaints offered at this time. Time Seen by Provider: 09/05/18 15:12 Chief Complaint (Nursing): Medical Clearance History Per: Other (USP) History/Exam Limitations: no limitations Past Medical History Reviewed: Historical Data, Nursing Documentation, Vital Signs Vital Signs: Last Vital Signs Temp 97.9 F 09/05/18 15:19 Pulse 83 09/05/18 15:19 Resp 20 09/05/18 15:19 BP 120/69 09/05/18 15:19 Pulse Ox 100 09/05/18 15:19 - Medical History PMH: Anemia, Anxiety, COPD, CVA, Diabetes, HTN, Pneumonia, Chronic Kidney Disease, Seizures Denies: HIV, Osteoporosis Other Surgeries: PEG tube placement - [facility] Procedures CHANGE FEEDING DEVICE IN UP INTEST TRACT, AGRICULTURAL ADVISER APPROACH (05/23/18) ENTERAL INFUSION OF CONCENTRATED NUT. SUBSTANCES (03/01/13) INSERT INFUSION DEV IN L INT JUGULAR VEIN, PERC (01/16/18) INSERTION OF INFUSION DEV INTO L BRACH VEIN, PERC APPROACH (10/18/17) INSERTION OF INFUSION DEV INTO R SUBCLAV VEIN, PERC APPROACH (08/28/17) INSERTION OF INFUSION DEV INTO SUP VENA CAVA, PERC APPROACH (07/05/17) INSPECTION OF UPPER INTESTINAL TRACT, ENDO (01/16/18) INTRODUCTION OF NUTRITIONAL INTO UP GI, VIA OPENING (10/18/17) INTRODUCTION OF SERUM/TOX/VACCINE INTO MUSCLE, PERC APPROACH (01/16/18) REPLACE GASTROSTOMY TUBE (07/23/13) Family History: States: Unknown Family Hx - Social History Hx Tobacco Use: No Hx Alcohol Use: No Hx Substance Use: No - Immunization History Hx Tetanus Toxoid Vaccination: No (no record) Hx Influenza Vaccination: No (no record) Hx Pneumococcal Vaccination: No (no record) Review Of Systems Constitutional: Negative for: Fever Gastrointestinal: Positive for: Other (PEG tube dysfuntion). Negative for: Vomiting, Abdominal Pain, Diarrhea Physical Exam - Physical Exam Appears: No Acute Distress, Other (Obese female) Skin: Warm, Dry Head: Atraumatic, Normacephalic Eye(s): bilateral: Normal Inspection, PERRL, EOMI Neck: Normal ROM Chest: Symmetrical Cardiovascular: Rhythm Regular, No Murmur Respiratory: Normal Breath Sounds, No Accessory Muscle Use Gastrointestinal/Abdominal: Soft, No Tenderness, No Distention, Other (Grewal catheter in LUQ with stomach contents leaking out of it) Extremity: Bilateral: Atraumatic, Normal Color And Temperature Pulses: Left Radial: Normal, Right Radial: Normal Neurological/Psych: Other (Alert, Awake, Disoriented) ED Course And Treatment O2 Sat by Pulse Oximetry: 100 (RA) Pulse Ox Interpretation: Normal Medical Decision Making Medical Decision Making: new PEG placed in GI stoma surround rash prior dx and started on [place] Disposition Doctor Will See Patient In The: Office Counseled Patient/Family Regarding: Studies Performed, Diagnosis - Disposition Disposition: TRANSF TO SNF Disposition Time: 16:31 Condition: GOOD Forms: [facility] (Amharic) - Clinical Impression Clinical Impression: PEG tube malfunction - Scribe Statement The provider has reviewed the documentation as recorded by the Britany Cee Provider Attestation: All medical record entries made by the Britany were at my direction and personally dictated by me. I have reviewed the chart and agree that the record accurately reflects my personal performance of the history, physical exam, medical decision making, and the department course for this patient. I have also personally directed, reviewed, and agree with the discharge instructions and disposition.
[2018-09-05 18:51] VITALS: BP 140/57; PULSE 82; RESP 18; TEMP 97.2
== END 2018-09-05 20:45 ==
LOC: C.ER 15:05
DX: K94.23 Gastrostomy malfunction (principal); Y84.8 Other medical procedures as the cause of abnormal reaction of the patient, or of later complication, without mention of misadventure at the time of the procedure